=== PATIENT | female | born 1930 | race Caucasian/White ===

== ENCOUNTER 2016-10-30 02:23 | Inpatient (IN) | payer MEDICARE, MEDICAID ==
[2016-10-30] MEDS ORDERED: DILTIAZEM 125 MG in SODIUM CHLORIDE 0.9% 100 ML IV STA (02:51)
[2016-10-30] MEDS ORDERED: ALBUTEROL NEBULIZED 2.5 MG/3 ML INHALATION STA (02:57)
[2016-10-30 03:02] LABS: Anisocytosis Slight; Basophils % (A) 0 %; CH 24.7; CHCM 31.2; Eosinophils # (A) 0.2 k/uL (0-0.7); Eosinophils % (A) 3 %; HCT 34.3 % (34.0-46.0); HDW 2.86; HGB 10.8 gm/dL (11.4-16.0); Hypochromasia Moderate; Luc # (Auto) 0.14; Luc % (Auto) 2; Lymphocytes # (A) 0.7 k/uL (1.0-4.8); Lymphocytes % (A) 13 %; MCH 25.1 pg (25.0-35.0); MCHC 31.4 g/dL (31.0-37.0); MCV 79.8 fL (80.0-100.0); Mean Platelet Volume 6.6; Monocytes # (A) 0.3 k/uL (0-1.0); Monocytes % (A) 5 %; Neutrophils # (A) 4.3 k/uL (1.3-7.7); Neutrophils % (A) 77 %; RDW 16.4 % (11.5-15.5); WBC 5.6 k/uL (3.8-10.6); WBC (Perox) 5.98
[2016-10-30 03:12] LABS: INR 1.3 (<1.1); Partial Thromboplastin Time 28.1 sec (22.0-30.0); Prothrombin Time 12.8 sec (9.0-12.0)
[2016-10-30 03:14] LABS: ALT 31 U/L (9-52); AST 29 U/L (14-36); Alkaline Phosphatase 86 U/L (38-126); Anion Gap 10 mmol/L; Blood Urea Nitrogen 11 mg/dL (7-17); Calcium 9.2 mg/dL (8.4-10.2); Carbon Dioxide 21 mmol/L (22-30); Chloride 100 mmol/L (98-107); Glucose 146 mg/dL (74-99); Magnesium 1.5 mg/dL (1.6-2.3); Non-African American GFR(MDRD) >60 (>60 ml/min/1.73 sqM); Potassium 4.1 mmol/L (3.5-5.1); Sodium 131 mmol/L (137-145); Total Bilirubin 0.9 mg/dL (0.2-1.3); Total Protein 7.9 g/dL (6.3-8.2)
[2016-10-30 03:21] LABS: Creatine Kinase 32 U/L (30-135)
[2016-10-30 03:35] LABS: Creatine Kinase MB 0.7 ng/mL (0.0-2.4); Troponin I <0.012 ng/mL (0.000-0.034)
--- NOTE | 2016-10-30 03:59 | XR ---
EXAM: XR Chest, 1 View. CLINICAL HISTORY: Reason: dysrhythmia TECHNIQUE: Frontal view of the chest. COMPARISON: Chest x-ray 03/08/16 FINDINGS: Lungs: Bilateral interstitial prominence, likely mild pulmonary edema. Pleural space: No pleural effusion. No pneumothorax. Heart: Stable cardiomegaly. Left chest wall cardiac pacer appears stable. Mediastinum: Unremarkable. Bones/joints: Median sternotomy wires. IMPRESSION: Cardiomegaly with bilateral interstitial prominence, likely mild pulmonary edema.
[2016-10-30] MEDS ORDERED: MAGNESIUM SULFATE-D5W PMX 1 GM in DEXTROSE/WATER 1 100ML.BAG IVPB ONE (04:09)
[2016-10-30] MEDS ORDERED: FUROSEMIDE 10 MG/ML 4 ML VIAL IV STA ×2 (04:27→08:16)
[2016-10-30] MEDS ORDERED: ONDANSETRON 4 MG/2 ML VIAL IVP STA (04:28)
[2016-10-30] MEDS ORDERED: ALPRAZolam 0.25 MG TAB PO STA ×2 (05:02→05:03)
--- NOTE | 2016-10-30 05:56 | ED ---
SOB HPI - General Chief Complaint: Shortness of Breath Stated Complaint: SOB Time Seen by Provider: 10/30/16 02:32 Source: patient, EMS Mode of arrival: EMS - History of Present Illness Initial Comments: This patient is an 86-year-old woman who comes in to be evaluated after she became very short of breath. The symptoms started tonight while she was trying to sleep. She was awakened and felt her heart racing and that she could not catch her breath. She states that prior to going to sleep she felt for the most part well, though maybe had a mild cough. She denies chest pain, fever or chills, productive cough, change in urination, bloody or dark tarry stools. Patient has no leg pain or swelling. MD Complaint: shortness of breath Onset/Timin -: hour(s) Consistency: constant Improves With: nothing Worsens With: lying flat Known History Of: congestive heart failure - Related Data Home Medications Medication Instructions Recorded Confirmed Apixaban [Eliquis] 2.5 mg PO BID@0830,2030 01/26/14 10/30/16 Simvastatin 10 mg PO HS 01/26/14 10/30/16 Levothyroxine Sodium [Levoxyl] 112 mcg PO QAM 10/29/15 10/30/16 Multivit with Calcium,Iron,Min 1 tab PO HS 10/30/15 10/30/16 [Women's Daily Multivitamin] Previous Rx's Medication Instructions Recorded metFORMIN HCL [Glucophage] 1,000 mg PO AC-BID #60 tab 02/25/14 Acetaminophen Tab [Tylenol] 650 mg PO Q6HR PRN #0 tab 10/31/15 Magnesium 200 mg PO DAILY #7 tablet 02/27/16 ALPRAZolam [Xanax] 0.25 mg PO BID #60 tab 11/06/16 Diltiazem Oral [Cardizem*] 60 mg PO TID tab 11/06/16 Furosemide [Lasix] 40 mg PO DAILY tab 11/06/16 INSULIN LISPRO (humaLOG) [humaLOG 0 unit SQ ACHS vial 11/06/16 (formulary)] Ipratropium Nebulized [Atrovent 0.5 mg INHALATION RT-QID nebu 11/06/16 Nebulized] Lactulose [Cephulac] 15 gm PO BID ml 11/06/16 Levalbuterol Nebulized (Conc) 1.25 mg INHALATION RT-QID nebule 11/06/16 [Xopenex Nebulized (Conc)] Levofloxacin [Levaquin] 750 mg PO DAILY@1200 #5 tab 11/06/16 Metoprolol Tartrate [Lopressor] 25 mg PO DAILY tab 11/06/16 Potassium Chloride ER [K-Dur 20] 20 meq PO DAILY #30 tab 11/06/16 Promethaz-Cod 6.25-10 mg/5 ml 5 ml PO Q4H PRN 5 Days 11/06/16 [Phenergan with Codeine] predniSONE 0 mg PO DIRECTED #30 tab 11/06/16 Allergies Allergy/AdvReac Type Severity Reaction Status Date / Time Penicillins Allergy Swelling Verified 10/30/16 07:57 codeine AdvReac Nausea & Verified 11/03/16 08:28 Vomiting Review of Systems ROS Statement: Those systems with pertinent positive or pertinent negative responses have been documented in the HPI. ROS Other: All systems not noted in ROS Statement are negative. Constitutional: Denies: fever, chills Respiratory: Reports: cough, dyspnea. Denies: wheezes, hemoptysis Cardiovascular: Reports: palpitations, orthopnea. 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 Records say AICD, pt denies Past Psychological History: No Psychological Hx Reported Smoking Status: Never smoker Past Alcohol Use History: None Reported Past Drug Use History: None Reported - Past Family History Sister(s) Family Medical History: Cancer Father Additional Family Medical History / Comment(s): Tuberculosis-Dad General Exam General appearance: alert, in distress (Patient is in mild respiratory distress being mildly tachypneic) Head exam: Present: atraumatic, normocephalic Eye exam: Present: normal appearance. Absent: scleral icterus, conjunctival injection ENT exam: Present: normal oropharynx Neck exam: Present: normal inspection, full ROM Respiratory exam: Present: respiratory distress (Mild tachypnea), rales ( Bilateral bases). Absent: wheezes, rhonchi, stridor, accessory muscle use, decreased breath sounds, prolonged expiratory Cardiovascular Exam: Present: tachycardia, irregular rhythm, normal heart sounds. Absent: systolic murmur, diastolic murmur, rubs, gallop GI/Abdominal exam: Present: soft. Absent: distended, tenderness, guarding, rebound, mass Extremities exam: Present: normal inspection, normal capillary refill. Absent: pedal edema, calf tenderness Back exam: Present: normal inspection. Absent: CVA tenderness (R), CVA tenderness (L) Neurological exam: Present: alert Skin exam: Present: warm, dry, intact, normal color. Absent: rash, cyanosis, diaphoretic, erythema, petechiae, pallor, mottled Course Vital Signs 10/30/16 10/30/16 10/30/16 02:27 02:59 03:09 Temperature 98.3 F Pulse Rate 119 H 105 H 106 H Pulse Rate [ Pulse Oximetery ] Respiratory 24 Rate Blood Pressure 187/78 Blood Pressure [Right Arm] O2 Sat by Pulse 93 L Oximetry 10/30/16 10/30/16 10/30/16 03:24 04:32 05:07 Temperature Pulse Rate 105 H 96 101 H Pulse Rate [ Pulse Oximetery ] Respiratory 24 16 18 Rate Blood Pressure 187/78 135/62 103/66 Blood Pressure [Right Arm] O2 Sat by Pulse 96 94 L 96 Oximetry 10/30/16 10/30/16 10/30/16 06:00 07:04 08:00 Temperature 98.9 F Pulse Rate 92 94 Pulse Rate [ 104 H Pulse Oximetery ] Respiratory 20 16 24 Rate Blood Pressure 146/62 136/65 Blood Pressure [Right Arm] O2 Sat by Pulse 92 L 93 L Oximetry 10/30/16 08:25 Temperature 97.6 F Pulse Rate Pulse Rate [ 104 H Pulse Oximetery ] Respiratory 24 Rate Blood Pressure Blood Pressure 167/72 [Right Arm] O2 Sat by Pulse 92 L Oximetry Medical Decision Making - Lab Data Result diagrams: 11/06/16 07:05 11/06/16 07:05 Lab Results 10/30/16 10/30/16 10/30/16 Range/Units 02:35 02:35 02:35 WBC 5.6 (3.8-10.6) k/uL RBC 4.30 (3.80-5.40) m/uL Hgb 10.8 L (11.4-16.0) gm/dL Hct 34.3 (34.0-46.0) % MCV 79.8 L (80.0-100.0) fL MCH 25.1 (25.0-35.0) pg MCHC 31.4 (31.0-37.0) g/dL RDW 16.4 H (11.5-15.5) % Plt Count 124 L (150-450) k/uL Neutrophils % 77 % Lymphocytes % 13 % Monocytes % 5 % Eosinophils % 3 % Basophils % 0 % Neutrophils # 4.3 (1.3-7.7) k/uL Lymphocytes # 0.7 L (1.0-4.8) k/uL Monocytes # 0.3 (0-1.0) k/uL Eosinophils # 0.2 (0-0.7) k/uL Basophils # 0.0 (0-0.2) k/uL Hypochromasia Moderate Anisocytosis Slight PT (9.0-12.0) sec INR (<1.1) APTT (22.0-30.0) sec Sodium 131 L (137-145) mmol/L Potassium 4.1 (3.5-5.1) mmol/L Chloride 100 (98-107) mmol/L Carbon Dioxide 21 L (22-30) mmol/L Anion Gap 10 mmol/L BUN 11 (7-17) mg/dL Creatinine 0.50 L (0.52-1.04) mg/dL Est GFR (MDRD) Af Amer >60 (>60 ml/min/1.73 sqM) Est GFR (MDRD) Non-Af >60 (>60 ml/min/1.73 sqM) Glucose 146 H (74-99) mg/dL Calcium 9.2 (8.4-10.2) mg/dL Magnesium 1.5 L (1.6-2.3) mg/dL Total Bilirubin 0.9 (0.2-1.3) mg/dL AST 29 (14-36) U/L ALT 31 (9-52) U/L Alkaline Phosphatase 86 (38-126) U/L Total Creatine Kinase 32 (30-135) U/L CK-MB (CK-2) 0.7 (0.0-2.4) ng/mL CK-MB (CK-2) Rel Index 2.2 Troponin I <0.012 (0.000-0.034) ng/mL NT-Pro-B Natriuret Pep pg/mL Total Protein 7.9 (6.3-8.2) g/dL Albumin 4.2 (3.5-5.0) g/dL 10/30/16 10/30/16 Range/Units 02:35 02:35 WBC (3.8-10.6) k/uL RBC (3.80-5.40) m/uL Hgb (11.4-16.0) gm/dL Hct (34.0-46.0) % MCV (80.0-100.0) fL MCH (25.0-35.0) pg MCHC (31.0-37.0) g/dL RDW (11.5-15.5) % Plt Count (150-450) k/uL Neutrophils % % Lymphocytes % % Monocytes % % Eosinophils % % Basophils % % Neutrophils # (1.3-7.7) k/uL Lymphocytes # (1.0-4.8) k/uL Monocytes # (0-1.0) k/uL Eosinophils # (0-0.7) k/uL Basophils # (0-0.2) k/uL Hypochromasia Anisocytosis PT 12.8 H (9.0-12.0) sec INR 1.3 (<1.1) APTT 28.1 (22.0-30.0) sec Sodium (137-145) mmol/L Potassium (3.5-5.1) mmol/L Chloride (98-107) mmol/L Carbon Dioxide (22-30) mmol/L Anion Gap mmol/L BUN (7-17) mg/dL Creatinine (0.52-1.04) mg/dL Est GFR (MDRD) Af Amer (>60 ml/min/1.73 sqM) Est GFR (MDRD) Non-Af (>60 ml/min/1.73 sqM) Glucose (74-99) mg/dL Calcium (8.4-10.2) mg/dL Magnesium (1.6-2.3) mg/dL Total Bilirubin (0.2-1.3) mg/dL AST (14-36) U/L ALT (9-52) U/L Alkaline Phosphatase (38-126) U/L Total Creatine Kinase (30-135) U/L CK-MB (CK-2) (0.0-2.4) ng/mL CK-MB (CK-2) Rel Index Troponin I (0.000-0.034) ng/mL NT-Pro-B Natriuret Pep 1220 pg/mL Total Protein (6.3-8.2) g/dL Albumin (3.5-5.0) g/dL - EKG Data -: EKG Interpreted by Me EKG shows normal: axis (Normal), intervals (Normal), QRS complexes (There is a left anterior fascicular block) Rate: tachycardia Interpretation: other (Atrial fibrillation with a rate of approximately 109 bpm) Disposition Clinical Impression: Congestive heart failure, Atrial fibrillation with RVR Disposition: ADMITTED IP TO THIS [facility] Condition: Good
[2016-10-30] MEDS ORDERED: ONDANSETRON ODT 4 MG TAB PO PRN (05:57)
[2016-10-30] MEDS ORDERED: FUROSEMIDE 10 MG/ML 4 ML VIAL IV SCH ×2 (06:00→16:00)
[2016-10-30] MEDS: SODIUM CHLORIDE 0.9% 1,000 ML IV SCH (07:02)
[2016-10-30] MEDS ORDERED: IPRATROPIUM 0.5 MG/2.5 ML NEBU INHALATION PRN (08:16)
[2016-10-30] MEDS ORDERED: ALPRAZolam 0.5 MG TAB PO STA (08:17)
[2016-10-30] MEDS: APIXABAN 2.5 MG TABLET PO SCH ×2 (08:25→22:20)
[2016-10-30] MEDS: metFORMIN 500 MG TAB PO SCH ×2 (08:25→16:54)
[2016-10-30] MEDS: MAGNESIUM OXIDE 400 MG TAB PO SCH (08:25)
[2016-10-30] MEDS: LEVOTHYROXINE 112 MCG TAB PO SCH (08:25)
[2016-10-30] MEDS ORDERED: amLODIPine 2.5 MG TAB PO SCH (09:00)
[2016-10-30] MEDS ORDERED: DILTIAZEM ORAL 30 MG TAB PO SCH (09:00)
[2016-10-30] MEDS ORDERED: ASPIRIN 325 MG TAB PO SCH (09:00)
[2016-10-30] MEDS ORDERED: NON-FORMULARY DRUG (Magnesium [Magnesium] 200 MG) PO SCH (09:00)
[2016-10-30] MEDS: ACETAMINOPHEN TAB 325 MG TAB PO PRN (10:18)
[2016-10-30 10:25] LABS: Amorphous Sediment,Urine Rare /hpf; Appearance,Urine Clear (Clear); Bacteria,Urine Occasional /hpf; Bilirubin,Urine Negative (Negative); Glucose,Urine (UA) Negative (Negative); Ketones,Urine Negative (Negative); Leukocyte Esterase,Urine Small (Negative); Mucus,Urine Rare /hpf; Nitrite,Urine Positive (Negative); Particle Count 22241; Protein,Urine Negative (Negative); RBC,Urine 13 /hpf (0-5); Specific Gravity,Urine 1.005 (1.001-1.035); Squamous Epithelial Cell,Urine <1 /hpf (0-4); UA Billing (MACRO vs. MICRO) MICRO; Urobilinogen,Urine <2.0 mg/dL (<2.0); WBC,Urine 1 /hpf (0-5)
[2016-10-30 10:58] LABS: Glucose,Whole Blood 133 mg/dL (75-99)
[2016-10-30 11:29] LABS: Creatine Kinase MB 1.7 ng/mL (0.0-2.4); Troponin I 0.014 ng/mL (0.000-0.034)
[2016-10-30] MEDS ORDERED: LEVALBUTEROL NEB 0.31 MG/3 ML AMP INHALATION SCH (12:00)
--- NOTE | 2016-10-30 12:18 | ECHOF ---
Referral Reason:CHF MEASUREMENTS -------- HEIGHT: 172.7 cm WEIGHT: 77.1 kg BP: 136/65 RVIDd: 3.9 cm (< 3.3) IVSd: 1.1 cm (0.6 - 1.1) LVIDd: 3.9 cm (3.9 - 5.3) LVPWd: 1.4 cm (0.6 - 1.1) IVSs: 1.6 cm LVIDs: 2.4 cm LVPWs: 1.4 cm LAESV Index (A-L): 41.03 ml/m Ao Diam: 3.1 cm (2.0 - 3.7) AV Cusp: 1.9 cm (1.5 - 2.6) LA Diam: 4.3 cm (2.7 - 3.8) MV EXCURSION: 17.007 mm (> 18.000) MV EF SLOPE: 90 mm/s (70 - 150) EPSS: 0.9 cm AV maxP.93 mmHg AV meanP.58 mmHg RAP: 5.00 mmHg RVSP: 61.90 mmHg FINDINGS -------- Atrial fibrillation. This was a technically good study. There is mild concentric left ventricular hypertrophy. Overall left ventricular systolic function is normal with, an EF between 55 - 60 %. The right ventricle is moderately enlarged. LA is severely dilated >40 ml/m2 RA appears enlarged. Aortic valve is trileaflet and is mildly thickened. There is mild aortic stenosis present. Peak/mean gradient across the Aortic Valve is 16.93mmHg / 9.58mmHg. The mitral valve leaflets are mildly thickened. Mild mitral regurgitation is present. There is mild mitral valve prolapse , predominately a posteriorly directed jet. Severe tricuspid regurgitation present. There is moderate pulmonary hypertension. The right ventricular systolic pressure, as measured by Doppler, is 61.90mmHg. Pulmonic valve appears structurally normal. The aortic root size is normal. The pericardium is normal. CONCLUSIONS -------- 1. Atrial fibrillation. 2. Peak/mean gradient across the Aortic Valve is 16.93mmHg / 9.58mmHg. 3. The mitral valve leaflets are mildly thickened. 4. Mild mitral regurgitation is present. 5. There is mild mitral valve prolapse. 6. , predominately a posteriorly directed jet. 7. Severe tricuspid regurgitation present. 8. There is moderate pulmonary hypertension. 9. The right ventricular systolic pressure, as measured by Doppler, is 61.90mmHg. 10. Pulmonic valve appears structurally normal. 11. The aortic root size is normal. 12. This was a technically good study. 13. The pericardium is normal. 14. There is mild concentric left ventricular hypertrophy. 15. Overall left ventricular systolic function is normal with, an EF between 55 - 60 %. 16. The right ventricle is moderately enlarged. 17. LA is severely dilated >40 ml/m2 18. RA appears enlarged. 19. Aortic valve is trileaflet and is mildly thickened. 20. There is mild aortic stenosis present. [employer]: Katarina Mcguire RDCS
[2016-10-30] MEDS: IPRATROPIUM 0.5 MG/2.5 ML NEBU INHALATION SCH ×3 (12:24→19:57)
[2016-10-30] MEDS: LEVALBUTEROL NEB (CONC) 1.25 MG/0.5 ML AMP INHALATION SCH ×3 (12:24→19:57)
[2016-10-30 13:55] LABS: Glucose,Whole Blood 128 mg/dL (75-99)
[2016-10-30 15:57] LABS: Creatine Kinase MB 1.7 ng/mL (0.0-2.4)
[2016-10-30 16:00] LABS: Troponin I 0.084 ng/mL (0.000-0.034)
--- NOTE | 2016-10-30 16:09 | P.CNPUL ---
History of Present Illness Consult date: 10/30/16 Requesting physician: Katherin Land Reason for consult: dyspnea, cough Chief complaint: Shortness of breath and cough and palpitations History of present illness: This is an 86-year-old female with history of chronic atrial fibrillation, coronary artery disease, previous history of congestive heart failure, diabetes , hyperlipidemia, hypertension, and osteoarthritis. A shunt had previous coronary artery bypass surgery, previous cardiac catheterization, pacemaker insertion, and history of multiple orthopedic surgeries. Patient is usually maintained on anticoagulation therapy, statin therapy, blood pressure medication , and thyroid replacement therapy. Patient was recently admitted for knee pain , and she was eventually discharged to [facility]. On 10/30/2016, patient was seen in the ER with 1 day history of increased shortness of breath which started the night before patient was unable to sleep because of shortness of breath, she was awakened and felt her heart was racing. Could not catch her breath. She also had a mild cough. Upon evaluation and the ER, patient was found to have A. fib with RVR, and she was also noted to have mild congestive heart failure. Patient was initially admitted to extended care on the second floor, but as she was getting worse, and arrangements were made to transfer the patient to the ICU. Patient was placed on Lasix and and Cardizem, and over a period of few hours after arrival to the ICU, patient was feeling much better, breathing a lot easier. By the time I saw the patient, she denies shortness of breath, no cough no wheezing. No fever no chills no hemoptysis and no chest pain. Patient was placed on updrafts for underlying COPD she was also placed on Lasix 40 mg IV push every 8 hours, and her IV Cardizem which was earlier initiated but in the ER, has been switched to oral medication. Review of Systems 14 point review of systems were obtained, please refer to pertinent positives and negatives in HPI. Past Medical History Past Medical History: Atrial Fibrillation, Coronary Artery Disease (CAD), Heart Failure, CVA/TIA, Diabetes Mellitus, GI Bleed, Hyperlipidemia, Hypertension, Osteoarthritis (OA), Pneumonia, Thyroid Disorder Additional Past Medical History / Comment(s): Recurrent UTIs and past mild encephalopathy with UTI, multiple CVA/TIA, 2014 rectal bleed, diverticular dx, chronic anemia, small hiatal hernia, hypothyroid History of Any Multi-Drug Resistant Organisms: MRSA Date of last positivie culture/infection: 03/12/2014 MDRO Source:: Urine Past Surgical History: Cholecystectomy, Coronary Bypass/CABG, Heart Catheterization, Joint Replacement, Pacemaker Additional Past Surgical History / Comment(s): [employer], 2005 CABG X4, D&C, TOTAL RIGHT KNEE Past Anesthesia/Blood Transfusion Reactions: Postoperative Nausea & Vomiting ( PONV) Type of Cardiac Device: Permanent Pacemaker Device Placement Date:: 2010 Past Psychological History: No Psychological Hx Reported Additional Psychological History / Comment(s): Pt lives alone. She uses a walker to ambulate. She drives. Smoking Status: Never smoker Past Alcohol Use History: None Reported Past Drug Use History: None Reported - Past Family History Sister(s) Family Medical History: Cancer Father Family Medical History: Respiratory Disorder Additional Family Medical History / Comment(s): Tuberculosis-Dad Medications and Allergies Home Medications Medication Instructions Recorded Confirmed Type Apixaban [Eliquis] 2.5 mg PO BID@0830,2030 01/26/14 10/30/16 History Simvastatin 10 mg PO HS 01/26/14 10/30/16 History amLODIPine [Norvasc] 2.5 mg PO QAM 01/26/14 10/30/16 History Levothyroxine Sodium [Levoxyl] 112 mcg PO QAM 10/29/15 10/30/16 History Multivit with Calcium,Iron,Min 1 tab PO HS 10/30/15 10/30/16 History [Women's Daily Multivitamin] Diltiazem HCl 30 mg PO BID 10/30/16 10/30/16 History Allergies Allergy/AdvReac Type Severity Reaction Status Date / Time codeine Allergy Nausea & Verified 10/30/16 07:57 Vomiting Penicillins Allergy Swelling Verified 10/30/16 07:57 Physical Exam Vitals: Vital Signs Temp Pulse Pulse Resp BP BP Pulse Ox 10/30/16 15:37 85 10/30/16 15:26 83 10/30/16 14:27 76 25 H 10/30/16 14:20 83 25 H 110/55 94 L 10/30/16 14:10 79 27 H 110/55 95 10/30/16 14:00 82 26 H 110/55 95 10/30/16 13:50 91 110/55 94 L 10/30/16 13:40 88 10/30/16 13:36 98 F 91 25 H 110/56 93 L 10/30/16 11:10 98.6 F 104 H 22 133/63 93 L 10/30/16 08:25 97.6 F 104 H 24 167/72 92 L 10/30/16 08:00 104 H 24 10/30/16 07:04 98.9 F 94 16 136/65 93 L 10/30/16 06:00 92 20 146/62 92 L Intake and Output 10/30/16 10/30/16 10/30/16 06:59 14:59 22:59 Intake Total 15 Output Total 700 Balance -685 Intake: Intake, IV Titration 15 Amount Diltiazem 125 mg In 5 Sodium Chloride 0.9% 100 ml @ 10 MG/HR 10 mls/hr IV .[id number] STA Rx#: [id number] Sodium Chloride 0.9% 1, 10 000 ml @ 20 mls/hr IV . Q24H INDIO Rx#:[id number] Output: Urine 700 Other: Voiding Method Indwelling Catheter # Voids 1 Weight 80 kg Patient Weight 10/31/16 06:59 Weight 80 kg Physical Exam: Revealed an 86-year-old, in no distress. HEENT:[Neck is supple.] [No neck masses.] [No thyromegaly.] [No JVD.] Chest: [Clear throughout, positive crackles, and the bases, mostly at the right base. no rhonchi, no wheezes.] Cardiac Exam: [Irregular irregular rhythm Normal S1 and S2, no S3 gallop, 2/6 systolic murmur throughout the precordium] Abdomen: [Soft, nontender, no megaly, no rebound, no guarding, normal bowel sounds.] Extremities: [No clubbing, no edema, no cyanosis.] Neurological Exam: [No focal neurologic deficit.] Results - Laboratory Findings CBC and BMP: 10/30/16 02:35 10/30/16 02:35 PT/INR, D-dimer PT 12.8 sec (9.0-12.0) H 10/30/16 02:35 INR 1.3 (<1.1) 10/30/16 02:35 Abnormal lab findings: Abnormal Labs 10/30/16 10/30/16 10/30/16 10:00 10:10 10:54 POC Glucose (mg/dL) 133 H Plasma Lactic Acid Fred 3.3 H* Urine Nitrite Positive H Ur Leukocyte Esterase Small H Urine RBC 13 H Amorphous Sediment Rare H Urine Bacteria Occasional H Urine Mucus Rare H 10/30/16 13:53 POC Glucose (mg/dL) 128 H Plasma Lactic Acid Fred Urine Nitrite Ur Leukocyte Esterase Urine RBC Amorphous Sediment Urine Bacteria Urine Mucus - Diagnostic Findings Chest x-ray: image reviewed (Chest x-ray is suggestive of mild interstitial edema, possibility of underlying interstitial lung disease is not entirely ruled out but felt to be less likely. Chest x-ray was compared to a chest x- ray in 2015, there is clearly more interstitial edema findings on the present chest x-ray compared to old chest x-ray.) Assessment and Plan Plan: Impression: 1 shortness of breath secondary to acute congestive heart failure secondary to atrial fibrillation and RVR. 2 multiple comorbidities including essential hypertension, chronic atrial fibrillation, hypercholesterolemia, osteoarthritis, previous CABG, previous history of CVA, and underlying coronary artery disease. Recommendation: Patient seems to be responding well to the present treatment plan using diuretics, bronchodilators, and responding to the treatment of her arrhythmia. Patient will be monitored overnight in the ICU, and if she continues to do well and chest x-ray shows improvement in the next 24 hours, patient will be transferred to a monitored bed on selective. Time with Patient: Greater than 30
[2016-10-30] MEDS: METOPROLOL TARTRATE 25 MG TAB PO SCH (16:54)
[2016-10-30 18:28] LABS: Glucose,Whole Blood 155 mg/dL (75-99)
--- NOTE | 2016-10-30 21:02 | CONS ---
DATE OF CONSULTATION: This is an 86-year-old elderly lady who sees Dr. Mary Friedman in the outpatient setting. She has history of CAD, previous bypass surgery, chronic atrial fibrillation, hypertension, hyperlipidemia and type 2 diabetes mellitus. She presented to the hospital with increasing weakness, shortness of breath, and she felt her heart was racing fast. After arrival she was found to be in atrial fibrillation with a rapid ventricular rate. There was also a question of heart failure/interstitial pneumonia. There was a modest elevation of BNP; however, she was diuresed and admitted to the ICU. Her rate control is somewhat better. She is now on a Cardizem drip as well. She is resting comfortably without symptoms at the time of my evaluation. PAST MEDICAL HISTORY: 1. CAD with previous bypass surgery. 2. Hypertension. 3. Hyperlipidemia. 4. Type 2 diabetes mellitus. 5. Chronic atrial fibrillation, on a low dose of apixaban. This patient also has pulmonary hypertension of unclear etiology. Patient is not a smoker, does not use any alcohol. She has had a previous permanent pacemaker as well, the details of which are not available to me at this time. Medications at home include: 1. Apixaban 2.5 mg b.i.d. 2. Metformin. 3. Simvastatin. 4. Levothyroxine. 5. Diltiazem. 6. Aspirin 325 mg daily. 7. Levothyroxine 112 mcg daily. ALLERGIES: CODEINE and PENICILLIN. On examination, blood pressure is 108/60. Pulse rate is about 90, irregularly irregular. HEENT: Unremarkable. Fundus was not examined by me. Neck is supple. There is JVD of about 1 cm. There is no carotid bruit. Heart exam reveals S1, S2 with a short ejection systolic murmur that is audible at the base of the heart. Lungs reveal bilateral rhonchi with some fine rales over both bases. ABDOMEN: Soft, nontender. Lower extremities reveal diminished pulses. CENTRAL NERVOUS SYSTEM: Grossly no focal deficits, but there is generalized weakness noted. IMPRESSION: 1. Probable interstitial pneumonia. 2. Mild exacerbation of congestive heart failure; however, BNP is normal and echocardiogram revealed normal systolic function. Possibility of diastolic dysfunction should be considered. 3. Chronic atrial fibrillation with increased ventricular rate. 4. History of coronary artery disease with previous bypass surgery. RECOMMENDATIONS: I am recommending that we cut the Lasix down to 40 mg q.12 hours, decrease the aspirin to 81 mg daily, and I will give oral metoprolol tartrate 25 mg and see how she does. Patient is also being seen by Dr. Russell, and she is also being diuresed cautiously. Thank you very much for the consult.
--- NOTE | 2016-10-30 22:02 | P.HPIM ---
History of Present Illness H&P Date: 10/30/16 Chief Complaint: Shortness of breath palpitations Chief Complaint: left knee pain This is an 85-year-old female one of Dr. Conklin the previous medical history significant for CAD, A. fib, diabetes, neuropathy and multiple CVA who has also recurrent UTI and mild encephalopathy related to UTI in the past. She was well until one day prior to admission when the patient has shortness of breath, PND, murmur symptoms worsened at night time patient was having difficulty of breathing at night and fast heart beat, prior to this date she came home from a previous eye doctor appointment which was okay, patient denies any caffeine intake, except for T, she denies any alcohol intake, no recent changes by Dr. Babb, she denies any previous cardiology Dr. for maintenance of her medication pH is on chronic anticoagulation with eliquis. The emergency room she presented with atrial fibrillation with rapid ventricular rate, chest x-ray findings shows pulmonary edema. She was admitted secondary to the above complaints. She was initially seen during my evaluation on extended stay unit prior to her transfer to ICU. Her lactic acid is elevated no IV fluids were pushed lactic acidosis most likely secondary to metformin rather than other metabolic causes, patient's continue diuresis with 40 mg Lasix every 8 hours. Patient was seen consultation by Dr. Russell from critical care medicine, and cardiology. Review of Systems Constitutional: Reports as per HPI, Reports fatigue, Denies anorexia, Denies chills, Denies chronic headaches, Denies chronic pain, Denies daytime sleepiness , Denies fever, Denies lethargy, Denies malaise, Denies night sweats, Denies poor appetite, Denies sweats, Denies weakness, Denies weight gain, Denies weight loss Ears, nose, mouth and throat: Reports as per HPI, Denies ant. neck pain, Denies bleeding gums, Denies dental pain, Denies dysphagia, Denies epistaxis, Denies headache, Denies hoarseness, Denies mouth pain, Denies nasal congestion, Denies nasal discharge, Denies neck fullness/pressure, Denies neck lump, Denies nose pain, Denies odynophagia, Denies post-nasal drip, Denies sinus pain, Denies sinus pressure, Denies swelling in mouth, Denies swelling in throat, Denies sore throat, Denies vertigo, Denies voice changes Cardiovascular: Reports as per HPI, Reports dyspnea on exertion, Reports edema, Reports irregular heart beat, Reports palpitations Respiratory: Reports as per HPI, Reports cough Gastrointestinal: Reports as per HPI, Denies abdominal pain, Denies belching, Denies bloating, Denies BRBPR, Denies change in bowel habits, Denies coffee ground emesis, Denies constipation, Denies diarrhea, Denies dyspepsia, Denies early satiety, Denies excessive gas, Denies heartburn, Denies hematemesis, Denies hematochezia, Denies indigestion, Denies jaundice, Denies lactose intolerance, Denies loss of appetite, Denies melena, Denies nausea, Denies vomiting Genitourinary: Reports as per HPI, Denies abnormal vaginal bleeding, Denies decreased libido, Denies difficulty conceiving, Denies difficulty voiding, Denies dysmenorrhea, Denies dyspareunia, Denies dysuria, Denies flank pain, Denies genital sores, Denies hematuria, Denies hot flashes, Denies incomplete emptying, Denies kidney stones, Denies menorrhagia, Denies mixed incontinence, Denies nocturia, Denies pelvic pain, Denies post void dribbling, Denies , Denies prolapse symptoms, Denies stress incontinence, Denies urge incontinence , Denies urgency, Denies urinary frequency, Denies vaginal discharge, Denies vaginal dryness, Denies vaginal itching, Denies vaginal odor Menstruation: Reports as per HPI, Denies amenorrhea, Denies amenorrhea on BC, Denies currently menstrual, Denies cycle < 21 days, Denies cycle > 35 days, Denies cycle variable, Denies menses 1-7 days, Denies menses 8 or > days, Denies menses variable, Denies period heavy, Denies period light, Denies period normal, Denies period spotting, Denies post hysterectomy, Denies postmenopausal , Denies premenarcheal Musculoskeletal: Reports as per HPI, Denies arm numbness/tingling, Denies atrophy, Denies fractures, Denies frequent falls, Denies gait dysfunction, Denies hot joints, Denies leg numbness/tingling, Denies limitation of motion, Denies loss of height, Denies low back pain, Denies morning stiffness, Denies muscle cramps, Denies muscle weakness, Denies myalgias, Denies neck pain, Denies neck stiffness, Denies prior amputations, Denies redness of joints, Denies shooting arm pain, Denies shooting leg pain Integumentary: Reports as per HPI, Denies acne, Denies boils, Denies brittle nails, Denies change in hair/nails, Denies color changes, Denies darkening of skin, Denies depigmentation, Denies dryness, Denies foot/leg ulcers, Denies growths, Denies hirsutism, Denies lesions, Denies onychomycosis, Denies pruritus , Denies rash, Denies sores, Denies striae, Denies unusual bruising, Denies wounds Neurological: Reports as per HPI, Denies aphasia, Denies ataxia, Denies balance difficulties, Denies burning pain, Denies change in mentation, Denies change in smell/taste, Denies change in speech, Denies confusion, Denies convulsions, Denies double vision, Denies gait dysfunction, Denies head injury, Denies headaches, Denies hearing difficulties, Denies lack of coordination, Denies loss of vision, Denies memory loss, Denies migraines, Denies motor disturbance, Denies numbness, Denies paralysis, Denies paresthesias, Denies seizures, Denies sensory deficit, Denies spasticity, Denies syncope, Denies tic, Denies tingling , Denies transient paralysis, Denies tremors, Denies vertigo, Denies weakness, Denies visual changes Psychiatric: Reports as per HPI, Reports sleep disturbances Endocrine: Reports as per HPI, Denies cold intolerance, Denies deepening of the voice, Denies excessive sweating, Denies excessive thirst, Denies fatigue, Denies flushing, Denies heat intolerance, Denies high blood sugars, Denies increase in ring/shoe/hat size, Denies low blood sugars, Denies nocturia, Denies palpitations, Denies polydipsia, Denies polyphagia, Denies polyuria, Denies proptosis, Denies recent glucocorticoid use, Denies thyroid mass, Denies weight change Hematologic/Lymphatic: Reports as per HPI Allergic/Immunologic: Denies as per HPI, Denies allergic rhinitis, Denies anaphylaxis, Denies angioedema, Denies gluten intolerance, Denies persistent infections, Denies seasonal allergies, Denies urticaria, Denies wheezing Past Medical History Past Medical History: Atrial Fibrillation, Coronary Artery Disease (CAD), Heart Failure, CVA/TIA, Diabetes Mellitus, GI Bleed, Hyperlipidemia, Hypertension, Osteoarthritis (OA), Pneumonia, Thyroid Disorder Additional Past Medical History / Comment(s): Recurrent UTIs and past mild encephalopathy with UTI, multiple CVA/TIA, 2013 rectal bleed, diverticular dx, chronic anemia, small hiatal hernia, hypothyroid History of Any Multi-Drug Resistant Organisms: MRSA Date of last positivie culture/infection: 03/12/2014 MDRO Source:: Urine Past Surgical History: Cholecystectomy, Coronary Bypass/CABG, Heart Catheterization, Joint Replacement, Pacemaker Additional Past Surgical History / Comment(s): [employer], 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, D&C, TOTAL RIGHT KNEE Past Anesthesia/Blood Transfusion Reactions: Postoperative Nausea & Vomiting ( PONV) Type of Cardiac Device: Permanent Pacemaker Device Placement Date:: 2010 Past Psychological History: No Psychological Hx Reported Additional Psychological History / Comment(s): Pt lives alone. She uses a walker to ambulate. She drives. Smoking Status: Never smoker Past Alcohol Use History: None Reported Past Drug Use History: None Reported - Past Family History Sister(s) Family Medical History: Cancer Father Family Medical History: Respiratory Disorder Additional Family Medical History / Comment(s): Tuberculosis-Dad Medications and Allergies Home Medications Medication Instructions Recorded Confirmed Type Apixaban [Eliquis] 2.5 mg PO BID@0830,2030 01/26/14 10/30/16 History Simvastatin 10 mg PO HS 01/26/14 10/30/16 History amLODIPine [Norvasc] 2.5 mg PO QAM 01/26/14 10/30/16 History Levothyroxine Sodium [Levoxyl] 112 mcg PO QAM 10/29/15 10/30/16 History Multivit with Calcium,Iron,Min 1 tab PO HS 10/30/15 10/30/16 History [Women's Daily Multivitamin] Diltiazem HCl 30 mg PO BID 10/30/16 10/30/16 History Allergies Allergy/AdvReac Type Severity Reaction Status Date / Time codeine Allergy Nausea & Verified 10/30/16 07:57 Vomiting Penicillins Allergy Swelling Verified 10/30/16 07:57 Physical Exam Vitals: Vital Signs Temp Pulse Pulse Resp BP BP Pulse Ox 10/30/16 15:37 85 10/30/16 15:26 83 10/30/16 14:27 76 25 H 10/30/16 14:20 83 25 H 110/55 94 L 10/30/16 14:10 79 27 H 110/55 95 10/30/16 14:00 82 26 H 110/55 95 10/30/16 13:50 91 110/55 94 L 10/30/16 13:40 88 10/30/16 13:36 98 F 91 25 H 110/56 93 L 10/30/16 11:10 98.6 F 104 H 22 133/63 93 L 10/30/16 08:25 97.6 F 104 H 24 167/72 92 L 10/30/16 08:00 104 H 24 10/30/16 07:04 98.9 F 94 16 136/65 93 L 10/30/16 06:00 92 20 146/62 92 L Intake and Output 10/30/16 10/30/16 10/30/16 06:59 14:59 22:59 Intake Total 15 Output Total 700 Balance -685 Intake: Intake, IV Titration 15 Amount Diltiazem 125 mg In 5 Sodium Chloride 0.9% 100 ml @ 10 MG/HR 10 mls/hr IV .[id number] STA Rx#: [id number] Sodium Chloride 0.9% 1, 10 000 ml @ 20 mls/hr IV . Q24H INDIO Rx#:[id number] Output: Urine 700 Other: Voiding Method Indwelling Catheter # Voids 1 Weight 80 kg Patient Weight 10/31/16 06:59 Weight 80 kg - Constitutional General appearance: average body habitus, cooperative, no acute distress - EENT Eyes: anicteric sclerae, EOMI, PERRLA, dentition normal, normal appearance ENT: no hard of hearing, hearing grossly normal, NA/AT, normal oropharynx, no other, no pharyngeal erythema, no thrush, no tonsillar exudates, no tonsillar swelling - Neck Neck: no lymphadenopathy, normal ROM, no other, no rigidity, no stridor, no thyromegaly - Respiratory Respiratory: bilateral: CTA, negative: diminished, dullness, rales, rhonchi - Cardiovascular Rhythm: regular Heart sounds: normal: S1 Abnormal Heart Sounds: systolic murmur, no diastolic murmur, no rub, no S3 Gallop, no S4 Gallop, no click, no other - Gastrointestinal General gastrointestinal: no absent bowel sounds, no decreased bowel sounds, no distended, no hepatomegaly, no hyperactive bowel sounds, normal bowel sounds, no organomegaly, no rigid, no scaphoid, soft, no splenomegaly, no tenderness, no umbilical hernia, no ventral hernia - Integumentary Integumentary: decreased turgor, normal, normal turgor - Neurologic Neurologic: CNII-XII intact - Musculoskeletal Musculoskeletal: generalized weakness, strength equal bilaterally Results CBC & Chem 7: 10/30/16 02:35 10/30/16 02:35 Labs: Abnormal Lab Results - Last 24 Hours (Table) 10/30/16 10/30/16 10/30/16 Range/Units 10:00 10:10 10:54 POC Glucose (mg/dL) 133 H (75-99) mg/dL Plasma Lactic Acid Fred 3.3 H* (0.7-2.0) mmol/L Urine Nitrite Positive H (Negative) Ur Leukocyte Esterase Small H (Negative) Urine RBC 13 H (0-5) /hpf Amorphous Sediment Rare H (None) /hpf Urine Bacteria Occasional H (None) /hpf Urine Mucus Rare H (None) /hpf 10/30/16 Range/Units 13:53 POC Glucose (mg/dL) 128 H (75-99) mg/dL Plasma Lactic Acid Fred (0.7-2.0) mmol/L Urine Nitrite (Negative) Ur Leukocyte Esterase (Negative) Urine RBC (0-5) /hpf Amorphous Sediment (None) /hpf Urine Bacteria (None) /hpf Urine Mucus (None) /hpf Laboratory Results WBC 5.6 k/uL (3.8-10.6) 10/30/16 02:35 RBC 4.30 m/uL (3.80-5.40) 10/30/16 02:35 Hgb 10.8 gm/dL (11.4-16.0) L 10/30/16 02:35 Hct 34.3 % (34.0-46.0) 10/30/16 02:35 MCV 79.8 fL (80.0-100.0) L 10/30/16 02:35 MCH 25.1 pg (25.0-35.0) 10/30/16 02:35 MCHC 31.4 g/dL (31.0-37.0) 10/30/16 02:35 RDW 16.4 % (11.5-15.5) H 10/30/16 02:35 Plt Count 124 k/uL (150-450) L 10/30/16 02:35 Neutrophils % 77 % 10/30/16 02:35 Lymphocytes % 13 % 10/30/16 02:35 Monocytes % 5 % 10/30/16 02:35 Eosinophils % 3 % 10/30/16 02:35 Basophils % 0 % 10/30/16 02:35 Neutrophils # 4.3 k/uL (1.3-7.7) 10/30/16 02:35 Lymphocytes # 0.7 k/uL (1.0-4.8) L 10/30/16 02:35 Monocytes # 0.3 k/uL (0-1.0) 10/30/16 02:35 Eosinophils # 0.2 k/uL (0-0.7) 10/30/16 02:35 Basophils # 0.0 k/uL (0-0.2) 10/30/16 02:35 Hypochromasia Moderate 10/30/16 02:35 Anisocytosis Slight 10/30/16 02:35 PT 12.8 sec (9.0-12.0) H 10/30/16 02:35 INR 1.3 (<1.1) 10/30/16 02:35 APTT 28.1 sec (22.0-30.0) 10/30/16 02:35 Sodium 131 mmol/L (137-145) L 10/30/16 02:35 Potassium 4.1 mmol/L (3.5-5.1) 10/30/16 02:35 Chloride 100 mmol/L (98-107) 10/30/16 02:35 Carbon Dioxide 21 mmol/L (22-30) L 10/30/16 02:35 Anion Gap 10 mmol/L 10/30/16 02:35 BUN 11 mg/dL (7-17) 10/30/16 02:35 Creatinine 0.50 mg/dL (0.52-1.04) L 10/30/16 02:35 Est GFR (MDRD) Af Amer >60 (>60 ml/min/1.73 sqM) 10/30/16 02:35 Est GFR (MDRD) Non-Af >60 (>60 ml/min/1.73 sqM) 10/30/16 02:35 Glucose 146 mg/dL (74-99) H 10/30/16 02:35 POC Glucose (mg/dL) 155 mg/dL (75-99) H 10/30/16 18:24 POC Glu Tmd Teacher ID Jayashree Mistry 10/30/16 18:24 Plasma Lactic Acid Fred 3.4 mmol/L (0.7-2.0) H* 10/30/16 15:09 Calcium 9.2 mg/dL (8.4-10.2) 10/30/16 02:35 Magnesium 1.5 mg/dL (1.6-2.3) L 10/30/16 02:35 Total Bilirubin 0.9 mg/dL (0.2-1.3) 10/30/16 02:35 AST 29 U/L (14-36) 10/30/16 02:35 ALT 31 U/L (9-52) 10/30/16 02:35 Alkaline Phosphatase 86 U/L (38-126) 10/30/16 02:35 Total Creatine Kinase 32 U/L (30-135) 10/30/16 02:35 CK-MB (CK-2) 1.7 ng/mL (0.0-2.4) 10/30/16 15:09 CK-MB (CK-2) Rel Index 2.2 10/30/16 02:35 Troponin I 0.084 ng/mL (0.000-0.034) H* 10/30/16 15:09 NT-Pro-B Natriuret Pep 1220 pg/mL 10/30/16 02:35 Total Protein 7.9 g/dL (6.3-8.2) 10/30/16 02:35 Albumin 4.2 g/dL (3.5-5.0) 10/30/16 02:35 Urine Color Colorless 10/30/16 10:00 Urine Appearance Clear (Clear) 10/30/16 10:00 Urine pH 5.0 (5.0-8.0) 10/30/16 10:00 Ur Specific [place] 1.005 (1.001-1.035) 10/30/16 10:00 Urine Protein Negative (Negative) 10/30/16 10:00 Urine Glucose (UA) Negative (Negative) 10/30/16 10:00 Urine Ketones Negative (Negative) 10/30/16 10:00 Urine Blood Negative (Negative) 10/30/16 10:00 Urine Nitrite Positive (Negative) H 10/30/16 10:00 Urine Bilirubin Negative (Negative) 10/30/16 10:00 Urine Urobilinogen <2.0 mg/dL (<2.0) 10/30/16 10:00 Ur Leukocyte Esterase Small (Negative) H 10/30/16 10:00 Urine RBC 13 /hpf (0-5) H 10/30/16 10:00 Urine WBC 1 /hpf (0-5) 10/30/16 10:00 Ur Squamous Epith Cells <1 /hpf (0-4) 10/30/16 10:00 Amorphous Sediment Rare /hpf (None) H 10/30/16 10:00 Urine Bacteria Occasional /hpf (None) H 10/30/16 10:00 Urine Mucus Rare /hpf (None) H 10/30/16 10:00 Thrombosis Risk Factor Assmnt - DVT/VTE Prophylaxis DVT/VTE Prophylaxis: Pharmacologic Prophylaxis ordered, Mechanical Prophylaxis ordered - Choose All That Apply Any of the Below Risk Factors Present?: Yes Each Factor Represents 1 point: Heart failure (<1month), Obesity (BMI >25) Other Risk Factors: Yes Each Risk Factor Represents 3 Points: Age 75 years or older Other congenital or acquired thrombophilia - If yes, enter type in comment: No Thrombosis Risk Factor Assessment Total Risk Factor Score: 5 Thrombosis Risk Factor Assessment Level: High Risk Assessment and Plan Plan: 1. Atrial fibrillation with rapid ventricular rate with known history of chronic atrial fibrillation and long-term anticoagulation, patient currently is on Eliquis patient will be receiving IV Cardizem for rate regulation which was transitioned later tmost likely a preferred beta kian adjustments will be made by cardiology, patient is not on any beta kian prior to her current admission. Thyroid function test and echocardiogram will be obtained along with serial troponins . Cardiology will be following with further recommendations. Patient was admitted in ICU, critical care medicine Dr. Guevara will be seeing the patient 2. Paroxysmal nocturnal dyspnea suspect clinical diastolic CHF exacerbation, however her nt probnp is normal for age, patient is on diuretics 40 mg every 12 hours, echocardiogram as above 3. Hypertension. Continue Norvasc 2.5 mg daily, currently on IV Lasix and IV diltiazem 4. Hyperlipidemia. Continue Zocor 10 mg at bedtime. 5. Chronic atrial fibrillation. Continue eliquis 2.5 mg twice daily, Cardizem 30 mg twice daily. 6. Diabetes mellitus type 2. Continue metformin 1000 mg twice daily, Humalog scale before meals and at bedtime. 7. 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 Continue aspirin 325 mg daily , eliquis 2.5 mg twice daily, simvastatin 10 mg at bedtime. 8. Hypothyroidism. Continue levothyroxine 112 g daily. 8. Elevated lactic acid most likely secondary to metformin 10. Severe tricuspid regurgitation, and this will be monitored cardiology is following 11 Interstitial prominence as noted on x-ray, patient currently is on Rocephin however infectious infiltrate from pneumonia is not suspected by radiology, we would follow clinically 9. Long-term anticoagulation using Eliquis 10. CODE STATUS 11. Estimated length of stay 2 nights or more 12. DVT prophylaxis and 8 prophylaxis on maintenance eliquis,
[2016-10-30 22:18] LABS: Glucose,Whole Blood 133 mg/dL (75-99)
[2016-10-30] MEDS: ATORVASTATIN 10 MG TAB PO SCH (22:20)
[2016-10-30] MEDS: FUROSEMIDE 10 MG/ML 4 ML VIAL IV SCH (22:20)
[2016-10-30] MEDS: MULTIVITAMINS, THERA 1 EACH TAB PO SCH (22:20)
[2016-10-31] MEDS: SODIUM CHLORIDE 0.9% 1,000 ML IV SCH (05:10)
[2016-10-31] MEDS ORDERED: ASPIRIN 325 MG TAB PO SCH (05:55)
[2016-10-31 06:07] LABS: Anisocytosis Slight; Basophils % (A) 0 %; CH 23.9; CHCM 30.3; Eosinophils # (A) 0.1 k/uL (0-0.7); Eosinophils % (A) 1 %; HCT 32.4 % (34.0-46.0); HDW 2.82; HGB 10.3 gm/dL (11.4-16.0); Hypochromasia Marked; Luc # (Auto) 0.11; Luc % (Auto) 1; Lymphocytes # (A) 0.5 k/uL (1.0-4.8); Lymphocytes % (A) 5 %; MCH 25.2 pg (25.0-35.0); MCHC 31.8 g/dL (31.0-37.0); MCV 79.3 fL (80.0-100.0); Mean Platelet Volume 6.7; Monocytes # (A) 0.4 k/uL (0-1.0); Monocytes % (A) 5 %; Neutrophils # (A) 8.2 k/uL (1.3-7.7); Neutrophils % (A) 88 %; RBC 4.08 m/uL (3.80-5.40); RDW 16.2 % (11.5-15.5); WBC 9.4 k/uL (3.8-10.6); WBC (Perox) 9.74
[2016-10-31 06:14] LABS: Anion Gap 9 mmol/L; Blood Urea Nitrogen 17 mg/dL (7-17); Calcium 8.4 mg/dL (8.4-10.2); Carbon Dioxide 24 mmol/L (22-30); Chloride 98 mmol/L (98-107); Glucose 120 mg/dL (74-99); Magnesium 1.5 mg/dL (1.6-2.3); Non-African American GFR(MDRD) >60 (>60 ml/min/1.73 sqM); Potassium 3.8 mmol/L (3.5-5.1); Sodium 131 mmol/L (137-145)
[2016-10-31] MEDS: LEVOTHYROXINE 112 MCG TAB PO SCH (06:31)
[2016-10-31] MEDS: metFORMIN 500 MG TAB PO SCH ×2 (06:31→17:02)
[2016-10-31 06:40] LABS: Glucose,Whole Blood 132 mg/dL (75-99)
--- NOTE | 2016-10-31 07:12 | XR ---
EXAMINATION TYPE: XR chest 1V portable DATE OF EXAM: 10/31/2016 7:00 AM COMPARISON: 10/30/2016 HISTORY: Shortness of breath FINDINGS: Noted is pulmonary venous congestion with scattered infiltrates. There is also cardiomegaly and small effusions. Pacer device is in place. Sternotomy wires mediastinal clips noted. IMPRESSION: Findings compatible with progressive congestive failure. Infiltrates of other etiology are not exclu ded. Clinical correlation and progress studies are recommended.
[2016-10-31] MEDS: IPRATROPIUM 0.5 MG/2.5 ML NEBU INHALATION SCH ×4 (08:10→20:37)
[2016-10-31] MEDS: LEVALBUTEROL NEB (CONC) 1.25 MG/0.5 ML AMP INHALATION SCH ×4 (08:10→20:37)
[2016-10-31] MEDS: FUROSEMIDE 10 MG/ML 4 ML VIAL IV SCH (08:39)
[2016-10-31] MEDS: MAGNESIUM OXIDE 400 MG TAB PO SCH (08:39)
[2016-10-31] MEDS: METOPROLOL TARTRATE 25 MG TAB PO SCH (08:39)
[2016-10-31] MEDS: APIXABAN 2.5 MG TABLET PO SCH ×2 (08:39→20:18)
[2016-10-31] MEDS: ASPIRIN 81 MG CHEW PO SCH (08:40)
--- NOTE | 2016-10-31 12:00 | CT ---
EXAMINATION TYPE: CT chest wo con DATE OF EXAM: 10/31/2016 11:42 AM COMPARISON: 12/11/2014 HISTORY: Pt having Hemoptysis today. CT DLP: 424.8 mGycm, Automated exposure control for dose reduction was used. CONTRAST: Performed injected with 0 mL of Omnipaque 300. TECHNIQUE: Axial images were obtained at 5 mm thick sections. Reconstructed images are reviewed on [employer] computer in the coronal plane. FINDINGS: Portion of the thyroid visualized is normal. There are patchy infiltrates through the bilateral lung bases. Small bilateral pleural effusions are present. Patchy infiltrates are also present within the right middle lobe extending towards the right upper lobe. There are multiple enlarged lymph nodes present including a subcarinal lymph node measuring 2.1 cm, a right peribronchial lymph node measuring 2.5 cm. Multiple smaller pretracheal lymph nodes are prese nt. Some small lymph nodes are within the superior mediastinum. The largest measures approximately 1. 1 cm this region. The ascending aorta diameter at the level of the main pulmonary artery is 3.2 cm. The main pulmonary artery diameter at the bifurcation is 3.2 cm. The heart size is enlarged. Electron ic device overlies left chest. Sternotomy wires are present. Limited CT sections are obtained through the upper abdomen. Abdomen is essentially unremarkable. IMPRESSIONS: 1. Patchy infiltrates within the bilateral lung bases and within the right upper lobe. Correlate for an infectious etiology. Atypical forms of pneumonia could be considered. 2. Multiple enlarged mediastinal lymph nodes. 3. Cardiomegaly.
[2016-10-31 12:19] LABS: Glucose,Whole Blood 165 mg/dL (75-99)
--- NOTE | 2016-10-31 12:40 | P.PN ---
Subjective Principal diagnosis: Acute congestive heart failure and underlying pneumonia This is an 86-year-old female with history of chronic atrial fibrillation, coronary artery disease, previous history of congestive heart failure, diabetes , hyperlipidemia, hypertension, and osteoarthritis. A shunt had previous coronary artery bypass surgery, previous cardiac catheterization, pacemaker insertion, and history of multiple orthopedic surgeries. Patient is usually maintained on anticoagulation therapy, statin therapy, blood pressure medication , and thyroid replacement therapy. Patient was recently admitted for knee pain , and she was eventually discharged to [facility]. On 10/30/2016, patient was seen in the ER with 1 day history of increased shortness of breath which started the night before patient was unable to sleep because of shortness of breath, she was awakened and felt her heart was racing. Could not catch her breath. She also had a mild cough. Upon evaluation and the ER, patient was found to have A. fib with RVR, and she was also noted to have mild congestive heart failure. Patient was initially admitted to extended care on the second floor, but as she was getting worse, and arrangements were made to transfer the patient to the ICU. Patient was placed on Lasix and and Cardizem, and over a period of few hours after arrival to the ICU, patient was feeling much better, breathing a lot easier. By the time I saw the patient, she denies shortness of breath, no cough no wheezing. No fever no chills no hemoptysis and no chest pain. Patient was placed on updrafts for underlying COPD she was also placed on Lasix 40 mg IV push every 8 hours, and her IV Cardizem which was earlier initiated but in the ER, has been switched to oral medication. Patient was reevaluated today on , clinically she is feeling better, however her chest x-ray seems to be no different and I was able to go back to old x-rays were and she was found to have the same abnormality noted on a chest x-ray back about a year ago in 2016. However this was not present in 2014. Hence I recommended a CT of the chest to be done without contrast, and it is quite abnormal showing mediastinal and subcarinal lymphadenopathy is also showing significant airspace disease involving both lungs. Hence I have recommended broadening the spectrum of antibiotics coverage, added Solu-Medrol, cut down the Lasix to 40 mg IV push once daily, and the reason I'm keeping her on Lasix is the fact that she felt much better when she was diuresed initially upon transfer to the ICU. Patient was quite short of breath and dyspneic prior to Lasix given in the ICU. I would've even consider bronchoscopy on this patient however she is on anticoagulation therapy, and this is unlikely to be done in the next 24 hours. However next week if the patient does not show much improvement bronchoscopy may have to be considered. And aspiration of the anterior mediastinal node, should also be considered. I feel that lymphadenopathy is most likely reactive. But the possibility of underlying malignancy is definitely in the differential. I'm again surprised that the patient is feeling better with all the abnormal findings noted on the CT of the chest today. In summary, I will go ahead and broaden antibiotics coverage, add Solu-Medrol, seriously consider bronchoscopy and even transbronchial biopsy next week if there is no significant improvement. In the meantime I will go ahead and cut down the Lasix dose. Objective - Vital Signs Vital signs: Vital Signs Temp 97.0 F L 10/31/16 11:54 Pulse 92 10/31/16 12:01 Resp 18 10/31/16 11:54 BP 126/65 10/31/16 11:54 Pulse Ox 96 10/31/16 11:54 Intake & Output 10/30/16 10/31/16 10/31/16 18:59 06:59 18:59 Intake Total 55 300 200 Output Total 980 545 200 Balance -925 -245 0 Weight 80 kg 83.1 kg Intake: IV 30 60 0.9 30 60 Intake, IV Titration 25 Amount Diltiazem 125 mg In 15 Sodium Chloride 0.9% 100 ml @ 10 MG/HR 10 mls/hr IV .[id number] [facility] Rx#: [id number] Sodium Chloride 0.9% 1, 10 000 ml @ 20 mls/hr IV . Q24H [facility] Rx#:[id number] Oral 240 200 Output: Urine 980 545 200 Other: Voiding Method Indwelling Catheter Bedpan Bedpan # Voids 1 1 - Exam Physical Exam: Revealed an 86-year-old, in no distress. HEENT:[Neck is supple.] [No neck masses.] [No thyromegaly.] [No JVD.] Chest: [Clear throughout, positive crackles, and the bases, mostly at the right base. no rhonchi, no wheezes.] Cardiac Exam: [Irregular irregular rhythm Normal S1 and S2, no S3 gallop, 2/6 systolic murmur throughout the precordium] Abdomen: [Soft, nontender, no megaly, no rebound, no guarding, normal bowel sounds.] Extremities: [No clubbing, no edema, no cyanosis.] Neurological Exam: [No focal neurologic deficit.] - Labs CBC & Chem 7: 10/31/16 05:36 10/31/16 05:36 Labs: Abnormal Lab Results - Last 24 Hours (Table) 10/30/16 10/30/16 10/30/16 Range/Units 13:53 15:09 15:09 Hgb (11.4-16.0) gm/dL Hct (34.0-46.0) % MCV (80.0-100.0) fL RDW (11.5-15.5) % Plt Count (150-450) k/uL Neutrophils # (1.3-7.7) k/uL Lymphocytes # (1.0-4.8) k/uL Sodium (137-145) mmol/L Glucose (74-99) mg/dL POC Glucose (mg/dL) 128 H (75-99) mg/dL Plasma Lactic Acid Fred 3.4 H* (0.7-2.0) mmol/L Magnesium (1.6-2.3) mg/dL Troponin I 0.084 H* (0.000-0.034) ng/mL 10/30/16 10/30/16 10/31/16 Range/Units 18:24 21:58 05:36 Hgb (11.4-16.0) gm/dL Hct (34.0-46.0) % MCV (80.0-100.0) fL RDW (11.5-15.5) % Plt Count (150-450) k/uL Neutrophils # (1.3-7.7) k/uL Lymphocytes # (1.0-4.8) k/uL Sodium 131 L (137-145) mmol/L Glucose 120 H (74-99) mg/dL POC Glucose (mg/dL) 155 H 133 H (75-99) mg/dL Plasma Lactic Acid Fred (0.7-2.0) mmol/L Magnesium 1.5 L (1.6-2.3) mg/dL Troponin I (0.000-0.034) ng/mL 10/31/16 10/31/16 10/31/16 Range/Units 05:36 06:29 08:03 Hgb 10.3 L (11.4-16.0) gm/dL Hct 32.4 L (34.0-46.0) % MCV 79.3 L (80.0-100.0) fL RDW 16.2 H (11.5-15.5) % Plt Count 106 L (150-450) k/uL Neutrophils # 8.2 H (1.3-7.7) k/uL Lymphocytes # 0.5 L (1.0-4.8) k/uL Sodium (137-145) mmol/L Glucose (74-99) mg/dL POC Glucose (mg/dL) 132 H (75-99) mg/dL Plasma Lactic Acid Fred 2.1 H (0.7-2.0) mmol/L Magnesium (1.6-2.3) mg/dL Troponin I (0.000-0.034) ng/mL 10/31/16 Range/Units 12:17 Hgb (11.4-16.0) gm/dL Hct (34.0-46.0) % MCV (80.0-100.0) fL RDW (11.5-15.5) % Plt Count (150-450) k/uL Neutrophils # (1.3-7.7) k/uL Lymphocytes # (1.0-4.8) k/uL Sodium (137-145) mmol/L Glucose (74-99) mg/dL POC Glucose (mg/dL) 165 H (75-99) mg/dL Plasma Lactic Acid Fred (0.7-2.0) mmol/L Magnesium (1.6-2.3) mg/dL Troponin I (0.000-0.034) ng/mL Microbiology - Last 24 Hours (Table) 10/30/16 10:00 Urine Culture - Preliminary Urine,Clean Catch Assessment and Plan Plan: Impression: 1 shortness of breath secondary to acute congestive heart failure secondary to atrial fibrillation and RVR., And based on the CT of the chest, strongly suspect atypical type of pneumonia, hence I will recommend broadening antibiotics coverage, steroids, and also consider bronchoscopy early next week. Patient is presently on anticoagulation therapy, and if she doesn't improve over the next couple of days, may not even need to be bronchoscoped. The lymphadenopathy in the mediastinum could be reactive, however underlying malignancy is also in the differential. 2 multiple comorbidities including essential hypertension, chronic atrial fibrillation, hypercholesterolemia, osteoarthritis, previous CABG, previous history of CVA, and underlying coronary artery disease. Recommendation: Surprisingly, Patient seems to be improving with the present treatment plan using diuretics, bronchodilators, and responding to the treatment of her arrhythmia. Today I went ahead and after reviewing the CT of the chest recommending broadening the antibiotics coverage, Levaquin was added, Solu-Medrol was added, and cut down the Lasix to 40 mg daily instead of twice daily patient is not quite ready for discharge planning, depending on follow-up x-rays early next week, patient may or may not have to have bronchoscopy. Presently she is on anticoagulation therapy. Time with Patient: Less than 30
[2016-10-31] MEDS ORDERED: LEVOFLOXACIN 750MG-D5W PMX 750 MG in DEXTROSE/WATER 1 150ML.BAG IVPB SCH (13:00)
[2016-10-31 13:49] VITALS: BMI 27.8
--- NOTE | 2016-10-31 14:47 | P.PN ---
Subjective This is an 85-year-old female one of Dr. Conklin the previous medical history significant for CAD, A. fib, diabetes, neuropathy and multiple CVA who has also recurrent UTI and mild encephalopathy related to UTI in the past. She was well until one day prior to admission when the patient has shortness of breath, PND, murmur symptoms worsened at night time patient was having difficulty of breathing at night and fast heart beat, prior to this date she came home from a previous eye doctor appointment which was okay, patient denies any caffeine intake, except for T, she denies any alcohol intake, no recent changes by Dr. Babb, she denies any previous cardiology Dr. for maintenance of her medication pH is on chronic anticoagulation with eliquis. The emergency room she presented with atrial fibrillation with rapid ventricular rate, chest x-ray findings shows pulmonary edema. She was admitted secondary to the above complaints. She was initially seen during my evaluation on extended stay unit prior to her transfer to ICU. Her lactic acid is elevated no IV fluids were pushed lactic acidosis most likely secondary to metformin rather than other metabolic causes, patient's continue diuresis with 40 mg Lasix every 8 hours. Patient was seen consultation by Dr. Russell from critical care medicine, and cardiology. 10/31: Patient was noted to have streaky blood in her sputum. Cardiology plans to continue eliquis with recommendations for Lasix at 40 mg daily. IV fluids will be changed to saline lock and Levaquin changed to oral. She is also on ceftriaxone. Solu-Medrol is a 40 mg every 8 hours and will be decreased every 12 hours and start Medrol Dosepak tomorrow. Patient's breathing status is much improved and she is much less lethargic today. Objective - Vital Signs Vital signs: Vital Signs Temp 96.6 F L 10/31/16 08:00 Pulse 78 10/31/16 08:23 Resp 18 10/31/16 08:00 BP 119/66 10/31/16 08:00 Pulse Ox 97 10/31/16 08:00 Intake & Output 10/30/16 10/31/16 10/31/16 18:59 06:59 18:59 Intake Total 55 300 200 Output Total 980 545 200 Balance -925 -245 0 Weight 80 kg 83.1 kg Intake: IV 30 60 0.9 30 60 Intake, IV Titration 25 Amount Diltiazem 125 mg In 15 Sodium Chloride 0.9% 100 ml @ 10 MG/HR 10 mls/hr IV .[id number] [facility] Rx#: [id number] Sodium Chloride 0.9% 1, 10 000 ml @ 20 mls/hr IV . Q24H [facility] Rx#:[id number] Oral 240 200 Output: Urine 980 545 200 Other: Voiding Method Indwelling Catheter Bedpan Bedpan # Voids 1 - Exam General appearance: average body habitus, cooperative, no acute distress - EENT Eyes: anicteric sclerae, EOMI, PERRLA, dentition normal, normal appearance ENT: no hard of hearing, hearing grossly normal, NA/AT, normal oropharynx, no other, no pharyngeal erythema, no thrush, no tonsillar exudates, no tonsillar swelling - Neck Neck: no lymphadenopathy, normal ROM, no other, no rigidity, no stridor, no thyromegaly - Respiratory Respiratory: bilateral: CTA, negative: diminished, dullness, rales, rhonchi - Cardiovascular Rhythm: regular Heart sounds: normal: S1 Abnormal Heart Sounds: systolic murmur, no diastolic murmur, no rub, no S3 Gallop, no S4 Gallop, no click, no other - Gastrointestinal General gastrointestinal: no absent bowel sounds, no decreased bowel sounds, no distended, no hepatomegaly, no hyperactive bowel sounds, normal bowel sounds, no organomegaly, no rigid, no scaphoid, soft, no splenomegaly, no tenderness, no umbilical hernia, no ventral hernia - Integumentary Integumentary: decreased turgor, normal, normal turgor - Neurologic Neurologic: CNII-XII intact - Musculoskeletal Musculoskeletal: generalized weakness, strength equal bilaterally - Labs CBC & Chem 7: 10/31/16 05:36 10/31/16 05:36 Labs: Abnormal Lab Results - Last 24 Hours (Table) 10/30/16 10/30/16 10/30/16 Range/Units 10:00 10:10 10:54 Hgb (11.4-16.0) gm/dL Hct (34.0-46.0) % MCV (80.0-100.0) fL RDW (11.5-15.5) % Plt Count (150-450) k/uL Neutrophils # (1.3-7.7) k/uL Lymphocytes # (1.0-4.8) k/uL Sodium (137-145) mmol/L Glucose (74-99) mg/dL POC Glucose (mg/dL) 133 H (75-99) mg/dL Plasma Lactic Acid Fred 3.3 H* (0.7-2.0) mmol/L Magnesium (1.6-2.3) mg/dL Troponin I (0.000-0.034) ng/mL Urine Nitrite Positive H (Negative) Ur Leukocyte Esterase Small H (Negative) Urine RBC 13 H (0-5) /hpf Amorphous Sediment Rare H (None) /hpf Urine Bacteria Occasional H (None) /hpf Urine Mucus Rare H (None) /hpf 10/30/16 10/30/16 10/30/16 Range/Units 13:53 15:09 15:09 Hgb (11.4-16.0) gm/dL Hct (34.0-46.0) % MCV (80.0-100.0) fL RDW (11.5-15.5) % Plt Count (150-450) k/uL Neutrophils # (1.3-7.7) k/uL Lymphocytes # (1.0-4.8) k/uL Sodium (137-145) mmol/L Glucose (74-99) mg/dL POC Glucose (mg/dL) 128 H (75-99) mg/dL Plasma Lactic Acid Fred 3.4 H* (0.7-2.0) mmol/L Magnesium (1.6-2.3) mg/dL Troponin I 0.084 H* (0.000-0.034) ng/mL Urine Nitrite (Negative) Ur Leukocyte Esterase (Negative) Urine RBC (0-5) /hpf Amorphous Sediment (None) /hpf Urine Bacteria (None) /hpf Urine Mucus (None) /hpf 10/30/16 10/30/16 10/31/16 Range/Units 18:24 21:58 05:36 Hgb (11.4-16.0) gm/dL Hct (34.0-46.0) % MCV (80.0-100.0) fL RDW (11.5-15.5) % Plt Count (150-450) k/uL Neutrophils # (1.3-7.7) k/uL Lymphocytes # (1.0-4.8) k/uL Sodium 131 L (137-145) mmol/L Glucose 120 H (74-99) mg/dL POC Glucose (mg/dL) 155 H 133 H (75-99) mg/dL Plasma Lactic Acid Fred (0.7-2.0) mmol/L Magnesium 1.5 L (1.6-2.3) mg/dL Troponin I (0.000-0.034) ng/mL Urine Nitrite (Negative) Ur Leukocyte Esterase (Negative) Urine RBC (0-5) /hpf Amorphous Sediment (None) /hpf Urine Bacteria (None) /hpf Urine Mucus (None) /hpf 10/31/16 10/31/16 10/31/16 Range/Units 05:36 06:29 08:03 Hgb 10.3 L (11.4-16.0) gm/dL Hct 32.4 L (34.0-46.0) % MCV 79.3 L (80.0-100.0) fL RDW 16.2 H (11.5-15.5) % Plt Count 106 L (150-450) k/uL Neutrophils # 8.2 H (1.3-7.7) k/uL Lymphocytes # 0.5 L (1.0-4.8) k/uL Sodium (137-145) mmol/L Glucose (74-99) mg/dL POC Glucose (mg/dL) 132 H (75-99) mg/dL Plasma Lactic Acid Fred 2.1 H (0.7-2.0) mmol/L Magnesium (1.6-2.3) mg/dL Troponin I (0.000-0.034) ng/mL Urine Nitrite (Negative) Ur Leukocyte Esterase (Negative) Urine RBC (0-5) /hpf Amorphous Sediment (None) /hpf Urine Bacteria (None) /hpf Urine Mucus (None) /hpf Microbiology - Last 24 Hours (Table) 10/30/16 10:00 Urine Culture - Preliminary Urine,Clean Catch Assessment and Plan Plan: 1. Atrial fibrillation with rapid ventricular rate with known history of chronic atrial fibrillation and long-term anticoagulation, patient currently is on Eliquis. Continue Lopressor 25 mg daily. [facility] u[facility] consult appreciated. 2. Paroxysmal nocturnal dyspnea suspect clinical diastolic CHF exacerbation, however her nt probnp is normal for age, patient is on diuretics 40 mg every 12 hours, echocardiogram as above 3. Hypertension. Continue Norvasc 2.5 mg daily, currently on IV Lasix and IV diltiazem 4. Hyperlipidemia. Continue Zocor 10 mg at bedtime. 5. Chronic atrial fibrillation. Continue eliquis 2.5 mg twice daily, Cardizem 30 mg twice daily. 6. Diabetes mellitus type 2. Continue metformin 1000 mg twice daily, Humalog scale before meals and at bedtime. 7. 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 Continue aspirin 325 mg daily , eliquis 2.5 mg twice daily, simvastatin 10 mg at bedtime. 8. Hypothyroidism. Continue levothyroxine 112 g daily. 8. Elevated lactic acid most likely secondary to metformin 10. Severe tricuspid regurgitation, and this will be monitored cardiology is following 11 Interstitial prominence as noted on x-ray, patient currently is on Rocephin however infectious infiltrate from pneumonia is not suspected by radiology, we would follow clinically 9. Long-term anticoagulation using Eliquis 10. CODE STATUS 11. Estimated length of stay 2 nights or more 12. DVT prophylaxis and 8 prophylaxis on maintenance eliquis, Discharge plan: To be determined. Physical therapy on consult Impression and plan of care have been directed as dictated by the signing physician. Jess Romeo nurse practitioner acting as scribe for signing physician. Time with Patient: Greater than 30
--- NOTE | 2016-10-31 15:40 | P.PN ---
Subjective Principal diagnosis: Atrial fibrillation with rapid ventricular response This is an 86-year-old female with history of CAD and prior bypass surgery, diabetes, chronic persistent atrial fibrillation, hypertension, hyperlipidemia, diabetes, prior CVAs, who presented to the hospital with atrial fibrillation with rapid ventricular response. Her main symptoms were that of weakness, shortness of breath, and feeling her heart racing. She follows regularly with Dr. Degroot in the office. Patient also was found to have what appears to be interstitial pneumonia. BNP level only mildly abnormal, possibility of diastolic dysfunction. Patient's Lasix was adjusted yesterday, she was initiated on oral metoprolol tartrate. Noted today to have some blood streaking in her sputum. We will discontinue the IV Lasix today and put her on 40 mg daily of by mouth Lasix. Objective - Vital Signs Vital signs: Vital Signs Temp 97.0 F L 10/31/16 11:54 Pulse 92 10/31/16 12:01 Resp 18 10/31/16 11:54 BP 126/65 10/31/16 11:54 Pulse Ox 96 10/31/16 11:54 Intake & Output 10/30/16 10/31/16 10/31/16 18:59 06:59 18:59 Intake Total 55 300 820 Output Total 980 545 200 Balance -925 -245 620 Weight 80 kg 83.1 kg 83.1 kg Intake: IV 30 60 0.9 30 60 Intake, IV Titration 25 440 Amount Diltiazem 125 mg In 15 Sodium Chloride 0.9% 100 ml @ 10 MG/HR 10 mls/hr IV .[id number] [facility] Rx#: [id number] Levofloxacin 750Mg-D5w 150 Pmx 750 mg In Dextrose/ Water 1 150ml.bag @ 100 mls/hr IVPB Q24H [facility] Rx#: [id number] Sodium Chloride 0.9% 1, 10 240 000 ml @ 20 mls/hr IV . Q24H [facility] Rx#:[id number] cefTRIAXone 1,000 mg In 50 Sodium Chloride 0.9% 50 ml @ 100 mls/hr IVPB Q24HR [facility] Rx#:[id number] Oral 240 380 Output: Urine 980 545 200 Other: Voiding Method Indwelling Catheter Bedpan Bedpan # Voids 1 1 - Exam PHYSICAL EXAMINATION: HEENT: Head is atraumatic, normocephalic. Pupils equal, round. Neck is supple. There is no elevated jugular venous pressure. HEART EXAMINATION: Heart S1 and S2 irregularly irregular systolic ejection murmur is heard. CHEST EXAMINATION: Reveal fine crackles to bilateral bases. ABDOMEN: Soft, nontender. Bowel sounds are heard. No organomegaly noted. EXTREMITIES: 1+ peripheral pulses with no evidence of peripheral edema and no calf tenderness noted. NEUROLOGIC patient is awake, alert and oriented -3. . - Labs CBC & Chem 7: 10/31/16 05:36 10/31/16 05:36 Labs: Abnormal Lab Results - Last 24 Hours (Table) 10/30/16 10/30/16 10/30/16 Range/Units 15:09 15:09 18:24 Hgb (11.4-16.0) gm/dL Hct (34.0-46.0) % MCV (80.0-100.0) fL RDW (11.5-15.5) % Plt Count (150-450) k/uL Neutrophils # (1.3-7.7) k/uL Lymphocytes # (1.0-4.8) k/uL Sodium (137-145) mmol/L Glucose (74-99) mg/dL POC Glucose (mg/dL) 155 H (75-99) mg/dL Plasma Lactic Acid Fred 3.4 H* (0.7-2.0) mmol/L Magnesium (1.6-2.3) mg/dL Troponin I 0.084 H* (0.000-0.034) ng/mL 10/30/16 10/31/16 10/31/16 Range/Units 21:58 05:36 05:36 Hgb 10.3 L (11.4-16.0) gm/dL Hct 32.4 L (34.0-46.0) % MCV 79.3 L (80.0-100.0) fL RDW 16.2 H (11.5-15.5) % Plt Count 106 L (150-450) k/uL Neutrophils # 8.2 H (1.3-7.7) k/uL Lymphocytes # 0.5 L (1.0-4.8) k/uL Sodium 131 L (137-145) mmol/L Glucose 120 H (74-99) mg/dL POC Glucose (mg/dL) 133 H (75-99) mg/dL Plasma Lactic Acid Fred (0.7-2.0) mmol/L Magnesium 1.5 L (1.6-2.3) mg/dL Troponin I (0.000-0.034) ng/mL 10/31/16 10/31/16 10/31/16 Range/Units 06:29 08:03 12:17 Hgb (11.4-16.0) gm/dL Hct (34.0-46.0) % MCV (80.0-100.0) fL RDW (11.5-15.5) % Plt Count (150-450) k/uL Neutrophils # (1.3-7.7) k/uL Lymphocytes # (1.0-4.8) k/uL Sodium (137-145) mmol/L Glucose (74-99) mg/dL POC Glucose (mg/dL) 132 H 165 H (75-99) mg/dL Plasma Lactic Acid Fred 2.1 H (0.7-2.0) mmol/L Magnesium (1.6-2.3) mg/dL Troponin I (0.000-0.034) ng/mL Microbiology - Last 24 Hours (Table) 10/30/16 10:00 Urine Culture - Preliminary Urine,Clean Catch Gram Neg Bacilli 10/30/16 10:55 Blood Culture - Preliminary Blood No Growth after 24 hours 10/30/16 08:35 Blood Culture - Preliminary Blood No Growth after 24 hours Assessment and Plan (1) Chronic a-fib Status: Acute (2) HTN (hypertension) Status: Acute (3) Diastolic CHF, acute on chronic Status: Acute (4) Hyperlipemia Status: Acute (5) Hypothyroid Status: Acute (6) Tricuspid regurgitation Status: Acute (7) Interstitial pneumonitis Status: Acute Plan: From cardiology's perspective we will discontinue the IV Lasix and start patient on Lasix 40 mg by mouth daily. Continue other medications. DNP note has been reviewed, I agree with a documented findings and plan of care. Patient was seen and examined.
[2016-10-31] MEDS ORDERED: methylPREDNISolone SOD SUCCI 40 MG/ML 1 ML VIAL IV SCH (16:00)
[2016-10-31 16:55] LABS: Glucose,Whole Blood 162 mg/dL (75-99)
[2016-10-31] MEDS: INSULIN LISPRO (humaLOG) 300 UNIT/3 ML VIAL SQ SCH ×2 (17:10→21:06)
[2016-10-31 18:34] LABS: Hemoglobin A1C 6.4 % (4.2-6.1)
[2016-10-31] MEDS: ATORVASTATIN 10 MG TAB PO SCH (20:18)
[2016-10-31] MEDS: ALPRAZolam 0.5 MG TAB PO PRN (20:18)
[2016-10-31 20:56] LABS: Glucose,Whole Blood 115 mg/dL (75-99)
[2016-10-31] MEDS ORDERED: methylPREDNISolone SOD SUCCI 40 MG/ML 1 ML VIAL IV ONE (21:00)
[2016-10-31] MEDS: DILTIAZEM 125 MG in SODIUM CHLORIDE 0.9% 100 ML IV SCH (22:38)
[2016-11-01 06:15] LABS: Glucose,Whole Blood 223 mg/dL (75-99)
[2016-11-01] MEDS: metFORMIN 500 MG TAB PO SCH ×2 (06:39→16:24)
[2016-11-01] MEDS: LEVOTHYROXINE 112 MCG TAB PO SCH (06:39)
[2016-11-01] MEDS: INSULIN LISPRO (humaLOG) 300 UNIT/3 ML VIAL SQ SCH ×4 (06:41→21:47)
[2016-11-01 08:51] LABS: Anisocytosis Slight; Basophils % (A) 0 %; CH 24.3; CHCM 30.5; Eosinophils % (A) 0 %; HCT 32.2 % (34.0-46.0); HDW 2.76; HGB 10.3 gm/dL (11.4-16.0); Hypochromasia Moderate; Luc # (Auto) 0.04; Luc % (Auto) 1; Lymphocytes # (A) 0.3 k/uL (1.0-4.8); Lymphocytes % (A) 4 %; MCH 25.7 pg (25.0-35.0); MCV 80.1 fL (80.0-100.0); Mean Platelet Volume 7.8; Monocytes # (A) 0.2 k/uL (0-1.0); Monocytes % (A) 3 %; Neutrophils # (A) 6.8 k/uL (1.3-7.7); Neutrophils % (A) 93 %; RBC 4.02 m/uL (3.80-5.40); RDW 16.1 % (11.5-15.5); WBC 7.4 k/uL (3.8-10.6); WBC (Perox) 7.85
[2016-11-01] MEDS: ASPIRIN 81 MG CHEW PO SCH (08:53)
[2016-11-01] MEDS: MAGNESIUM OXIDE 400 MG TAB PO SCH (08:53)
[2016-11-01] MEDS: FUROSEMIDE 40 MG TAB PO SCH (08:54)
[2016-11-01] MEDS: METOPROLOL TARTRATE 25 MG TAB PO SCH (08:54)
[2016-11-01] MEDS: APIXABAN 2.5 MG TABLET PO SCH (08:54)
[2016-11-01] MEDS ORDERED: methylPREDNISolone 4 MG TAB TAPER PO SCH (09:00)
[2016-11-01] MEDS ORDERED: FUROSEMIDE 10 MG/ML 4 ML VIAL IV SCH (09:00)
[2016-11-01] MEDS: LEVALBUTEROL NEB (CONC) 1.25 MG/0.5 ML AMP INHALATION SCH ×4 (09:35→21:11)
[2016-11-01] MEDS: IPRATROPIUM 0.5 MG/2.5 ML NEBU INHALATION SCH ×4 (09:35→21:11)
[2016-11-01 10:02] LABS: Anion Gap 13 mmol/L; Blood Urea Nitrogen 17 mg/dL (7-17); Calcium 8.7 mg/dL (8.4-10.2); Carbon Dioxide 21 mmol/L (22-30); Chloride 93 mmol/L (98-107); Glucose 252 mg/dL (74-99); Non-African American GFR(MDRD) >60 (>60 ml/min/1.73 sqM); Potassium 4.2 mmol/L (3.5-5.1); Sodium 127 mmol/L (137-145)
[2016-11-01 11:52] LABS: Glucose,Whole Blood 271 mg/dL (75-99)
[2016-11-01] MEDS: DILTIAZEM ORAL 60 MG TAB PO SCH ×3 (12:07→21:45)
[2016-11-01] MEDS: LEVOFLOXACIN 750 MG TAB PO SCH (12:07)
[2016-11-01] MEDS: DILTIAZEM 125 MG in SODIUM CHLORIDE 0.9% 100 ML IV SCH (12:12)
--- NOTE | 2016-11-01 13:31 | P.PN ---
Subjective This is an 85-year-old female one of Dr. Conklin the previous medical history significant for CAD, A. fib, diabetes, neuropathy and multiple CVA who has also recurrent UTI and mild encephalopathy related to UTI in the past. She was well until one day prior to admission when the patient has shortness of breath, PND, murmur symptoms worsened at night time patient was having difficulty of breathing at night and fast heart beat, prior to this date she came home from a previous eye doctor appointment which was okay, patient denies any caffeine intake, except for T, she denies any alcohol intake, no recent changes by Dr. Babb, she denies any previous cardiology Dr. for maintenance of her medication pH is on chronic anticoagulation with eliquis. The emergency room she presented with atrial fibrillation with rapid ventricular rate, chest x-ray findings shows pulmonary edema. She was admitted secondary to the above complaints. She was initially seen during my evaluation on extended stay unit prior to her transfer to ICU. Her lactic acid is elevated no IV fluids were pushed lactic acidosis most likely secondary to metformin rather than other metabolic causes, patient's continue diuresis with 40 mg Lasix every 8 hours. Patient was seen consultation by Dr. Russell from critical care medicine, and cardiology. 10/31: Patient was noted to have streaky blood in her sputum. Cardiology plans to continue eliquis with recommendations for Lasix at 40 mg daily. IV fluids will be changed to saline lock and Levaquin changed to oral. She is also on ceftriaxone. Solu-Medrol is a 40 mg every 8 hours and will be decreased every 12 hours and start Medrol Dosepak tomorrow. Patient's breathing status is much improved and she is much less lethargic today. 11/01: Urine culture showing greater than 100,000 colonies of E. coli pansensitive. Sodium has dropped to 127. Hyperglycemia due to steroids. She is currently on Medrol Dosepak. Patient is complaining of continued hemoptysis and now maroon stools for which consult with GI added and Eliquis stopped. Patient is still on cardizem drip. She is currently is Afib in the 80s. Objective - Vital Signs Vital signs: Vital Signs Temp 97.8 F 11/01/16 08:58 Pulse 86 11/01/16 09:50 Resp 16 11/01/16 08:58 BP 133/65 11/01/16 08:58 Pulse Ox 97 11/01/16 08:58 Intake & Output 10/31/16 11/01/16 11/01/16 18:59 06:59 18:59 Intake Total 820 70 360 Output Total 200 Balance 620 70 360 Weight 83.1 kg 84.5 kg Intake: IV 70 0.9 70 Intake, IV Titration 440 Amount Levofloxacin 750Mg-D5w 150 Pmx 750 mg In Dextrose/ Water 1 150ml.bag @ 100 mls/hr IVPB Q24H [facility] Rx#: [id number] Sodium Chloride 0.9% 1, 240 000 ml @ 20 mls/hr IV . Q24H [facility] Rx#:[id number] cefTRIAXone 1,000 mg In 50 Sodium Chloride 0.9% 50 ml @ 100 mls/hr IVPB Q24HR [facility] Rx#:[id number] Oral 380 360 Output: Urine 200 Other: Voiding Method Diaper Toilet Toilet # Voids 1 - Exam General appearance: average body habitus, cooperative, no acute distress - EENT Eyes: anicteric sclerae, EOMI, PERRLA, dentition normal, normal appearance ENT: no hard of hearing, hearing grossly normal, NA/AT, normal oropharynx, no other, no pharyngeal erythema, no thrush, no tonsillar exudates, no tonsillar swelling - Neck Neck: no lymphadenopathy, normal ROM, no other, no rigidity, no stridor, no thyromegaly - Respiratory Respiratory: bilateral: CTA, negative: diminished, dullness, rales, rhonchi - Cardiovascular Rhythm: regular Heart sounds: normal: S1 Abnormal Heart Sounds: systolic murmur, no diastolic murmur, no rub, no S3 Gallop, no S4 Gallop, no click, no other - Gastrointestinal General gastrointestinal: no absent bowel sounds, no decreased bowel sounds, no distended, no hepatomegaly, no hyperactive bowel sounds, normal bowel sounds, no organomegaly, no rigid, no scaphoid, soft, no splenomegaly, no tenderness, no umbilical hernia, no ventral hernia - Integumentary Integumentary: decreased turgor, normal, normal turgor - Neurologic Neurologic: CNII-XII intact - Musculoskeletal Musculoskeletal: generalized weakness, strength equal bilaterally - Labs CBC & Chem 7: 11/01/16 08:07 11/01/16 08:07 Labs: Abnormal Lab Results - Last 24 Hours (Table) 10/31/16 10/31/16 10/31/16 Range/Units 05:36 12:17 16:54 Hgb (11.4-16.0) gm/dL Hct (34.0-46.0) % RDW (11.5-15.5) % Plt Count (150-450) k/uL Lymphocytes # (1.0-4.8) k/uL Sodium (137-145) mmol/L Chloride (98-107) mmol/L Carbon Dioxide (22-30) mmol/L Glucose (74-99) mg/dL POC Glucose (mg/dL) 165 H 162 H (75-99) mg/dL Hemoglobin A1c 6.4 H (4.2-6.1) % 10/31/16 11/01/16 11/01/16 Range/Units 20:40 06:05 08:07 Hgb 10.3 L (11.4-16.0) gm/dL Hct 32.2 L (34.0-46.0) % RDW 16.1 H (11.5-15.5) % Plt Count 110 L (150-450) k/uL Lymphocytes # 0.3 L (1.0-4.8) k/uL Sodium (137-145) mmol/L Chloride (98-107) mmol/L Carbon Dioxide (22-30) mmol/L Glucose (74-99) mg/dL POC Glucose (mg/dL) 115 H 223 H (75-99) mg/dL Hemoglobin A1c (4.2-6.1) % 11/01/16 Range/Units 08:07 Hgb (11.4-16.0) gm/dL Hct (34.0-46.0) % RDW (11.5-15.5) % Plt Count (150-450) k/uL Lymphocytes # (1.0-4.8) k/uL Sodium 127 L (137-145) mmol/L Chloride 93 L (98-107) mmol/L Carbon Dioxide 21 L (22-30) mmol/L Glucose 252 H (74-99) mg/dL POC Glucose (mg/dL) (75-99) mg/dL Hemoglobin A1c (4.2-6.1) % Microbiology - Last 24 Hours (Table) 10/30/16 10:00 Urine Culture - Final Urine,Clean Catch Escherichia coli 10/30/16 10:55 Blood Culture - Preliminary Blood No Growth after 24 hours 10/30/16 08:35 Blood Culture - Preliminary Blood No Growth after 24 hours Assessment and Plan Plan: 1. Atrial fibrillation with rapid ventricular rate with known history of chronic atrial fibrillation and long-term anticoagulation, patient currently is on Eliquis--hold. Continue Lopressor 25 mg daily. Cardiology consult appreciated. On cardisem drip. 2. Paroxysmal nocturnal dyspnea suspect clinical diastolic CHF exacerbation, however her nt probnp is normal for age, patient is on diuretics 40 mg every 12 hours, echocardiogram as above 3. Hypertension. Continue Norvasc 2.5 mg daily, currently on IV Lasix and IV diltiazem 4. Hyperlipidemia. Continue Zocor 10 mg at bedtime. 5. Chronic atrial fibrillation. Continue eliquis 2.5 mg twice daily, Cardizem 30 mg twice daily. 6. Diabetes mellitus type 2. Continue metformin 1000 mg twice daily, Humalog scale before meals and at bedtime. 7. 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 Continue aspirin 325 mg daily , eliquis 2.5 mg twice daily, simvastatin 10 mg at bedtime. 8. Hypothyroidism. Continue levothyroxine 112 g daily. 8. Elevated lactic acid most likely secondary to metformin 10. Severe tricuspid regurgitation, and this will be monitored cardiology is following 11 Interstitial prominence as noted on x-ray, patient currently is on Rocephin however infectious infiltrate from pneumonia is not suspected by radiology, we would follow clinically 9. Long-term anticoagulation using Eliquis 10. CODE STATUS 11. Estimated length of stay 2 nights or more 12. DVT prophylaxis. Mulugeta sol and SCDs. Eliquis on hold. 13. Hemoptysis and acute GI bleed. Eliquis stopped. GI consult. Recheck CBC. Discharge plan: To be determined. Physical therapy on consult Impression and plan of care have been directed as dictated by the signing physician. Jess Romeo nurse practitioner acting as scribe for signing physician. Time with Patient: Greater than 30
--- NOTE | 2016-11-01 15:18 | PN ---
This lady has history of CAD, previous bypass surgery, has been doing fairly well. However, she has had some blood in the stools and she is of advanced age and she is also a fall risk. I will discontinue Eliquis, place her on Cardizem 60 mg p.o. t.i.d., DC IV Cardizem, increase activity, and hopefully she can be discharged tomorrow. She is stable CAD, previous bypass surgery, atrial fibrillation, was on Eliquis 2.5 mg b.i.d. but I have discontinued this in view of her bleeding risk and evidence of active blood in the stool. PHYSICAL EXAM: There are no significant new findings. Vital signs are stable. S1, S2 heard normally. Short systolic murmur noted, irregular rhythm noted. Lungs reveal improved air entry. Abdomen and lower extremity exam is unchanged.
--- NOTE | 2016-11-01 15:46 | P.PN ---
Subjective Principal diagnosis: Acute congestive heart failure and underlying pneumonia This is an 86-year-old female with history of chronic atrial fibrillation, coronary artery disease, previous history of congestive heart failure, diabetes , hyperlipidemia, hypertension, and osteoarthritis. A shunt had previous coronary artery bypass surgery, previous cardiac catheterization, pacemaker insertion, and history of multiple orthopedic surgeries. Patient is usually maintained on anticoagulation therapy, statin therapy, blood pressure medication , and thyroid replacement therapy. Patient was recently admitted for knee pain , and she was eventually discharged to [facility]. On 10/30/2016, patient was seen in the ER with 1 day history of increased shortness of breath which started the night before patient was unable to sleep because of shortness of breath, she was awakened and felt her heart was racing. Could not catch her breath. She also had a mild cough. Upon evaluation and the ER, patient was found to have A. fib with RVR, and she was also noted to have mild congestive heart failure. Patient was initially admitted to extended care on the second floor, but as she was getting worse, and arrangements were made to transfer the patient to the ICU. Patient was placed on Lasix and and Cardizem, and over a period of few hours after arrival to the ICU, patient was feeling much better, breathing a lot easier. By the time I saw the patient, she denies shortness of breath, no cough no wheezing. No fever no chills no hemoptysis and no chest pain. Patient was placed on updrafts for underlying COPD she was also placed on Lasix 40 mg IV push every 8 hours, and her IV Cardizem which was earlier initiated but in the ER, has been switched to oral medication. Patient was reevaluated today on , clinically she is feeling better, however her chest x-ray seems to be no different and I was able to go back to old x-rays were and she was found to have the same abnormality noted on a chest x-ray back about a year ago in 2016. However this was not present in 2014. Hence I recommended a CT of the chest to be done without contrast, and it is quite abnormal showing mediastinal and subcarinal lymphadenopathy is also showing significant airspace disease involving both lungs. Hence I have recommended broadening the spectrum of antibiotics coverage, added Solu-Medrol, cut down the Lasix to 40 mg IV push once daily, and the reason I'm keeping her on Lasix is the fact that she felt much better when she was diuresed initially upon transfer to the ICU. Patient was quite short of breath and dyspneic prior to Lasix given in the ICU. I would've even consider bronchoscopy on this patient however she is on anticoagulation therapy, and this is unlikely to be done in the next 24 hours. However next week if the patient does not show much improvement bronchoscopy may have to be considered. And aspiration of the anterior mediastinal node, should also be considered. I feel that lymphadenopathy is most likely reactive. But the possibility of underlying malignancy is definitely in the differential. I'm again surprised that the patient is feeling better with all the abnormal findings noted on the CT of the chest today. In summary, I will go ahead and broaden antibiotics coverage, add Solu-Medrol, seriously consider bronchoscopy and even transbronchial biopsy next week if there is no significant improvement. In the meantime I will go ahead and cut down the Lasix dose. Patient was reevaluated today on 11/01/2016, surprisingly the patient is feeling much better, seems to be responding well to a combination of treatment including diuretics bronchodilators antibiotics and steroids. Less cough and less wheezing less shortness of breath. Her sputum is slightly blood-tinged according to her. Her eliquis is now on hold because of maroon colored stools and a GI consultation is pending. Hemoglobin is holding at 10.3. Sodium is down to 127. Again clinically the patient is feeling better, sugars are running high, but that's because she is on Solu-Medrol. Objective - Vital Signs Vital signs: Vital Signs Temp 97.7 F 11/01/16 12:00 Pulse 88 11/01/16 13:24 Resp 16 11/01/16 12:00 BP 120/65 11/01/16 12:00 Pulse Ox 92 L 11/01/16 13:24 Intake & Output 10/31/16 11/01/16 11/01/16 18:59 06:59 18:59 Intake Total 820 70 360 Output Total 200 Balance 620 70 360 Weight 83.1 kg 84.5 kg Intake: IV 70 0.9 70 Intake, IV Titration 440 Amount Levofloxacin 750Mg-D5w 150 Pmx 750 mg In Dextrose/ Water 1 150ml.bag @ 100 mls/hr IVPB Q24H [facility] Rx#: [id number] Sodium Chloride 0.9% 1, 240 000 ml @ 20 mls/hr IV . Q24H [facility] Rx#:[id number] cefTRIAXone 1,000 mg In 50 Sodium Chloride 0.9% 50 ml @ 100 mls/hr IVPB Q24HR [facility] Rx#:[id number] Oral 380 360 Output: Urine 200 Other: Voiding Method Diaper Toilet Toilet # Voids 1 - Exam Physical Exam: Revealed an 86-year-old, in no distress. HEENT:[Neck is supple.] [No neck masses.] [No thyromegaly.] [No JVD.] Chest: , positive crackles, and the bases, mostly at the right base. no rhonchi , no wheezes.] Cardiac Exam: [Irregular irregular rhythm Normal S1 and S2, no S3 gallop, 2/6 systolic murmur throughout the precordium] Abdomen: [Soft, nontender, no megaly, no rebound, no guarding, normal bowel sounds.] Extremities: [No clubbing, no edema, no cyanosis.] Neurological Exam: [No focal neurologic deficit.] - Labs CBC & Chem 7: 11/01/16 08:07 11/01/16 08:07 Labs: Abnormal Lab Results - Last 24 Hours (Table) 10/31/16 10/31/16 10/31/16 Range/Units 05:36 16:54 20:40 Hgb (11.4-16.0) gm/dL Hct (34.0-46.0) % RDW (11.5-15.5) % Plt Count (150-450) k/uL Lymphocytes # (1.0-4.8) k/uL Sodium (137-145) mmol/L Chloride (98-107) mmol/L Carbon Dioxide (22-30) mmol/L Glucose (74-99) mg/dL POC Glucose (mg/dL) 162 H 115 H (75-99) mg/dL Hemoglobin A1c 6.4 H (4.2-6.1) % 11/01/16 11/01/16 11/01/16 Range/Units 06:05 08:07 08:07 Hgb 10.3 L (11.4-16.0) gm/dL Hct 32.2 L (34.0-46.0) % RDW 16.1 H (11.5-15.5) % Plt Count 110 L (150-450) k/uL Lymphocytes # 0.3 L (1.0-4.8) k/uL Sodium 127 L (137-145) mmol/L Chloride 93 L (98-107) mmol/L Carbon Dioxide 21 L (22-30) mmol/L Glucose 252 H (74-99) mg/dL POC Glucose (mg/dL) 223 H (75-99) mg/dL Hemoglobin A1c (4.2-6.1) % 11/01/16 Range/Units 11:42 Hgb (11.4-16.0) gm/dL Hct (34.0-46.0) % RDW (11.5-15.5) % Plt Count (150-450) k/uL Lymphocytes # (1.0-4.8) k/uL Sodium (137-145) mmol/L Chloride (98-107) mmol/L Carbon Dioxide (22-30) mmol/L Glucose (74-99) mg/dL POC Glucose (mg/dL) 271 H (75-99) mg/dL Hemoglobin A1c (4.2-6.1) % Microbiology - Last 24 Hours (Table) 10/30/16 10:55 Blood Culture - Preliminary Blood No Growth after 48 hours 10/30/16 08:35 Blood Culture - Preliminary Blood No Growth after 48 hours 10/30/16 10:00 Urine Culture - Final Urine,Clean Catch Escherichia coli Assessment and Plan Plan: Impression: 1 shortness of breath secondary to acute congestive heart failure secondary to atrial fibrillation and RVR., And based on the CT of the chest, strongly suspect atypical type of pneumonia, hence I will recommend broadening antibiotics coverage, steroids, and also consider bronchoscopy early next week. Patient is presently on anticoagulation therapy, and if she doesn't improve over the next couple of days, may not even need to be bronchoscoped. The lymphadenopathy in the mediastinum could be reactive, however underlying malignancy is also in the differential. 2 multiple comorbidities including essential hypertension, chronic atrial fibrillation, hypercholesterolemia, osteoarthritis, previous CABG, previous history of CVA, and underlying coronary artery disease. Recommendation: Surprisingly, Patient seems to be improving with the present treatment plan using diuretics, bronchodilators, and responding to the treatment of her arrhythmia. Continue present treatment plan, not quite ready for discharge planning, plan to repeat her chest x-ray on Friday in a.m. Time with Patient: Less than 30
[2016-11-01] MEDS: predniSONE 10 MG TAB PO SCH (16:24)
[2016-11-01 16:44] LABS: Glucose,Whole Blood 201 mg/dL (75-99)
--- NOTE | 2016-11-01 17:20 | CONS ---
DATE OF CONSULTATION: 11/01/2016 REASON FOR CONSULTATION: Rectal bleeding and hemoptysis. HISTORY OF PRESENT ILLNESS: The patient is an 86-year-old pleasant lady with past medical history of coronary artery disease, congestive heart failure, diabetes mellitus, hypertension, hyperlipidemia, and CVA in the past who was admitted to the hospital because of shortness of breath and some hemoptysis. Apparently she started having some cough on Friday morning and spit up a small amount of blood and mucus ( ). Around the same time she also was complaining of some abdominal discomfort. She came into the emergency room. She was subsequently diagnosed with atrial fibrillation with rapid ventricular heart rate. The patient has been on Eliquis for many years because of prior history of CVA. This morning she had a bowel movement and there was small amount of blood while she was wiping, and hence we are consulted in regards to this issue. The patient, however, denies any rectal bleeding or melena. Prior to the hospitalization she did not have any GI symptoms; in fact, a stool for Hemoccult was done which was reported as negative. She is feeling better now. Her hemoptysis has resolved. Cough is improved. Overall she has no complaints today. Her past medical history is significant for: 1. Hypertension. 2. Hyperlipidemia. 3. CVA in the past. 4. Atrial fibrillation. 5. Diabetes mellitus. 6. Diabetic neuropathy. 7. Recurrent UTI. 8. History of coronary artery disease. 9. Hypothyroidism. PAST SURGICAL HISTORY: 1. Cholecystectomy. 2. CABG. 3. Cardiac catheterization. 4. Pacemaker. FAMILY HISTORY: Sister has some kind of cancer. Father had tuberculosis. Home medications include: 1. Eliquis. 2. Norvasc. 3. Levoxyl. 4. Multivitamin. 5. Diltiazem. 6. Simvastatin. ALLERGIES: NONE. SOCIAL HISTORY: No smoking. No alcohol use. REVIEW OF SYSTEMS: CARDIOPULMONARY: She denies any chest pain or shortness of breath. GENITOURINARY: No dysuria or hematuria. MUSCULOSKELETAL: Some back pain. NEUROLOGY: Unremarkable. PSYCHIATRIC: Unremarkable. ENT/VISION: Unremarkable. CONSTITUTIONAL: No recent weight loss. No fever, chills, night sweats. PHYSICAL EXAMINATION: Blood pressure is 120/65. Pulse is 70, temperature 97.7. HEENT EXAMINATION: Unremarkable. Conjunctivae pink. Sclerae anicteric. Oral cavity with no lesions. NECK: No JVD or lymph node enlargement. CHEST: Clear to auscultation. HEART: Regular rate and rhythm. ABDOMEN: Soft. Obese. Bowel sounds are positive. No organomegaly. EXTREMITIES: No pedal edema. SKIN: No rashes. NEURO: Alert and oriented x3. No focal deficits. LABS DONE AT THE TIME OF ADMISSION TO THE HOSPITAL: WBC 7.3, hemoglobin 10.3. Platelets are normal. Basic metabolic panel is within normal limits. IMPRESSION: 1. Rectal bleeding x1 today following a bowel movement. Since then she has not had any evidence of active ongoing bleeding. She has history of atrial fibrillation, on Eliquis and doing well. Stool for Hemoccult was reported as negative. Hemoglobin is stable at 10.3 g/dL. 2. Hemoptysis, probably related to acute bronchitis. Dr. Russell is following the patient closely. 3. History of coronary artery disease/congestive heart failure. RECOMMENDATIONS: Since the patient had only one small episode of rectal bleeding, I do not see a reason to stop any anticoagulation at the present time. Her hemoglobin remains stable. She can continue with her current medications. At this time I do not plan on any endoscopic intervention; however, I will follow her closely during her hospital stay. Thank you for this consultation.
[2016-11-01 21:03] LABS: Glucose,Whole Blood 185 mg/dL (75-99)
[2016-11-01] MEDS: ATORVASTATIN 10 MG TAB PO SCH (21:45)
[2016-11-01] MEDS: MULTIVITAMINS, THERA 1 EACH TAB PO SCH (21:45)
[2016-11-02] MEDS: ALPRAZolam 0.5 MG TAB PO PRN ×2 (00:22→23:36)
[2016-11-02 06:02] LABS: Anisocytosis Slight; CH 24.9; CHCM 31.6; HCT 31.9 % (34.0-46.0); HDW 2.79; HGB 10.1 gm/dL (11.4-16.0); Hypochromasia Slight; MCHC 31.5 g/dL (31.0-37.0); MCV 79.3 fL (80.0-100.0); Mean Platelet Volume 7.5; Microcytosis Slight; RBC 4.03 m/uL (3.80-5.40); RDW 16.4 % (11.5-15.5); WBC 9.3 k/uL (3.8-10.6)
[2016-11-02 06:18] LABS: Anion Gap 10 mmol/L; Blood Urea Nitrogen 25 mg/dL (7-17); Calcium 8.8 mg/dL (8.4-10.2); Carbon Dioxide 24 mmol/L (22-30); Chloride 89 mmol/L (98-107); Glucose 194 mg/dL (74-99); Non-African American GFR(MDRD) >60 (>60 ml/min/1.73 sqM); Potassium 4.5 mmol/L (3.5-5.1); Sodium 123 mmol/L (137-145)
[2016-11-02 06:21] LABS: Glucose,Whole Blood 212 mg/dL (75-99)
[2016-11-02] MEDS: INSULIN LISPRO (humaLOG) 300 UNIT/3 ML VIAL SQ SCH ×4 (06:24→21:05)
[2016-11-02] MEDS: LEVOTHYROXINE 112 MCG TAB PO SCH (06:25)
[2016-11-02] MEDS: metFORMIN 500 MG TAB PO SCH ×2 (06:30→16:57)
[2016-11-02] MEDS: IPRATROPIUM 0.5 MG/2.5 ML NEBU INHALATION SCH ×4 (07:05→20:22)
[2016-11-02] MEDS: LEVALBUTEROL NEB (CONC) 1.25 MG/0.5 ML AMP INHALATION SCH ×4 (07:05→20:22)
[2016-11-02] MEDS: FUROSEMIDE 40 MG TAB PO SCH (07:33)
[2016-11-02] MEDS: DILTIAZEM ORAL 60 MG TAB PO SCH ×3 (07:33→20:53)
[2016-11-02] MEDS: predniSONE 10 MG TAB PO SCH (07:33)
[2016-11-02] MEDS: METOPROLOL TARTRATE 25 MG TAB PO SCH (07:33)
[2016-11-02] MEDS: MAGNESIUM OXIDE 400 MG TAB PO SCH (07:33)
[2016-11-02] MEDS: ASPIRIN 81 MG CHEW PO SCH (07:34)
--- NOTE | 2016-11-02 09:57 | XR ---
EXAMINATION TYPE: XR chest 1V portable DATE OF EXAM: 11/02/2016 9:39 AM COMPARISON: Prior chest x-ray 31 October 2016 HISTORY: Congestive heart failure, pneumonia TECHNIQUE: Single frontal view of the chest is obtained. FINDINGS: Similar findings, patient is post median sternotomy, pacemaker is stable. Heart is enlarge d. Interstitium is increased. No pneumothorax or sizable pleural effusion. IMPRESSION: Findings compatible with congestive heart failure. Follow-up recommended.
--- NOTE | 2016-11-02 11:21 | P.PN ---
Subjective Principal diagnosis: Acute congestive heart failure and underlying pneumonia This is an 86-year-old female with history of chronic atrial fibrillation, coronary artery disease, previous history of congestive heart failure, diabetes , hyperlipidemia, hypertension, and osteoarthritis. A shunt had previous coronary artery bypass surgery, previous cardiac catheterization, pacemaker insertion, and history of multiple orthopedic surgeries. Patient is usually maintained on anticoagulation therapy, statin therapy, blood pressure medication , and thyroid replacement therapy. Patient was recently admitted for knee pain , and she was eventually discharged to [facility]. On 10/30/2016, patient was seen in the ER with 1 day history of increased shortness of breath which started the night before patient was unable to sleep because of shortness of breath, she was awakened and felt her heart was racing. Could not catch her breath. She also had a mild cough. Upon evaluation and the ER, patient was found to have A. fib with RVR, and she was also noted to have mild congestive heart failure. Patient was initially admitted to extended care on the second floor, but as she was getting worse, and arrangements were made to transfer the patient to the ICU. Patient was placed on Lasix and and Cardizem, and over a period of few hours after arrival to the ICU, patient was feeling much better, breathing a lot easier. By the time I saw the patient, she denies shortness of breath, no cough no wheezing. No fever no chills no hemoptysis and no chest pain. Patient was placed on updrafts for underlying COPD she was also placed on Lasix 40 mg IV push every 8 hours, and her IV Cardizem which was earlier initiated but in the ER, has been switched to oral medication. Patient was reevaluated today on , clinically she is feeling better, however her chest x-ray seems to be no different and I was able to go back to old x-rays were and she was found to have the same abnormality noted on a chest x-ray back about a year ago in 2016. However this was not present in 2014. Hence I recommended a CT of the chest to be done without contrast, and it is quite abnormal showing mediastinal and subcarinal lymphadenopathy is also showing significant airspace disease involving both lungs. Hence I have recommended broadening the spectrum of antibiotics coverage, added Solu-Medrol, cut down the Lasix to 40 mg IV push once daily, and the reason I'm keeping her on Lasix is the fact that she felt much better when she was diuresed initially upon transfer to the ICU. Patient was quite short of breath and dyspneic prior to Lasix given in the ICU. I would've even consider bronchoscopy on this patient however she is on anticoagulation therapy, and this is unlikely to be done in the next 24 hours. However next week if the patient does not show much improvement bronchoscopy may have to be considered. And aspiration of the anterior mediastinal node, should also be considered. I feel that lymphadenopathy is most likely reactive. But the possibility of underlying malignancy is definitely in the differential. I'm again surprised that the patient is feeling better with all the abnormal findings noted on the CT of the chest today. In summary, I will go ahead and broaden antibiotics coverage, add Solu-Medrol, seriously consider bronchoscopy and even transbronchial biopsy next week if there is no significant improvement. In the meantime I will go ahead and cut down the Lasix dose. Patient was reevaluated today on 11/01/2016, surprisingly the patient is feeling much better, seems to be responding well to a combination of treatment including diuretics bronchodilators antibiotics and steroids. Less cough and less wheezing less shortness of breath. Her sputum is slightly blood-tinged according to her. Her eliquis is now on hold because of maroon colored stools and a GI consultation is pending. Hemoglobin is holding at 10.3. Sodium is down to 127. Again clinically the patient is feeling better, sugars are running high, but that's because she is on Solu-Medrol. Reevaluated today on 11/02/2016, clinically the patient is feeling much better, breathing a lot easier, her lungs sound much better, however she seems to be developing hyponatremia which I believe is mostly secondary to hypovolemia. Patient has been on Lasix relatively high dose since admission, and I will go ahead and hydrate the patient cautiously with 0.9 normal saline at 50 mL per hour. May even consider cutting the dose of the Lasix by half. Renal profile is relatively normal, BUN is 25 creatinine is 0.70. Steroids allen, patient will need to be on prednisone burst and taper presently on 30 mg by mouth daily. Objective - Vital Signs Vital signs: Vital Signs Temp 97.7 F 11/02/16 07:46 Pulse 90 11/02/16 07:46 Resp 18 11/02/16 07:46 BP 130/62 11/02/16 07:46 Pulse Ox 95 11/02/16 07:46 Intake & Output 11/01/16 11/02/16 11/02/16 18:59 06:59 18:59 Intake Total 596 500 120 Balance 596 500 120 Weight 85.3 kg Intake: Oral 596 500 120 Other: Voiding Method Toilet Toilet Toilet # Voids 1 - Exam Physical Exam: Revealed an 86-year-old, in no distress. HEENT:[Neck is supple.] [No neck masses.] [No thyromegaly.] [No JVD.] Chest: , Minimal crackles at the bases, mostly at the right base. no rhonchi, no wheezes.] Cardiac Exam: [Irregular irregular rhythm Normal S1 and S2, no S3 gallop, 2/6 systolic murmur throughout the precordium] Abdomen: [Soft, nontender, no megaly, no rebound, no guarding, normal bowel sounds.] Extremities: [No clubbing, no edema, no cyanosis.] Neurological Exam: [No focal neurologic deficit.] - Labs CBC & Chem 7: 11/02/16 05:54 11/02/16 05:51 Labs: Abnormal Lab Results - Last 24 Hours (Table) 11/01/16 11/01/16 11/01/16 Range/Units 11:42 16:39 21:00 Hgb (11.4-16.0) gm/dL Hct (34.0-46.0) % MCV (80.0-100.0) fL RDW (11.5-15.5) % Plt Count (150-450) k/uL Sodium (137-145) mmol/L Chloride (98-107) mmol/L BUN (7-17) mg/dL Glucose (74-99) mg/dL POC Glucose (mg/dL) 271 H 201 H 185 H (75-99) mg/dL 11/02/16 11/02/16 11/02/16 Range/Units 05:51 05:54 06:18 Hgb 10.1 L (11.4-16.0) gm/dL Hct 31.9 L (34.0-46.0) % MCV 79.3 L (80.0-100.0) fL RDW 16.4 H (11.5-15.5) % Plt Count 114 L (150-450) k/uL Sodium 123 L (137-145) mmol/L Chloride 89 L (98-107) mmol/L BUN 25 H (7-17) mg/dL Glucose 194 H (74-99) mg/dL POC Glucose (mg/dL) 212 H (75-99) mg/dL Microbiology - Last 24 Hours (Table) 10/30/16 10:55 Blood Culture - Preliminary Blood No Growth after 48 hours 10/30/16 08:35 Blood Culture - Preliminary Blood No Growth after 48 hours 10/30/16 10:00 Urine Culture - Final Urine,Clean Catch Escherichia coli Assessment and Plan Plan: Impression: 1 shortness of breath secondary to acute congestive heart failure secondary to atrial fibrillation and RVR., And based on the CT of the chest, strongly suspect atypical type of pneumonia, hence I will recommend broadening antibiotics coverage, steroids, and also consider bronchoscopy early next week. Patient is presently on anticoagulation therapy, and if she doesn't improve over the next couple of days, may not even need to be bronchoscoped. The lymphadenopathy in the mediastinum could be reactive, however underlying malignancy is also in the differential. 2 multiple comorbidities including essential hypertension, chronic atrial fibrillation, hypercholesterolemia, osteoarthritis, previous CABG, previous history of CVA, and underlying coronary artery disease. 3 hypovolemic hyponatremia, hydrate the patient cautiously, recheck sodium in a.m. Recommendation: Surprisingly, Patient seems to be improving with the present treatment plan using diuretics, bronchodilators, and responding to the treatment of her arrhythmia. Continue present treatment plan, not quite ready for discharge planning, plan to repeat her chest x-ray on Friday in a.m. Time with Patient: Less than 30
[2016-11-02] MEDS: SODIUM CHLORIDE 0.9% 1,000 ML IV SCH (11:30)
[2016-11-02] MEDS: LEVOFLOXACIN 750 MG TAB PO SCH (11:38)
[2016-11-02] MEDS: ACETAMINOPHEN TAB 325 MG TAB PO PRN (11:38)
--- NOTE | 2016-11-02 11:40 | P.PN ---
Subjective Principal diagnosis: Atrial fibrillation with rapid ventricular response This is an 86-year-old female with history of CAD and prior bypass surgery, diabetes, chronic persistent atrial fibrillation, hypertension, hyperlipidemia, diabetes, prior CVAs, who presented to the hospital with atrial fibrillation with rapid ventricular response. Her main symptoms were that of weakness, shortness of breath, and feeling her heart racing. She follows regularly with Dr. Degroot in the office. Patient also was found to have what appears to be interstitial pneumonia. BNP level only mildly abnormal, possibility of diastolic dysfunction. Overall the patient states she's feeling better today. Chest x-ray shows congestive cardiac failure. Patient is scheduled to undergo bronchoscopy in the next couple of days by Dr. Bajwa. Objective - Vital Signs Vital signs: Vital Signs Temp 97.7 F 11/02/16 07:46 Pulse 80 11/02/16 11:27 Resp 18 11/02/16 07:46 BP 130/62 11/02/16 07:46 Pulse Ox 95 11/02/16 07:46 Intake & Output 11/01/16 11/02/16 11/02/16 18:59 06:59 18:59 Intake Total 596 500 120 Balance 596 500 120 Weight 85.3 kg Intake: Oral 596 500 120 Other: Voiding Method Toilet Toilet Toilet # Voids 1 - Exam PHYSICAL EXAMINATION: HEENT: Head is atraumatic, normocephalic. Pupils equal, round. Neck is supple. There is no elevated jugular venous pressure. HEART EXAMINATION: Heart S1 and S2 irregularly irregular systolic ejection murmur is heard. CHEST EXAMINATION: Reveal fine crackles to bilateral bases With expiratory wheezes. ABDOMEN: Soft, nontender. Bowel sounds are heard. No organomegaly noted. EXTREMITIES: 1+ peripheral pulses with no evidence of peripheral edema and no calf tenderness noted. NEUROLOGIC patient is awake, alert and oriented -3. . - Labs CBC & Chem 7: 11/02/16 05:54 11/02/16 05:51 Labs: Abnormal Lab Results - Last 24 Hours (Table) 11/01/16 11/01/16 11/01/16 Range/Units 11:42 16:39 21:00 Hgb (11.4-16.0) gm/dL Hct (34.0-46.0) % MCV (80.0-100.0) fL RDW (11.5-15.5) % Plt Count (150-450) k/uL Sodium (137-145) mmol/L Chloride (98-107) mmol/L BUN (7-17) mg/dL Glucose (74-99) mg/dL POC Glucose (mg/dL) 271 H 201 H 185 H (75-99) mg/dL 11/02/16 11/02/16 11/02/16 Range/Units 05:51 05:54 06:18 Hgb 10.1 L (11.4-16.0) gm/dL Hct 31.9 L (34.0-46.0) % MCV 79.3 L (80.0-100.0) fL RDW 16.4 H (11.5-15.5) % Plt Count 114 L (150-450) k/uL Sodium 123 L (137-145) mmol/L Chloride 89 L (98-107) mmol/L BUN 25 H (7-17) mg/dL Glucose 194 H (74-99) mg/dL POC Glucose (mg/dL) 212 H (75-99) mg/dL Microbiology - Last 24 Hours (Table) 10/30/16 10:55 Blood Culture - Preliminary Blood No Growth after 48 hours 10/30/16 08:35 Blood Culture - Preliminary Blood No Growth after 48 hours 10/30/16 10:00 Urine Culture - Final Urine,Clean Catch Escherichia coli Assessment and Plan (1) Chronic a-fib Status: Acute (2) HTN (hypertension) Status: Acute (3) Diastolic CHF, acute on chronic Status: Acute (4) Hyperlipemia Status: Acute (5) Hypothyroid Status: Acute (6) Tricuspid regurgitation Status: Acute (7) Interstitial pneumonitis Status: Acute Plan: From cardiology's perspective we'll recommend to continue the patient on her current medications. Her along with you now on an as-needed basis only, please don't hesitate to call with any questions. DNP note has been reviewed, I agree with a documented findings and plan of care. Patient was seen and examined.
[2016-11-02 11:46] LABS: Glucose,Whole Blood 200 mg/dL (75-99)
--- NOTE | 2016-11-02 11:52 | PN ---
INTERVAL HISTORY: Patient continued to have some blood and cough as she ( ). Patient is alert and oriented x3. Said that she has improved since admission, but still not quite back to normal. The patient is a resident of [facility]. PHYSICAL EXAMINATION: VITAL SIGNS: 97.7, 80, 18, 130/62 and saturation is 95% on room air. LUNGS: Diminished bilaterally. HEART: Normal S1, S2. ABDOMEN: Soft, no tenderness, positive bowel sounds in all 4 quadrants. LOWER EXTREMITY: No edema. PSYCH: Alert, and oriented x3. SKIN: No new rash. IMAGING AND LABS: CBC showed hemoglobin 10.1, platelets 114, normal white blood count. Chem-7 showed low sodium at 123, BUN and creatinine within acceptable range. Glucose fluctuating between 185 and 212. Blood cultures are pending negative. Chest x-ray this morning showed congestive heart failure picture. ASSESSMENT AND PLAN: 1. Hemoptysis. Dr. Russell is planning on doing bronchoscopy next week. We will have the final discussion and decision-making per patient and Dr. Russell. 2. Atrial fibrillation with rapid ventricular response. We are weaning off Cardizem drip. The patient seems to be improving. We will continue with the current regimen. Patient currently on Eliquis. 3. Hypertension, under fair control. 4. Diabetes type 2, under fair control. 5. Coronary artery disease. Will continue aspirin, statin and seems to be compensated. 6. Discharge planning based on clinical progress.
--- NOTE | 2016-11-02 14:02 | PN ---
DATE OF SERVICE: 11/02/2016 Patient is an 86-year-old pleasant lady admitted to the hospital with exacerbation of congestive heart failure/chronic bronchitis. We were consulted because she had an episode of rectal bleeding and some hemoptysis with his coffee-ground emesis. The patient is doing much better today. She had a bowel movement this morning, no further episodes of bleeding. She continues to have some cough but no hemoptysis noted. She never had any coffee-ground emesis. On physical examination, she appears comfortable in no apparent distress. Vital signs are stable. Blood pressure is 130/62, pulse rate 95, temperature 97. HEENT: Unremarkable. Conjunctivae are pink. Sclerae anicteric. Oral cavity, no lesions. NECK: No JVD or lymph node enlargement. Chest was clear to auscultation. HEART: Regular rate and rhythm. ABDOMEN: Soft. Bowel sounds are positive. No organomegaly. EXTREMITIES: No pedal edema. SKIN: No rashes. NEURO: Alert and oriented x3. No focal deficits. Labs from today: Hemoglobin is 10.1. IMPRESSION: 1. Rectal bleeding, one episode yesterday and so far does not have any recurrence. 2. History of atrial fibrillation on Eliquis. 3. Hemoptysis, probably related to bronchitis, which is resolving. RECOMMENDATIONS: 1. Continue with current treatment management plan. 2. No need for any endoscopic intervention at this time. 3. Will sign off. Please call us if needed. Thank you for this consultation.
[2016-11-02 16:48] LABS: Glucose,Whole Blood 213 mg/dL (75-99)
[2016-11-02] MEDS: MULTIVITAMINS, THERA 1 EACH TAB PO SCH (20:53)
[2016-11-02] MEDS: ATORVASTATIN 10 MG TAB PO SCH (20:53)
[2016-11-02 21:03] LABS: Glucose,Whole Blood 157 mg/dL (75-99)
[2016-11-03] MEDS: LEVALBUTEROL NEB (CONC) 1.25 MG/0.5 ML AMP INHALATION SCH ×5 (00:57→20:01)
[2016-11-03 06:20] LABS: Glucose,Whole Blood 173 mg/dL (75-99)
[2016-11-03 06:28] LABS: Anisocytosis Slight; CH 24.6; CHCM 31.6; HCT 31.7 % (34.0-46.0); HDW 2.79; HGB 10.3 gm/dL (11.4-16.0); Hypochromasia Slight; MCH 25.3 pg (25.0-35.0); MCHC 32.3 g/dL (31.0-37.0); MCV 78.3 fL (80.0-100.0); Mean Platelet Volume 6.8; Microcytosis Slight; RBC 4.05 m/uL (3.80-5.40); RDW 16.1 % (11.5-15.5); WBC 10.1 k/uL (3.8-10.6)
[2016-11-03] MEDS: INSULIN LISPRO (humaLOG) 300 UNIT/3 ML VIAL SQ SCH ×4 (06:43→21:28)
[2016-11-03] MEDS: metFORMIN 500 MG TAB PO SCH ×2 (06:43→16:57)
[2016-11-03] MEDS: LEVOTHYROXINE 112 MCG TAB PO SCH (06:44)
[2016-11-03] MEDS: SODIUM CHLORIDE 0.9% 1,000 ML IV SCH ×2 (06:47→09:31)
[2016-11-03 06:50] LABS: Anion Gap 10 mmol/L; Blood Urea Nitrogen 23 mg/dL (7-17); Calcium 8.8 mg/dL (8.4-10.2); Carbon Dioxide 23 mmol/L (22-30); Chloride 93 mmol/L (98-107); Glucose 158 mg/dL (74-99); Non-African American GFR(MDRD) >60 (>60 ml/min/1.73 sqM); Potassium 4.3 mmol/L (3.5-5.1); Sodium 126 mmol/L (137-145)
[2016-11-03] MEDS: IPRATROPIUM 0.5 MG/2.5 ML NEBU INHALATION SCH ×4 (07:48→20:01)
[2016-11-03] MEDS: FUROSEMIDE 40 MG TAB PO SCH (08:55)
[2016-11-03] MEDS: predniSONE 10 MG TAB PO SCH (08:56)
[2016-11-03] MEDS: DILTIAZEM ORAL 60 MG TAB PO SCH ×3 (08:56→21:28)
[2016-11-03] MEDS: ASPIRIN 81 MG CHEW PO SCH (08:56)
[2016-11-03] MEDS: METOPROLOL TARTRATE 25 MG TAB PO SCH (08:57)
[2016-11-03] MEDS: MAGNESIUM OXIDE 400 MG TAB PO SCH (08:57)
--- NOTE | 2016-11-03 10:43 | P.PN ---
Subjective Principal diagnosis: Acute congestive heart failure and underlying pneumonia This is an 86-year-old female with history of chronic atrial fibrillation, coronary artery disease, previous history of congestive heart failure, diabetes , hyperlipidemia, hypertension, and osteoarthritis. A shunt had previous coronary artery bypass surgery, previous cardiac catheterization, pacemaker insertion, and history of multiple orthopedic surgeries. Patient is usually maintained on anticoagulation therapy, statin therapy, blood pressure medication , and thyroid replacement therapy. Patient was recently admitted for knee pain , and she was eventually discharged to [facility]. On 10/30/2016, patient was seen in the ER with 1 day history of increased shortness of breath which started the night before patient was unable to sleep because of shortness of breath, she was awakened and felt her heart was racing. Could not catch her breath. She also had a mild cough. Upon evaluation and the ER, patient was found to have A. fib with RVR, and she was also noted to have mild congestive heart failure. Patient was initially admitted to extended care on the second floor, but as she was getting worse, and arrangements were made to transfer the patient to the ICU. Patient was placed on Lasix and and Cardizem, and over a period of few hours after arrival to the ICU, patient was feeling much better, breathing a lot easier. By the time I saw the patient, she denies shortness of breath, no cough no wheezing. No fever no chills no hemoptysis and no chest pain. Patient was placed on updrafts for underlying COPD she was also placed on Lasix 40 mg IV push every 8 hours, and her IV Cardizem which was earlier initiated but in the ER, has been switched to oral medication. Patient was reevaluated today on , clinically she is feeling better, however her chest x-ray seems to be no different and I was able to go back to old x-rays were and she was found to have the same abnormality noted on a chest x-ray back about a year ago in 2016. However this was not present in 2014. Hence I recommended a CT of the chest to be done without contrast, and it is quite abnormal showing mediastinal and subcarinal lymphadenopathy is also showing significant airspace disease involving both lungs. Hence I have recommended broadening the spectrum of antibiotics coverage, added Solu-Medrol, cut down the Lasix to 40 mg IV push once daily, and the reason I'm keeping her on Lasix is the fact that she felt much better when she was diuresed initially upon transfer to the ICU. Patient was quite short of breath and dyspneic prior to Lasix given in the ICU. I would've even consider bronchoscopy on this patient however she is on anticoagulation therapy, and this is unlikely to be done in the next 24 hours. However next week if the patient does not show much improvement bronchoscopy may have to be considered. And aspiration of the anterior mediastinal node, should also be considered. I feel that lymphadenopathy is most likely reactive. But the possibility of underlying malignancy is definitely in the differential. I'm again surprised that the patient is feeling better with all the abnormal findings noted on the CT of the chest today. In summary, I will go ahead and broaden antibiotics coverage, add Solu-Medrol, seriously consider bronchoscopy and even transbronchial biopsy next week if there is no significant improvement. In the meantime I will go ahead and cut down the Lasix dose. Patient was reevaluated today on 11/01/2016, surprisingly the patient is feeling much better, seems to be responding well to a combination of treatment including diuretics bronchodilators antibiotics and steroids. Less cough and less wheezing less shortness of breath. Her sputum is slightly blood-tinged according to her. Her eliquis is now on hold because of maroon colored stools and a GI consultation is pending. Hemoglobin is holding at 10.3. Sodium is down to 127. Again clinically the patient is feeling better, sugars are running high, but that's because she is on Solu-Medrol. Reevaluated today on 11/02/2016, clinically the patient is feeling much better, breathing a lot easier, her lungs sound much better, however she seems to be developing hyponatremia which I believe is mostly secondary to hypovolemia. Patient has been on Lasix relatively high dose since admission, and I will go ahead and hydrate the patient cautiously with 0.9 normal saline at 50 mL per hour. May even consider cutting the dose of the Lasix by half. Renal profile is relatively normal, BUN is 25 creatinine is 0.70. Steroids allen, patient will need to be on prednisone burst and taper presently on 30 mg by mouth daily. Patient was reevaluated today on 11/03/2016, seems to be coughing more this morning, she has ongoing dry hacking cough. Hence I went back and cut down her IV fluid to KVO, kept on diuretics, I went back and reviewed previous old x-rays , the findings seen on the chest x-ray on this admission are no different from the findings noted on a chest x-ray done in October of 2015, and another chest x- ray done in March of 2016. I believe the patient may have developed some component of interstitial lung disease, or atypical pneumonia, and she would likely benefit eventually from bronchoscopy and BAL. But even at transbronchial biopsy. However considering her age and her cardiac issues, she is definitely a relatively higher risk for such procedure. Again the chest x- ray from this admission is no different from done in the last one year. However in 2014, not this was noted. Objective - Vital Signs Vital signs: Vital Signs Temp 97.4 F L 11/03/16 08:00 Pulse 80 11/03/16 08:02 Resp 18 11/03/16 08:00 BP 136/59 11/03/16 08:00 Pulse Ox 100 11/03/16 08:00 Intake & Output 11/02/16 11/03/16 11/03/16 18:59 06:59 18:59 Intake Total 440 300 540 Balance 440 300 540 Weight 85 kg Intake: IV 300 300 Sodium Chloride 0.9% 1, 300 300 000 ml @ 50 mls/hr IV . Q20H [facility] Rx#:[id number] Oral 440 240 Other: Voiding Method Toilet Toilet Toilet # Voids 1 - Exam Physical Exam: Revealed an 86-year-old, in no distress. HEENT:[Neck is supple.] [No neck masses.] [No thyromegaly.] [No JVD.] Chest: , Minimal crackles at the bases, mostly at the right base. no rhonchi, no wheezes.] Cardiac Exam: [Irregular irregular rhythm Normal S1 and S2, no S3 gallop, 2/6 systolic murmur throughout the precordium] Abdomen: [Soft, nontender, no megaly, no rebound, no guarding, normal bowel sounds.] Extremities: [No clubbing, no edema, no cyanosis.] Neurological Exam: [No focal neurologic deficit.] - Labs CBC & Chem 7: 11/03/16 06:02 11/03/16 06:02 Labs: Abnormal Lab Results - Last 24 Hours (Table) 11/02/16 11/02/16 11/02/16 Range/Units 11:34 16:33 20:48 Hgb (11.4-16.0) gm/dL Hct (34.0-46.0) % MCV (80.0-100.0) fL RDW (11.5-15.5) % Plt Count (150-450) k/uL Sodium (137-145) mmol/L Chloride (98-107) mmol/L BUN (7-17) mg/dL Glucose (74-99) mg/dL POC Glucose (mg/dL) 200 H 213 H 157 H (75-99) mg/dL 11/03/16 11/03/16 11/03/16 Range/Units 06:02 06:02 06:19 Hgb 10.3 L (11.4-16.0) gm/dL Hct 31.7 L (34.0-46.0) % MCV 78.3 L (80.0-100.0) fL RDW 16.1 H (11.5-15.5) % Plt Count 149 L (150-450) k/uL Sodium 126 L (137-145) mmol/L Chloride 93 L (98-107) mmol/L BUN 23 H (7-17) mg/dL Glucose 158 H (74-99) mg/dL POC Glucose (mg/dL) 173 H (75-99) mg/dL Microbiology - Last 24 Hours (Table) 10/30/16 10:55 Blood Culture - Preliminary Blood No Growth after 72 hours 10/30/16 08:35 Blood Culture - Preliminary Blood No Growth after 72 hours Assessment and Plan Plan: Impression: 1 shortness of breath secondary to acute congestive heart failure secondary to atrial fibrillation and RVR., And based on the CT of the chest, strongly suspect atypical type of pneumonia, hence I will recommend broadening antibiotics coverage, steroids, and also consider bronchoscopy early next week. Patient is presently on anticoagulation therapy, and if she doesn't improve over the next couple of days, may not even need to be bronchoscoped. The lymphadenopathy in the mediastinum could be reactive, however underlying malignancy is also in the differential. Today, I reviewed again x-rays from 2016, and old x-rays from 2015, the ongoing interstitial process that is noted on the chest x-ray was even present in [place] of 2016. This is not a new finding , and has been present for quite some time. 2 multiple comorbidities including essential hypertension, chronic atrial fibrillation, hypercholesterolemia, osteoarthritis, previous CABG, previous history of CVA, and underlying coronary artery disease. 3 hypovolemic hyponatremia, hydrate the patient cautiously, recheck sodium in a.m. Recommendation: Patient seems to be improving with the present treatment plan using diuretics, bronchodilators, and responding to the treatment of her arrhythmia. Continue present treatment plan, not quite ready for discharge planning, plan to repeat her chest x-ray on Friday in a.m. Time with Patient: Less than 30
[2016-11-03 11:22] LABS: Glucose,Whole Blood 163 mg/dL (75-99)
--- NOTE | 2016-11-03 12:31 | PN ---
DATE OF SERVICE: 11/03/2016 INTERVAL HISTORY: Patient continues to have dry hacking cough. Patient states that it is making her chest hurt bilaterally on the side. Patient said no more blood and sputum. Patient was evaluated by Dr. Russell yesterday who told her that if she continues to be without hemoptysis, he might skip the bronchoscopy on Friday. The patient felt excited and wished she could go home early. PHYSICAL EXAMINATION: VITAL SIGNS: 97.4, 72, 18, 136/59, and saturation 100% on 2 liters nasal cannula. LUNGS: Coarse breathing sounds bilaterally. HEART: Normal S1, S2. ABDOMEN: Soft, no tenderness, positive bowel sounds in all 4 quadrants. SKIN: No new rash. PSYCH: Alert, and oriented x3. Imaging and labs: CBC showed stable and hemoglobin, normal otherwise. Chem-7 showed slight improvement in sodium to 126, chloride still 93, but improved from prior study. Blood cultures negative. ASSESSMENT AND PLAN: 1. Hyponatremia, improving. We will continue encouraging oral intake. 2. Hemoptysis, seems to be resolving, likely related to bronchitis versus pneumonia. Dr. Russell recommended to hold on bronchoscopy tomorrow until later on and re-evaluate the patient in the morning. 3. Air fibrillation with rapid ventricular response. Heart rate is improving. Patient off Cardizem drip and will continue with Eliquis for anticoagulation. 4. Hypertension, under fair control. 5. Coronary artery disease, seems to be compensated. 6. Discharge planning on Friday if patient continues to be hemodynamically stable. 7. Cough. We will prescribe Phenergan with codeine 1 tbs one every 4 hours. Patient said that she would like to try it as the cough is bothering her despite that codeine can make her nauseous.
[2016-11-03] MEDS: LEVOFLOXACIN 750 MG TAB PO SCH (12:34)
[2016-11-03] MEDS: ACETAMINOPHEN TAB 325 MG TAB PO PRN (12:36)
[2016-11-03] MEDS: PROMETHAZ-COD 6.25-10 MG/5 ML 5 ML CUP PO PRN ×3 (14:09→21:28)
[2016-11-03 16:48] LABS: Glucose,Whole Blood 215 mg/dL (75-99)
[2016-11-03 20:27] LABS: Glucose,Whole Blood 179 mg/dL (75-99)
[2016-11-03] MEDS: MULTIVITAMINS, THERA 1 EACH TAB PO SCH (21:28)
[2016-11-03] MEDS: ATORVASTATIN 10 MG TAB PO SCH (21:28)
[2016-11-04] MEDS: PROMETHAZ-COD 6.25-10 MG/5 ML 5 ML CUP PO PRN ×3 (04:21→21:12)
[2016-11-04 06:11] LABS: Glucose,Whole Blood 132 mg/dL (75-99)
[2016-11-04] MEDS: INSULIN LISPRO (humaLOG) 300 UNIT/3 ML VIAL SQ SCH ×4 (06:41→21:11)
[2016-11-04] MEDS: LEVOTHYROXINE 112 MCG TAB PO SCH (06:41)
[2016-11-04 06:43] LABS: Anisocytosis Slight; CH 24.8; HCT 31.1 % (34.0-46.0); HDW 2.99; HGB 10.1 gm/dL (11.4-16.0); Hypochromasia Slight; MCH 25.2 pg (25.0-35.0); MCHC 32.3 g/dL (31.0-37.0); MCV 77.8 fL (80.0-100.0); Mean Platelet Volume 6.5; Microcytosis Slight; RDW 16.1 % (11.5-15.5); WBC 5.5 k/uL (3.8-10.6)
[2016-11-04 07:14] LABS: Anion Gap 9 mmol/L; Blood Urea Nitrogen 18 mg/dL (7-17); Calcium 8.7 mg/dL (8.4-10.2); Carbon Dioxide 24 mmol/L (22-30); Chloride 97 mmol/L (98-107); Glucose 118 mg/dL (74-99); Non-African American GFR(MDRD) >60 (>60 ml/min/1.73 sqM); Potassium 4.5 mmol/L (3.5-5.1); Sodium 130 mmol/L (137-145)
[2016-11-04] MEDS: IPRATROPIUM 0.5 MG/2.5 ML NEBU INHALATION SCH ×4 (07:47→19:27)
[2016-11-04] MEDS: LEVALBUTEROL NEB (CONC) 1.25 MG/0.5 ML AMP INHALATION SCH ×4 (07:47→19:27)
--- NOTE | 2016-11-04 07:59 | XR ---
EXAMINATION TYPE: XR chest 1V portable DATE OF EXAM: 11/04/2016 6:38 AM Comparison: 11/02/2016 Clinical History: 86-year-old female shortness of breath, pneumonia/CHF Findings: Median sternotomy wires are present. Post-CABG clips in the mediastinum. Moderate cardiomegaly. Left anterior chest wall pacemaker generator with right ventricular lead. There is mild hyperinflation. In terstitial opacities persist but may be slightly more confluent at the right hilum. No significant pl eural effusion seen on the frontal view. Impression: 1. Moderate cardiomegaly with diffuse interstitial opacities. Correlate for CHF with pulmonary vascul ar congestion. 2. Opacity has become slightly more confluent at the right hilum and could represent developing edema or infiltrate.
[2016-11-04] MEDS: metFORMIN 500 MG TAB PO SCH ×2 (09:41→17:49)
[2016-11-04] MEDS: ASPIRIN 81 MG CHEW PO SCH (09:42)
[2016-11-04] MEDS: predniSONE 10 MG TAB PO SCH (09:42)
[2016-11-04] MEDS: MAGNESIUM OXIDE 400 MG TAB PO SCH (09:42)
[2016-11-04] MEDS: FUROSEMIDE 40 MG TAB PO SCH (09:42)
[2016-11-04] MEDS: DILTIAZEM ORAL 60 MG TAB PO SCH ×3 (09:42→21:11)
[2016-11-04] MEDS: METOPROLOL TARTRATE 25 MG TAB PO SCH (09:42)
[2016-11-04] MEDS: SODIUM CHLORIDE 0.9% 1,000 ML IV SCH (09:44)
--- NOTE | 2016-11-04 11:45 | P.PN ---
Subjective Progress note dated 11/04/2016 This is a 76-year-old female who was admitted with a diagnosis of CHF, atrial fibrillation with RVR As well as multiple other comorbidities including essential hypertension chronic atrial fibrillation hyperlipidemia osteoarthritis previous bypass grafting previous history of CVA underlying CAD. The patient seemed be doing relatively well. Feeling better. Less short of breath. The patient continues on diuretics and bronchodilators. Hopefully discharge planning the next day or 2. Objective - Vital Signs Vital signs: Vital Signs Temp 97.2 F L 11/04/16 08:00 Pulse 90 11/04/16 11:39 Resp 18 11/04/16 08:00 BP 122/56 11/04/16 08:00 Pulse Ox 91 L 11/04/16 08:00 Intake & Output 11/03/16 11/04/16 11/04/16 18:59 06:59 18:59 Intake Total 1180 240 Balance 1180 240 Weight 86 kg Intake: IV 300 240 Sodium Chloride 0.9% 1, 300 240 000 ml @ 20 mls/hr IV . Q24H INDIO Rx#:[id number] Intake, IV Titration 160 Amount Sodium Chloride 0.9% 1, 160 000 ml @ 20 mls/hr IV . Q24H INDIO Rx#:[id number] Oral 720 Other: Voiding Method Toilet Toilet Toilet # Voids 2 1 1 - Exam No acute distress, oriented 3. HEENT examination is grossly unremarkable. Mucous membranes are moist. No oral lesions. Neck supple. Full range of motion. No adenopathy or thyromegaly. Neck veins are flat. Cardiovascular examination reveals regular rhythm rate. S1-S2 normal. No S3- S4. This a soft systolic murmur noted. Lungs reveal bibasilar crackles. No wheezes or rhonchi. Not particularly restricted in her breathing. Abdomen soft bowel sounds are heard. No masses or tenderness. Extremities are intact. Minimal edema. No cyanosis or clubbing. Neurologic examination is brief but nonfocal. - Labs CBC & Chem 7: 11/04/16 06:05 11/04/16 06:05 Labs: Abnormal Lab Results - Last 24 Hours (Table) 11/03/16 11/03/16 11/04/16 Range/Units 16:42 20:25 06:05 Hgb 10.1 L (11.4-16.0) gm/dL Hct 31.1 L (34.0-46.0) % MCV 77.8 L (80.0-100.0) fL RDW 16.1 H (11.5-15.5) % Sodium (137-145) mmol/L Chloride (98-107) mmol/L BUN (7-17) mg/dL Glucose (74-99) mg/dL POC Glucose (mg/dL) 215 H 179 H (75-99) mg/dL 11/04/16 11/04/16 Range/Units 06:05 06:09 Hgb (11.4-16.0) gm/dL Hct (34.0-46.0) % MCV (80.0-100.0) fL RDW (11.5-15.5) % Sodium 130 L (137-145) mmol/L Chloride 97 L (98-107) mmol/L BUN 18 H (7-17) mg/dL Glucose 118 H (74-99) mg/dL POC Glucose (mg/dL) 132 H (75-99) mg/dL Microbiology - Last 24 Hours (Table) 10/30/16 10:55 Blood Culture - Preliminary Blood No Growth after 96 hours 10/30/16 08:35 Blood Culture - Preliminary Blood No Growth after 96 hours Assessment and Plan (1) Atrial fibrillation with RVR Status: Acute (2) Chronic a-fib Status: Acute (3) Congestive heart failure Status: Acute (4) Diastolic CHF, acute on chronic Status: Acute (5) HTN (hypertension) Status: Acute (6) Hyperlipemia Status: Acute (7) Interstitial pneumonitis Status: Acute (8) CVA (cerebral infarction) Status: Acute (9) Cerebral vascular disturbance Status: Acute (10) Diabetes Status: Acute (11) Hyperlipidemia Status: Acute (12) Hypertension Status: Acute (13) Hypothyroidism Status: Acute Plan: Plan dated 11/04/2016 Patient continues to improve. Responding well to diuretics oxygen and bronchodilators. Also treatment of her atrial fibrillation with RVR. The patient will likely be ready for discharge in next day or 2. Chest x-rays improved. We'll continue to follow. Prognosis is guarded given her age and multiple other medical comorbidities. Time with Patient: Less than 30
[2016-11-04 11:52] LABS: Glucose,Whole Blood 157 mg/dL (75-99)
[2016-11-04] MEDS: LEVOFLOXACIN 750 MG TAB PO SCH (12:35)
--- NOTE | 2016-11-04 13:44 | P.PN ---
Subjective This is an 85-year-old female one of Dr. Conklin the previous medical history significant for CAD, A. fib, diabetes, neuropathy and multiple CVA who has also recurrent UTI and mild encephalopathy related to UTI in the past. She was well until one day prior to admission when the patient has shortness of breath, PND, murmur symptoms worsened at night time patient was having difficulty of breathing at night and fast heart beat, prior to this date she came home from a previous eye doctor appointment which was okay, patient denies any caffeine intake, except for T, she denies any alcohol intake, no recent changes by Dr. Babb, she denies any previous cardiology Dr. for maintenance of her medication pH is on chronic anticoagulation with eliquis. The emergency room she presented with atrial fibrillation with rapid ventricular rate, chest x-ray findings shows pulmonary edema. She was admitted secondary to the above complaints. She was initially seen during my evaluation on extended stay unit prior to her transfer to ICU. Her lactic acid is elevated no IV fluids were pushed lactic acidosis most likely secondary to metformin rather than other metabolic causes, patient's continue diuresis with 40 mg Lasix every 8 hours. Patient was seen consultation by Dr. Russell from critical care medicine, and cardiology. 10/31: Patient was noted to have streaky blood in her sputum. Cardiology plans to continue eliquis with recommendations for Lasix at 40 mg daily. IV fluids will be changed to saline lock and Levaquin changed to oral. She is also on ceftriaxone. Solu-Medrol is a 40 mg every 8 hours and will be decreased every 12 hours and start Medrol Dosepak tomorrow. Patient's breathing status is much improved and she is much less lethargic today. 11/01: Urine culture showing greater than 100,000 colonies of E. coli pansensitive. Sodium has dropped to 127. Hyperglycemia due to steroids. She is currently on Medrol Dosepak. Patient is complaining of continued hemoptysis and now maroon stools for which consult with GI added and Eliquis stopped. Patient is still on cardizem drip. She is currently is Afib in the 80s. 11/04: Over the weekend, cardiology has signed off and following on an as-needed basis only. Patient has been evaluated related by Dr. Cami Parry with no need for endoscopy intervention at this time and she has signed off. Hemoptysis and rectal bleeding have improved. Dr. Russell has followed over the weekend with concern for interstitial lung disease or atypical pneumonia and patient would benefit from bronchoscopy and BAL but she is relatively high risk for such procedure. Repeat chest x-ray shows moderate cardiomegaly with diffuse interstitial opacities. Correlate for heart failure with pulmonary vascular congestion. Obesity has been slightly more confluent at the right hilum and could represent developing edema or infiltrate. It appears a Dr. Guadarrama does not have lab for bronchoscopy. Patient will be resumed back on eliquis. Objective - Vital Signs Vital signs: Vital Signs Temp 97.0 F L 11/04/16 04:00 Pulse 80 11/04/16 07:49 Resp 18 11/04/16 04:00 BP 132/61 11/04/16 04:00 Pulse Ox 93 L 11/04/16 07:49 Intake & Output 11/03/16 11/04/16 11/04/16 18:59 06:59 18:59 Intake Total 1180 240 Balance 1180 240 Weight 86 kg Intake: IV 300 240 Sodium Chloride 0.9% 1, 300 240 000 ml @ 20 mls/hr IV . Q24H INDIO Rx#:[id number] Intake, IV Titration 160 Amount Sodium Chloride 0.9% 1, 160 000 ml @ 20 mls/hr IV . Q24H INDIO Rx#:[id number] Oral 720 Other: Voiding Method Toilet Toilet # Voids 2 1 - Exam General appearance: average body habitus, cooperative, no acute distress - EENT Eyes: anicteric sclerae, EOMI, PERRLA, dentition normal, normal appearance ENT: no hard of hearing, hearing grossly normal, NA/AT, normal oropharynx, no other, no pharyngeal erythema, no thrush, no tonsillar exudates, no tonsillar swelling - Neck Neck: no lymphadenopathy, normal ROM, no other, no rigidity, no stridor, no thyromegaly - Respiratory Respiratory: bilateral: CTA, negative: diminished, dullness, rales, rhonchi - Cardiovascular Rhythm: regular Heart sounds: normal: S1 Abnormal Heart Sounds: systolic murmur, no diastolic murmur, no rub, no S3 Gallop, no S4 Gallop, no click, no other - Gastrointestinal General gastrointestinal: no absent bowel sounds, no decreased bowel sounds, no distended, no hepatomegaly, no hyperactive bowel sounds, normal bowel sounds, no organomegaly, no rigid, no scaphoid, soft, no splenomegaly, no tenderness, no umbilical hernia, no ventral hernia - Integumentary Integumentary: decreased turgor, normal, normal turgor - Neurologic Neurologic: CNII-XII intact - Musculoskeletal Musculoskeletal: generalized weakness, strength equal bilaterally - Labs CBC & Chem 7: 11/04/16 06:05 11/04/16 06:05 Labs: Abnormal Lab Results - Last 24 Hours (Table) 11/03/16 11/03/16 11/03/16 Range/Units 11:18 16:42 20:25 Hgb (11.4-16.0) gm/dL Hct (34.0-46.0) % MCV (80.0-100.0) fL RDW (11.5-15.5) % Sodium (137-145) mmol/L Chloride (98-107) mmol/L BUN (7-17) mg/dL Glucose (74-99) mg/dL POC Glucose (mg/dL) 163 H 215 H 179 H (75-99) mg/dL 11/04/16 11/04/16 11/04/16 Range/Units 06:05 06:05 06:09 Hgb 10.1 L (11.4-16.0) gm/dL Hct 31.1 L (34.0-46.0) % MCV 77.8 L (80.0-100.0) fL RDW 16.1 H (11.5-15.5) % Sodium 130 L (137-145) mmol/L Chloride 97 L (98-107) mmol/L BUN 18 H (7-17) mg/dL Glucose 118 H (74-99) mg/dL POC Glucose (mg/dL) 132 H (75-99) mg/dL Microbiology - Last 24 Hours (Table) 10/30/16 10:55 Blood Culture - Preliminary Blood No Growth after 96 hours 10/30/16 08:35 Blood Culture - Preliminary Blood No Growth after 96 hours Assessment and Plan Plan: 1. Atrial fibrillation with rapid ventricular rate with known history of chronic atrial fibrillation and long-term anticoagulation, patient currently is on Eliquis. Continue Lopressor 25 mg daily. Cardiology consult appreciated. 2. Paroxysmal nocturnal dyspnea suspect clinical acute diastolic heart failure and possible gram-negative pneumonia. Continue Rocephin and Levaquin, steroids are prednisone 30 mg daily. Continue oral Lasix. Dr. Russell is planning for bronchoscopy early this week 3. Hypertension. Norvasc was discontinued. Continue metipranolol and Cardizem , Lasix 4. Hyperlipidemia. Continue Zocor 10 mg at bedtime. 5. Chronic atrial fibrillation. Continue eliquis 2.5 mg twice daily, Cardizem 60 mg three times daily. 6. Diabetes mellitus type 2. Continue metformin 1000 mg twice daily, Humalog scale before meals and at bedtime. 7. 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 Continue aspirin 81 mg daily , eliquis 2.5 mg twice daily- on hold, simvastatin 10 mg at bedtime. 8. Hypothyroidism. Continue levothyroxine 112 g daily. 8. Elevated lactic acid most likely secondary to metformin 10. Severe tricuspid regurgitation, and this will be monitored cardiology is following 11 Interstitial prominence as noted on x-ray, patient currently is on Rocephin however infectious infiltrate from pneumonia is not suspected by radiology, we would follow clinically 9. Long-term anticoagulation using Eliquis 10. CODE STATUS: FULL 11. Estimated length of stay 2 nights or more 12. DVT prophylaxis. [place] hose and SCDs. Eliquis on hold. 13. Hemoptysis and acute GI bleed, stable. Eliquis resumed. GI consult appreciated. [facility] Impression and plan of care have been directed as dictated by the signing physician. Jess Romeo nurse practitioner acting as scribe for signing physician. Time with Patient: Greater than 30
[2016-11-04 16:50] LABS: Glucose,Whole Blood 243 mg/dL (75-99)
[2016-11-04 20:53] LABS: Glucose,Whole Blood 239 mg/dL (75-99)
[2016-11-04] MEDS: APIXABAN 2.5 MG TABLET PO SCH (21:10)
[2016-11-04] MEDS: ATORVASTATIN 10 MG TAB PO SCH (21:11)
[2016-11-04] MEDS: MULTIVITAMINS, THERA 1 EACH TAB PO SCH (21:11)
[2016-11-05 06:35] LABS: Glucose,Whole Blood 140 mg/dL (75-99)
[2016-11-05] MEDS: metFORMIN 500 MG TAB PO SCH ×2 (06:52→17:26)
[2016-11-05] MEDS: LEVOTHYROXINE 112 MCG TAB PO SCH (06:52)
[2016-11-05] MEDS: INSULIN LISPRO (humaLOG) 300 UNIT/3 ML VIAL SQ SCH ×4 (06:52→22:18)
[2016-11-05] MEDS: METOPROLOL TARTRATE 25 MG TAB PO SCH (08:10)
[2016-11-05] MEDS: MAGNESIUM OXIDE 400 MG TAB PO SCH (08:10)
[2016-11-05] MEDS: FUROSEMIDE 40 MG TAB PO SCH (08:10)
[2016-11-05] MEDS: DILTIAZEM ORAL 60 MG TAB PO SCH ×3 (08:10→22:17)
[2016-11-05] MEDS: ASPIRIN 81 MG CHEW PO SCH (08:11)
[2016-11-05] MEDS: APIXABAN 2.5 MG TABLET PO SCH ×2 (08:11→22:17)
[2016-11-05] MEDS: predniSONE 10 MG TAB PO SCH (08:11)
--- NOTE | 2016-11-05 08:24 | P.DS ---
Providers Date of admission: 10/30/16 05:54 Expected date of discharge: 11/06/16 Attending physician: Katherin Land Consults: 10/30/16 09:55 Consult Physician Urgent Consulting Provider: Toshia Russell Consult Reason/Comments: arf Do you want consulting provider notified?: Yes Primary care physician: [facility] Course: This is an 85-year-old female one of Dr. Conklin the previous medical history significant for CAD, A. fib, diabetes, neuropathy and multiple CVA who has also recurrent UTI and mild encephalopathy related to UTI in the past. She was well until one day prior to admission when the patient has shortness of breath, PND, murmur symptoms worsened at night time patient was having difficulty of breathing at night and fast heart beat, prior to this date she came home from a previous eye doctor appointment which was okay, patient denies any caffeine intake, except for T, she denies any alcohol intake, no recent changes by Dr. Babb, she denies any previous cardiology Dr. for maintenance of her medication pH is on chronic anticoagulation with eliquis. The emergency room she presented with atrial fibrillation with rapid ventricular rate, chest x-ray findings shows pulmonary edema. She was admitted secondary to the above complaints. She was initially seen during my evaluation on extended stay unit prior to her transfer to ICU. Her lactic acid is elevated no IV fluids were pushed lactic acidosis most likely secondary to metformin rather than other metabolic causes, patient's continue diuresis with 40 mg Lasix every 8 hours. Patient was seen consultation by Dr. Russell from critical care medicine, and cardiology. 10/31: Patient was noted to have streaky blood in her sputum. Cardiology plans to continue eliquis with recommendations for Lasix at 40 mg daily. IV fluids will be changed to saline lock and Levaquin changed to oral. She is also on ceftriaxone. Solu-Medrol is a 40 mg every 8 hours and will be decreased every 12 hours and start Medrol Dosepak tomorrow. Patient's breathing status is much improved and she is much less lethargic today. 11/01: Urine culture showing greater than 100,000 colonies of E. coli pansensitive. Sodium has dropped to 127. Hyperglycemia due to steroids. She is currently on Medrol Dosepak. Patient is complaining of continued hemoptysis and now maroon stools for which consult with GI added and Eliquis stopped. Patient is still on cardizem drip. She is currently is Afib in the 80s. 11/04: Over the weekend, cardiology has signed off and following on an as-needed basis only. Patient has been evaluated related by Dr. Cami Parry with no need for endoscopy intervention at this time and she has signed off. Hemoptysis and rectal bleeding have improved. Dr. Russell has followed over the weekend with concern for interstitial lung disease or atypical pneumonia and patient would benefit from bronchoscopy and BAL but she is relatively high risk for such procedure. Repeat chest x-ray shows moderate cardiomegaly with diffuse interstitial opacities. Correlate for heart failure with pulmonary vascular congestion. Obesity has been slightly more confluent at the right hilum and could represent developing edema or infiltrate. It appears a Dr. Rivers does not mention plan for bronchoscopy. Patient will be resumed back on eliquis. 11/05: Patient is complaining of constipation for which lactulose has been ordered as a scheduled medication. Patient breathing status is improving. She denies shortness of breath at this time at rest. Patient will be transferred to [facility] floor today with anticipation she will be discharged to [facility] tomorrow. 11/06: Shortness of breath is improved. Sodium is 132. Hemoglobin 10.4. Heart rate is running in the 70s to 80s. Patient will be discharged to [facility] today in stable condition. Discharge diagnoses: 1. Atrial fibrillation with rapid ventricular rate with known history of chronic atrial fibrillation 2. Paroxysmal nocturnal dyspnea suspect clinical acute diastolic heart failure with possible gram-negative pneumonia 3. Hypertension. 4. Hyperlipidemia. 5. Chronic atrial fibrillation. 6. Diabetes mellitus type 2. 7. 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 8. Hypothyroidism. 8. Elevated lactic acid most likely secondary to metformin 10. Severe tricuspid regurgitation 11 Interstitial prominence as noted on x-ray 12. Hemoptysis and acute GI bleed, stable secondary to eliquis which has been resumed. Discharge plan: [facility] under the care of Dr. Conklin Impression and plan of care have been directed as dictated by the signing physician. Jess Romeo nurse practitioner acting as scribe for signing physician. Patient Condition at Discharge: Good Plan - Discharge Summary New Discharge Prescriptions: ALPRAZolam [Xanax] 0.25 mg PO BID #60 tab Potassium Chloride ER [K-Dur 20] 20 meq PO DAILY #30 tab Promethaz-Cod 6.25-10 mg/5 ml [Phenergan with Codeine] 5 ml PO Q4H PRN 5 Days PRN Reason: Cold Symptoms predniSONE 0 mg PO DIRECTED #30 tab Discharge Medication List Apixaban [Eliquis] 2.5 mg PO BID@0830,2030 01/26/14 [History] Simvastatin 10 mg PO HS 01/26/14 [History] metFORMIN HCL [Glucophage] 1,000 mg PO AC-BID #60 tab 02/25/14 [Rx] Levothyroxine Sodium [Levoxyl] 112 mcg PO QAM 10/29/15 [History] Multivit with Calcium,Iron,Min [Women's Daily Multivitamin] 1 tab PO HS [History] Acetaminophen Tab [Tylenol] 650 mg PO Q6HR PRN #0 tab 10/31/15 [Rx] Magnesium 200 mg PO DAILY #7 tablet 02/27/16 [Rx] ALPRAZolam [Xanax] 0.25 mg PO BID #60 tab 11/06/16 [Rx] Diltiazem Oral [Cardizem*] 60 mg PO TID tab 11/06/16 [Rx] Furosemide [Lasix] 40 mg PO DAILY tab 11/06/16 [Rx] INSULIN LISPRO (humaLOG) [humaLOG (formulary)] 0 unit SQ ACHS vial 11/06/16 [Rx ] Ipratropium Nebulized [Atrovent Nebulized] 0.5 mg INHALATION RT-QID nebu [Rx] Lactulose [Cephulac] 15 gm PO BID ml 11/06/16 [Rx] Levalbuterol Nebulized (Conc) [Xopenex Nebulized (Conc)] 1.25 mg INHALATION RT- QID nebule 11/06/16 [Rx] Levofloxacin [Levaquin] 750 mg PO DAILY@1200 #5 tab 11/06/16 [Rx] Metoprolol Tartrate [Lopressor] 25 mg PO DAILY tab 11/06/16 [Rx] Potassium Chloride ER [K-Dur 20] 20 meq PO DAILY #30 tab 11/06/16 [Rx] Promethaz-Cod 6.25-10 mg/5 ml [Phenergan with Codeine] 5 ml PO Q4H PRN 5 Days [Rx] predniSONE 0 mg PO DIRECTED #30 tab 11/06/16 [Rx] Follow up Appointment(s)/Referral(s): Cliff Conklin MD [Primary Care Provider] - 1-2 days (will be seen @ [facility]) Stefan Davidson, [NON-STAFF] - As Needed Discharge Disposition: TRANSFER TO SNF/ECF
[2016-11-05] MEDS: LEVALBUTEROL NEB (CONC) 1.25 MG/0.5 ML AMP INHALATION SCH ×4 (08:25→20:48)
[2016-11-05] MEDS: IPRATROPIUM 0.5 MG/2.5 ML NEBU INHALATION SCH ×4 (08:25→20:48)
[2016-11-05] MEDS: PROMETHAZ-COD 6.25-10 MG/5 ML 5 ML CUP PO PRN ×2 (09:15→22:17)
[2016-11-05] MEDS: SODIUM CHLORIDE 0.9% 1,000 ML IV SCH (10:10)
[2016-11-05] MEDS: LEVOFLOXACIN 750 MG TAB PO SCH (11:18)
[2016-11-05 11:40] LABS: Glucose,Whole Blood 212 mg/dL (75-99)
[2016-11-05] MEDS: LACTULOSE 20 GM/30 ML CUP PO SCH ×2 (11:48→22:17)
--- NOTE | 2016-11-05 13:21 | P.PN ---
Subjective This is an 85-year-old female one of Dr. Conklin the previous medical history significant for CAD, A. fib, diabetes, neuropathy and multiple CVA who has also recurrent UTI and mild encephalopathy related to UTI in the past. She was well until one day prior to admission when the patient has shortness of breath, PND, murmur symptoms worsened at night time patient was having difficulty of breathing at night and fast heart beat, prior to this date she came home from a previous eye doctor appointment which was okay, patient denies any caffeine intake, except for T, she denies any alcohol intake, no recent changes by Dr. Babb, she denies any previous cardiology Dr. for maintenance of her medication pH is on chronic anticoagulation with eliquis. The emergency room she presented with atrial fibrillation with rapid ventricular rate, chest x-ray findings shows pulmonary edema. She was admitted secondary to the above complaints. She was initially seen during my evaluation on extended stay unit prior to her transfer to ICU. Her lactic acid is elevated no IV fluids were pushed lactic acidosis most likely secondary to metformin rather than other metabolic causes, patient's continue diuresis with 40 mg Lasix every 8 hours. Patient was seen consultation by Dr. Russell from critical care medicine, and cardiology. 10/31: Patient was noted to have streaky blood in her sputum. Cardiology plans to continue eliquis with recommendations for Lasix at 40 mg daily. IV fluids will be changed to saline lock and Levaquin changed to oral. She is also on ceftriaxone. Solu-Medrol is a 40 mg every 8 hours and will be decreased every 12 hours and start Medrol Dosepak tomorrow. Patient's breathing status is much improved and she is much less lethargic today. 11/01: Urine culture showing greater than 100,000 colonies of E. coli pansensitive. Sodium has dropped to 127. Hyperglycemia due to steroids. She is currently on Medrol Dosepak. Patient is complaining of continued hemoptysis and now maroon stools for which consult with GI added and Eliquis stopped. Patient is still on cardizem drip. She is currently is Afib in the 80s. 11/04: Over the weekend, cardiology has signed off and following on an as-needed basis only. Patient has been evaluated related by Dr. Cami Parry with no need for endoscopy intervention at this time and she has signed off. Hemoptysis and rectal bleeding have improved. Dr. Russell has followed over the weekend with concern for interstitial lung disease or atypical pneumonia and patient would benefit from bronchoscopy and BAL but she is relatively high risk for such procedure. Repeat chest x-ray shows moderate cardiomegaly with diffuse interstitial opacities. Correlate for heart failure with pulmonary vascular congestion. Obesity has been slightly more confluent at the right hilum and could represent developing edema or infiltrate. It appears a Dr. Guadarrama does not have lab for bronchoscopy. Patient will be resumed back on eliquis. 11/05: Patient is complaining of constipation for which lactulose has been ordered as a scheduled medication. Patient breathing status is improving. She denies shortness of breath at this time at rest. Patient will be transferred to [facility] floor today with anticipation she will be discharged to [facility] tomorrow. Objective - Vital Signs Vital signs: Vital Signs Temp 97.0 F L 11/05/16 11:37 Pulse 88 11/05/16 12:10 Resp 18 11/05/16 11:37 BP 118/54 11/05/16 11:37 Pulse Ox 96 11/05/16 11:37 Intake & Output 11/04/16 11/05/16 11/05/16 18:59 06:59 18:59 Intake Total 240 1250 Output Total 800 Balance 240 450 Weight 86.5 kg Intake: Intake, IV Titration 170 Amount Sodium Chloride 0.9% 1, 120 000 ml @ 20 mls/hr IV . Q24H IND[facility] Rx#:[id number] cefTRIAXone 1,000 mg In 50 Sodium Chloride 0.9% 50 ml @ 100 mls/hr IVPB Q24HR INDIO Rx#:[id number] Oral 240 1080 Output: Urine 800 Other: Voiding Method Toilet Toilet Toilet Diaper Diaper # Voids 1 1 - Exam General appearance: average body habitus, cooperative, no acute distress - EENT Eyes: anicteric sclerae, EOMI, PERRLA, dentition normal, normal appearance ENT: no hard of hearing, hearing grossly normal, NA/AT, normal oropharynx, no other, no pharyngeal erythema, no thrush, no tonsillar exudates, no tonsillar swelling - Neck Neck: no lymphadenopathy, normal ROM, no other, no rigidity, no stridor, no thyromegaly - Respiratory Respiratory: bilateral: CTA, negative: diminished, dullness, rales, rhonchi - Cardiovascular Rhythm: regular Heart sounds: normal: S1 Abnormal Heart Sounds: systolic murmur, no diastolic murmur, no rub, no S3 Gallop, no S4 Gallop, no click, no other - Gastrointestinal General gastrointestinal: no absent bowel sounds, no decreased bowel sounds, no distended, no hepatomegaly, no hyperactive bowel sounds, normal bowel sounds, no organomegaly, no rigid, no scaphoid, soft, no splenomegaly, no tenderness, no umbilical hernia, no ventral hernia - Integumentary Integumentary: decreased turgor, normal, normal turgor - Neurologic Neurologic: CNII-XII intact - Musculoskeletal Musculoskeletal: generalized weakness, strength equal bilaterally - Labs CBC & Chem 7: 11/04/16 06:05 11/04/16 06:05 Labs: Abnormal Lab Results - Last 24 Hours (Table) 11/04/16 11/04/16 11/05/16 Range/Units 16:48 20:51 06:34 POC Glucose (mg/dL) 243 H 239 H 140 H (75-99) mg/dL 11/05/16 Range/Units 11:08 POC Glucose (mg/dL) 212 H (75-99) mg/dL Microbiology - Last 24 Hours (Table) 10/30/16 10:55 Blood Culture - Final Blood No Growth after 144 hours 10/30/16 08:35 Blood Culture - Final Blood No Growth after 144 hours Assessment and Plan Plan: 1. Atrial fibrillation with rapid ventricular rate with known history of chronic atrial fibrillation and long-term anticoagulation, patient currently is on Eliquis. Continue Lopressor 25 mg daily. Cardiology consult appreciated. 2. Paroxysmal nocturnal dyspnea suspect clinical acute diastolic heart failure and possible gram-negative pneumonia. Continue Rocephin and Levaquin, steroids are prednisone 30 mg daily. Continue oral Lasix. Dr. Russell is planning for bronchoscopy early this week 3. Hypertension. Norvasc was discontinued. Continue metipranolol and Cardizem , Lasix 4. Hyperlipidemia. Continue Zocor 10 mg at bedtime. 5. Chronic atrial fibrillation. Continue eliquis 2.5 mg twice daily, Cardizem 60 mg three times daily. 6. Diabetes mellitus type 2. Continue metformin 1000 mg twice daily, Humalog scale before meals and at bedtime. 7. 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 Continue aspirin 81 mg daily , eliquis 2.5 mg twice daily- on hold, simvastatin 10 mg at bedtime. 8. Hypothyroidism. Continue levothyroxine 112 g daily. 8. Elevated lactic acid most likely secondary to metformin 10. Severe tricuspid regurgitation, and this will be monitored cardiology is following 11 Interstitial prominence as noted on x-ray, patient currently is on Rocephin however infectious infiltrate from pneumonia is not suspected by radiology, we would follow clinically 9. Long-term anticoagulation using Eliquis 10. CODE STATUS: FULL 11. Estimated length of stay 2 nights or more 12. DVT prophylaxis. Mulugeta ebenezer and SCDs. Eliquis on hold. 13. Hemoptysis and acute GI bleed, stable. Eliquis resumed. GI consult appreciated. Discharge plan: [place] Impression and plan of care have been directed as dictated by the signing physician. Jess Romeo nurse practitioner acting as scribe for signing physician. Time with Patient: Greater than 30
--- NOTE | 2016-11-05 14:01 | P.PN ---
Subjective Progress note dated 11/04/2016 This is a 76-year-old female who was admitted with a diagnosis of CHF, atrial fibrillation with RVR As well as multiple other comorbidities including essential hypertension chronic atrial fibrillation hyperlipidemia osteoarthritis previous bypass grafting previous history of CVA underlying CAD. The patient seemed be doing relatively well. Feeling better. Less short of breath. The patient continues on diuretics and bronchodilators. Hopefully discharge planning the next day or 2. Progress note dated 11/05/2016 86-year-old female who was admitted with a diagnosis of CHF atrial fibrillation and rapid ventricular response. She has a number of other multiple comorbidities including essential hypertension chronic atrial fibrillation hyperlipidemia osteoarthritis previous bypass grafting CVA and underlying CAD. She seems be doing relatively well when asked today, she states she may be discharged tomorrow. Feeling weak still. Has been mostly embedded in her chair. Not really walking very much. Much less short of breath. Hopefully discharge so in the next 24-48 hours. She believes that she might be going to [facility] all she's not sure. Objective - Vital Signs Vital signs: Vital Signs Temp 97.0 F L 11/05/16 11:37 Pulse 88 11/05/16 12:10 Resp 18 11/05/16 11:37 BP 118/54 11/05/16 11:37 Pulse Ox 96 11/05/16 11:37 Intake & Output 11/04/16 11/05/16 11/05/16 18:59 06:59 18:59 Intake Total 240 1250 Output Total 800 Balance 240 450 Weight 86.5 kg Intake: Intake, IV Titration 170 Amount Sodium Chloride 0.9% 1, 120 000 ml @ 20 mls/hr IV . Q24H [facility] Rx#:[id number] cefTRIAXone 1,000 mg In 50 Sodium Chloride 0.9% 50 ml @ 100 mls/hr IVPB Q24HR INDIO Rx#:[id number] Oral 240 1080 Output: Urine 800 Other: Voiding Method Toilet Toilet Toilet Diaper Diaper # Voids 1 1 - Exam No acute distress, oriented 3. HEENT examination is grossly unremarkable. Mucous membranes are moist. No oral lesions. Neck supple. Full range of motion. No adenopathy or thyromegaly. Neck veins are flat. Cardiovascular examination reveals regular rhythm rate. S1-S2 normal. No S3- S4. This a soft systolic murmur noted. Lungs reveal bibasilar crackles. No wheezes or rhonchi. Not particularly restricted in her breathing. Abdomen soft bowel sounds are heard. No masses or tenderness. Extremities are intact. Minimal edema. No cyanosis or clubbing. Neurologic examination is brief but nonfocal. - Labs CBC & Chem 7: 11/04/16 06:05 11/04/16 06:05 Labs: Abnormal Lab Results - Last 24 Hours (Table) 11/04/16 11/04/16 11/05/16 Range/Units 16:48 20:51 06:34 POC Glucose (mg/dL) 243 H 239 H 140 H (75-99) mg/dL 11/05/16 Range/Units 11:08 POC Glucose (mg/dL) 212 H (75-99) mg/dL Microbiology - Last 24 Hours (Table) 10/30/16 10:55 Blood Culture - Final Blood No Growth after 144 hours 10/30/16 08:35 Blood Culture - Final Blood No Growth after 144 hours Assessment and Plan (1) Atrial fibrillation with RVR Status: Acute (2) Chronic a-fib Status: Acute (3) Congestive heart failure Status: Acute (4) Diastolic CHF, acute on chronic Status: Acute (5) HTN (hypertension) Status: Acute (6) Hyperlipemia Status: Acute (7) Interstitial pneumonitis Status: Acute (8) CVA (cerebral infarction) Status: Acute (9) Cerebral vascular disturbance Status: Acute (10) Diabetes Status: Acute (11) Hyperlipidemia Status: Acute (12) Hypertension Status: Acute (13) Hypothyroidism Status: Acute Plan: Plan dated 11/04/2016 Patient continues to improve. Responding well to diuretics oxygen and bronchodilators. Also treatment of her atrial fibrillation with RVR. The patient will likely be ready for discharge in next day or 2. Chest x-rays improved. We'll continue to follow. Prognosis is guarded given her age and multiple other medical comorbidities. Plan dated 11/05/2016 This 86-year-old female who was admitted with a diagnosis of heart failure atrial fibrillation and RVR amount of the things continues to show significant improvement. She still is a bit weak. Has been mostly in her chair in bed. When she exerts himself, she becomes short of breath. The plan up according to her is to be discharged to [facility]. Her primary doctor is Dr. Cliff Conklin. No additional recommendations are made. We'll continue to follow. Time with Patient: Less than 30
[2016-11-05 16:50] LABS: Glucose,Whole Blood 223 mg/dL (75-99)
[2016-11-05 19:55] LABS: Glucose,Whole Blood 206 mg/dL (75-99)
[2016-11-05] MEDS: MULTIVITAMINS, THERA 1 EACH TAB PO SCH (22:17)
[2016-11-05] MEDS: ATORVASTATIN 10 MG TAB PO SCH (22:17)
[2016-11-06] MEDS: ALPRAZolam 0.5 MG TAB PO PRN (01:31)
[2016-11-06 02:11] VITALS: RESP 16
[2016-11-06] MEDS: LEVOTHYROXINE 112 MCG TAB PO SCH (06:04)
[2016-11-06 07:15] LABS: Glucose,Whole Blood 110 mg/dL (75-99)
[2016-11-06] MEDS: LEVALBUTEROL NEB (CONC) 1.25 MG/0.5 ML AMP INHALATION SCH ×2 (07:46→11:57)
[2016-11-06] MEDS: IPRATROPIUM 0.5 MG/2.5 ML NEBU INHALATION SCH ×2 (07:46→11:57)
[2016-11-06 07:56] LABS: Basophils % (A) 0 %; CH 24.4; CHCM 30.8; Eosinophils # (A) 0.1 k/uL (0-0.7); Eosinophils % (A) 2 %; HCT 33.4 % (34.0-46.0); HDW 2.96; HGB 10.4 gm/dL (11.4-16.0); Hypochromasia Moderate; Luc % (Auto) 2; Lymphocytes # (A) 0.9 k/uL (1.0-4.8); Lymphocytes % (A) 16 %; MCH 24.8 pg (25.0-35.0); MCHC 31.1 g/dL (31.0-37.0); MCV 79.8 fL (80.0-100.0); Mean Platelet Volume 6.4; Monocytes # (A) 0.3 k/uL (0-1.0); Monocytes % (A) 6 %; Neutrophils # (A) 4.2 k/uL (1.3-7.7); Neutrophils % (A) 74 %; RBC 4.19 m/uL (3.80-5.40); WBC 5.7 k/uL (3.8-10.6); WBC (Perox) 5.72
[2016-11-06 08:06] LABS: ALT 37 U/L (9-52); AST 43 U/L (14-36); Alkaline Phosphatase 59 U/L (38-126); Anion Gap 11 mmol/L; Blood Urea Nitrogen 16 mg/dL (7-17); Calcium 8.7 mg/dL (8.4-10.2); Carbon Dioxide 22 mmol/L (22-30); Chloride 99 mmol/L (98-107); Glucose 115 mg/dL (74-99); Non-African American GFR(MDRD) >60 (>60 ml/min/1.73 sqM); Sodium 132 mmol/L (137-145); Total Bilirubin 0.7 mg/dL (0.2-1.3); Total Protein 6.5 g/dL (6.3-8.2)
[2016-11-06 08:07] LABS: Potassium 4.4 mmol/L (3.5-5.1)
[2016-11-06] MEDS: INSULIN LISPRO (humaLOG) 300 UNIT/3 ML VIAL SQ SCH ×2 (08:23→13:13)
[2016-11-06] MEDS: metFORMIN 500 MG TAB PO SCH (08:26)
[2016-11-06] MEDS: DILTIAZEM ORAL 60 MG TAB PO SCH (08:27)
[2016-11-06] MEDS: APIXABAN 2.5 MG TABLET PO SCH (08:27)
[2016-11-06] MEDS: ASPIRIN 81 MG CHEW PO SCH (08:27)
[2016-11-06] MEDS: predniSONE 10 MG TAB PO SCH (08:27)
[2016-11-06] MEDS: METOPROLOL TARTRATE 25 MG TAB PO SCH (08:27)
[2016-11-06] MEDS: LACTULOSE 20 GM/30 ML CUP PO SCH (08:28)
[2016-11-06] MEDS: MAGNESIUM OXIDE 400 MG TAB PO SCH (08:28)
[2016-11-06] MEDS: FUROSEMIDE 40 MG TAB PO SCH (08:28)
[2016-11-06 11:23] LABS: Glucose,Whole Blood 187 mg/dL (75-99)
[2016-11-06 12:24] VITALS: BP 106/57; PULSE 62; TEMP 97.2
[2016-11-06] MEDS: LEVOFLOXACIN 750 MG TAB PO SCH (13:13)
--- NOTE | 2016-11-06 15:05 | P.PN ---
Subjective Progress note dated 11/04/2016 This is a 76-year-old female who was admitted with a diagnosis of CHF, atrial fibrillation with RVR As well as multiple other comorbidities including essential hypertension chronic atrial fibrillation hyperlipidemia osteoarthritis previous bypass grafting previous history of CVA underlying CAD. The patient seemed be doing relatively well. Feeling better. Less short of breath. The patient continues on diuretics and bronchodilators. Hopefully discharge planning the next day or 2. Progress note dated 11/05/2016 86-year-old female who was admitted with a diagnosis of CHF atrial fibrillation and rapid ventricular response. She has a number of other multiple comorbidities including essential hypertension chronic atrial fibrillation hyperlipidemia osteoarthritis previous bypass grafting CVA and underlying CAD. She seems be doing relatively well when asked today, she states she may be discharged tomorrow. Feeling weak still. Has been mostly embedded in her chair. Not really walking very much. Much less short of breath. Hopefully discharge so in the next 24-48 hours. She believes that she might be going to [facility] all she's not sure. Progress note dated 11/06/2016 This is a very pleasant 86-year-old female patient who was originally admitted for congestive heart failure and A. fib with RVR. She is seen again today on the regular medical floor and follow-up. She is awake and alert in no acute distress. She denies any worsening shortness breath, cough or congestion. The plan is to be transferred to [facility] for inpatient rehabilitation. Objective - Vital Signs Vital signs: Vital Signs Temp 97.2 F L 11/06/16 12:22 Pulse 62 11/06/16 12:22 Resp 16 11/06/16 12:22 BP 106/57 11/06/16 12:22 Pulse Ox 93 L 11/06/16 12:22 Intake & Output 11/05/16 11/06/16 11/06/16 18:59 06:59 18:59 Intake Total 1430 830 Output Total 800 Balance 630 830 Intake: IV 240 Sodium Chloride 0.9% 1, 240 000 ml @ 20 mls/hr IV . Q24H [facility] Rx#:[id number] Intake, IV Titration 170 Amount Sodium Chloride 0.9% 1, 120 000 ml @ 20 mls/hr IV . Q24H [facility]IO Rx#:[id number] cefTRIAXone 1,000 mg In 50 Sodium Chloride 0.9% 50 ml @ 100 mls/hr IVPB Q24HR [facility]IO Rx#:[id number] Oral 1260 590 Output: Urine 800 Other: Voiding Method Toilet Toilet Diaper Diaper # Voids 1 2 1 - Exam No acute distress, oriented 3. HEENT examination is grossly unremarkable. Mucous membranes are moist. No oral lesions. Neck supple. Full range of motion. No adenopathy or thyromegaly. Neck veins are flat. Cardiovascular examination reveals regular rhythm rate. S1-S2 normal. No S3- S4. This a soft systolic murmur noted. Lungs reveal bibasilar crackles. No wheezes or rhonchi. Not particularly restricted in her breathing. Abdomen soft bowel sounds are heard. No masses or tenderness. Extremities are intact. Minimal edema. No cyanosis or clubbing. Neurologic examination is brief but nonfocal. - Labs CBC & Chem 7: 11/06/16 07:05 11/06/16 07:05 Labs: Abnormal Lab Results - Last 24 Hours (Table) 11/05/16 11/05/16 11/06/16 Range/Units 16:45 19:54 07:05 Hgb 10.4 L (11.4-16.0) gm/dL Hct 33.4 L (34.0-46.0) % MCV 79.8 L (80.0-100.0) fL MCH 24.8 L (25.0-35.0) pg RDW 16.0 H (11.5-15.5) % Lymphocytes # 0.9 L (1.0-4.8) k/uL Sodium (137-145) mmol/L Glucose (74-99) mg/dL POC Glucose (mg/dL) 223 H 206 H (75-99) mg/dL AST (14-36) U/L Albumin (3.5-5.0) g/dL 11/06/16 11/06/16 11/06/16 Range/Units 07:05 07:13 11:20 Hgb (11.4-16.0) gm/dL Hct (34.0-46.0) % MCV (80.0-100.0) fL MCH (25.0-35.0) pg RDW (11.5-15.5) % Lymphocytes # (1.0-4.8) k/uL Sodium 132 L (137-145) mmol/L Glucose 115 H (74-99) mg/dL POC Glucose (mg/dL) 110 H 187 H (75-99) mg/dL AST 43 H (14-36) U/L Albumin 3.1 L (3.5-5.0) g/dL Microbiology - Last 24 Hours (Table) 10/30/16 10:55 Blood Culture - Final Blood No Growth after 144 hours 10/30/16 08:35 Blood Culture - Final Blood No Growth after 144 hours Assessment and Plan Plan: Assessment and Plan (1) Atrial fibrillation with RVR Status: Acute (2) Chronic a-fib Status: Acute (3) Congestive heart failure Status: Acute (4) Diastolic CHF, acute on chronic Status: Acute (5) HTN (hypertension) Status: Acute (6) Hyperlipemia Status: Acute (7) Interstitial pneumonitis Status: Acute (8) CVA (cerebral infarction) Status: Acute (9) Cerebral vascular disturbance Status: Acute (10) Diabetes Status: Acute (11) Hyperlipidemia Status: Acute (12) Hypertension Status: Acute (13) Hypothyroidism Status: Acute Plan: The patient was seen and evaluated by Dr. Rivers. She has been stable from the pulmonary standpoint. She is cleared for discharge. She can continue with her current medications. Complete her course of antibiotics. She is anticoagulated with Eliquis. She can follow-up in our office once stable and out of inpatient rehabilitation.
== END 2016-11-06 14:39 | DRG 291 ==
LOC: EC 02:23 → 6SEL 05:54 → 6ICU 11:59 → 6SEL 22:23 → 3SUR 11-05 14:28
PROVIDERS: ADMIT Family Medicine; ATTEND Family Medicine
DX: I11.0 Hypertensive heart disease with heart failure (principal); J15.6 Pneumonia due to other Gram-negative bacteria; J44.0 Chronic obstructive pulmonary disease with (acute) lower respiratory infection; I48.1 Persistent atrial fibrillation; K92.2 Gastrointestinal hemorrhage, unspecified; E87.1 Hypo-osmolality and hyponatremia; E11.40 Type 2 diabetes mellitus with diabetic neuropathy, unspecified; E11.65 Type 2 diabetes mellitus with hyperglycemia; E86.1 Hypovolemia; I48.2 Chronic atrial fibrillation; E03.9 Hypothyroidism, unspecified; I50.33 Acute on chronic diastolic (congestive) heart failure; I27.2 Other secondary pulmonary hypertension; I07.1 Rheumatic tricuspid insufficiency; E78.00 Pure hypercholesterolemia, unspecified; E78.5 Hyperlipidemia, unspecified; I25.10 Atherosclerotic heart disease of native coronary artery without angina pectoris; J20.9 Acute bronchitis, unspecified; K59.00 Constipation, unspecified; M19.90 Unspecified osteoarthritis, unspecified site; T38.0X5A Adverse effect of glucocorticoids and synthetic analogues, initial encounter; K44.9 Diaphragmatic hernia without obstruction or gangrene; M25.562 Pain in left knee; R59.1 Generalized enlarged lymph nodes; Z79.01 Long term (current) use of anticoagulants; Z79.82 Long term (current) use of aspirin; Z79.84 Long term (current) use of oral hypoglycemic drugs; Z79.899 Other long term (current) drug therapy; Z96.651 Presence of right artificial knee joint; Z95.1 Presence of aortocoronary bypass graft; Z95.0 Presence of cardiac pacemaker; Z86.14 Personal history of Methicillin resistant Staphylococcus aureus infection; Z88.5 Allergy status to narcotic agent; Z88.0 Allergy status to penicillin
CPT/HCPCS: 36415; 71010; 71250; 80048; 80053; 81001; 82272; 82550; 82553; 83036; 83605; 83735; 83880; 84443; 84484; 85025; 85027; 85610; 85730; 87040; 87077; 87086; 87186; 93005; 93306; 94640; 94760; 96365; 96366; 96368; 96375; 96376; 99285

== ENCOUNTER → 2017-01-07 | Outpatient (CLI) | payer MEDICARE, MEDICAID ==
[2017-01-07 09:18] LABS: Anisocytosis Slight; Basophils % (A) 0 %; CHCM 33.1; Eosinophils # (A) 0.1 k/uL (0-0.7); Eosinophils % (A) 3 %; HCT 35.7 % (34.0-46.0); HDW 2.85; HGB 11.6 gm/dL (11.4-16.0); Luc # (Auto) 0.11; Luc % (Auto) 3; Lymphocytes # (A) 0.6 k/uL (1.0-4.8); Lymphocytes % (A) 18 %; MCH 25.6 pg (25.0-35.0); MCHC 32.4 g/dL (31.0-37.0); Mean Platelet Volume 6.7; Microcytosis Slight; Monocytes # (A) 0.2 k/uL (0-1.0); Monocytes % (A) 5 %; Neutrophils # (A) 2.4 k/uL (1.3-7.7); Neutrophils % (A) 70 %; RBC 4.52 m/uL (3.80-5.40); WBC 3.4 k/uL (3.8-10.6); WBC (Perox) 3.77
[2017-01-07 09:26] LABS: Hemoglobin A1C 6.2 % (4.2-6.1)
[2017-01-07 10:17] LABS: ALT 28 U/L (9-52); AST 30 U/L (14-36); Alkaline Phosphatase 107 U/L (38-126); Anion Gap 12 mmol/L; Blood Urea Nitrogen 13 mg/dL (7-17); Calcium 9.6 mg/dL (8.4-10.2); Carbon Dioxide 22 mmol/L (22-30); Chloride 101 mmol/L (98-107); Cholesterol 180 mg/dL (<200); Glucose 147 mg/dL (74-99); HDL Cholesterol 50 mg/dL (40-60); Non-African American GFR(MDRD) >60 (>60 ml/min/1.73 sqM); Potassium 4.5 mmol/L (3.5-5.1); Sodium 135 mmol/L (137-145); Total Bilirubin 1.1 mg/dL (0.2-1.3); Total Protein 7.7 g/dL (6.3-8.2); Triglycerides 88 mg/dL (<150)
== END | disposition home or self-care (01) ==
LOC: LABWHC1 08:34
PROVIDERS: ATTEND Internal Medicine Geriatric Medicine
DX: E03.9 Hypothyroidism, unspecified (principal); E78.00 Pure hypercholesterolemia, unspecified; I50.9 Heart failure, unspecified; E11.65 Type 2 diabetes mellitus with hyperglycemia
CPT/HCPCS: 36415; 80053; 80061; 83036; 84439; 84443; 85025

== ENCOUNTER 2017-03-25 10:03 | Emergency (ER) | payer MEDICARE, MEDICAID ==
[2017-03-25] MEDS ORDERED: SODIUM CHLORIDE 0.9% 1,000 ML IV STA (10:24)
[2017-03-25] MEDS ORDERED: DILTIAZEM 5 MG/ML 5 ML VIAL IVP STA (10:24)
--- NOTE | 2017-03-25 10:33 | ED ---
General Adult HPI - General Chief complaint: Arrhythmia/Palpitations Stated complaint: hypertension Time Seen by Provider: 03/25/17 10:23 Source: patient, RN notes reviewed, old records reviewed Mode of arrival: wheelchair Limitations: no limitations - History of Present Illness Initial comments: This is a 79-year-old female ER for evaluation of heart racing. Patient states she has history of A. fib does have a pacer but has been racing 3 times over the weekend. Heart rate was 17 today 170 today prompting her to come in. No chest pain no change in medications. No fevers cough or congestion. No nausea vomiting or diarrhea as of recent. Patient is taking all medications as prescribed - Related Data Home Medications Medication Instructions Recorded Confirmed Apixaban [Eliquis] 2.5 mg PO BID@0830,2030 01/26/14 03/25/17 ALPRAZolam [Xanax] 0.25 mg PO BID PRN 03/25/17 03/25/17 Ascorbic Acid [Vitamin C] 500 mg PO DAILY 03/25/17 03/25/17 Diltiazem Oral [Cardizem*] 30 mg PO BID 03/25/17 03/25/17 Furosemide [Lasix] 20 mg PO QAM 03/25/17 03/25/17 Furosemide [Lasix] 40 mg PO DAILY@1200 03/25/17 03/25/17 Ipratropium Nebulized [Atrovent 0.5 mg INHALATION RT-QID PRN 03/25/17 03/25/17 Nebulized] Levalbuterol Nebulized (Conc) 1.25 mg INHALATION RT-QID PRN 03/25/17 03/25/17 [Xopenex Nebulized (Conc)] Levothyroxine Sodium [Synthroid] 112 mcg PO DAILY 03/25/17 03/25/17 Magnesium Oxide [Magox 400] 400 mg PO DAILY 03/25/17 03/25/17 amLODIPine [Norvasc] 2.5 mg PO DAILY 03/25/17 03/25/17 Previous Rx's Medication Instructions Recorded metFORMIN HCL [Glucophage] 1,000 mg PO AC-BID #60 tab 02/25/14 Acetaminophen Tab [Tylenol] 650 mg PO Q6HR PRN #0 tab 10/31/15 Metoprolol Tartrate [Lopressor] 25 mg PO DAILY tab 11/06/16 Potassium Chloride ER [K-Dur 20] 20 meq PO DAILY #30 tab 11/06/16 Allergies Allergy/AdvReac Type Severity Reaction Status Date / Time Penicillins Allergy Swelling Verified 03/25/17 10:34 codeine AdvReac Nausea & Verified 03/25/17 10:34 Vomiting Review of Systems ROS Statement: Those systems with pertinent positive or pertinent negative responses have been documented in the HPI. ROS Other: All systems not noted in ROS Statement are negative. Past Medical History Past Medical History: Atrial Fibrillation, Coronary Artery Disease (CAD), Heart Failure, CVA/TIA, Diabetes Mellitus, GI Bleed, Hyperlipidemia, Hypertension, Osteoarthritis (OA), Pneumonia, Thyroid Disorder Additional Past Medical History / Comment(s): Recurrent UTIs and past mild encephalopathy with UTI, multiple CVA/TIA, 2013 rectal bleed, diverticular dx, chronic anemia, small hiatal hernia, hypothyroid History of Any Multi-Drug Resistant Organisms: MRSA Date of last positivie culture/infection: 03/12/2014 MDRO Source:: Urine Past Surgical History: Pacemaker Additional Past Surgical History / Comment(s): [employer], 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, D&C, TOTAL RIGHT KNEE Past Anesthesia/Blood Transfusion Reactions: Postoperative Nausea & Vomiting ( PONV) Type of Cardiac Device: Permanent Pacemaker Device Placement Date:: 2010 Past Psychological History: No Psychological Hx Reported Smoking Status: Never smoker Past Alcohol Use History: None Reported Past Drug Use History: None Reported - Past Family History Sister(s) Family Medical History: Cancer Father Family Medical History: Respiratory Disorder Additional Family Medical History / Comment(s): Tuberculosis-Dad General Exam Limitations: no limitations General appearance: alert, in no apparent distress, anxious Head exam: Present: atraumatic, normocephalic, normal inspection Eye exam: Present: normal appearance, PERRL, EOMI. Absent: scleral icterus, conjunctival injection, periorbital swelling ENT exam: Present: normal exam, mucous membranes moist Neck exam: Present: normal inspection. Absent: tenderness, meningismus, lymphadenopathy Respiratory exam: Present: normal lung sounds bilaterally. Absent: respiratory distress, wheezes, rales, rhonchi, stridor Cardiovascular Exam: Present: tachycardia, irregular rhythm, normal heart sounds. Absent: systolic murmur, diastolic murmur, rubs, gallop, clicks GI/Abdominal exam: Present: soft, normal bowel sounds. Absent: distended, tenderness, guarding, rebound, rigid Extremities exam: Present: normal inspection, full ROM, normal capillary refill. Absent: tenderness, pedal edema, joint swelling, calf tenderness Back exam: Present: normal inspection Neurological exam: Present: alert, oriented X3, CN II-XII intact Psychiatric exam: Present: normal affect, normal mood Skin exam: Present: warm, dry, intact, normal color. Absent: rash Course Vital Signs 03/25/17 03/25/17 03/25/17 10:08 10:24 10:55 Temperature 97.5 F L Pulse Rate 124 H 95 Pulse Rate [ 95 [employer] ] Respiratory 18 Rate Blood Pressure 189/90 O2 Sat by Pulse 98 Oximetry 03/25/17 11:00 Temperature Pulse Rate 95 Pulse Rate [ [employer] ] Respiratory Rate Blood Pressure O2 Sat by Pulse Oximetry - Reevaluation(s) Reevaluation #1: 03/25/17 11:47 Patient heart rate corrected without any additional intervention Reevaluation #2: 03/25/17 11:48 Patient has no symptoms, no chest pain or shortness of breath Reevaluation #3: 03/25/17 11:[address] Parry regarding patient, okay for discharge with increase of outpatient medication EKG Findings - EKG Comments: EKG Findings:: EKG shows A. fib rate of 96, QRS 110, QTC 480 Medical Decision Making - Medical Decision Making 87 female here for evaluation A. fib with RVR, at this point patient has adequate rate control, will increase home medication discharge - Lab Data Result diagrams: 03/25/17 10:42 03/25/17 10:42 Lab Results 03/25/17 03/25/17 03/25/17 Range/Units 10:42 10:42 10:42 WBC 3.2 L (3.8-10.6) k/uL RBC 4.31 (3.80-5.40) m/uL Hgb 11.3 L (11.4-16.0) gm/dL Hct 34.1 (34.0-46.0) % MCV 79.2 L (80.0-100.0) fL MCH 26.3 (25.0-35.0) pg MCHC 33.3 (31.0-37.0) g/dL RDW 15.6 H (11.5-15.5) % Plt Count 127 L (150-450) k/uL Neutrophils % 75 % Lymphocytes % 14 % Monocytes % 6 % Eosinophils % 2 % Basophils % 0 % Neutrophils # 2.4 (1.3-7.7) k/uL Lymphocytes # 0.5 L (1.0-4.8) k/uL Monocytes # 0.2 (0-1.0) k/uL Eosinophils # 0.1 (0-0.7) k/uL Basophils # 0.0 (0-0.2) k/uL PT (9.0-12.0) sec INR (<1.2) APTT (22.0-30.0) sec Sodium 133 L (137-145) mmol/L Potassium 4.2 (3.5-5.1) mmol/L Chloride 102 (98-107) mmol/L Carbon Dioxide 22 (22-30) mmol/L Anion Gap 9 mmol/L BUN 10 (7-17) mg/dL Creatinine 0.50 L (0.52-1.04) mg/dL Est GFR (MDRD) Af Amer >60 (>60 ml/min/1.73 sqM) Est GFR (MDRD) Non-Af >60 (>60 ml/min/1.73 sqM) Glucose 139 H (74-99) mg/dL Calcium 9.3 (8.4-10.2) mg/dL Phosphorus 4.0 (2.5-4.5) mg/dL Magnesium 1.4 L (1.6-2.3) mg/dL Total Bilirubin 1.0 (0.2-1.3) mg/dL AST 31 (14-36) U/L ALT 35 (9-52) U/L Alkaline Phosphatase 89 (38-126) U/L Total Creatine Kinase <20 L (30-135) U/L CK-MB (CK-2) 0.5 (0.0-2.4) ng/mL CK-MB (CK-2) Rel Index Troponin I <0.012 (0.000-0.034) ng/mL Total Protein 7.2 (6.3-8.2) g/dL Albumin 3.9 (3.5-5.0) g/dL Urine Color Urine Appearance (Clear) Urine pH (5.0-8.0) Ur Specific [place] (1.001-1.035) Urine Protein (Negative) Urine Glucose (UA) (Negative) Urine Ketones (Negative) Urine Blood (Negative) Urine Nitrite (Negative) Urine Bilirubin (Negative) Urine Urobilinogen (<2.0) mg/dL Ur Leukocyte Esterase (Negative) 03/25/17 03/25/17 Range/Units 10:42 11:34 WBC (3.8-10.6) k/uL RBC (3.80-5.40) m/uL Hgb (11.4-16.0) gm/dL Hct (34.0-46.0) % MCV (80.0-100.0) fL MCH (25.0-35.0) pg MCHC (31.0-37.0) g/dL RDW (11.5-15.5) % Plt Count (150-450) k/uL Neutrophils % % Lymphocytes % % Monocytes % % Eosinophils % % Basophils % % Neutrophils # (1.3-7.7) k/uL Lymphocytes # (1.0-4.8) k/uL Monocytes # (0-1.0) k/uL Eosinophils # (0-0.7) k/uL Basophils # (0-0.2) k/uL PT 12.7 H (9.0-12.0) sec INR 1.3 H (<1.2) APTT 26.9 (22.0-30.0) sec Sodium (137-145) mmol/L Potassium (3.5-5.1) mmol/L Chloride (98-107) mmol/L Carbon Dioxide (22-30) mmol/L Anion Gap mmol/L BUN (7-17) mg/dL Creatinine (0.52-1.04) mg/dL Est GFR (MDRD) Af Amer (>60 ml/min/1.73 sqM) Est GFR (MDRD) Non-Af (>60 ml/min/1.73 sqM) Glucose (74-99) mg/dL Calcium (8.4-10.2) mg/dL Phosphorus (2.5-4.5) mg/dL Magnesium (1.6-2.3) mg/dL Total Bilirubin (0.2-1.3) mg/dL AST (14-36) U/L ALT (9-52) U/L Alkaline Phosphatase (38-126) U/L Total Creatine Kinase (30-135) U/L CK-MB (CK-2) (0.0-2.4) ng/mL CK-MB (CK-2) Rel Index Troponin I (0.000-0.034) ng/mL Total Protein (6.3-8.2) g/dL Albumin (3.5-5.0) g/dL Urine Color Yellow Urine Appearance Clear (Clear) Urine pH 6.5 (5.0-8.0) Ur Specific [place] 1.005 (1.001-1.035) Urine Protein Negative (Negative) Urine Glucose (UA) Negative (Negative) Urine Ketones Trace H (Negative) Urine Blood Negative (Negative) Urine Nitrite Negative (Negative) Urine Bilirubin Negative (Negative) Urine Urobilinogen <2.0 (<2.0) mg/dL Ur Leukocyte Esterase Negative (Negative) Disposition Clinical Impression: Atrial fibrillation with RVR Disposition: HOME SELF-CARE Condition: Good Instructions: Atrial Fibrillation (ED) Referrals: Cliff Conklin MD [Primary Care Provider] - 1-2 days
[2017-03-25 10:58] LABS: Basophils % (A) 0 %; CH 25.8; CHCM 32.8; Eosinophils # (A) 0.1 k/uL (0-0.7); Eosinophils % (A) 2 %; HCT 34.1 % (34.0-46.0); HDW 2.85; HGB 11.3 gm/dL (11.4-16.0); Luc # (Auto) 0.08; Luc % (Auto) 3; Lymphocytes # (A) 0.5 k/uL (1.0-4.8); Lymphocytes % (A) 14 %; MCH 26.3 pg (25.0-35.0); MCHC 33.3 g/dL (31.0-37.0); MCV 79.2 fL (80.0-100.0); Mean Platelet Volume 7.8; Monocytes # (A) 0.2 k/uL (0-1.0); Monocytes % (A) 6 %; Neutrophils # (A) 2.4 k/uL (1.3-7.7); Neutrophils % (A) 75 %; RBC 4.31 m/uL (3.80-5.40); RDW 15.6 % (11.5-15.5); WBC 3.2 k/uL (3.8-10.6); WBC (Perox) 3.07
[2017-03-25 11:08] LABS: INR 1.3 (<1.2); Partial Thromboplastin Time 26.9 sec (22.0-30.0); Prothrombin Time 12.7 sec (9.0-12.0)
[2017-03-25 11:13] LABS: ALT 35 U/L (9-52); AST 31 U/L (14-36); Alkaline Phosphatase 89 U/L (38-126); Anion Gap 9 mmol/L; Blood Urea Nitrogen 10 mg/dL (7-17); Calcium 9.3 mg/dL (8.4-10.2); Carbon Dioxide 22 mmol/L (22-30); Chloride 102 mmol/L (98-107); Glucose 139 mg/dL (74-99); Magnesium 1.4 mg/dL (1.6-2.3); Non-African American GFR(MDRD) >60 (>60 ml/min/1.73 sqM); Potassium 4.2 mmol/L (3.5-5.1); Sodium 133 mmol/L (137-145); Total Protein 7.2 g/dL (6.3-8.2)
--- NOTE | 2017-03-25 11:19 | XR ---
EXAMINATION TYPE: XR chest 2V DATE OF EXAM: 03/25/2017 COMPARISON: Prior chest x-ray 11/04/2016 HISTORY: Weakness, congestive heart failure TECHNIQUE: Frontal and lateral views of the chest are obtained. FINDINGS: Patient is post median sternotomy and the heart remains enlarged. There is no evident pneu mothorax or sizable effusion. Overlying cardiac leads are present. Patient is rotated. No evident air space disease. Aorta is dense. Epicardial pacing leads are noted. There may be some prominence of int erstitium. IMPRESSION: Cardiomegaly. Postop changes. Correlate for pulmonary venous hypertension and interstiti al edema. Follow-up as indicated.
[2017-03-25 11:27] LABS: Creatine Kinase <20 U/L (30-135)
[2017-03-25 11:32] LABS: Creatine Kinase MB 0.5 ng/mL (0.0-2.4)
[2017-03-25 11:43] LABS: Appearance,Urine Clear (Clear); Bilirubin,Urine Negative (Negative); Glucose,Urine (UA) Negative (Negative); Ketones,Urine Trace (Negative); Leukocyte Esterase,Urine Negative (Negative); Nitrite,Urine Negative (Negative); PH, Urine 6.5 (5.0-8.0); Protein,Urine Negative (Negative); Specific Gravity,Urine 1.005 (1.001-1.035); UA Billing (MACRO vs. MICRO) CHEM; Urobilinogen,Urine <2.0 mg/dL (<2.0)
[2017-03-25 11:43] LABS: Troponin I <0.012 ng/mL (0.000-0.034)
[2017-03-25 12:13] VITALS: BP 157/52; PULSE 101; RESP 15; TEMP 98
== END 2017-03-25 12:20 | disposition home or self-care (01) ==
LOC: EC 10:03
DX: I48.91 Unspecified atrial fibrillation (principal); I11.0 Hypertensive heart disease with heart failure; I50.9 Heart failure, unspecified; I25.10 Atherosclerotic heart disease of native coronary artery without angina pectoris; E03.9 Hypothyroidism, unspecified; Z79.01 Long term (current) use of anticoagulants; Z79.899 Other long term (current) drug therapy; Z88.0 Allergy status to penicillin; Z88.5 Allergy status to narcotic agent; Z95.0 Presence of cardiac pacemaker; Z86.73 Personal history of transient ischemic attack (TIA), and cerebral infarction without residual deficits
CPT/HCPCS: 36415; 71020; 80053; 81003; 82550; 82553; 83735; 84100; 84484; 85025; 85610; 85730; 87086; 96360; 99284

== ENCOUNTER 2017-03-29 06:48 | Emergency (ER) | payer MEDICARE, MEDICAID ==
--- NOTE | 2017-03-29 07:27 | ED ---
General Adult HPI - General Chief complaint: Shortness of Breath Stated complaint: SOB Time Seen by Provider: 03/29/17 07:00 Source: patient, RN notes reviewed Mode of arrival: wheelchair Limitations: no limitations - History of Present Illness Initial comments: This is an 87-year-old female presents emergency department stating that at 2: 00 this morning she woke up with difficulty breathing. Patient states she normally does not have any difficulty breathing. Patient denies any fever chills or cough per patient denies any chest pain or palpitations. Patient states she has a history of atrial fibrillation is on eliquis for that. Patient states she is feeling fine when she's got the 2 L of oxygen on. Patient denies any history of anxiety. Patient denies any leg swelling or calf tenderness. Patient denies any lightheadedness dizziness or near syncopal episode. Patient denies any abdominal pain patient denies nausea vomiting diarrhea. - Related Data Home Medications Medication Instructions Recorded Confirmed Apixaban [Eliquis] 2.5 mg PO BID@0830,2030 01/26/14 03/29/17 ALPRAZolam [Xanax] 0.25 mg PO BID PRN 03/25/17 03/29/17 Ascorbic Acid [Vitamin C] 500 mg PO DAILY 03/25/17 03/29/17 Diltiazem Oral [Cardizem*] 30 mg PO BID 03/25/17 03/29/17 Furosemide [Lasix] 20 mg PO QAM 03/25/17 03/29/17 Furosemide [Lasix] 40 mg PO DAILY@1200 03/25/17 03/29/17 Ipratropium Nebulized [Atrovent 0.5 mg INHALATION RT-QID PRN 03/25/17 03/29/17 Nebulized] Levalbuterol Nebulized (Conc) 1.25 mg INHALATION RT-QID PRN 03/25/17 03/29/17 [Xopenex Nebulized (Conc)] Levothyroxine Sodium [Synthroid] 112 mcg PO DAILY 03/25/17 03/29/17 Magnesium Oxide [Magox 400] 400 mg PO DAILY 03/25/17 03/29/17 amLODIPine [Norvasc] 2.5 mg PO DAILY 03/25/17 03/29/17 Previous Rx's Medication Instructions Recorded metFORMIN HCL [Glucophage] 1,000 mg PO AC-BID #60 tab 02/25/14 Acetaminophen Tab [Tylenol] 650 mg PO Q6HR PRN #0 tab 10/31/15 Metoprolol Tartrate [Lopressor] 25 mg PO DAILY tab 11/06/16 Potassium Chloride ER [K-Dur 20] 20 meq PO DAILY #30 tab 11/06/16 Allergies Allergy/AdvReac Type Severity Reaction Status Date / Time Penicillins Allergy Swelling Verified 03/25/17 10:34 codeine AdvReac Nausea & Verified 03/25/17 10:34 Vomiting Review of Systems ROS Statement: Those systems with pertinent positive or pertinent negative responses have been documented in the HPI. ROS Other: All systems not noted in ROS Statement are negative. Past Medical History Past Medical History: Atrial Fibrillation, Coronary Artery Disease (CAD), Heart Failure, CVA/TIA, Diabetes Mellitus, GI Bleed, Hyperlipidemia, Hypertension, Osteoarthritis (OA), Pneumonia, Thyroid Disorder Additional Past Medical History / Comment(s): Recurrent UTIs and past mild encephalopathy with UTI, multiple CVA/TIA, 2013 rectal bleed, diverticular dx, chronic anemia, small hiatal hernia, hypothyroid History of Any Multi-Drug Resistant Organisms: MRSA Date of last positivie culture/infection: 03/12/2014 MDRO Source:: Urine Past Surgical History: Pacemaker Additional Past Surgical History / Comment(s): [employer], 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, D&C, TOTAL RIGHT KNEE Past Anesthesia/Blood Transfusion Reactions: Postoperative Nausea & Vomiting ( PONV) Type of Cardiac Device: Permanent Pacemaker Device Placement Date:: 2010 Past Psychological History: No Psychological Hx Reported Smoking Status: Never smoker Past Alcohol Use History: None Reported Past Drug Use History: None Reported - Past Family History Sister(s) Family Medical History: Cancer Father Family Medical History: Respiratory Disorder Additional Family Medical History / Comment(s): Tuberculosis-Dad General Exam - General Exam Comments Initial Comments: GENERAL: Patient is well-developed and well-nourished. Patient is nontoxic and well- hydrated and is in no acute distress. ENT: Neck is soft and supple. No significant lymphadenopathy is noted. Oropharynx is clear. Moist mucous membranes. Neck has full range of motion without eliciting any pain. EYES: The sclera were anicteric and conjunctiva were pink and moist. Extraocular movements were intact and pupils were equal round and reactive to light. Eyelids were unremarkable. PULMONARY: Unlabored respirations. Good breath sounds bilaterally. No audible rales rhonchi or wheezing was noted. CARDIOVASCULAR: There is a regular rate and rhythm without any murmurs gallops or rubs. Femoral pulses are equal bilaterally ABDOMEN: Soft and nontender with normal bowel sounds. No palpable organomegaly was noted. There is no palpable pulsatile mass. SKIN: Skin is clear with no lesions or rashes and otherwise unremarkable. NEUROLOGIC: Patient is alert and oriented x3. Cranial nerves II through XII are grossly intact. Motor and sensory are also intact. Normal speech, volume and content. Symmetrical smile. MUSCULOSKELETAL: Normal extremities with adequate strength and full range of motion. No lower extremity swelling or edema. No calf tenderness. LYMPHATICS: No significant lymphadenopathy is noted PSYCHIATRIC: Normal psychiatric evaluation. Normal interpersonal interactions appears functionally intact in deals appropriately with others. No signs of depression. No signs of anxiety. Limitations: no limitations Course Vital Signs 03/29/17 03/29/17 03/29/17 06:51 08:07 09:06 Temperature 97.4 F L Pulse Rate 111 H 81 95 Respiratory 22 21 19 Rate Blood Pressure 189/84 157/72 168/76 O2 Sat by Pulse 97 99 100 Oximetry Medical Decision Making - Medical Decision Making EKG shows atrial fibrillation at 95 bpm QRS is under 12 QT interval 376 QTC is 472. Patient's EKG shows no ST segment elevation or depression or T-wave abnormalities noted CT of the chest shows no PE and may be mild pulmonary edema I gave the patient some Lasix and told her to increase her Lasix from half a pill to one pill daily until she follows up with Dr. Conklin patient is currently oxygenating 96% on room air patient is in no distress and does not feel short of breath at this time - Lab Data Result diagrams: 03/29/17 07:00 03/29/17 07:00 Lab Results 03/29/17 03/29/17 03/29/17 Range/Units 07:00 07:00 07:00 WBC 4.5 (3.8-10.6) k/uL RBC 4.45 (3.80-5.40) m/uL Hgb 11.7 (11.4-16.0) gm/dL Hct 35.6 (34.0-46.0) % MCV 80.1 (80.0-100.0) fL MCH 26.2 (25.0-35.0) pg MCHC 32.7 (31.0-37.0) g/dL RDW 16.8 H (11.5-15.5) % Plt Count 143 L (150-450) k/uL Neutrophils % 76 % Lymphocytes % 15 % Monocytes % 5 % Eosinophils % 2 % Basophils % 1 % Neutrophils # 3.4 (1.3-7.7) k/uL Lymphocytes # 0.7 L (1.0-4.8) k/uL Monocytes # 0.2 (0-1.0) k/uL Eosinophils # 0.1 (0-0.7) k/uL Basophils # 0.0 (0-0.2) k/uL Anisocytosis Slight PT (9.0-12.0) sec INR (<1.2) APTT (22.0-30.0) sec D-Dimer (<0.60) mg/L FEU Sodium 134 L (137-145) mmol/L Potassium 4.7 (3.5-5.1) mmol/L Chloride 101 (98-107) mmol/L Carbon Dioxide 20 L (22-30) mmol/L Anion Gap 13 mmol/L BUN 12 (7-17) mg/dL Creatinine 0.54 (0.52-1.04) mg/dL Est GFR (MDRD) Af Amer >60 (>60 ml/min/1.73 sqM) Est GFR (MDRD) Non-Af >60 (>60 ml/min/1.73 sqM) Glucose 148 H (74-99) mg/dL Calcium 9.6 (8.4-10.2) mg/dL Magnesium 1.5 L (1.6-2.3) mg/dL Total Bilirubin 0.9 (0.2-1.3) mg/dL AST 28 (14-36) U/L ALT 40 (9-52) U/L Alkaline Phosphatase 94 (38-126) U/L Total Creatine Kinase 20 L (30-135) U/L CK-MB (CK-2) 0.6 (0.0-2.4) ng/mL CK-MB (CK-2) Rel Index 3.0 Troponin I <0.012 (0.000-0.034) ng/mL NT-Pro-B Natriuret Pep pg/mL Total Protein 7.9 (6.3-8.2) g/dL Albumin 4.3 (3.5-5.0) g/dL 03/29/17 03/29/17 Range/Units 07:00 07:00 WBC (3.8-10.6) k/uL RBC (3.80-5.40) m/uL Hgb (11.4-16.0) gm/dL Hct (34.0-46.0) % MCV (80.0-100.0) fL MCH (25.0-35.0) pg MCHC (31.0-37.0) g/dL RDW (11.5-15.5) % Plt Count (150-450) k/uL Neutrophils % % Lymphocytes % % Monocytes % % Eosinophils % % Basophils % % Neutrophils # (1.3-7.7) k/uL Lymphocytes # (1.0-4.8) k/uL Monocytes # (0-1.0) k/uL Eosinophils # (0-0.7) k/uL Basophils # (0-0.2) k/uL Anisocytosis PT 12.4 H (9.0-12.0) sec INR 1.3 H (<1.2) APTT 28.1 (22.0-30.0) sec D-Dimer 0.92 H (<0.60) mg/L FEU Sodium (137-145) mmol/L Potassium (3.5-5.1) mmol/L Chloride (98-107) mmol/L Carbon Dioxide (22-30) mmol/L Anion Gap mmol/L BUN (7-17) mg/dL Creatinine (0.52-1.04) mg/dL Est GFR (MDRD) Af Amer (>60 ml/min/1.73 sqM) Est GFR (MDRD) Non-Af (>60 ml/min/1.73 sqM) Glucose (74-99) mg/dL Calcium (8.4-10.2) mg/dL Magnesium (1.6-2.3) mg/dL Total Bilirubin (0.2-1.3) mg/dL AST (14-36) U/L ALT (9-52) U/L Alkaline Phosphatase (38-126) U/L Total Creatine Kinase (30-135) U/L CK-MB (CK-2) (0.0-2.4) ng/mL CK-MB (CK-2) Rel Index Troponin I (0.000-0.034) ng/mL NT-Pro-B Natriuret Pep 1700 pg/mL Total Protein (6.3-8.2) g/dL Albumin (3.5-5.0) g/dL Disposition Clinical Impression: Pulmonary edema Disposition: HOME SELF-CARE Instructions: Pulmonary Edema (ED) Additional Instructions: Patient should take one full Lasix pill until she follows up with Dr. Conklin Referrals: Cliff Conklin MD [Primary Care Provider] - 1-2 days Time of Disposition: 09:48
[2017-03-29 07:35] LABS: Anisocytosis Slight; Basophils % (A) 1 %; CH 27.1; CHCM 34.1; Eosinophils # (A) 0.1 k/uL (0-0.7); Eosinophils % (A) 2 %; HCT 35.6 % (34.0-46.0); HDW 2.92; HGB 11.7 gm/dL (11.4-16.0); Luc # (Auto) 0.09; Luc % (Auto) 2; Lymphocytes # (A) 0.7 k/uL (1.0-4.8); Lymphocytes % (A) 15 %; MCH 26.2 pg (25.0-35.0); MCHC 32.7 g/dL (31.0-37.0); MCV 80.1 fL (80.0-100.0); Mean Platelet Volume 8.3; Monocytes # (A) 0.2 k/uL (0-1.0); Monocytes % (A) 5 %; Neutrophils # (A) 3.4 k/uL (1.3-7.7); Neutrophils % (A) 76 %; RBC 4.45 m/uL (3.80-5.40); RDW 16.8 % (11.5-15.5); WBC 4.5 k/uL (3.8-10.6); WBC (Perox) 4.65
[2017-03-29 07:50] LABS: ALT 40 U/L (9-52); AST 28 U/L (14-36); Alkaline Phosphatase 94 U/L (38-126); Anion Gap 13 mmol/L; Blood Urea Nitrogen 12 mg/dL (7-17); Calcium 9.6 mg/dL (8.4-10.2); Carbon Dioxide 20 mmol/L (22-30); Chloride 101 mmol/L (98-107); Glucose 148 mg/dL (74-99); INR 1.3 (<1.2); Magnesium 1.5 mg/dL (1.6-2.3); Non-African American GFR(MDRD) >60 (>60 ml/min/1.73 sqM); Partial Thromboplastin Time 28.1 sec (22.0-30.0); Potassium 4.7 mmol/L (3.5-5.1); Prothrombin Time 12.4 sec (9.0-12.0); Sodium 134 mmol/L (137-145); Total Bilirubin 0.9 mg/dL (0.2-1.3); Total Protein 7.9 g/dL (6.3-8.2)
--- NOTE | 2017-03-29 07:57 | XR ---
EXAMINATION TYPE: XR chest 2V DATE OF EXAM: 03/29/2017 HISTORY: difficulty breathing. REFERENCE: Previous study dated 03/25/2017. FINDINGS: There has been a midline sternotomy. A unipolar pacemaker is in place on the left. The lungs are overinflated. The heart is enlarged. There is vascular congestion without braulio edema. IMPRESSION: 1. COPD. 2. CARDIOMEGALY.
[2017-03-29 08:01] LABS: Creatine Kinase 20 U/L (30-135)
[2017-03-29 08:12] LABS: Creatine Kinase MB 0.6 ng/mL (0.0-2.4); Troponin I <0.012 ng/mL (0.000-0.034)
[2017-03-29] MEDS ORDERED: RX INFO: IV CONTRAST WAS GIVEN 1 EACH MISC MISCELLANE PRN (08:26)
--- NOTE | 2017-03-29 09:27 | CT ---
EXAMINATION TYPE: CT chest angio for PE DATE OF EXAM: 03/29/2017 COMPARISON: Previous study dated 10/31/2016. HISTORY: SOB CT DLP: 302.3 mGycm Automated exposure control for dose reduction was used. CONTRAST: CT Chest for pulmonary embolism performed with with IV Contrast, patient injected with 83 mL of Omnip aque 350. FINDINGS: There is diffuse emphysematous change throughout the lungs. There are patchy groundglass op acities which may reflect alveolitis or pneumonitis. Early heart failure could have a similar appeara nce. There is mediastinal adenopathy. The largest lymph node measures 11.4 mm. There is also mild hilar ad enopathy. The largest in the right hilum measures 10.4 mm. There is subcarinal adenopathy with the la rgest lymph node mass measuring 2.2 cm. There is no evidence of pulmonary embolus. The heart is fairly markedly enlarged. The aorta is normal in caliber. There is no pleural or pericardial fluid. There is a lap band in place. There is extensive vascular calcification including the coronary arteries. There is hypertrophic spondylosis within the spine. IMPRESSION: 1. This examination is negative for pulmonary embolus. 2. Emphysematous changes within the lungs. 3. Patchy groundglass opacity throughout the lungs may represent alveolitis, pneumonitis or edema 4. Nonspecific mediastinal, hilar and subcarinal adenopathy. 5. Fairly marked cardiomegaly. 6. Extensive vascular calcification including the coronary arteries. 7. Degenerative changes within the spine.
[2017-03-29 09:40] VITALS: RESP 19
[2017-03-29] MEDS ORDERED: FUROSEMIDE 10 MG/ML 2 ML VIAL IV ONE (09:47)
[2017-03-29] MEDS ORDERED: FUROSEMIDE 10 MG/ML 4 ML VIAL IV STA (09:58)
[2017-03-29 10:26] VITALS: BP 159/69; PULSE 80; TEMP 98.1
== END 2017-03-29 10:06 | disposition home or self-care (01) ==
LOC: EC 06:48
DX: J81.1 Chronic pulmonary edema (principal); I48.91 Unspecified atrial fibrillation; I25.10 Atherosclerotic heart disease of native coronary artery without angina pectoris; I11.0 Hypertensive heart disease with heart failure; I50.9 Heart failure, unspecified; E78.5 Hyperlipidemia, unspecified; E07.9 Disorder of thyroid, unspecified; Z86.73 Personal history of transient ischemic attack (TIA), and cerebral infarction without residual deficits; Z95.0 Presence of cardiac pacemaker; Z88.0 Allergy status to penicillin; Z88.5 Allergy status to narcotic agent; Z79.01 Long term (current) use of anticoagulants; Z79.899 Other long term (current) drug therapy
CPT/HCPCS: 99285; 96374; 36415; 93005; 85379; 83880; 80053; 82550; 82553; 83735; 84484; 85025; 85610; 85730; 71020; 71275; J1940; Q9967

== ENCOUNTER 2017-04-05 14:17 | Inpatient (IN) | payer MEDICARE, MEDICAID ==
--- NOTE | 2017-04-05 14:48 | ED ---
SOB HPI - General Chief Complaint: Shortness of Breath Stated Complaint: sob Time Seen by Provider: 04/05/17 14:43 Source: patient, family, RN notes reviewed, old records reviewed Mode of arrival: wheelchair Limitations: no limitations - History of Present Illness Initial Comments: This is a 87-year-old female history of congestive heart failure who states she was just discharged from the hospital about 10 days ago who had the onset yesterday of shortness of breath with orthopnea. It was very severe last night a bit better today she does states she feels much improved after receiving oxygen in the emergency department. She denies any fevers chills sweats cough or phlegm production no chest pain. MD Complaint: shortness of breath - Related Data Home Medications Medication Instructions Recorded Confirmed Apixaban [Eliquis] 2.5 mg PO BID@0830,2030 01/26/14 04/05/17 ALPRAZolam [Xanax] 0.25 mg PO BID PRN 03/25/17 04/05/17 Ascorbic Acid [Vitamin C] 500 mg PO DAILY 03/25/17 04/05/17 Diltiazem Oral [Cardizem*] 30 mg PO BID 03/25/17 04/05/17 Furosemide [Lasix] 20 mg PO QAM 03/25/17 04/05/17 Levothyroxine Sodium [Synthroid] 112 mcg PO DAILY 03/25/17 04/05/17 Magnesium Oxide [Magox 400] 400 mg PO DAILY 03/25/17 04/05/17 amLODIPine [Norvasc] 2.5 mg PO DAILY 03/25/17 04/05/17 Previous Rx's Medication Instructions Recorded metFORMIN HCL [Glucophage] 1,000 mg PO AC-BID #60 tab 02/25/14 Acetaminophen Tab [Tylenol] 650 mg PO Q6HR PRN #0 tab 10/31/15 Metoprolol Tartrate [Lopressor] 25 mg PO DAILY tab 11/06/16 Potassium Chloride ER [K-Dur 20] 20 meq PO DAILY #30 tab 11/06/16 Allergies Allergy/AdvReac Type Severity Reaction Status Date / Time Penicillins Allergy Swelling Verified 04/05/17 15:25 codeine AdvReac Nausea & Verified 04/05/17 15:25 Vomiting Review of Systems ROS Statement: Those systems with pertinent positive or pertinent negative responses have been documented in the HPI. ROS Other: All systems not noted in ROS Statement are negative. Past Medical History Past Medical History: Atrial Fibrillation, Coronary Artery Disease (CAD), Heart Failure, CVA/TIA, Diabetes Mellitus, GI Bleed, Hyperlipidemia, Hypertension, Osteoarthritis (OA), Pneumonia, Thyroid Disorder Additional Past Medical History / Comment(s): Recurrent UTIs and past mild encephalopathy with UTI, multiple CVA/TIA, 2013 rectal bleed, diverticular dx, chronic anemia, small hiatal hernia, hypothyroid History of Any Multi-Drug Resistant Organisms: MRSA Date of last positivie culture/infection: 03/12/2014 MDRO Source:: Urine Past Surgical History: Pacemaker Additional Past Surgical History / Comment(s): [employer], 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, D&C, TOTAL RIGHT KNEE Past Anesthesia/Blood Transfusion Reactions: Postoperative Nausea & Vomiting ( PONV) Type of Cardiac Device: Permanent Pacemaker Device Placement Date:: 2010 Past Psychological History: No Psychological Hx Reported Smoking Status: Never smoker Past Alcohol Use History: None Reported Past Drug Use History: None Reported - Past Family History Sister(s) Family Medical History: Cancer Father Family Medical History: Respiratory Disorder Additional Family Medical History / Comment(s): Tuberculosis-Dad General Exam - General Exam Comments Initial Comments: This is a well-developed well-nourished awake alert oriented 3 female Limitations: no limitations General appearance: alert, in no apparent distress Head exam: Present: atraumatic, normocephalic, normal inspection Eye exam: Present: normal appearance, PERRL, EOMI. Absent: scleral icterus, conjunctival injection, periorbital swelling ENT exam: Present: normal exam, mucous membranes moist Neck exam: Present: normal inspection. Absent: tenderness, meningismus, lymphadenopathy Respiratory exam: Present: decreased breath sounds Cardiovascular Exam: Present: regular rate, normal rhythm, normal heart sounds. Absent: systolic murmur, diastolic murmur, rubs, gallop, clicks GI/Abdominal exam: Present: soft, normal bowel sounds. Absent: distended, tenderness, guarding, rebound, rigid Extremities exam: Present: normal inspection, full ROM, normal capillary refill. Absent: tenderness, pedal edema, joint swelling, calf tenderness Back exam: Present: normal inspection Neurological exam: Present: alert, oriented X3, CN II-XII intact Psychiatric exam: Present: normal affect, normal mood Skin exam: Present: warm, dry, intact, normal color. Absent: rash Course Vital Signs 04/05/17 04/05/17 04/05/17 14:28 15:46 17:09 Temperature 97.8 F 97.9 F Pulse Rate 63 67 69 Respiratory 20 16 16 Rate Blood Pressure 124/80 119/67 162/76 O2 Sat by Pulse 98 98 97 Oximetry - Reevaluation(s) Reevaluation #1: 04/05/17 17:15 I did discuss findings with the patient family the findings are consistent with congestive heart failure. Medical Decision Making - Medical Decision Making I did discuss findings with patient family and Dr. Humphrey patient will be admitted for IV Lasix Nitropaste and treatment of CHF exacerbation - Lab Data Result diagrams: 04/05/17 14:45 04/05/17 14:45 Lab Results 04/05/17 04/05/17 04/05/17 Range/Units 14:45 14:45 14:45 WBC 4.0 (3.8-10.6) k/uL RBC 4.21 (3.80-5.40) m/uL Hgb 11.0 L (11.4-16.0) gm/dL Hct 33.5 L (34.0-46.0) % MCV 79.6 L (80.0-100.0) fL MCH 26.1 (25.0-35.0) pg MCHC 32.8 (31.0-37.0) g/dL RDW 15.6 H (11.5-15.5) % Plt Count 171 (150-450) k/uL Neutrophils % 69 % Lymphocytes % 17 % Monocytes % 8 % Eosinophils % 3 % Basophils % 1 % Neutrophils # 2.8 (1.3-7.7) k/uL Lymphocytes # 0.7 L (1.0-4.8) k/uL Monocytes # 0.3 (0-1.0) k/uL Eosinophils # 0.1 (0-0.7) k/uL Basophils # 0.0 (0-0.2) k/uL PT (9.0-12.0) sec INR (<1.2) APTT (22.0-30.0) sec Sodium 132 L (137-145) mmol/L Potassium 4.5 (3.5-5.1) mmol/L Chloride 101 (98-107) mmol/L Carbon Dioxide 20 L (22-30) mmol/L Anion Gap 11 mmol/L BUN 13 (7-17) mg/dL Creatinine 0.61 (0.52-1.04) mg/dL Est GFR (MDRD) Af Amer >60 (>60 ml/min/1.73 sqM) Est GFR (MDRD) Non-Af >60 (>60 ml/min/1.73 sqM) Glucose 100 H (74-99) mg/dL Calcium 9.4 (8.4-10.2) mg/dL Magnesium 1.6 (1.6-2.3) mg/dL Total Bilirubin 0.8 (0.2-1.3) mg/dL AST 25 (14-36) U/L ALT 25 (9-52) U/L Alkaline Phosphatase 77 (38-126) U/L Total Creatine Kinase <20 L (30-135) U/L CK-MB (CK-2) 0.5 (0.0-2.4) ng/mL CK-MB (CK-2) Rel Index Troponin I <0.012 (0.000-0.034) ng/mL NT-Pro-B Natriuret Pep pg/mL Total Protein 7.6 (6.3-8.2) g/dL Albumin 4.1 (3.5-5.0) g/dL 04/05/17 04/05/17 Range/Units 14:45 14:45 WBC (3.8-10.6) k/uL RBC (3.80-5.40) m/uL Hgb (11.4-16.0) gm/dL Hct (34.0-46.0) % MCV (80.0-100.0) fL MCH (25.0-35.0) pg MCHC (31.0-37.0) g/dL RDW (11.5-15.5) % Plt Count (150-450) k/uL Neutrophils % % Lymphocytes % % Monocytes % % Eosinophils % % Basophils % % Neutrophils # (1.3-7.7) k/uL Lymphocytes # (1.0-4.8) k/uL Monocytes # (0-1.0) k/uL Eosinophils # (0-0.7) k/uL Basophils # (0-0.2) k/uL PT 13.1 H (9.0-12.0) sec INR 1.3 H (<1.2) APTT 26.8 (22.0-30.0) sec Sodium (137-145) mmol/L Potassium (3.5-5.1) mmol/L Chloride (98-107) mmol/L Carbon Dioxide (22-30) mmol/L Anion Gap mmol/L BUN (7-17) mg/dL Creatinine (0.52-1.04) mg/dL Est GFR (MDRD) Af Amer (>60 ml/min/1.73 sqM) Est GFR (MDRD) Non-Af (>60 ml/min/1.73 sqM) Glucose (74-99) mg/dL Calcium (8.4-10.2) mg/dL Magnesium (1.6-2.3) mg/dL Total Bilirubin (0.2-1.3) mg/dL AST (14-36) U/L ALT (9-52) U/L Alkaline Phosphatase (38-126) U/L Total Creatine Kinase (30-135) U/L CK-MB (CK-2) (0.0-2.4) ng/mL CK-MB (CK-2) Rel Index Troponin I (0.000-0.034) ng/mL NT-Pro-B Natriuret Pep 1640 pg/mL Total Protein (6.3-8.2) g/dL Albumin (3.5-5.0) g/dL - EKG Data -: EKG Interpreted by Me (Atrial fibrillation rate 61 QRS 110 daily since QTC of 460/463 left exodevi) - Radiology Data Radiology results: report reviewed (I did review the imaging and report is evidence of CHF.), image reviewed Critical Care Time Critical Care Time: Yes Critical Care Time: 31 minutes of critical care time which includes initial presentation with history physical labs x-rays reevaluation discussed with the patient family regarding the findings. Discussion with the admitting physician and admission orders and documentation of the above. Disposition Clinical Impression: Congestive heart failure (CHF) Disposition: ADMITTED IP TO THIS [facility] Condition: Stable Referrals: Cliff Conklin MD [Primary Care Provider] - 1-2 days
[2017-04-05 15:19] LABS: Basophils % (A) 1 %; CH 25.8; CHCM 32.6; Eosinophils # (A) 0.1 k/uL (0-0.7); Eosinophils % (A) 3 %; HCT 33.5 % (34.0-46.0); HDW 2.83; Luc # (Auto) 0.12; Luc % (Auto) 3; Lymphocytes # (A) 0.7 k/uL (1.0-4.8); Lymphocytes % (A) 17 %; MCH 26.1 pg (25.0-35.0); MCHC 32.8 g/dL (31.0-37.0); MCV 79.6 fL (80.0-100.0); Mean Platelet Volume 7.9; Monocytes # (A) 0.3 k/uL (0-1.0); Monocytes % (A) 8 %; Neutrophils # (A) 2.8 k/uL (1.3-7.7); Neutrophils % (A) 69 %; RBC 4.21 m/uL (3.80-5.40); RDW 15.6 % (11.5-15.5); WBC (Perox) 4.02
[2017-04-05 15:30] LABS: ALT 25 U/L (9-52); AST 25 U/L (14-36); Alkaline Phosphatase 77 U/L (38-126); Anion Gap 11 mmol/L; Blood Urea Nitrogen 13 mg/dL (7-17); Calcium 9.4 mg/dL (8.4-10.2); Carbon Dioxide 20 mmol/L (22-30); Chloride 101 mmol/L (98-107); Glucose 100 mg/dL (74-99); Magnesium 1.6 mg/dL (1.6-2.3); Non-African American GFR(MDRD) >60 (>60 ml/min/1.73 sqM); Potassium 4.5 mmol/L (3.5-5.1); Sodium 132 mmol/L (137-145); Total Bilirubin 0.8 mg/dL (0.2-1.3); Total Protein 7.6 g/dL (6.3-8.2)
[2017-04-05 15:34] LABS: INR 1.3 (<1.2); Partial Thromboplastin Time 26.8 sec (22.0-30.0); Prothrombin Time 13.1 sec (9.0-12.0)
[2017-04-05 15:43] LABS: Creatine Kinase <20 U/L (30-135)
[2017-04-05 15:55] LABS: Creatine Kinase MB 0.5 ng/mL (0.0-2.4); Troponin I <0.012 ng/mL (0.000-0.034)
--- NOTE | 2017-04-05 16:26 | XR ---
EXAMINATION TYPE: XR chest 2V DATE OF EXAM: 04/05/2017 COMPARISON: and HISTORY: Shortness of breath TECHNIQUE: Frontal and lateral views of the chest are obtained. FINDINGS: There is four-chamber cardiac enlargement, median sternotomy wires, and single left-sided cardiac device. New pulmonary vascular congestion, mild in degree is seen in comparison to the prior exam. This is exaggerated centrally on the lateral image. No focal consolidation or pleural effusion is present. Pulmonary hyperinflation is again evident as seen on the prior. Mild degenerative changes of the thoracic spine and acromio clavicular joint are noted. IMPRESSION: New mild pulmonary vascular congestion in combination with cardiomegaly likely relates t o decompensated congestive heart failure.
[2017-04-05] MEDS ORDERED: FUROSEMIDE 10 MG/ML 4 ML VIAL IV STA (17:11)
[2017-04-05] MEDS ORDERED: NITROGLYCERIN OINT 1 INCH/GM PACKET TOPICAL STA (17:14)
[2017-04-05 20:31] LABS: Glucose,Whole Blood 148 mg/dL (75-99)
[2017-04-05] MEDS: INSULIN LISPRO (humaLOG) 300 UNIT/3 ML VIAL SQ SCH ×2 (20:43→21:55)
[2017-04-05] MEDS: SODIUM CHLORIDE 0.9% 1,000 ML IV SCH (20:44)
[2017-04-05] MEDS: APIXABAN 2.5 MG TABLET PO SCH (20:44)
[2017-04-05] MEDS: metFORMIN 500 MG TAB PO SCH (20:44)
[2017-04-05] MEDS: DILTIAZEM ORAL 30 MG TAB PO SCH (20:45)
[2017-04-05] MEDS: FUROSEMIDE 10 MG/ML 4 ML VIAL IV SCH (20:46)
[2017-04-05] MEDS: NITROGLYCERIN OINT 1 INCH/GM PACKET TOPICAL SCH (22:37)
[2017-04-06] MEDS: ALPRAZolam 0.25 MG TAB PO PRN ×2 (03:01→23:54)
[2017-04-06] MEDS: LEVOTHYROXINE 112 MCG TAB PO SCH (06:06)
[2017-04-06 07:11] LABS: Glucose,Whole Blood 104 mg/dL (75-99)
[2017-04-06] MEDS: FUROSEMIDE 10 MG/ML 4 ML VIAL IV SCH ×2 (08:34→20:40)
[2017-04-06] MEDS: metFORMIN 500 MG TAB PO SCH ×2 (08:34→17:34)
[2017-04-06] MEDS: NITROGLYCERIN OINT 1 INCH/GM PACKET TOPICAL SCH ×4 (08:34→23:02)
[2017-04-06] MEDS: DILTIAZEM ORAL 30 MG TAB PO SCH ×2 (08:34→20:40)
[2017-04-06] MEDS: METOPROLOL TARTRATE 25 MG TAB PO SCH (08:35)
[2017-04-06] MEDS: POTASSIUM CHLORIDE ER 20 MEQ TAB.ER PO SCH (08:35)
[2017-04-06] MEDS: MAGNESIUM OXIDE 400 MG TAB PO SCH (08:35)
[2017-04-06] MEDS: APIXABAN 2.5 MG TABLET PO SCH ×2 (08:35→20:40)
[2017-04-06] MEDS: INSULIN LISPRO (humaLOG) 300 UNIT/3 ML VIAL SQ SCH ×4 (08:35→20:43)
[2017-04-06] MEDS ORDERED: FUROSEMIDE 40 MG TAB PO SCH (09:00)
[2017-04-06 10:45] LABS: Hemoglobin A1C 5.9 % (4.2-6.1)
--- NOTE | 2017-04-06 11:39 | HP ---
HISTORY AND PHYSICAL DATE OF ADMISSION: 04/05/17 CHIEF COMPLAINT: Shortness of breath. HISTORY OF PRESENT ILLNESS: This is an 87 years old female with past medical history significant for atrial fibrillation, presents to the hospital with worsening shortness of breath. The patient stated that for the last 3 days she has been experiencing occasional shortness of breath and when she checked on her heart rate, it was showing 177, and decided to come into the emergency department. Initial EKG showed no significant ST or T-wave abnormality. Troponin was negative. Chest x-ray was suggesting for pulmonary congestion and her BNP was greater than 1000. The patient received Lasix and admitted to the cardiac floor. The patient stated that she has been compliant with her medication and avoiding salt in her diet. Denied any recent upper respiratory infection or any kind of infection. Denied any dysuria and stated that the last time she saw her game designer was 1 week ago when he reassured her that everything is fine. She said that she had the pacemaker that was interrogated recently and showed normal finding. The patient tried to see her primary care physician last week for shortness breath but failed to take an appointment and presented to the emergency after she called 911. The patient reported no cough. Reported no recent weight loss and thinks that she has been at her baseline with her weight. The patient denied any night sweats or low-grade fever. REVIEW OF SYSTEM: All 14 systems reviewed and negative. ALLERGIES: PENICILLIN AND CODEINE. HOME MEDICATION: 1. Apixaban 2.5 twice daily. 2. Xanax 0.25 twice daily as needed. 3. Vitamin C. 4. Diltiazem 30 mg twice daily. 5. Lasix 20 mg daily. 6. Levothyroxine 112 mcg daily. 7. Magnesium 400 mg daily. 8. Norvasc 2.5 mg daily. 9. Metformin 1000 mg twice daily. 10.Tylenol 650 as needed. 11.Metoprolol 25 mg daily. 12.Potassium chloride 20 mEq daily. PAST MEDICAL HISTORY: 1. Hypertension. 2. Atrial fibrillation. 3. Coronary artery disease. 4. Congestive heart failure. 5. History of TIA. 6. Diabetes mellitus type 2, non-insulin dependent. 7. History of GI bleed. 8. Hyperlipidemia. 9. Osteoarthritis. 10.Hypothyroidism. 11.Recurrent UTI. 12.Diverticulosis. 13.Anemia. 14.Hiatal hernia. 15.Pacemaker placement. SOCIAL HISTORY: Patient denies tobacco, alcohol, or drug abuse. States that she is still independent and active and taking care of all daily activities. FAMILY HISTORY: Positive for cancer in her sister and tuberculosis in her father. PHYSICAL EXAMINATION: Vital signs 97.8, 63, 20, saturations 98% on room air. General in her stated age, in no acute distress. HEENT atraumatic, normocephalic. PERRLA. Lungs is positive for bilateral crackles in the lower bases. Heart normal S1, S2. Irregularly irregular rate and rhythm. ABDOMEN: Soft, nontender, bowel sounds in all 4 quadrants. Lower extremity no edema. Psych alert oriented x3. Relaxed mood and affect normal. Normal remote and recent memory. Cranial nerves 2-12 intact. Normal gait. Reflexes and sensation. Skin no new rash. IMAGING AND LABS: CBC revealed hemoglobin 11, stable from prior finding. Chemistry revealed sodium 132, and bicarb of 20, normal otherwise. Liver function tests within acceptable range. PT, PTT, INR within normal range. Chest x-ray showed pulmonary congestion. EKG as above. ASSESSMENT AND PLAN: 1. Congestive heart failure with exacerbation, likely related to uncontrolled heart rate in the setting of atrial fibrillation. The patient stated that she had a heart rate of 177, suggesting atrial fibrillation with rapid ventricular response that terminated in the hospital, but I would like to continue close monitoring. Optimize her medical therapy. Keep the patient on Lasix 20 mg IV push twice daily. Monitor I's and O's, daily weight and consult Cardiology. Continue cardioprotective medication. 2. Atrial fibrillation with rapid ventricular response. Currently in controlled rate. We will continue management as above. 3. Anxiety. Continue Xanax as needed. 4. Hypothyroidism. Will check TSH and continue Synthroid. 5. Hypertension, under fair control. Continue home regimen. 6. Diabetes mellitus. Will continue with insulin sliding scale and continue metformin twice daily. 7. Status post pacemaker to be followed by Cardiology outpatient. Discharge planning based on clinical progress. MMODL / IJN: [id number] /
[2017-04-06 11:48] LABS: Glucose,Whole Blood 110 mg/dL (75-99)
[2017-04-06] MEDS: ASCORBIC ACID 500 MG TAB PO SCH (12:09)
--- NOTE | 2017-04-06 13:54 | P.CRDCN ---
History of Present Illness Consult date: 04/06/17 Chief complaint: Shortness of breath History of present illness: This is a pleasant 87-year-old female patient who used to see Dr. Degroot as an outpatient and currently his she follows with Dr. Hernández in the office with a past medical history significant for CHF, chronic atrial fibrillation, hypertension, and dyslipidemia, presented to the hospital complaining of progressive dyspnea. The patient was in her usual state of health until about 3-4 days ago when she started experiencing progressive exertional dyspnea with orthopnea and also PND. She did not have any symptoms of chest pain or chest discomfort. She stated that she did not gain any weight. She did not have any bilateral lower extremities edema. The patient underwent a chest x-ray which showed findings consistent with CHF. The BNP came in to be elevated. The EKG showed atrial fibrillation with controlled heart rate. The patient stated that she was compliant with her medications and also she was compliant with her diet. Past Medical History Past Medical History: Atrial Fibrillation, Coronary Artery Disease (CAD), Heart Failure, CVA/TIA, Diabetes Mellitus, GI Bleed, Hyperlipidemia, Hypertension, Osteoarthritis (OA), Pneumonia, Thyroid Disorder Additional Past Medical History / Comment(s): Recurrent UTIs and past mild encephalopathy with UTI, multiple CVA/TIA, 2013 rectal bleed, diverticular dx, chronic anemia, small hiatal hernia, hypothyroid History of Any Multi-Drug Resistant Organisms: MRSA Date of last positivie culture/infection: 03/12/2014 MDRO Source:: Urine Past Surgical History: Pacemaker Additional Past Surgical History / Comment(s): [employer], 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, D&C, TOTAL RIGHT KNEE Past Anesthesia/Blood Transfusion Reactions: Postoperative Nausea & Vomiting ( PONV) Type of Cardiac Device: Permanent Pacemaker Device Placement Date:: 2010 Past Psychological History: No Psychological Hx Reported Additional Psychological History / Comment(s): Pt lives alone. She uses a walker to ambulate. She drives. Smoking Status: Never smoker Past Alcohol Use History: None Reported Past Drug Use History: None Reported - Past Family History Sister(s) Family Medical History: Cancer Father Family Medical History: Respiratory Disorder Additional Family Medical History / Comment(s): Tuberculosis-Dad Medications and Allergies Home Medications Medication Instructions Recorded Confirmed Type Apixaban [Eliquis] 2.5 mg PO BID@0830,2030 01/26/14 04/05/17 History metFORMIN HCL [Glucophage] 1,000 mg PO AC-BID #60 tab 02/25/14 04/05/17 Rx Acetaminophen Tab [Tylenol] 650 mg PO Q6HR PRN #0 tab 10/31/15 04/05/17 Rx Metoprolol Tartrate [Lopressor] 25 mg PO DAILY tab 11/06/16 04/05/17 Rx Potassium Chloride ER [K-Dur 20] 20 meq PO DAILY #30 tab 11/06/16 04/05/17 Rx ALPRAZolam [Xanax] 0.25 mg PO BID PRN 03/25/17 04/05/17 History Ascorbic Acid [Vitamin C] 500 mg PO DAILY 03/25/17 04/05/17 History Diltiazem Oral [Cardizem*] 30 mg PO BID 03/25/17 04/05/17 History Furosemide [Lasix] 20 mg PO QAM 03/25/17 04/05/17 History Levothyroxine Sodium [Synthroid] 112 mcg PO DAILY 03/25/17 04/05/17 History Magnesium Oxide [Magox 400] 400 mg PO DAILY 03/25/17 04/05/17 History amLODIPine [Norvasc] 2.5 mg PO DAILY 03/25/17 04/05/17 History Allergies Allergy/AdvReac Type Severity Reaction Status Date / Time Penicillins Allergy Swelling Verified 04/05/17 15:25 codeine AdvReac Nausea & Verified 04/05/17 15:25 Vomiting Physical Exam Vitals: Vital Signs Temp Pulse Pulse Resp BP BP Pulse Ox 04/06/17 08:00 76 20 04/06/17 07:00 97.0 F L 76 20 130/60 98 04/05/17 23:35 96.9 F L 67 20 150/67 94 L 04/05/17 19:30 97.1 F L 74 20 137/84 96 04/05/17 18:35 97.4 F L 77 18 166/80 97 04/05/17 17:09 97.9 F 69 16 162/76 97 04/05/17 15:46 67 16 119/67 98 04/05/17 14:28 97.8 F 63 20 124/80 98 Intake and Output 09/16/17 09/17/17 09/17/17 22:59 06:59 14:59 Intake Total 150 Balance 150 Intake: Oral 150 Other: # Voids 3 Weight 76.5 kg 75.9 kg 75.9 kg Patient Weight 04/07/17 06:59 Weight 75.9 kg - Constitutional General appearance: no acute distress - Respiratory Respiratory: bilateral: CTA - Cardiovascular Rhythm: irregularly irregular Heart sounds: normal: S1, S2 Results 04/05/17 14:45 04/05/17 14:45 Cardiac Enzymes 04/05/17 04/05/17 Range/Units 14:45 14:45 AST 25 (14-36) U/L CK-MB (CK-2) 0.5 (0.0-2.4) ng/mL Troponin I <0.012 (0.000-0.034) ng/mL Coagulation 04/05/17 Range/Units 14:45 PT 13.1 H (9.0-12.0) sec APTT 26.8 (22.0-30.0) sec CBC 04/05/17 Range/Units 14:45 WBC 4.0 (3.8-10.6) k/uL RBC 4.21 (3.80-5.40) m/uL Hgb 11.0 L (11.4-16.0) gm/dL Hct 33.5 L (34.0-46.0) % Plt Count 171 (150-450) k/uL Comprehensive Metabolic Panel 04/05/17 Range/Units 14:45 Sodium 132 L (137-145) mmol/L Potassium 4.5 (3.5-5.1) mmol/L Chloride 101 (98-107) mmol/L Carbon Dioxide 20 L (22-30) mmol/L BUN 13 (7-17) mg/dL Creatinine 0.61 (0.52-1.04) mg/dL Glucose 100 H (74-99) mg/dL Calcium 9.4 (8.4-10.2) mg/dL AST 25 (14-36) U/L ALT 25 (9-52) U/L Alkaline Phosphatase 77 (38-126) U/L Total Protein 7.6 (6.3-8.2) g/dL Albumin 4.1 (3.5-5.0) g/dL Current Medications Generic Name Dose Route Start Last Admin Trade Name Freq PRN Reason Stop Dose Admin Alprazolam 0.25 mg 04/06/17 01:53 04/06/17 03:01 Xanax PO 0.125 mg BID PRN Administration Anxiety Apixaban 2.5 mg 04/05/17 20:30 04/06/17 08:35 Eliquis PO 2.5 mg BID@0830,2030 [facility] Administration Ascorbic Acid 500 mg 04/06/17 12:00 04/06/17 12:09 Vitamin C PO 500 mg 1200 [facility] Administration Diltiazem HCl 30 mg 04/05/17 21:00 04/06/17 08:34 Cardizem Oral PO 30 mg BID [facility] Administration Furosemide 40 mg 04/05/17 21:00 04/06/17 08:34 Lasix IV 40 mg Q12H [facility] Administration Sodium Chloride 1,000 mls @ 20 mls/hr 04/05/17 17:30 04/05/17 20:44 Saline 0.9% IV Not Given .Q24H [facility] Insulin Human Lispro 0 unit 04/05/17 17:30 04/06/17 11:58 Humalog SQ Not Given ACHS [facility] Protocol Levothyroxine Sodium 112 mcg 04/06/17 06:30 04/06/17 06:06 Synthroid PO 112 mcg 0630 [facility] Administration Magnesium Oxide 400 mg 04/06/17 09:00 04/06/17 08:35 Mag-Ox PO 400 mg DAILY [facility] Administration Metformin HCl 1,000 mg 04/05/17 18:15 04/06/17 08:34 Glucophage PO 1,000 mg AC-BID [facility] Administration Metoprolol Tartrate 25 mg 04/06/17 09:00 04/06/17 08:35 Lopressor PO 25 mg DAILY [facility] Administration Nitroglycerin 0.5 inch 04/05/17 22:00 04/06/17 12:09 Nitro-Bid Oint TOPICAL 0.5 inch QID [facility] Administration Potassium Chloride 20 meq 04/06/17 09:00 04/06/17 08:35 K-Dur 20 PO 20 meq DAILY [facility] Administration Intake and Output 04/05/17 04/06/17 04/06/17 22:59 06:59 14:59 Intake Total 150 Balance 150 Intake: Oral 150 Other: # Voids 3 Weight 76.5 kg 75.9 kg 75.9 kg Patient Weight 04/07/17 06:59 Weight 75.9 kg 04/05/17 14:45 04/05/17 14:45 Assessment and Plan Plan: This is a pleasant 87-year-old female patient who was admitted to the hospital was progressive dyspnea. She was diagnosed with congestive heart failure exacerbation and known if it's still to systolic or diastole dysfunction at this point. I agree to keep the patient on the current above dose of Lasix. Continue monitor the kidney function as well as electrolytes. Obtain an echocardiogram was Doppler. Weight the patient daily. Monitor her input and output. Rule out an acute coronary event.
[2017-04-06 17:10] LABS: Glucose,Whole Blood 125 mg/dL (75-99)
[2017-04-06] MEDS: SODIUM CHLORIDE 0.9% 1,000 ML IV SCH (17:37)
[2017-04-06 20:56] LABS: Glucose,Whole Blood 148 mg/dL (75-99)
[2017-04-07] MEDS: LEVOTHYROXINE 112 MCG TAB PO SCH (05:50)
[2017-04-07 07:26] LABS: Glucose,Whole Blood 107 mg/dL (75-99)
[2017-04-07] MEDS: INSULIN LISPRO (humaLOG) 300 UNIT/3 ML VIAL SQ SCH ×4 (07:37→21:28)
[2017-04-07] MEDS: metFORMIN 500 MG TAB PO SCH ×2 (07:41→17:45)
[2017-04-07] MEDS: DILTIAZEM ORAL 30 MG TAB PO SCH ×2 (07:42→21:28)
[2017-04-07] MEDS: FUROSEMIDE 10 MG/ML 4 ML VIAL IV SCH ×2 (07:42→17:44)
[2017-04-07] MEDS: MAGNESIUM OXIDE 400 MG TAB PO SCH (07:42)
[2017-04-07] MEDS: APIXABAN 2.5 MG TABLET PO SCH ×2 (07:43→21:27)
[2017-04-07] MEDS: POTASSIUM CHLORIDE ER 20 MEQ TAB.ER PO SCH (07:43)
[2017-04-07] MEDS: NITROGLYCERIN OINT 1 INCH/GM PACKET TOPICAL SCH ×4 (07:43→21:27)
[2017-04-07] MEDS: METOPROLOL TARTRATE 25 MG TAB PO SCH (07:44)
[2017-04-07 10:57] VITALS: BMI 25.4
--- NOTE | 2017-04-07 11:34 | P.PN ---
Subjective This is an 87-year-old female with a past medical history significant for atrial fibrillation, presents to the hospital with worsening shortness of breath. The patient stated that for the last 3 days she has been experiencing occasional shortness of breath and when she checked on her heart rate, it was showing 177, and decided to come into the emergency department. Initial EKG showed no significant ST or T-wave abnormality. Troponin was negative. Chest x -ray was suggesting for pulmonary congestion and her BNP was greater than 1000. The patient received Lasix and admitted to the cardiac floor. The patient stated that she had been compliant with her medications and avoiding salt in her diet. Denied any recent upper respiratory infection or any kind of infection. Denied any dysuria stated that the last time she saw her shaving machine operator was one week ago when he reassured her that everything is fine. She said that she had the pacemaker that was interrogated recently and showed normal finding. The patient tried to see her primary care physician last week for shortness breath but failed to take an appointment and presented to the emergency after she called 911. The patient reported no cough. Reported no recent weight loss and thinks that she has been at her baseline with her weight. The patient denied any night sweats or low-grade fever. 04/07: The patient was seen and evaluated today, she was noted to be resting comfortably in her bed. She reports her shortness of breath has improved, she denies any chest pain. Chest x-ray did reveal mild pulmonary vascular congestion and cardiomegaly. CK and troponins have been negative so far, kidney function is within normal limits. She continues to receive IV Lasix 40 mg every 12 hours. Heart rate remains rate controlled on her current dose of metoprolol and diltiazem. She is receiving anticoagulation with Eliquis 2.5 mg twice a day. She is down to 0.5 kg from her admission weight. Echocardiogram and Doppler are pending. The patient did complain of some skin irritation from the EKG leads, triamcinolone ordered. Objective - Vital Signs Vital signs: Vital Signs Temp 96.6 F L 04/07/17 07:00 Pulse 74 04/07/17 07:00 Resp 14 04/07/17 07:00 BP 128/62 04/07/17 07:00 Pulse Ox 94 L 04/07/17 07:00 Intake & Output 09/04/07/17 04/07/17 18:59 06:59 18:59 Intake Total 1150 650 Balance 1150 650 Weight 75.9 kg 76 kg Intake: Oral 1150 650 Other: # Voids 1 2 - Constitutional General appearance: Present: no acute distress - EENT Eyes: Present: PERRLA ENT: Present: normal oropharynx - Neck Neck: Present: normal ROM. Absent: lymphadenopathy, thyromegaly Thyroid: bilateral: normal size, negative: enlarged - Respiratory Respiratory: bilateral: other (crackles), negative: wheezing - Cardiovascular Rhythm: irregularly irregular Heart sounds: normal: S1, S2 Abnormal Heart Sounds: Absent: rub, S3 Gallop, S4 Gallop, click - Gastrointestinal General gastrointestinal: Present: normal bowel sounds, soft. Absent: distended , organomegaly, tenderness - Neurologic Neurologic: Present: CNII-XII intact. Absent: focal deficits - Musculoskeletal Musculoskeletal: Present: strength equal bilaterally - Psychiatric Psychiatric: Present: A&O x's 3, appropriate affect - Labs CBC & Chem 7: 04/05/17 14:45 04/05/17 14:45 Labs: Abnormal Lab Results - Last 24 Hours (Table) 04/06/17 04/06/17 04/06/17 Range/Units 11:46 17:07 20:41 POC Glucose (mg/dL) 110 H 125 H 148 H (75-99) mg/dL 04/07/17 Range/Units 07:17 POC Glucose (mg/dL) 107 H (75-99) mg/dL Assessment and Plan Plan: 1. Congestive heart failure with acute exacerbation, likely related to uncontrolled heart rate in the setting of atrial fibrillation. Will continue to monitor kidney function as well as electrolytes. Pending electrocardiogram with Doppler. Will continue to weigh patient daily, monitor her input and output. Continue to monitor troponins, continue to receive current dose of Lasix. Cardiology on consult. 2. Atrial fibrillation with RVR. Currently with controlled rate. Continue current dose of metoprolol and Cardizem, continue anticoagulation with Eliquis 2.5 twice a day. 3. Anxiety. Continue Xanax as needed 4. Hypothyroidism. Will check TSH and continue levothyroxine 112 g daily, will adjust if needed 5. Hypertension. Blood pressure controlled, continue metoprolol 25 mg daily and Cardizem 30 mg 6. Diabetes type II. Will continue metformin 1000 mg twice a day and Humalog sliding scale, will continue with Accu-Cheks 7. Status post pacemaker, to be followed by cardiology outpatient. DVT prophylaxis continue with Eliquis and compression stockings GI prophylaxis continue Pepcid The above impression and plan of care have been discussed and directed by signing physician. Amira Conway nurse practitioner acting as scribe for signing physician.
[2017-04-07 11:59] LABS: Anisocytosis Slight; Basophils % (A) 0 %; CH 26.5; CHCM 33.1; Eosinophils # (A) 0.2 k/uL (0-0.7); Eosinophils % (A) 4 %; HCT 35.7 % (34.0-46.0); HDW 2.83; HGB 11.2 gm/dL (11.4-16.0); Luc # (Auto) 0.09; Luc % (Auto) 2; Lymphocytes # (A) 0.8 k/uL (1.0-4.8); Lymphocytes % (A) 19 %; MCH 25.3 pg (25.0-35.0); MCHC 31.4 g/dL (31.0-37.0); MCV 80.6 fL (80.0-100.0); Mean Platelet Volume 8.5; Monocytes # (A) 0.4 k/uL (0-1.0); Monocytes % (A) 9 %; Neutrophils # (A) 2.7 k/uL (1.3-7.7); Neutrophils % (A) 66 %; RBC 4.44 m/uL (3.80-5.40); RDW 16.4 % (11.5-15.5); WBC 4.1 k/uL (3.8-10.6)
[2017-04-07 12:18] LABS: Glucose,Whole Blood 106 mg/dL (75-99)
[2017-04-07 12:24] LABS: ALT 36 U/L (9-52); AST 31 U/L (14-36); Alkaline Phosphatase 82 U/L (38-126); Anion Gap 8 mmol/L; Blood Urea Nitrogen 11 mg/dL (7-17); Calcium 9.4 mg/dL (8.4-10.2); Carbon Dioxide 27 mmol/L (22-30); Chloride 99 mmol/L (98-107); Glucose 92 mg/dL (74-99); Magnesium 1.5 mg/dL (1.6-2.3); Non-African American GFR(MDRD) >60 (>60 ml/min/1.73 sqM); Potassium 4.3 mmol/L (3.5-5.1); Sodium 134 mmol/L (137-145); Total Bilirubin 0.8 mg/dL (0.2-1.3); Total Protein 7.4 g/dL (6.3-8.2)
[2017-04-07] MEDS: ASCORBIC ACID 500 MG TAB PO SCH (12:46)
--- NOTE | 2017-04-07 14:37 | ECHOF ---
Referral Reason:chf MEASUREMENTS -------- HEIGHT: 172.7 cm WEIGHT: 75.7 kg BP: 125/58 RVIDd: 3.2 cm (< 3.3) IVSd: 1.3 cm (0.6 - 1.1) LVIDd: 3.9 cm (3.9 - 5.3) LVPWd: 1.3 cm (0.6 - 1.1) IVSs: 2.1 cm LVIDs: 2.3 cm LVPWs: 2.1 cm LAESV Index (A-L): 40.94 ml/m Ao Diam: 3.9 cm (2.0 - 3.7) AV Cusp: 1.9 cm (1.5 - 2.6) LA Diam: 3.7 cm (2.7 - 3.8) MV EXCURSION: 20.477 mm (> 18.000) MV EF SLOPE: 50 mm/s (70 - 150) EPSS: 0.5 cm MV E Ceferino: 1.40 m/s MV DecT: 377 ms MV A Ceferino: 0.01 m/s MV E/A Ratio: 143.12 RAP: 15.00 mmHg RVSP: 55.83 mmHg FINDINGS -------- Atrial fibrillation. This was a technically good study. The left ventricular size is normal. There is mild concentric left ventricular hypertrophy. Overall left ventricular systolic function is normal with, an EF between 60 - 65 %. The right ventricle is severely enlarged. The right ventricular systolic function is normal. LA is severely dilated >40 ml/m2 The right atrium is markedly enlarged. Electronic pacemaker lead seen in the right ventricular cavity. Aortic valve is trileaflet and is moderately thickened. There is no evidence of aortic regurgitation. There is no evidence of aortic stenosis. The mitral valve leaflets are mildly thickened. Mild mitral annular calcification present. Mild mitral regurgitation is present. [id number] tricuspid regurgitation present. There is mild to moderate pulmonary hypertension. The right ventricular systolic pressure, as measured by Doppler, is 55.83mmHg. The pulmonic valve was not well visualized. The aortic root size is normal. The inferior vena cava is dilated with poor inspiratory collapse which is consistent with estimated right atrial pressure of 20 mmHg. The pericardium is normal. There is no pericardial effusion. CONCLUSIONS -------- 1. Atrial fibrillation. 2. Electronic pacemaker lead seen in the right ventricular cavity. 3. Aortic valve is trileaflet and is moderately thickened. 4. The mitral valve leaflets are mildly thickened. 5. Mild mitral annular calcification present. 6. Mild mitral regurgitation is present. 7. [id number]-hhvdxcbk tricuspid regurgitation present. 8. There is mild to moderate pulmonary hypertension. 9. The right ventricular systolic pressure, as measured by Doppler, is 55.83mmHg. 10. The pulmonic valve was not well visualized. 11. The aortic root size is normal. 12. This was a technically good study. 13. The inferior vena cava is dilated with poor inspiratory collapse which is consistent with estimated right atrial pressure of 20 mmHg. 14. There is no pericardial effusion. 15. The left ventricular size is normal. 16. There is mild concentric left ventricular hypertrophy. 17. Overall left ventricular systolic function is normal with, an EF between 60 - 65 %. 18. The right ventricle is severely enlarged. 19. The right ventricular systolic function is normal. 20. LA is severely dilated >40 ml/m2 21. The right atrium is markedly enlarged. SPRAY STAINER: Efren Farr RDCS
[2017-04-07 17:00] LABS: Glucose,Whole Blood 120 mg/dL (75-99)
[2017-04-07] MEDS: SODIUM CHLORIDE 0.9% 1,000 ML IV SCH (17:42)
[2017-04-07] MEDS: PANTOPRAZOLE 40 MG TABLET PO SCH (17:45)
[2017-04-07 20:48] LABS: Glucose,Whole Blood 113 mg/dL (75-99)
[2017-04-07] MEDS: TRIAMCINOLONE 0.1% CREAM 80 GM TUBE TOPICAL SCH (21:27)
[2017-04-07] MEDS: ALPRAZolam 0.25 MG TAB PO PRN (23:42)
[2017-04-08] MEDS: FUROSEMIDE 10 MG/ML 4 ML VIAL IV SCH ×2 (06:30→16:01)
[2017-04-08] MEDS: LEVOTHYROXINE 112 MCG TAB PO SCH (06:31)
[2017-04-08 07:47] LABS: Glucose,Whole Blood 112 mg/dL (75-99)
[2017-04-08] MEDS: INSULIN LISPRO (humaLOG) 300 UNIT/3 ML VIAL SQ SCH ×3 (08:09→18:01)
[2017-04-08] MEDS: NITROGLYCERIN OINT 1 INCH/GM PACKET TOPICAL SCH ×3 (08:23→18:14)
[2017-04-08] MEDS: DILTIAZEM ORAL 30 MG TAB PO SCH (08:23)
[2017-04-08] MEDS: MAGNESIUM OXIDE 400 MG TAB PO SCH (08:23)
[2017-04-08] MEDS: POTASSIUM CHLORIDE ER 20 MEQ TAB.ER PO SCH (08:23)
[2017-04-08] MEDS: METOPROLOL TARTRATE 25 MG TAB PO SCH (08:24)
[2017-04-08] MEDS: metFORMIN 500 MG TAB PO SCH ×2 (08:24→18:14)
[2017-04-08] MEDS: APIXABAN 2.5 MG TABLET PO SCH (08:24)
[2017-04-08] MEDS: PANTOPRAZOLE 40 MG TABLET PO SCH ×2 (08:27→18:14)
[2017-04-08] MEDS: TRIAMCINOLONE 0.1% CREAM 80 GM TUBE TOPICAL SCH (08:27)
[2017-04-08 09:20] LABS: ALT 30 U/L (9-52); AST 31 U/L (14-36); Alkaline Phosphatase 78 U/L (38-126); Anion Gap 10 mmol/L; Blood Urea Nitrogen 12 mg/dL (7-17); Calcium 9.8 mg/dL (8.4-10.2); Carbon Dioxide 29 mmol/L (22-30); Chloride 96 mmol/L (98-107); Glucose 207 mg/dL (74-99); Non-African American GFR(MDRD) >60 (>60 ml/min/1.73 sqM); Potassium 4.1 mmol/L (3.5-5.1); Sodium 135 mmol/L (137-145); Total Bilirubin 0.8 mg/dL (0.2-1.3); Total Protein 7.7 g/dL (6.3-8.2)
[2017-04-08 12:49] LABS: Glucose,Whole Blood 93 mg/dL (75-99)
[2017-04-08] MEDS: ASCORBIC ACID 500 MG TAB PO SCH (13:43)
[2017-04-08 15:18] VITALS: BP 118/92; PULSE 76; RESP 16; TEMP 97.8
--- NOTE | 2017-04-08 16:04 | P.DS ---
Providers Date of admission: 04/05/17 17:22 Expected date of discharge: 04/08/17 Attending physician: Chad Gaona Consults: 04/06/17 10:08 Consult Physician Routine Consulting Provider: Satinder Austin Consult Reason/Comments: possible heart failure Do you want consulting provider notified?: Yes Primary care physician: [facility] Hospital Course: This is an 87-year-old female with a past medical history significant for atrial fibrillation, presents to the hospital with worsening shortness of breath. The patient stated that for the last 3 days she has been experiencing occasional shortness of breath and when she checked on her heart rate, it was showing 177, and decided to come into the emergency department. Initial EKG showed no significant ST or T-wave abnormality. Troponin was negative. Chest x -ray was suggesting for pulmonary congestion and her BNP was greater than 1000. The patient received Lasix and admitted to the cardiac floor. The patient stated that she had been compliant with her medications and avoiding salt in her diet. Denied any recent upper respiratory infection or any kind of infection. Denied any dysuria stated that the last time she saw her parking meter installer was one week ago when he reassured her that everything is fine. She said that she had the pacemaker that was interrogated recently and showed normal finding. The patient tried to see her primary care physician last week for shortness breath but failed to take an appointment and presented to the emergency after she called 911. The patient reported no cough. Reported no recent weight loss and thinks that she has been at her baseline with her weight. The patient denied any night sweats or low-grade fever. 04/07: The patient was seen and evaluated today, she was noted to be resting comfortably in her bed. She reports her shortness of breath has improved, she denies any chest pain. Chest x-ray did reveal mild pulmonary vascular congestion and cardiomegaly. CK and troponins have been negative so far, kidney function is within normal limits. She continues to receive IV Lasix 40 mg every 12 hours. Heart rate remains rate controlled on her current dose of metoprolol and diltiazem. She is receiving anticoagulation with Eliquis 2.5 mg twice a day. She is down to 0.5 kg from her admission weight. Echocardiogram and Doppler are pending. The patient did complain of some skin irritation from the EKG leads, triamcinolone ordered. 04/08: Today the patient reports a significant improvement in her shortness of breath. She'll be discharged with furosemide 40 mg daily she was also advised to start lfla-rxs-jbnjxph iron supplement. Repeat hemoglobin 11.2. She'll follow-up in the office, CBC and iron studies will be repeated at her follow- up. Echocardiogram revealed ejection fraction 60-65%. Discharge diagnoses 1. Diastolic Congestive heart failure with acute exacerbation with an ejection fraction 60-65%. 2. Atrial fibrillation with RVR. 3. Anxiety. 4. Hypothyroidism. 5. Hypertension. 6. Diabetes type II. 7. Status post pacemaker The above impression and plan of care have been discussed and directed by signing physician. Amira Conway nurse practitioner acting as scribe for signing physician. Patient Condition at Discharge: Stable Plan - Discharge Summary New Discharge Prescriptions: New Furosemide [Lasix] 40 mg PO DAILY #30 tablet Continue Apixaban [Eliquis] 2.5 mg PO BID@ metFORMIN HCL [Glucophage] 1,000 mg PO AC-BID #60 tab Acetaminophen Tab [Tylenol] 650 mg PO Q6HR PRN #0 tab PRN Reason: Mild Pain Or Fever > 100.5 Metoprolol Tartrate [Lopressor] 25 mg PO DAILY tab Potassium Chloride ER [K-Dur 20] 20 meq PO DAILY #30 tab Levothyroxine Sodium [Synthroid] 112 mcg PO DAILY amLODIPine [Norvasc] 2.5 mg PO DAILY Diltiazem Oral [Cardizem*] 30 mg PO BID ALPRAZolam [Xanax] 0.25 mg PO BID PRN PRN Reason: Anxiety Ascorbic Acid [Vitamin C] 500 mg PO DAILY Magnesium Oxide [Magox 400] 400 mg PO DAILY Discharge Medication List Apixaban [Eliquis] 2.5 mg PO BID@30,202901/26/14 [History] metFORMIN HCL [Glucophage] 1,000 mg PO AC-BID #60 tab 02/25/14 [Rx] Acetaminophen Tab [Tylenol] 650 mg PO Q6HR PRN #0 tab 10/31/15 [Rx] Metoprolol Tartrate [Lopressor] 25 mg PO DAILY tab 11/06/16 [Rx] Potassium Chloride ER [K-Dur 20] 20 meq PO DAILY #30 tab 11/06/16 [Rx] ALPRAZolam [Xanax] 0.25 mg PO BID PRN 03/25/17 [History] Ascorbic Acid [Vitamin C] 500 mg PO DAILY 03/25/17 [History] Diltiazem Oral [Cardizem*] 30 mg PO BID 03/25/17 [History] Levothyroxine Sodium [Synthroid] 112 mcg PO DAILY 03/25/17 [History] Magnesium Oxide [Magox 400] 400 mg PO DAILY 03/25/17 [History] amLODIPine [Norvasc] 2.5 mg PO DAILY 03/25/17 [History] Furosemide [Lasix] 40 mg PO DAILY #30 tablet 04/08/17 [Rx] Follow up Appointment(s)/Referral(s): Cliff Conklin MD [Primary Care Provider] - 04/10/17 9:30 am [facility], [NON-STAFF] - Gilberto Parry MD [STAFF PHYSICIAN] - 2 Weeks (Office will call you with appointment) Patient Instructions/Handouts: Heart Failure (DC) Discharge Disposition: HOME WITH HOME HEALTH SERVICES
[2017-04-08] MEDS: SODIUM CHLORIDE 0.9% 1,000 ML IV SCH (16:48)
[2017-04-08 17:31] LABS: Glucose,Whole Blood 117 mg/dL (75-99)
== END 2017-04-08 18:38 | disposition home health service (06) | DRG 293 ==
LOC: EC 14:17 → 4MS4W 17:22
PROVIDERS: ADMIT Internal Medicine; ATTEND Internal Medicine
DX: I11.0 Hypertensive heart disease with heart failure (principal); I48.2 Chronic atrial fibrillation; E11.9 Type 2 diabetes mellitus without complications; E03.9 Hypothyroidism, unspecified; D64.9 Anemia, unspecified; I50.33 Acute on chronic diastolic (congestive) heart failure; E78.5 Hyperlipidemia, unspecified; I25.10 Atherosclerotic heart disease of native coronary artery without angina pectoris; M19.90 Unspecified osteoarthritis, unspecified site; K44.9 Diaphragmatic hernia without obstruction or gangrene; K57.90 Diverticulosis of intestine, part unspecified, without perforation or abscess without bleeding; F41.9 Anxiety disorder, unspecified; Z80.9 Family history of malignant neoplasm, unspecified; Z87.440 Personal history of urinary (tract) infections; Z86.73 Personal history of transient ischemic attack (TIA), and cerebral infarction without residual deficits; Z95.0 Presence of cardiac pacemaker; Z79.899 Other long term (current) drug therapy; Z79.84 Long term (current) use of oral hypoglycemic drugs; Z79.01 Long term (current) use of anticoagulants; Z95.1 Presence of aortocoronary bypass graft; Z88.5 Allergy status to narcotic agent; Z88.0 Allergy status to penicillin; Z87.19 Personal history of other diseases of the digestive system; Z86.14 Personal history of Methicillin resistant Staphylococcus aureus infection; Z86.19 Personal history of other infectious and parasitic diseases; Z86.69 Personal history of other diseases of the nervous system and sense organs; Z71.3 Dietary counseling and surveillance; Z96.651 Presence of right artificial knee joint
CPT/HCPCS: 36415; 71020; 80053; 82550; 82553; 83036; 83735; 83880; 84443; 84484; 85025; 85610; 85730; 93005; 93306; 94760; 96374; 99291

== ENCOUNTER 2017-04-16 19:46 | Inpatient (IN) | payer MEDICARE, MEDICAID ==
[2017-04-16] MEDS ORDERED: ALBUTEROL NEBULIZED 2.5 MG/3 ML INHALATION STA (19:58)
[2017-04-16] MEDS ORDERED: IPRATROPIUM 0.5 MG/2.5 ML NEBU INHALATION STA (19:58)
[2017-04-16] MEDS ORDERED: SODIUM CHLORIDE 0.9% 1,000 ML IV STA (19:58)
[2017-04-16 20:17] LABS: Basophils % (A) 0 %; CH 25.8; CHCM 32.3; Eosinophils % (A) 0 %; HCT 35.9 % (34.0-46.0); HDW 2.68; HGB 11.8 gm/dL (11.4-16.0); Luc % (Auto) 4; Lymphocytes # (A) 0.8 k/uL (1.0-4.8); Lymphocytes % (A) 16 %; MCH 26.3 pg (25.0-35.0); MCHC 32.8 g/dL (31.0-37.0); MCV 80.3 fL (80.0-100.0); Mean Platelet Volume 8.4; Monocytes # (A) 0.3 k/uL (0-1.0); Monocytes % (A) 6 %; Neutrophils # (A) 3.5 k/uL (1.3-7.7); Neutrophils % (A) 73 %; RBC 4.47 m/uL (3.80-5.40); RDW 15.7 % (11.5-15.5); WBC 4.9 k/uL (3.8-10.6); WBC (Perox) 4.86
[2017-04-16 20:30] LABS: ALT 40 U/L (9-52); AST 37 U/L (14-36); Alkaline Phosphatase 99 U/L (38-126); Anion Gap 10 mmol/L; Blood Urea Nitrogen 9 mg/dL (7-17); Calcium 8.4 mg/dL (8.4-10.2); Carbon Dioxide 20 mmol/L (22-30); Chloride 97 mmol/L (98-107); Glucose 142 mg/dL (74-99); Magnesium 1.4 mg/dL (1.6-2.3); Non-African American GFR(MDRD) >60 (>60 ml/min/1.73 sqM); Potassium 3.7 mmol/L (3.5-5.1); Sodium 127 mmol/L (137-145); Total Bilirubin 1.4 mg/dL (0.2-1.3); Total Protein 7.3 g/dL (6.3-8.2)
[2017-04-16 20:31] LABS: INR 1.4 (<1.2); Prothrombin Time 14.1 sec (9.0-12.0)
--- NOTE | 2017-04-16 20:33 | XR ---
EXAMINATION TYPE: XR chest 2V DATE OF EXAM: 04/16/2017 COMPARISON: 04/05/2017 HISTORY: Short of breath TECHNIQUE: Frontal and lateral views of the chest are obtained. FINDINGS: Heart is enlarged. There is no gross heart failure. There is coarsening of interstitial ma rkings. There are sternal wires. There is a left axillary pacemaker with the lead tip in the right ve ntricle. I see no definite pleural effusion. IMPRESSION: Cardiomegaly. Bony fibrotic changes. No definite heart failure. No significant change co mpared to old exam.
[2017-04-16 20:40] LABS: Creatine Kinase 25 U/L (30-135)
[2017-04-16 20:53] LABS: Creatine Kinase MB 0.3 ng/mL (0.0-2.4); Troponin I <0.012 ng/mL (0.000-0.034)
[2017-04-16] MEDS ORDERED: DILTIAZEM 5 MG/ML 5 ML VIAL IVP STA (20:59)
[2017-04-16] MEDS ORDERED: MORPHINE SULFATE 4 MG/ML SYRINGE IVP PRN (20:59)
[2017-04-16] MEDS ORDERED: MORPHINE SULFATE 4 MG/ML SYRINGE IVP STA (20:59)
--- NOTE | 2017-04-16 20:59 | ED ---
General Adult HPI - General Chief complaint: Shortness of Breath Stated complaint: SHILO Time Seen by Provider: 04/16/17 19:54 Source: patient, RN notes reviewed, old records reviewed Mode of arrival: EMS Limitations: no limitations - History of Present Illness Initial comments: This is an 87-year-old female to the ER for evaluation of shortness of breath. Significant shortness of breath and weakness. Patient has history of similar disease history of atrial fibrillation. Family states patient awoke with wheezing earlier tonight and has become progressively worse. He thinks it happened pretty suddenly. Patient himself denies any chest pain. Has been taking all medications as prescribed, does have recent hospitalization. No fevers, mild cough. Patient denies chest pain. Patient states it does feel like her heart is racing. - Related Data Home Medications Medication Instructions Recorded Confirmed Apixaban [Eliquis] 2.5 mg PO DAILY 01/26/14 04/16/17 ALPRAZolam [Xanax] 0.25 mg PO BID PRN 03/25/17 04/16/17 Ascorbic Acid [Vitamin C] 500 mg PO BID 03/25/17 04/16/17 Diltiazem Oral [Cardizem*] 30 mg PO BID 03/25/17 04/16/17 Levothyroxine Sodium [Synthroid] 112 mcg PO DAILY 03/25/17 04/16/17 Magnesium Oxide [Magox 400] 400 mg PO DAILY 03/25/17 04/16/17 amLODIPine [Norvasc] 2.5 mg PO DAILY 03/25/17 04/16/17 Cranberry Fruit Extract [Cranberry] 500 mg PO DAILY 04/16/17 04/16/17 Ferrous Sulfate [Feosol] 325 mg PO DAILY 04/16/17 04/16/17 Melatonin 5 mg PO HS 04/16/17 04/16/17 Multivitamins, Thera [Multivitamin 1 tab PO HS 04/16/17 04/16/17 (formulary)] Potassium Chloride ER [K-Dur 20] 20 meq PO HS 04/16/17 04/16/17 Previous Rx's Medication Instructions Recorded metFORMIN HCL [Glucophage] 1,000 mg PO AC-BID #60 tab 02/25/14 Acetaminophen Tab [Tylenol] 650 mg PO Q6HR PRN #0 tab 10/31/15 Metoprolol Tartrate [Lopressor] 25 mg PO DAILY tab 11/06/16 Furosemide [Lasix] 40 mg PO DAILY #30 tablet 04/08/17 Allergies Allergy/AdvReac Type Severity Reaction Status Date / Time Penicillins Allergy Rash/Hives Verified 04/16/17 20:08 codeine AdvReac Nausea & Verified 04/16/17 20:08 Vomiting Review of Systems ROS Statement: Those systems with pertinent positive or pertinent negative responses have been documented in the HPI. ROS Other: All systems not noted in ROS Statement are negative. Past Medical History Past Medical History: Atrial Fibrillation, Coronary Artery Disease (CAD), Heart Failure, CVA/TIA, Diabetes Mellitus, GI Bleed, Hyperlipidemia, Hypertension, Osteoarthritis (OA), Pneumonia, Thyroid Disorder Additional Past Medical History / Comment(s): Recurrent UTIs and past mild encephalopathy with UTI, multiple CVA/TIA, 2013 rectal bleed, diverticular dx, chronic anemia, small hiatal hernia, hypothyroid History of Any Multi-Drug Resistant Organisms: MRSA Date of last positivie culture/infection: 03/12/2014 MDRO Source:: Urine Past Surgical History: Pacemaker Additional Past Surgical History / Comment(s): [employer], 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, D&C, TOTAL RIGHT KNEE Past Anesthesia/Blood Transfusion Reactions: Postoperative Nausea & Vomiting ( PONV) Type of Cardiac Device: Permanent Pacemaker Device Placement Date:: 2010 Past Psychological History: No Psychological Hx Reported Smoking Status: Never smoker Past Alcohol Use History: None Reported Past Drug Use History: None Reported - Past Family History Sister(s) Family Medical History: Cancer Father Family Medical History: Respiratory Disorder Additional Family Medical History / Comment(s): Tuberculosis-Dad General Exam Limitations: no limitations General appearance: alert, in no apparent distress, anxious Head exam: Present: atraumatic, normocephalic, normal inspection Eye exam: Present: normal appearance, PERRL, EOMI. Absent: scleral icterus, conjunctival injection, periorbital swelling ENT exam: Present: normal exam, mucous membranes moist Neck exam: Present: normal inspection. Absent: tenderness, meningismus, lymphadenopathy Respiratory exam: Present: normal lung sounds bilaterally, respiratory distress , wheezes, accessory muscle use, decreased breath sounds, prolonged expiratory. Absent: rales, rhonchi, stridor Cardiovascular Exam: Present: tachycardia, irregular rhythm, normal heart sounds. Absent: systolic murmur, diastolic murmur, rubs, gallop, clicks GI/Abdominal exam: Present: soft, normal bowel sounds. Absent: distended, tenderness, guarding, rebound, rigid Extremities exam: Present: normal inspection, full ROM, normal capillary refill. Absent: tenderness, pedal edema, joint swelling, calf tenderness Back exam: Present: normal inspection Neurological exam: Present: alert, oriented X3, CN II-XII intact Psychiatric exam: Present: normal affect, normal mood Skin exam: Present: warm, dry, intact, normal color. Absent: rash Course Vital Signs 04/16/17 04/16/17 04/16/17 19:47 20:24 20:30 Temperature 97.6 F Pulse Rate 131 H 110 H Respiratory 24 26 H Rate Blood Pressure 180/85 O2 Sat by Pulse 94 L Oximetry 04/16/17 04/16/17 04/16/17 20:43 21:09 21:38 Temperature Pulse Rate 114 H 120 H 111 H Respiratory 18 Rate Blood Pressure 160/74 O2 Sat by Pulse 98 Oximetry - Reevaluation(s) Reevaluation #1: 04/16/17 21:52 Heart rate is improving, pain is controlled. 04/16/17 21:52 Patient states her breathing does seem improved after breathing treatment EKG Findings - EKG Comments: EKG Findings:: EKG shows A. fib with RVR rate 120, QRS 110, QTC 429 Medical Decision Making - Medical Decision Making 87 female ER for evaluation to date. Patient is here for reevaluation of A. fib with RVR and COPD exacerbation. Patient admitted for breathing treatments, steroids, rate control. Patient currently is in no acute distress - Lab Data Result diagrams: 04/16/17 20:04 04/16/17 20:04 Lab Results 04/16/17 04/16/17 04/16/17 Range/Units 20:04 20:04 20:04 WBC 4.9 (3.8-10.6) k/uL RBC 4.47 (3.80-5.40) m/uL Hgb 11.8 (11.4-16.0) gm/dL Hct 35.9 (34.0-46.0) % MCV 80.3 (80.0-100.0) fL MCH 26.3 (25.0-35.0) pg MCHC 32.8 (31.0-37.0) g/dL RDW 15.7 H (11.5-15.5) % Plt Count 103 L (150-450) k/uL Neutrophils % 73 % Lymphocytes % 16 % Monocytes % 6 % Eosinophils % 0 % Basophils % 0 % Neutrophils # 3.5 (1.3-7.7) k/uL Lymphocytes # 0.8 L (1.0-4.8) k/uL Monocytes # 0.3 (0-1.0) k/uL Eosinophils # 0.0 (0-0.7) k/uL Basophils # 0.0 (0-0.2) k/uL PT (9.0-12.0) sec INR (<1.2) APTT (22.0-30.0) sec Sodium 127 L (137-145) mmol/L Potassium 3.7 (3.5-5.1) mmol/L Chloride 97 L (98-107) mmol/L Carbon Dioxide 20 L (22-30) mmol/L Anion Gap 10 mmol/L BUN 9 (7-17) mg/dL Creatinine 0.46 L (0.52-1.04) mg/dL Est GFR (MDRD) Af Amer >60 (>60 ml/min/1.73 sqM) Est GFR (MDRD) Non-Af >60 (>60 ml/min/1.73 sqM) Glucose 142 H (74-99) mg/dL Calcium 8.4 (8.4-10.2) mg/dL Magnesium 1.4 L (1.6-2.3) mg/dL Total Bilirubin 1.4 H (0.2-1.3) mg/dL AST 37 H (14-36) U/L ALT 40 (9-52) U/L Alkaline Phosphatase 99 (38-126) U/L Total Creatine Kinase 25 L (30-135) U/L CK-MB (CK-2) 0.3 (0.0-2.4) ng/mL CK-MB (CK-2) Rel Index 1.2 Troponin I <0.012 (0.000-0.034) ng/mL NT-Pro-B Natriuret Pep pg/mL Total Protein 7.3 (6.3-8.2) g/dL Albumin 3.8 (3.5-5.0) g/dL 04/16/17 04/16/17 Range/Units 20:04 20:04 WBC (3.8-10.6) k/uL RBC (3.80-5.40) m/uL Hgb (11.4-16.0) gm/dL Hct (34.0-46.0) % MCV (80.0-100.0) fL MCH (25.0-35.0) pg MCHC (31.0-37.0) g/dL RDW (11.5-15.5) % Plt Count (150-450) k/uL Neutrophils % % Lymphocytes % % Monocytes % % Eosinophils % % Basophils % % Neutrophils # (1.3-7.7) k/uL Lymphocytes # (1.0-4.8) k/uL Monocytes # (0-1.0) k/uL Eosinophils # (0-0.7) k/uL Basophils # (0-0.2) k/uL PT 14.1 H (9.0-12.0) sec INR 1.4 H (<1.2) APTT 33.0 H (22.0-30.0) sec Sodium (137-145) mmol/L Potassium (3.5-5.1) mmol/L Chloride (98-107) mmol/L Carbon Dioxide (22-30) mmol/L Anion Gap mmol/L BUN (7-17) mg/dL Creatinine (0.52-1.04) mg/dL Est GFR (MDRD) Af Amer (>60 ml/min/1.73 sqM) Est GFR (MDRD) Non-Af (>60 ml/min/1.73 sqM) Glucose (74-99) mg/dL Calcium (8.4-10.2) mg/dL Magnesium (1.6-2.3) mg/dL Total Bilirubin (0.2-1.3) mg/dL AST (14-36) U/L ALT (9-52) U/L Alkaline Phosphatase (38-126) U/L Total Creatine Kinase (30-135) U/L CK-MB (CK-2) (0.0-2.4) ng/mL CK-MB (CK-2) Rel Index Troponin I (0.000-0.034) ng/mL NT-Pro-B Natriuret Pep 4920 pg/mL Total Protein (6.3-8.2) g/dL Albumin (3.5-5.0) g/dL - Radiology Data Radiology results: report reviewed (Chest x-ray is negative for acute disease), image reviewed Disposition Clinical Impression: Chronic a-fib, Atrial fibrillation with RVR, Acute exacerbation of chronic obstructive airways disease Disposition: ADMITTED IP TO THIS HOSP Condition: Fair Referrals: Cliff Conklin MD [Primary Care Provider] - 1-2 days
[2017-04-16] MEDS ORDERED: DILTIAZEM 125 MG in SODIUM CHLORIDE 0.9% 100 ML IV ONE (21:15)
[2017-04-16] MEDS ORDERED: methylPREDNISolone SOD SUCCI 125 MG/2 ML VIAL IV STA (21:47)
[2017-04-17] MEDS: APIXABAN 2.5 MG TABLET PO SCH ×2 (00:03→08:51)
[2017-04-17] MEDS: SODIUM CHLORIDE 0.9% 1,000 ML IV SCH ×3 (00:59→21:21)
[2017-04-17 06:14] LABS: Glucose,Whole Blood 284 mg/dL (75-99)
[2017-04-17] MEDS: methylPREDNISolone SOD SUCCI 125 MG/2 ML VIAL IV SCH ×4 (06:59→23:29)
[2017-04-17] MEDS: IPRATROPIUM-ALBUTEROL 3 ML NEB INHALATION SCH ×4 (08:02→21:09)
[2017-04-17 10:58] VITALS: BMI 25.2
[2017-04-17 11:45] LABS: Glucose,Whole Blood 301 mg/dL (75-99)
[2017-04-17] MEDS ORDERED: ACETAMINOPHEN TAB 325 MG TAB PO PRN (11:51)
[2017-04-17] MEDS ORDERED: ALPRAZolam 0.25 MG TAB PO PRN (11:51)
[2017-04-17] MEDS ORDERED: Magnesium Replacement Protocol 1 EACH MISC MISCELLANE PRN (11:56)
[2017-04-17] MEDS ORDERED: DILTIAZEM ORAL 60 MG TAB PO SCH (12:00)
[2017-04-17] MEDS: FUROSEMIDE 40 MG TAB PO SCH (12:31)
[2017-04-17] MEDS: amLODIPine 2.5 MG TAB PO SCH (12:31)
[2017-04-17] MEDS: MAGNESIUM SULFATE-D5W PMX 1 GM in DEXTROSE/WATER 1 100ML.BAG IVPB SCH ×3 (12:32→17:46)
[2017-04-17] MEDS: FAMOTIDINE 20 MG TAB PO SCH (12:34)
--- NOTE | 2017-04-17 15:16 | XR ---
EXAMINATION TYPE: XR chest 1V DATE OF EXAM: 04/17/2017 COMPARISON: 04/16/2017 HISTORY: 87 year-old female shortness of breath TECHNIQUE: Single frontal view of the chest is obtained. FINDINGS: Median sternotomy wires are present. Retained epicardial pacer leads. Rightward patient rotation alte ring the normal cardiothymic mediastinal contours. Left anterior chest wall pacemaker generator with right ventricular lead. Heart remains moderately enlarged. Diffuse interstitial prominence persists. Hyperinflation. Some patchy left basilar opacity. No pleural effusion. IMPRESSION: Cardiomegaly with chronic changes, possible underlying COPD or fibrotic changes. There is some patchy left basilar opacity likely representing atelectasis rather than infiltrate.
[2017-04-17] MEDS: INSULIN LISPRO (humaLOG) 300 UNIT/3 ML VIAL SQ SCH ×3 (15:35→21:15)
[2017-04-17 16:52] LABS: Glucose,Whole Blood 297 mg/dL (75-99)
--- NOTE | 2017-04-17 17:43 | P.HPIM ---
History of Present Illness H&P Date: 04/17/17 This is an 87-year-old female patient of Dr. Conklin with a past medical history significant for atrial fibrillation, coronary artery disease, heart failure, stroke, diabetes, GI bleed 2013, hyperlipidemia, hypertension, thyroid disorder presents to the hospital with worsening shortness of breath. Family states patient awoke with wheezing earlier tonight and has become progressively worse associated with racing of her heart. Patient himself denies any chest pain. Has been taking all medications as prescribed, does have recent hospitalization. No fevers, mild cough. Patient denies chest pain. Patient's heart rate in the ED was 131 with increased blood pressure 180/85. EKG was suggestive of atrial fibrillation with a heart rate of 120 since patient was in difficulty breathing as well as had a fair patient was admitted to the medical service for further management and was started on Cardizem drip. Echo from 04/07 suggest left atrium severely dilated with an EF of 60-65% with [id number] pulmonary hypertension. Cardiozem drip was d/padmini and patient was started on cardizem oral tab Review of Systems Constitutional: Reports chills, Reports lethargy, Reports malaise, Denies anorexia, Denies fever Eyes: denies blurred vision, denies irritation, denies photophobia Ears: bilateral: decreased hearing Cardiovascular: Reports dyspnea on exertion, Reports irregular heart beat, Denies high blood pressure, Denies leg edema Respiratory: Reports dyspnea, Reports wheezing, Denies cough Gastrointestinal: Denies abdominal pain, Denies change in bowel habits, Denies constipation, Denies early satiety, Denies hematemesis, Denies hematochezia Musculoskeletal: Denies limitation of motion, Denies loss of height, Denies low back pain, Denies morning stiffness, Denies muscle cramps Neurological: Denies migraines, Denies motor disturbance, Denies numbness, Denies paralysis, Denies paresthesias, Denies seizures Endocrine: Reports high blood sugars Past Medical History Past Medical History: Atrial Fibrillation, Coronary Artery Disease (CAD), Heart Failure, CVA/TIA, Diabetes Mellitus, GI Bleed, Hyperlipidemia, Hypertension, Osteoarthritis (OA), Pneumonia, Thyroid Disorder Additional Past Medical History / Comment(s): Recurrent UTIs and past mild encephalopathy with UTI, multiple CVA/TIA, 2013 rectal bleed, diverticular dx, chronic anemia, small hiatal hernia, hypothyroid History of Any Multi-Drug Resistant Organisms: MRSA Date of last positivie culture/infection: 03/12/2014 MDRO Source:: Urine Past Surgical History: Pacemaker Additional Past Surgical History / Comment(s): [employer], 2005 CABG X4, D&C, TOTAL RIGHT KNEE Past Anesthesia/Blood Transfusion Reactions: Postoperative Nausea & Vomiting ( PONV) Type of Cardiac Device: Permanent Pacemaker Device Placement Date:: 2010 Past Psychological History: No Psychological Hx Reported Additional Psychological History / Comment(s): Pt lives alone. She uses a walker to ambulate. She drives. Smoking Status: Never smoker Past Alcohol Use History: None Reported Past Drug Use History: None Reported - Past Family History Sister(s) Family Medical History: Cancer Father Family Medical History: Respiratory Disorder Additional Family Medical History / Comment(s): Tuberculosis-Dad Medications and Allergies Home Medications Medication Instructions Recorded Confirmed Type Apixaban [Eliquis] 2.5 mg PO DAILY 01/26/14 04/16/17 History metFORMIN HCL [Glucophage] 1,000 mg PO AC-BID #60 tab 02/25/14 04/16/17 Rx Acetaminophen Tab [Tylenol] 650 mg PO Q6HR PRN #0 tab 10/31/15 04/16/17 Rx Metoprolol Tartrate [Lopressor] 25 mg PO DAILY tab 11/06/16 04/16/17 Rx ALPRAZolam [Xanax] 0.25 mg PO BID PRN 03/25/17 04/16/17 History Ascorbic Acid [Vitamin C] 500 mg PO BID 03/25/17 04/16/17 History Diltiazem Oral [Cardizem*] 30 mg PO BID 03/25/17 04/16/17 History Levothyroxine Sodium [Synthroid] 112 mcg PO DAILY 03/25/17 04/16/17 History Magnesium Oxide [Magox 400] 400 mg PO DAILY 03/25/17 04/16/17 History amLODIPine [Norvasc] 2.5 mg PO DAILY 03/25/17 04/16/17 History Furosemide [Lasix] 40 mg PO DAILY #30 tablet 04/08/17 04/16/17 Rx Cranberry Fruit Extract [Cranberry] 500 mg PO DAILY 04/16/17 04/16/17 History Ferrous Sulfate [Feosol] 325 mg PO DAILY 04/16/17 04/16/17 History Melatonin 5 mg PO HS 04/16/17 04/16/17 History Multivitamins, Thera [Multivitamin 1 tab PO HS 04/16/17 04/16/17 History (formulary)] Potassium Chloride ER [K-Dur 20] 20 meq PO HS 04/16/17 04/16/17 History Allergies Allergy/AdvReac Type Severity Reaction Status Date / Time Penicillins Allergy Rash/Hives Verified 04/16/17 20:08 codeine AdvReac Nausea & Verified 04/16/17 20:08 Vomiting Physical Exam Vitals: Vital Signs Temp Pulse Pulse Resp BP BP Pulse Ox 04/17/17 12:14 92 04/17/17 12:04 84 04/17/17 11:20 97.8 F 76 18 119/64 96 04/17/17 08:30 97.0 F L 84 18 117/52 97 04/17/17 08:16 80 04/17/17 08:02 76 04/17/17 05:30 89 16 137/72 99 04/16/17 22:51 98.4 F 111 H 18 109/54 95 04/16/17 21:38 111 H 18 160/74 98 04/16/17 21:09 120 H 04/16/17 20:43 114 H 04/16/17 20:30 110 H 04/16/17 20:24 26 H 04/16/17 19:47 97.6 F 131 H 24 180/85 94 L Intake and Output 04/16/17 04/17/17 04/17/17 22:59 06:59 14:59 Intake Total 118 Output Total 200 Balance -200 118 Intake: Oral 118 Output: Urine 200 Other: Weight 77 kg 75.4 kg 75.4 kg Patient Weight 04/18/17 06:59 Weight 75.4 kg - Constitutional General appearance: average body habitus, no acute distress - EENT Eyes: EOMI, PERRLA ENT: hard of hearing Ears: bilateral: normal - Neck Neck: no lymphadenopathy, no normal ROM Carotids: bilateral: upstroke normal Thyroid: bilateral: normal size - Respiratory Respiratory: bilateral: rales, rhonchi, wheezing, negative: CTA - Cardiovascular Rhythm: irregularly irregular Heart sounds: normal: S1, S2 Abnormal Heart Sounds: no systolic murmur, no diastolic murmur ankle Peripheral Edema: bilateral: None - Gastrointestinal General gastrointestinal: normal bowel sounds, no organomegaly, soft, no tenderness - Neurologic Neurologic: CNII-XII intact - Musculoskeletal Musculoskeletal: generalized weakness, strength equal bilaterally - Psychiatric Psychiatric: A&O x's 3, appropriate affect Results CBC & Chem 7: 04/16/17 20:04 04/16/17 20:04 Labs: Abnormal Lab Results - Last 24 Hours (Table) 04/16/17 04/16/17 04/16/17 Range/Units 20:04 20:04 20:04 RDW 15.7 H (11.5-15.5) % Plt Count 103 L (150-450) k/uL Lymphocytes # 0.8 L (1.0-4.8) k/uL PT (9.0-12.0) sec INR (<1.2) APTT (22.0-30.0) sec Sodium 127 L (137-145) mmol/L Chloride 97 L (98-107) mmol/L Carbon Dioxide 20 L (22-30) mmol/L Creatinine 0.46 L (0.52-1.04) mg/dL Glucose 142 H (74-99) mg/dL POC Glucose (mg/dL) (75-99) mg/dL Magnesium 1.4 L (1.6-2.3) mg/dL Total Bilirubin 1.4 H (0.2-1.3) mg/dL AST 37 H (14-36) U/L Total Creatine Kinase 25 L (30-135) U/L 04/16/17 04/17/17 04/17/17 Range/Units 20:04 06:10 11:40 RDW (11.5-15.5) % Plt Count (150-450) k/uL Lymphocytes # (1.0-4.8) k/uL PT 14.1 H (9.0-12.0) sec INR 1.4 H (<1.2) APTT 33.0 H (22.0-30.0) sec Sodium (137-145) mmol/L Chloride (98-107) mmol/L Carbon Dioxide (22-30) mmol/L Creatinine (0.52-1.04) mg/dL Glucose (74-99) mg/dL POC Glucose (mg/dL) 284 H 301 H (75-99) mg/dL Magnesium (1.6-2.3) mg/dL Total Bilirubin (0.2-1.3) mg/dL AST (14-36) U/L Total Creatine Kinase (30-135) U/L Thrombosis Risk Factor Assmnt - DVT/VTE Prophylaxis DVT/VTE Prophylaxis: Mechanical Prophylaxis ordered (patient on eliquis) - Choose All That Apply Other Risk Factors: Yes Each Risk Factor Represents 3 Points: Age 75 years or older Thrombosis Risk Factor Assessment Total Risk Factor Score: 3 Thrombosis Risk Factor Assessment Level: Moderate Risk Assessment and Plan Plan: 1. Atrial fibrillation with rapid ventricular rate with known history of chronic atrial fibrillation and long-term anticoagulation, patient currently is on Eliquis. patient will be receiving IV Cardizem for rate regulation. Patient was recently admitted 1 week ago and was started on metoprolol and diltiazem. We'll start patient on diltiazem 30 mg by mouth twice a day and metoprolol 25 mg daily. 2. Diastolic heart failure with pulmonary hypertension- Lasix 40 mg by mouth daily with Norvasc 2.5 mg by mouth daily, echocardiogram as above 3. Hypertension. Continue Norvasc 2.5 mg daily, Lasix, diltiazem and metoprolol 4. Hyperlipidemia. Continue Zocor 10 mg at bedtime. 5. COPD exacerbation- continue Solu-Medrol 60 every 6 hour with breathing treatments 6. Diabetes mellitus type 2. hold metformin 1000 mg twice daily, Humalog scale before meals and at bedtime. 7. 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 Continue aspirin 325 mg daily , eliquis 2.5 mg twice daily, simvastatin 10 mg at bedtime. 8. Hypothyroidism. Continue levothyroxine 112 g daily. 9. Severe tricuspid regurgitation, secondary to probably hypertension stable 10. CODE STATUS full code 11. Estimated length of stay 2 nights or more 12. DVT prophylaxis on maintenance eliquis,
[2017-04-17] MEDS: ASCORBIC ACID 500 MG TAB PO SCH (20:16)
[2017-04-17] MEDS: DILTIAZEM ORAL 30 MG TAB PO SCH (20:19)
[2017-04-17] MEDS ORDERED: POTASSIUM CHLORIDE ER 20 MEQ TAB.ER PO SCH (21:00)
[2017-04-17] MEDS ORDERED: MULTIVITAMINS, THERA 1 EACH TAB PO SCH (21:00)
[2017-04-17] MEDS ORDERED: MELATONIN 5 MG TABLET PO SCH (21:00)
[2017-04-17 21:14] LABS: Glucose,Whole Blood 306 mg/dL (75-99)
[2017-04-18 00:27] LABS: Glucose,Whole Blood 204 mg/dL (75-99)
[2017-04-18 02:21] VITALS: RESP 18
[2017-04-18 05:48] LABS: Glucose,Whole Blood 214 mg/dL (75-99)
[2017-04-18] MEDS: methylPREDNISolone SOD SUCCI 125 MG/2 ML VIAL IV SCH (06:20)
[2017-04-18] MEDS: INSULIN LISPRO (humaLOG) 300 UNIT/3 ML VIAL SQ SCH ×2 (06:21→12:16)
[2017-04-18] MEDS ORDERED: LEVOTHYROXINE 112 MCG TAB PO SCH (06:30)
[2017-04-18 07:07] LABS: ALT 37 U/L (9-52); AST 38 U/L (14-36); Alkaline Phosphatase 72 U/L (38-126); Anion Gap 8 mmol/L; Blood Urea Nitrogen 14 mg/dL (7-17); Calcium 8.5 mg/dL (8.4-10.2); Carbon Dioxide 19 mmol/L (22-30); Chloride 103 mmol/L (98-107); Glucose 192 mg/dL (74-99); Magnesium 2.1 mg/dL (1.6-2.3); Non-African American GFR(MDRD) >60 (>60 ml/min/1.73 sqM); Potassium 4.7 mmol/L (3.5-5.1); Sodium 130 mmol/L (137-145); Total Bilirubin 0.8 mg/dL (0.2-1.3); Total Protein 6.6 g/dL (6.3-8.2)
[2017-04-18] MEDS: DILTIAZEM ORAL 30 MG TAB PO SCH (08:22)
[2017-04-18] MEDS: SODIUM CHLORIDE 0.9% 1,000 ML IV SCH (08:22)
[2017-04-18] MEDS: APIXABAN 2.5 MG TABLET PO SCH (08:22)
[2017-04-18] MEDS: ASCORBIC ACID 500 MG TAB PO SCH (08:22)
[2017-04-18] MEDS: FAMOTIDINE 20 MG TAB PO SCH (08:23)
[2017-04-18] MEDS: FUROSEMIDE 40 MG TAB PO SCH (08:23)
[2017-04-18] MEDS: amLODIPine 2.5 MG TAB PO SCH (08:23)
[2017-04-18] MEDS: IPRATROPIUM-ALBUTEROL 3 ML NEB INHALATION SCH ×2 (08:33→11:53)
[2017-04-18] MEDS ORDERED: MAGNESIUM OXIDE 400 MG TAB PO SCH (09:00)
--- NOTE | 2017-04-18 11:17 | P.DS ---
Providers Date of admission: 04/16/17 21:53 Expected date of discharge: 04/18/17 Attending physician: Chele Duran MD Primary care physician: Cliff Conklin [facility] Course: This is an 87-year-old female patient of Dr. Conklin with a past medical history significant for atrial fibrillation, coronary artery disease, heart failure, stroke, diabetes, GI bleed 2014, hyperlipidemia, hypertension, thyroid disorder presents to the hospital with worsening shortness of breath. Family states patient awoke with wheezing earlier tonight and has become progressively worse associated with racing of her heart. Patient himself denies any chest pain. Has been taking all medications as prescribed, does have recent hospitalization. No fevers, mild cough. Patient denies chest pain. Patient's heart rate in the ED was 131 with increased blood pressure 180/85. EKG was suggestive of atrial fibrillation with a heart rate of 120 since patient was in difficulty breathing as well as had a fair patient was admitted to the medical service for further management and was started on Cardizem drip. Echo from 04/07 suggest left atrium severely dilated with an EF of 60-65% with [id number] pulmonary hypertension. Cardiozem drip was d/padmini and patient was started on cardizem oral tab 04/18: Patient's heart rate has been controlled. Her breathing status is improved. Her lungs are clear. Patient will need follow-up with pulmonary doctor for evaluation for possible COPD. Patient was exposed to secondhand smoke from her but was not an active smoker herself. Sodium is increased to 1:30. PT has recommended subacute rehab. Patient will be discharged to [facility] today in stable condition. Discharge Diagnoses: 1. Atrial fibrillation with rapid ventricular rate with known history of chronic atrial fibrillation and long-term anticoagulation 2. Diastolic heart failure with pulmonary hypertension 3. Hypertension. 4. Hyperlipidemia. 5. Acute bronchitis 6. Diabetes mellitus type 2. 7. 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 8. Hypothyroidism. 9. Severe tricuspid regurgitation, secondary to probably hypertension stable Discharge plan: [facility] Impression and plan of care have been directed as dictated by the signing physician. Jess Romeo nurse practitioner acting as scribe for signing physician. Patient Condition at Discharge: Good Plan - Discharge Summary New Discharge Prescriptions: New Azithromycin [Zithromax Z-pack] 250 mg PO DIRECTED #6 tab Famotidine [Pepcid] 20 mg PO DAILY tab Ipratropium-Albuterol Nebulize [Duoneb 0.5 mg-3 mg/3 ml Soln] 3 ml INHALATION RT-QID PRN neb PRN Reason: Wheezing predniSONE 0 mg PO DIRECTED #30 tab Continue Apixaban [Eliquis] 2.5 mg PO DAILY metFORMIN HCL [Glucophage] 1,000 mg PO AC-BID #60 tab Acetaminophen Tab [Tylenol] 650 mg PO Q6HR PRN #0 tab PRN Reason: Mild Pain Or Fever > 100.5 Metoprolol Tartrate [Lopressor] 25 mg PO DAILY tab Levothyroxine Sodium [Synthroid] 112 mcg PO DAILY amLODIPine [Norvasc] 2.5 mg PO DAILY Diltiazem Oral [Cardizem*] 30 mg PO BID Ascorbic Acid [Vitamin C] 500 mg PO BID Magnesium Oxide [Magox 400] 400 mg PO DAILY Furosemide [Lasix] 40 mg PO DAILY #30 tablet Potassium Chloride ER [K-Dur 20] 20 meq PO HS Multivitamins, Thera [Multivitamin (formulary)] 1 tab PO HS Ferrous Sulfate [Iron (65 MG Elemental)] 325 mg PO DAILY Melatonin 5 mg PO HS Cranberry Fruit Extract [Cranberry] 500 mg PO DAILY ALPRAZolam [Xanax] 0.25 mg PO BID PRN #60 PRN Reason: Anxiety Discharge Medication List Apixaban [Eliquis] 2.5 mg PO DAILY 01/26/14 [History] metFORMIN HCL [Glucophage] 1,000 mg PO AC-BID #60 tab 02/25/14 [Rx] Acetaminophen Tab [Tylenol] 650 mg PO Q6HR PRN #0 tab 10/31/15 [Rx] Metoprolol Tartrate [Lopressor] 25 mg PO DAILY tab 11/06/16 [Rx] Ascorbic Acid [Vitamin C] 500 mg PO BID 03/25/17 [History] Diltiazem Oral [Cardizem*] 30 mg PO BID 03/25/17 [History] Levothyroxine Sodium [Synthroid] 112 mcg PO DAILY 03/25/17 [History] Magnesium Oxide [Magox 400] 400 mg PO DAILY 03/25/17 [History] amLODIPine [Norvasc] 2.5 mg PO DAILY 03/25/17 [History] Furosemide [Lasix] 40 mg PO DAILY #30 tablet 04/08/17 [Rx] Cranberry Fruit Extract [Cranberry] 500 mg PO DAILY 04/16/17 [History] Ferrous Sulfate [Iron (65 MG Elemental)] 325 mg PO DAILY 04/16/17 [History] Melatonin 5 mg PO HS 04/16/17 [History] Multivitamins, Thera [Multivitamin (formulary)] 1 tab PO HS 04/16/17 [History] Potassium Chloride ER [K-Dur 20] 20 meq PO HS 04/16/17 [History] ALPRAZolam [Xanax] 0.25 mg PO BID PRN #60 04/18/17 [Rx] Azithromycin [Zithromax Z-pack] 250 mg PO DIRECTED #6 tab 04/18/17 [Rx] Famotidine [Pepcid] 20 mg PO DAILY tab 04/18/17 [Rx] Ipratropium-Albuterol Nebulize [Duoneb 0.5 mg-3 mg/3 ml Soln] 3 ml INHALATION RT -QID PRN neb 04/18/17 [Rx] predniSONE 0 mg PO DIRECTED #30 tab 04/18/17 [Rx] Follow up Appointment(s)/Referral(s): Cliff Conklin MD [Primary Care Provider] - 1 Week (at [facility]) Toshia Russell MD [STAFF PHYSICIAN] - 1 Week ([facility]) Discharge Disposition: TRANSFER TO SNF/ECF
[2017-04-18] MEDS ORDERED: FERROUS SULFATE 325 MG TAB PO SCH (12:00)
[2017-04-18 12:01] LABS: Glucose,Whole Blood 298 mg/dL (75-99)
[2017-04-18 13:12] VITALS: BP 118/56; PULSE 86; TEMP 98.1
== END 2017-04-18 15:22 | DRG 191 ==
LOC: EC 19:46 → 6SEL 21:53
PROVIDERS: ADMIT Internal Medicine; ATTEND Internal Medicine
DX: J44.1 Chronic obstructive pulmonary disease with (acute) exacerbation (principal); I50.32 Chronic diastolic (congestive) heart failure; I27.2 Other secondary pulmonary hypertension; I48.2 Chronic atrial fibrillation; I11.0 Hypertensive heart disease with heart failure; E78.5 Hyperlipidemia, unspecified; E11.9 Type 2 diabetes mellitus without complications; E03.9 Hypothyroidism, unspecified; I07.1 Rheumatic tricuspid insufficiency; I25.10 Atherosclerotic heart disease of native coronary artery without angina pectoris; M19.90 Unspecified osteoarthritis, unspecified site; Z77.22 Contact with and (suspected) exposure to environmental tobacco smoke (acute) (chronic); J20.9 Acute bronchitis, unspecified; Z96.659 Presence of unspecified artificial knee joint; Z88.6 Allergy status to analgesic agent; Z88.0 Allergy status to penicillin; Z79.899 Other long term (current) drug therapy; Z82.5 Family history of asthma and other chronic lower respiratory diseases; Z79.4 Long term (current) use of insulin; Z80.9 Family history of malignant neoplasm, unspecified; Z86.73 Personal history of transient ischemic attack (TIA), and cerebral infarction without residual deficits; Z95.1 Presence of aortocoronary bypass graft; Z79.82 Long term (current) use of aspirin; Z95.0 Presence of cardiac pacemaker; Z79.01 Long term (current) use of anticoagulants; Z87.01 Personal history of pneumonia (recurrent); Z87.440 Personal history of urinary (tract) infections; Z86.14 Personal history of Methicillin resistant Staphylococcus aureus infection
CPT/HCPCS: 36415; 71010; 71020; 80053; 82550; 82553; 83036; 83735; 83880; 84484; 85025; 85610; 85730; 93005; 94640; 94644; 96365; 96375; 96376; 99285

== ENCOUNTER 2018-04-01 14:25 | Inpatient (IN) | payer MEDICARE, MEDICAID ==
[2018-04-01] MEDS ORDERED: SODIUM CHLORIDE 0.9% 500 ML IV STA (16:04)
--- NOTE | 2018-04-01 16:33 | XR ---
EXAMINATION TYPE: XR chest 2V DATE OF EXAM: 04/01/2018 COMPARISON: 04/17/2017 HISTORY: Shortness of breath TECHNIQUE: Frontal and lateral views of the chest are obtained. FINDINGS: Scattered senescent parenchymal changes noted. Hyperinflation compatible with COPD. No evidence for infiltrate. No evidence for atelectasis. Heart size is enlarged. Pacer device is in place. Chronic pulmonary venous engorgement without overt failure. Mediastinal structures are stable and grossly unremarkable. No evidence for hilar prominence. Degenerative changes dorsal spine. IMPRESSION: 1. Chronic pulmonary venous engorgement without overt failure.
[2018-04-01 16:37] LABS: Ionized Calcium 5.1 mg/dL (4.5-5.3)
[2018-04-01 16:39] LABS: INR 1.2 (<1.2); Prothrombin Time 11.1 sec (9.0-12.0)
[2018-04-01 16:46] LABS: ALT 32 U/L (9-52); AST 35 U/L (14-36); Alkaline Phosphatase 95 U/L (38-126); Anion Gap 12 mmol/L; Blood Urea Nitrogen 19 mg/dL (7-17); Calcium 9.7 mg/dL (8.4-10.2); Carbon Dioxide 25 mmol/L (22-30); Chloride 94 mmol/L (98-107); Glucose 135 mg/dL (74-99); Magnesium 1.6 mg/dL (1.6-2.3); Phosphorus 4.1 mg/dL (2.5-4.5); Potassium 4.7 mmol/L (3.5-5.1); Sodium 131 mmol/L (137-145); Total Bilirubin 0.7 mg/dL (0.2-1.3); Total Protein 7.3 g/dL (6.3-8.2)
[2018-04-01 16:54] LABS: Basophils % (A) 0 %; Eosinophils # (A) 0.2 k/uL (0-0.7); Eosinophils % (A) 5 %; HCT 37.7 % (34.0-46.0); HGB 12.3 gm/dL (11.4-16.0); Lymphocytes # (A) 0.8 k/uL (1.0-4.8); Lymphocytes % (A) 17 %; MCH 27.2 pg (25.0-35.0); MCHC 32.6 g/dL (31.0-37.0); MCV 83.5 fL (80.0-100.0); Mean Platelet Volume 7.5; Monocytes # (A) 0.3 k/uL (0-1.0); Monocytes % (A) 7 %; Neutrophils # (A) 3.1 k/uL (1.3-7.7); Neutrophils % (A) 69 %; Platelet Count 165 k/uL (150-450); RBC 4.51 m/uL (3.80-5.40); RDW 13.7 % (11.5-15.5); WBC 4.5 k/uL (3.8-10.6)
[2018-04-01 16:55] LABS: Creatine Kinase <20 U/L (30-135)
[2018-04-01 17:08] LABS: Creatine Kinase MB 0.5 ng/mL (0.0-2.4); Troponin I <0.012 ng/mL (0.000-0.034)
[2018-04-01 17:10] LABS: Appearance,Urine Cloudy (Clear); Bilirubin,Urine Negative (Negative); Blood,Urine Negative (Negative); Color,Urine Light Yellow; Glucose,Urine (UA) Negative (Negative); Granular Casts,Urine 1 /lpf (0); Hyaline Casts,Urine 18 /lpf (0-2); Ketones,Urine Negative (Negative); Leukocyte Esterase,Urine Large (Negative); Mucus,Urine Rare /hpf; Nitrite,Urine Negative (Negative); Protein,Urine Negative (Negative); RBC,Urine 8 /hpf (0-5); Specific Gravity,Urine 1.009 (1.001-1.035); Squamous Epithelial Cell,Urine 2 /hpf (0-4); Urobilinogen,Urine <2.0 mg/dL (<2.0); WBC,Urine 31 /hpf (0-5)
[2018-04-01] MEDS ORDERED: LEVOFLOXACIN 750MG-D5W PMX 750 MG in DEXTROSE/WATER 1 150ML.BAG IVPB STA (17:21)
--- NOTE | 2018-04-01 17:26 | ED ---
General Adult HPI - General Chief complaint: Weakness Stated complaint: Syncope Source: patient Limitations: no limitations - History of Present Illness Initial comments: Dictation was produced using [employer] dictation software. please excuse any grammatical, word or spelling errors. Chief Complaint: 88-year-old female past medical history of atrial fibrillation on an liquids, pacemaker presents with generalized weakness 1 day. History of Present Illness: Patient is a 8-year-old female who experienced acute onset generalized weakness today. Patient has no other complaints. Denies any pain complaints. Denies constitutional symptoms. Patient is an eloquent she has a past medical history of atrial fibrillation. She is on rate controlling medications. The ROS documented in this emergency department record has been reviewed and confirmed by me. Those systems with pertinent positive or negative responses have been documented in the HPI. All other systems are other negative and/or noncontributory. - Related Data Home Medications Medication Instructions Recorded Confirmed Apixaban [Eliquis] 2.5 mg PO BID 01/26/14 04/01/18 Ascorbic Acid [Vitamin C] 500 mg PO BID 03/25/17 04/01/18 Diltiazem Oral [Cardizem*] 30 mg PO BID 03/25/17 04/01/18 Levothyroxine Sodium [Synthroid] 112 mcg PO DAILY 03/25/17 04/01/18 Magnesium Oxide [Magox 400] 400 mg PO DAILY 03/25/17 04/01/18 amLODIPine [Norvasc] 2.5 mg PO DAILY 03/25/17 04/01/18 Cranberry Fruit Extract [Cranberry] 500 mg PO DAILY 04/16/17 04/01/18 Ferrous Sulfate [Iron (65 MG 325 mg PO DAILY 04/16/17 04/01/18 Elemental)] Melatonin 5 mg PO HS 04/16/17 04/01/18 Multivitamins, Thera [Multivitamin 1 tab PO HS 04/16/17 04/01/18 (formulary)] Potassium Chloride ER [K-Dur 20] 20 meq PO HS 04/16/17 04/01/18 Benzonatate [Tessalon Perles] 100 - 200 mg PO Q6H PRN 04/01/18 04/01/18 Furosemide [Lasix] 20 mg PO HS 04/01/18 04/01/18 Spironolactone [Aldactone] 12.5 mg PO BID 04/01/18 04/01/18 diphenhydrAMINE [Benadryl] 25 mg PO HS PRN 04/01/18 04/01/18 guaiFENesin [Mucinex] 600 mg PO Q12HR 04/01/18 04/01/18 Previous Rx's Medication Instructions Recorded metFORMIN HCL [Glucophage] 1,000 mg PO AC-BID #60 tab 02/25/14 Acetaminophen Tab [Tylenol] 650 mg PO Q6HR PRN #0 tab 10/31/15 Metoprolol Tartrate [Lopressor] 25 mg PO DAILY tab 11/06/16 Furosemide [Lasix] 40 mg PO DAILY #30 tablet 04/08/17 ALPRAZolam [Xanax] 0.25 mg PO BID PRN #60 04/18/17 Famotidine [Pepcid] 20 mg PO DAILY tab 04/18/17 Allergies Allergy/AdvReac Type Severity Reaction Status Date / Time Penicillins Allergy Rash/Hives Verified 04/01/18 16:21 codeine AdvReac Nausea & Verified 04/01/18 16:21 Vomiting Review of Systems ROS Statement: Those systems with pertinent positive or pertinent negative responses have been documented in the HPI. ROS Other: All systems not noted in ROS Statement are negative. Past Medical History Past Medical History: Atrial Fibrillation, Coronary Artery Disease (CAD), Heart Failure, CVA/TIA, Diabetes Mellitus, GI Bleed, Hyperlipidemia, Hypertension, Osteoarthritis (OA), Pneumonia, Thyroid Disorder Additional Past Medical History / Comment(s): Recurrent UTIs and past mild encephalopathy with UTI, multiple CVA/TIA, 2013 rectal bleed, diverticular dx, chronic anemia, small hiatal hernia, hypothyroid History of Any Multi-Drug Resistant Organisms: MRSA Date of last positivie culture/infection: 03/12/2014 MDRO Source:: Urine Past Surgical History: Pacemaker Additional Past Surgical History / Comment(s): [employer], 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, D&C, TOTAL RIGHT KNEE Past Anesthesia/Blood Transfusion Reactions: Postoperative Nausea & Vomiting ( PONV) Type of Cardiac Device: Permanent Pacemaker Device Placement Date:: 2010 Past Psychological History: No Psychological Hx Reported Smoking Status: Never smoker Past Alcohol Use History: None Reported Past Drug Use History: None Reported - Past Family History Sister(s) Family Medical History: Cancer Father Family Medical History: Respiratory Disorder Additional Family Medical History / Comment(s): Tuberculosis-Dad General Exam - General Exam Comments Initial Comments: PHYSICAL EXAM: General Impression: Alert and oriented x3, not in acute distress HEENT: Normocephalic atraumatic, extra-ocular movements intact, pupils equal and reactive to light bilaterally, mucous membranes moist. Cardiovascular: Heart regular rate and rhythm, S1&S2 audible, no murmurs, rubs or gallops Chest: Lungs clear to auscultation bilaterally, no rhonchi, no wheeze, no rales Abdomen: Bowel sounds present, abdomen soft, non-tender, non-distended, no organomegaly Musculoskeletal: Pulses present and equal in all extremities, no peripheral edema Motor: Moves all tremors grossly Neurological: CN II-XII grossly intact, no focal motor or sensory deficits noted Skin: Intact with no visualized rashes Psych: Normal affect and mood Limitations: no limitations Course Vital Signs 04/01/18 04/01/18 14:30 16:30 Temperature 98 F Pulse Rate 52 L 68 Respiratory 16 20 Rate Blood Pressure 144/73 134/68 O2 Sat by Pulse 97 99 Oximetry Medical Decision Making - Medical Decision Making ED course: 88-year-old female chief complaint of generalized weakness. Has no other complaints at this time. She states she feels so weak that she is to lift herself up from the ground. She slowly let herself to the ground. Chart review shows that patient has history of diastolic heart failure she also has multiple leaky valves. Vital signs upon a heart rate of 52, rest of vital signs within normal limits. Patient lives at home and she is worried about going home. Laboratory evaluation obtained CBC unremarkable, coag panel unremarkable, urinalysis shows sodium 131, chloride of 94, slight elevation of BUN, glucose 135, lactic acid level II.4. Rest metabolic panel is unremarkable , cardiac enzymes are negative. Urinalysis shows findings consistent with urinary tract infection. Patient treated with antibiotics. Patient be admitted to internal medicine for severe weakness. Patient to continue antibiotics and intravenous fluids. EKG Interpretation: A 12 lead EKG was obtained. It was interpreted by myself and attending physician. There is a P wave before every QRS complex. Rate is 54. Rhythm is A. fib with slow ventricular response, QRS 112, QTc 436.. QT is not prolonged. No ST segment depression or elevation. Overall, this EKG is unremarkable - Lab Data Result diagrams: 04/01/18 15:28 04/01/18 15:28 Lab Results 04/01/18 04/01/18 04/01/18 Range/Units 15:28 15:28 15:28 WBC 4.5 (3.8-10.6) k/uL RBC 4.51 (3.80-5.40) m/uL Hgb 12.3 (11.4-16.0) gm/dL Hct 37.7 (34.0-46.0) % MCV 83.5 (80.0-100.0) fL MCH 27.2 (25.0-35.0) pg MCHC 32.6 (31.0-37.0) g/dL RDW 13.7 (11.5-15.5) % Plt Count 165 (150-450) k/uL Neutrophils % 69 % Lymphocytes % 17 % Monocytes % 7 % Eosinophils % 5 % Basophils % 0 % Neutrophils # 3.1 (1.3-7.7) k/uL Lymphocytes # 0.8 L (1.0-4.8) k/uL Monocytes # 0.3 (0-1.0) k/uL Eosinophils # 0.2 (0-0.7) k/uL Basophils # 0.0 (0-0.2) k/uL PT (9.0-12.0) sec INR (<1.2) APTT (22.0-30.0) sec Sodium 131 L (137-145) mmol/L Potassium 4.7 (3.5-5.1) mmol/L Chloride 94 L (98-107) mmol/L Carbon Dioxide 25 (22-30) mmol/L Anion Gap 12 mmol/L BUN 19 H (7-17) mg/dL Creatinine 0.58 (0.52-1.04) mg/dL Est GFR (CKD-EPI)AfAm >90 (>60 ml/min/1.73 sqM) Est GFR (CKD-EPI)NonAf 82 (>60 ml/min/1.73 sqM) Glucose 135 H (74-99) mg/dL Plasma Lactic Acid Fred (0.7-2.0) mmol/L Calcium 9.7 (8.4-10.2) mg/dL Ionized Calcium Mel[place] 5.1 (4.5-5.3) mg/dL Phosphorus 4.1 (2.5-4.5) mg/dL Magnesium 1.6 (1.6-2.3) mg/dL Total Bilirubin 0.7 (0.2-1.3) mg/dL AST 35 (14-36) U/L ALT 32 (9-52) U/L Alkaline Phosphatase 95 (38-126) U/L Total Creatine Kinase <20 L (30-135) U/L CK-MB (CK-2) 0.5 (0.0-2.4) ng/mL CK-MB (CK-2) Rel Index Troponin I <0.012 (0.000-0.034) ng/mL NT-Pro-B Natriuret Pep pg/mL Total Protein 7.3 (6.3-8.2) g/dL Albumin 4.0 (3.5-5.0) g/dL TSH 0.571 (0.465-4.680) mIU/L Urine Color Urine Appearance (Clear) Urine pH (5.0-8.0) Ur Specific [place] (1.001-1.035) Urine Protein (Negative) Urine Glucose (UA) (Negative) Urine Ketones (Negative) Urine Blood (Negative) Urine Nitrite (Negative) Urine Bilirubin (Negative) Urine Urobilinogen (<2.0) mg/dL Ur Leukocyte Esterase (Negative) Urine RBC (0-5) /hpf Urine WBC (0-5) /hpf Ur Squamous Epith Cells (0-4) /hpf Hyaline Casts (0-2) /lpf Granular Casts (0) /lpf Urine Mucus (None) /hpf 04/01/18 04/01/18 04/01/18 Range/Units 15:28 15:28 16:30 WBC (3.8-10.6) k/uL RBC (3.80-5.40) m/uL Hgb (11.4-16.0) gm/dL Hct (34.0-46.0) % MCV (80.0-100.0) fL MCH (25.0-35.0) pg MCHC (31.0-37.0) g/dL RDW (11.5-15.5) % Plt Count (150-450) k/uL Neutrophils % % Lymphocytes % % Monocytes % % Eosinophils % % Basophils % % Neutrophils # (1.3-7.7) k/uL Lymphocytes # (1.0-4.8) k/uL Monocytes # (0-1.0) k/uL Eosinophils # (0-0.7) k/uL Basophils # (0-0.2) k/uL PT 11.1 (9.0-12.0) sec INR 1.2 H (<1.2) APTT 25.0 (22.0-30.0) sec Sodium (137-145) mmol/L Potassium (3.5-5.1) mmol/L Chloride (98-107) mmol/L Carbon Dioxide (22-30) mmol/L Anion Gap mmol/L BUN (7-17) mg/dL Creatinine (0.52-1.04) mg/dL Est GFR (CKD-EPI)AfAm (>60 ml/min/1.73 sqM) Est GFR (CKD-EPI)NonAf (>60 ml/min/1.73 sqM) Glucose (74-99) mg/dL Plasma Lactic Acid Fred 2.4 H* (0.7-2.0) mmol/L Calcium (8.4-10.2) mg/dL Ionized Calcium Meliton (4.5-5.3) mg/dL Phosphorus (2.5-4.5) mg/dL Magnesium (1.6-2.3) mg/dL Total Bilirubin (0.2-1.3) mg/dL AST (14-36) U/L ALT (9-52) U/L Alkaline Phosphatase (38-126) U/L Total Creatine Kinase (30-135) U/L CK-MB (CK-2) (0.0-2.4) ng/mL CK-MB (CK-2) Rel Index Troponin I (0.000-0.034) ng/mL NT-Pro-B Natriuret Pep 527 pg/mL Total Protein (6.3-8.2) g/dL Albumin (3.5-5.0) g/dL TSH (0.465-4.680) mIU/L Urine Color Urine Appearance (Clear) Urine pH (5.0-8.0) Ur Specific [place] (1.001-1.035) Urine Protein (Negative) Urine Glucose (UA) (Negative) Urine Ketones (Negative) Urine Blood (Negative) Urine Nitrite (Negative) Urine Bilirubin (Negative) Urine Urobilinogen (<2.0) mg/dL Ur Leukocyte Esterase (Negative) Urine RBC (0-5) /hpf Urine WBC (0-5) /hpf Ur Squamous Epith Cells (0-4) /hpf Hyaline Casts (0-2) /lpf Granular Casts (0) /lpf Urine Mucus (None) /hpf 04/01/18 Range/Units 16:47 WBC (3.8-10.6) k/uL RBC (3.80-5.40) m/uL Hgb (11.4-16.0) gm/dL Hct (34.0-46.0) % MCV (80.0-100.0) fL MCH (25.0-35.0) pg MCHC (31.0-37.0) g/dL RDW (11.5-15.5) % Plt Count (150-450) k/uL Neutrophils % % Lymphocytes % % Monocytes % % Eosinophils % % Basophils % % Neutrophils # (1.3-7.7) k/uL Lymphocytes # (1.0-4.8) k/uL Monocytes # (0-1.0) k/uL Eosinophils # (0-0.7) k/uL Basophils # (0-0.2) k/uL PT (9.0-12.0) sec INR (<1.2) APTT (22.0-30.0) sec Sodium (137-145) mmol/L Potassium (3.5-5.1) mmol/L Chloride (98-107) mmol/L Carbon Dioxide (22-30) mmol/L Anion Gap mmol/L BUN (7-17) mg/dL Creatinine (0.52-1.04) mg/dL Est GFR (CKD-EPI)AfAm (>60 ml/min/1.73 sqM) Est GFR (CKD-EPI)NonAf (>60 ml/min/1.73 sqM) Glucose (74-99) mg/dL Plasma Lactic Acid Fred (0.7-2.0) mmol/L Calcium (8.4-10.2) mg/dL Ionized Calcium [place] (4.5-5.3) mg/dL Phosphorus (2.5-4.5) mg/dL Magnesium (1.6-2.3) mg/dL Total Bilirubin (0.2-1.3) mg/dL AST (14-36) U/L ALT (9-52) U/L Alkaline Phosphatase (38-126) U/L Total Creatine Kinase (30-135) U/L CK-MB (CK-2) (0.0-2.4) ng/mL CK-MB (CK-2) Rel Index Troponin I (0.000-0.034) ng/mL NT-Pro-B Natriuret Pep pg/mL Total Protein (6.3-8.2) g/dL Albumin (3.5-5.0) g/dL TSH (0.465-4.680) mIU/L Urine Color Light Yellow Urine Appearance Cloudy H (Clear) Urine pH 6.0 (5.0-8.0) Ur Specific [place] 1.009 (1.001-1.035) Urine Protein Negative (Negative) Urine Glucose (UA) Negative (Negative) Urine Ketones Negative (Negative) Urine Blood Negative (Negative) Urine Nitrite Negative (Negative) Urine Bilirubin Negative (Negative) Urine Urobilinogen <2.0 (<2.0) mg/dL Ur Leukocyte Esterase Large H (Negative) Urine RBC 8 H (0-5) /hpf Urine WBC 31 H (0-5) /hpf Ur Squamous Epith Cells 2 (0-4) /hpf Hyaline Casts 18 H (0-2) /lpf Granular Casts 1 (0) /lpf Urine Mucus Rare H (None) /hpf Disposition Clinical Impression: UTI (urinary tract infection), Weakness Disposition: ADMITTED IP TO THIS HOSP Referrals: Cliff Conklin MD [Primary Care Provider] - 1-2 days Decision Time: 17:41
[2018-04-01] MEDS ORDERED: NALOXONE 0.4 MG/ML 1 ML VIAL IV PRN (17:38)
[2018-04-01] MEDS ORDERED: ACETAMINOPHEN TAB 325 MG TAB PO PRN (17:39)
[2018-04-01 20:44] LABS: Glucose,Whole Blood 247 mg/dL (75-99)
[2018-04-01] MEDS: APIXABAN 2.5 MG TABLET PO SCH (21:04)
[2018-04-01] MEDS: DILTIAZEM ORAL 30 MG TAB PO SCH (21:04)
[2018-04-01] MEDS ORDERED: BENZONATATE 100 MG CAP PO PRN (21:19)
[2018-04-01] MEDS ORDERED: ALPRAZolam 0.25 MG TAB PO PRN (21:19)
[2018-04-01] MEDS: MELATONIN 5 MG TABLET PO SCH (22:14)
[2018-04-01] MEDS: INSULIN ASPART 100 UNIT/ML 1 ML 10 ML VIAL SQ SCH (22:14)
[2018-04-01] MEDS: POTASSIUM CHLORIDE ER 20 MEQ TAB.ER PO SCH (22:14)
[2018-04-01] MEDS: METOPROLOL TARTRATE 12.5 MG TAB PO SCH (22:14)
[2018-04-02] MEDS: LEVOTHYROXINE 112 MCG TAB PO SCH (06:05)
[2018-04-02 06:09] LABS: Hemoglobin A1C 6.1 % (4.0-6.0)
[2018-04-02] MEDS ORDERED: INSULIN ASPART 100 UNIT/ML 1 ML 10 ML VIAL SQ SCH (07:30)
[2018-04-02 07:39] LABS: Glucose,Whole Blood 130 mg/dL (75-99)
[2018-04-02] MEDS: INSULIN ASPART 100 UNIT/ML 1 ML 10 ML VIAL SQ SCH ×4 (07:40→21:02)
[2018-04-02] MEDS: DILTIAZEM ORAL 30 MG TAB PO SCH ×2 (08:20→20:56)
[2018-04-02] MEDS: amLODIPine 2.5 MG TAB PO SCH (08:20)
[2018-04-02] MEDS: metFORMIN 500 MG TAB PO SCH ×2 (08:20→17:33)
[2018-04-02] MEDS: METOPROLOL TARTRATE 12.5 MG TAB PO SCH ×2 (08:20→20:56)
[2018-04-02] MEDS: APIXABAN 2.5 MG TABLET PO SCH ×2 (08:21→20:54)
[2018-04-02] MEDS: FAMOTIDINE 20 MG TAB PO SCH (08:21)
[2018-04-02] MEDS: SPIRONOLACTONE 25 MG TAB PO SCH ×2 (08:21→20:54)
[2018-04-02] MEDS: FERROUS SULFATE 325 MG TAB PO SCH (08:22)
[2018-04-02] MEDS: MAGNESIUM OXIDE 400 MG TAB PO SCH (08:22)
[2018-04-02] MEDS ORDERED: FUROSEMIDE 40 MG TAB PO SCH (09:00)
[2018-04-02] MEDS ORDERED: NON-FORMULARY DRUG (Cranberry Fruit Extract [Cranberry] 500 MG) PO SCH (09:00)
[2018-04-02] MEDS: cefTRIAXone 2,000 MG in SODIUM CHLORIDE 0.9% 100 ML IVPB SCH (10:21)
--- NOTE | 2018-04-02 11:02 | CT ---
EXAMINATION TYPE: CT brain wo con DATE OF EXAM: 04/02/2018 COMPARISON: 07/30/2014 HISTORY: 88-year-old female Confusion and weakness, rule out bleed TECHNIQUE: Examination was done in axial plane without intravenous contrast. Coronal and sagittal r econstructions performed. CT DLP: 1121 mGycm Automated exposure control for dose reduction was used. FINDINGS: There is no evidence of acute intracranial hemorrhage, acute ischemic changes, mass, mass-effect, or extra-axial fluid collection. There is no effacement of cerebral sulci or basal subarachnoid cister ns. Mild generalized supratentorial volume loss with secondary mild prominence to the ventricular system. There are mild patchy white matter hypodensities in both cerebral hemispheres similar to 2015, sligh tly progressed in the interval. There is no midline shift. Santo-white matter distinction is preserved. 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 Paranasal sinuses and mastoid air cells are well pneumatized. Orbits and globes are intact. IMPRESSION: 1. Mild atrophy and mild changes of chronic small vessel ischemic disease show slight interval progre ssion from 2015. 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 2. 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 MRA nulato of [place] can further evaluate. 3. No acute intracranial abnormality seen.
--- NOTE | 2018-04-02 11:47 | P.HPIM ---
History of Present Illness H&P Date: 04/02/18 This is an 87-year-old female patient of Dr. Conklin with a past medical history significant for atrial fibrillation, coronary artery disease, heart failure, stroke, diabetes, GI bleed 2014, hyperlipidemia, hypertension, thyroid disorder. Patient gives history that she was in the kitchen and wanted to get to her chair where she normally sits and she ended up falling down. She does not know what happened but she states it happened very quickly. She is not sure if she lost consciousness. She normally ambulates with a walker. She is mostly sedentary. She denies any lightheadedness or dizziness prior to this episode. She denies any head injury. She came into the clinic reporting in Hospital emergency center for evaluation. She was afebrile, heart rate in the 50s and 60s, blood pressure was stable, pulse ox 97% on room air. Her white count was normal, sodium 131 with chloride of 94, creatinine 0.58 troponin was normal, TSH 0.571. Lactic acid was 2.4, proBNP 527. Urinalysis was cloudy, leukoesterase large, WBCs 31. EKG is atrial fibrillation at a rate of 54 with paced complexes. No acute ST changes. Patient was diagnosed with urinary tract infection and started on Levaquin and [facility]. Due to possible syncopal episode, neurology consult has been requested. CAT scan of the brain ordered that revealed mild atrophy and mild changes of chronic small vessel ischemic change. 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 No acute intracranial abnormality. Review of Systems All systems: negative Constitutional: Reports weakness, Denies chills, Denies fever, Denies lethargy, Denies poor appetite, Denies weight loss Eyes: denies blurred vision, denies pain Ears, nose, mouth and throat: Denies dental pain, Denies headache, Denies mouth pain, Denies sore throat, Denies vertigo Cardiovascular: Reports syncope, Denies chest pain, Denies dyspnea on exertion, Denies leg edema, Denies lightheadedness, Denies shortness of breath Respiratory: Denies cough Gastrointestinal: Denies abdominal pain, Denies diarrhea, Denies nausea, Denies vomiting Genitourinary: Denies dysuria, Denies hematuria Musculoskeletal: Denies myalgias Integumentary: Denies pruritus, Denies rash Neurological: Denies numbness, Denies weakness Psychiatric: Denies anxiety, Denies depression Endocrine: Denies fatigue, Denies weight change Past Medical History Past Medical History: Atrial Fibrillation, Coronary Artery Disease (CAD), Heart Failure, CVA/TIA, Diabetes Mellitus, GI Bleed, Hyperlipidemia, Hypertension, Memory Impairment, Osteoarthritis (OA), Pneumonia, Thyroid Disorder Additional Past Medical History / Comment(s): Recurrent UTIs and past mild encephalopathy with UTI, multiple CVA/TIA, 2013 rectal bleed, diverticular dx, chronic anemia, hypothyroid History of Any Multi-Drug Resistant Organisms: MRSA Date of last positivie culture/infection: 03/12/2014 MDRO Source:: Urine Past Surgical History: Cholecystectomy, Pacemaker, Tonsillectomy Additional Past Surgical History / Comment(s): [employer], 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, D&C, TOTAL RIGHT KNEE, cataracts, Past Anesthesia/Blood Transfusion Reactions: Postoperative Nausea & Vomiting ( PONV) Type of Cardiac Device: Permanent Pacemaker Device Placement Date:: 2010 Smoking Status: Never smoker - Past Family History Sister(s) Family Medical History: Cancer Additional Family Medical History / Comment(s): heart problems Father Family Medical History: Respiratory Disorder Additional Family Medical History / Comment(s): Tuberculosis-Dad Medications and Allergies Home Medications Medication Instructions Recorded Confirmed Type Apixaban [Eliquis] 2.5 mg PO BID 01/26/14 04/01/18 History metFORMIN HCL [Glucophage] 1,000 mg PO AC-BID #60 tab 02/25/14 04/01/18 Rx Acetaminophen Tab [Tylenol] 650 mg PO Q6HR PRN #0 tab 10/31/15 04/01/18 Rx Metoprolol Tartrate [Lopressor] 25 mg PO DAILY tab 11/06/16 04/01/18 Rx Ascorbic Acid [Vitamin C] 500 mg PO BID 03/25/17 04/01/18 History Diltiazem Oral [Cardizem*] 30 mg PO BID 03/25/17 04/01/18 History Levothyroxine Sodium [Synthroid] 112 mcg PO DAILY 03/25/17 04/01/18 History Magnesium Oxide [Magox 400] 400 mg PO DAILY 03/25/17 04/01/18 History amLODIPine [Norvasc] 2.5 mg PO DAILY 03/25/17 04/01/18 History Furosemide [Lasix] 40 mg PO DAILY #30 tablet 04/08/17 04/01/18 Rx Cranberry Fruit Extract [Cranberry] 500 mg PO DAILY 04/16/17 04/01/18 History Ferrous Sulfate [Iron (65 MG 325 mg PO DAILY 04/16/17 04/01/18 History Elemental)] Melatonin 5 mg PO HS 04/16/17 04/01/18 History Multivitamins, Thera [Multivitamin 1 tab PO HS 04/16/17 04/01/18 History (formulary)] Potassium Chloride ER [K-Dur 20] 20 meq PO HS 04/16/17 04/01/18 History ALPRAZolam [Xanax] 0.25 mg PO BID PRN #60 04/18/17 04/01/18 Rx Famotidine [Pepcid] 20 mg PO DAILY tab 04/18/17 04/01/18 Rx Benzonatate [Tessalon Perles] 100 - 200 mg PO Q6H PRN 04/01/18 04/01/18 History Furosemide [Lasix] 20 mg PO HS 04/01/18 04/01/18 History Spironolactone [Aldactone] 12.5 mg PO BID 04/01/18 04/01/18 History diphenhydrAMINE [Benadryl] 25 mg PO HS PRN 04/01/18 04/01/18 History guaiFENesin [Mucinex] 600 mg PO Q12HR 04/01/18 04/01/18 History Allergies Allergy/AdvReac Type Severity Reaction Status Date / Time Penicillins Allergy Rash/Hives Verified 04/01/18 16:21 codeine AdvReac Nausea & Verified 04/01/18 16:21 Vomiting Physical Exam Vitals: Vital Signs Temp Pulse Pulse Resp BP BP Pulse Ox 04/02/18 07:13 97.7 F 77 16 108/65 95 04/01/18 23:00 97.9 F 78 20 120/68 97 04/01/18 20:30 98.2 F 88 20 145/71 96 04/01/18 19:54 98.6 F 87 20 139/70 99 04/01/18 19:20 98.0 F 76 18 139/70 97 04/01/18 18:30 79 20 139/70 99 04/01/18 17:30 76 20 132/70 99 04/01/18 16:30 68 20 134/68 99 04/01/18 14:30 98 F 52 L 16 144/73 97 Intake and Output 04/01/18 04/02/18 04/02/18 22:59 06:59 14:59 Intake Total 100 50 Output Total 1000 900 Balance -900 -850 Intake: Oral 100 50 Output: Urine 1000 900 Other: Weight 69.4 kg General appearance: average body habitus, no acute distress - EENT Eyes: EOMI, PERRLA ENT: hard of hearing Ears: bilateral: normal - Neck Neck: no lymphadenopathy, no normal ROM Carotids: bilateral: upstroke normal Thyroid: bilateral: normal size - Respiratory Respiratory: bilateral: rales, rhonchi, wheezing, negative: CTA - Cardiovascular Rhythm: irregularly irregular Heart sounds: normal: S1, S2 Abnormal Heart Sounds: no systolic murmur, no diastolic murmur ankle Peripheral Edema: bilateral: None - Gastrointestinal General gastrointestinal: normal bowel sounds, no organomegaly, soft, no tenderness - Neurologic Neurologic: CNII-XII intact - Musculoskeletal Musculoskeletal: generalized weakness and left leg weakness compared to right - Psychiatric Psychiatric: A&O x's 3, appropriate affect Results CBC & Chem 7: 04/01/18 15:28 04/01/18 15:28 Labs: Abnormal Lab Results - Last 24 Hours (Table) 04/01/18 04/01/18 04/01/18 Range/Units 15:27 15:28 15:28 Lymphocytes # 0.8 L (1.0-4.8) k/uL INR (<1.2) Sodium (137-145) mmol/L Chloride (98-107) mmol/L BUN (7-17) mg/dL Glucose (74-99) mg/dL POC Glucose (mg/dL) (75-99) mg/dL Hemoglobin A1c 6.1 H (4.0-6.0) % Plasma Lactic Acid Fred (0.7-2.0) mmol/L Total Creatine Kinase <20 L (30-135) U/L Urine Appearance (Clear) Ur Leukocyte Esterase (Negative) Urine RBC (0-5) /hpf Urine WBC (0-5) /hpf Hyaline Casts (0-2) /lpf Urine Mucus (None) /hpf 04/01/18 04/01/18 04/01/18 Range/Units 15:28 15:28 16:30 Lymphocytes # (1.0-4.8) k/uL INR 1.2 H (<1.2) Sodium 131 L (137-145) mmol/L Chloride 94 L (98-107) mmol/L BUN 19 H (7-17) mg/dL Glucose 135 H (74-99) mg/dL POC Glucose (mg/dL) (75-99) mg/dL Hemoglobin A1c (4.0-6.0) % Plasma Lactic Acid Fred 2.4 H* (0.7-2.0) mmol/L Total Creatine Kinase (30-135) U/L Urine Appearance (Clear) Ur Leukocyte Esterase (Negative) Urine RBC (0-5) /hpf Urine WBC (0-5) /hpf Hyaline Casts (0-2) /lpf Urine Mucus (None) /hpf 04/01/18 04/01/18 04/01/18 Range/Units 16:47 20:38 20:39 Lymphocytes # (1.0-4.8) k/uL INR (<1.2) Sodium (137-145) mmol/L Chloride (98-107) mmol/L BUN (7-17) mg/dL Glucose (74-99) mg/dL POC Glucose (mg/dL) 247 H (75-99) mg/dL Hemoglobin A1c (4.0-6.0) % Plasma Lactic Acid Fred 3.1 H* (0.7-2.0) mmol/L Total Creatine Kinase (30-135) U/L Urine Appearance Cloudy H (Clear) Ur Leukocyte Esterase Large H (Negative) Urine RBC 8 H (0-5) /hpf Urine WBC 31 H (0-5) /hpf Hyaline Casts 18 H (0-2) /lpf Urine Mucus Rare H (None) /hpf 04/02/18 Range/Units 07:11 Lymphocytes # (1.0-4.8) k/uL INR (<1.2) Sodium (137-145) mmol/L Chloride (98-107) mmol/L BUN (7-17) mg/dL Glucose (74-99) mg/dL POC Glucose (mg/dL) 130 H (75-99) mg/dL Hemoglobin A1c (4.0-6.0) % Plasma Lactic Acid Fred (0.7-2.0) mmol/L Total Creatine Kinase (30-135) U/L Urine Appearance (Clear) Ur Leukocyte Esterase (Negative) Urine RBC (0-5) /hpf Urine WBC (0-5) /hpf Hyaline Casts (0-2) /lpf Urine Mucus (None) /hpf Microbiology - Last 24 Hours (Table) 04/01/18 16:47 Urine Culture - Preliminary Urine,Voided Thrombosis Risk Factor Assmnt - DVT/VTE Prophylaxis DVT/VTE Prophylaxis: Pharmacologic Prophylaxis ordered - Choose All That Apply Any of the Below Risk Factors Present?: Yes Other Risk Factors: Yes Each Risk Factor Represents 3 Points: Age 75 years or older Thrombosis Risk Factor Assessment Total Risk Factor Score: 3 Thrombosis Risk Factor Assessment Level: Moderate Risk Assessment and Plan Plan: 1. Fall with generalized weakness and possible syncopal episode possibly secondary to mild dehydration due to over diuresing and urinary tract infection. Consult with neurology. Noted possible aneurysm noted on the CAT scan of the brain with recommendations for MRA which we will plan to do as an outpatient. We will wait for neurology input regarding possible MRI of the brain as well. PT and OT added. Patient normally ambulates with a walker. Antibiotics changed to ceftriaxone. 2. Chronic atrial fibrillation and long-term anticoagulation with Eliquis. Continue diltiazem 30 mg by mouth twice a day and metoprolol 12.5 mg twice daily. 3. Chronic diastolic heart failure with pulmonary hypertension- Lasix 40 mg by mouth daily on hold, continue Norvasc 2.5 mg by mouth daily. 3. Hypertension. Continue Norvasc 2.5 mg daily, Lasix, diltiazem and metoprolol 4. Hyperlipidemia. Continue Zocor 10 mg at bedtime. 5. COPD without exacerbation. Continue DuoNeb treatments every 4 hours as needed, albuterol 4 times daily scheduled, Pulmicort 0.5 mg twice daily. 6. Diabetes mellitus type 2. Patient is currently off diabetic agents. Hyperglycemia secondary to steroids. Continue NovoLog scale before meals and at bedtime 7. 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 Continue aspirin 325 mg daily , eliquis 2.5 mg twice daily, simvastatin 10 mg at bedtime. 8. Hypothyroidism. Currently off levothyroxine. 9. Severe tricuspid regurgitation, secondary to probably hypertension stable 10. CODE STATUS full code 11. Patient places in observation status. 12. DVT prophylaxis on maintenance eliquis, Impression and plan of care have been directed as dictated by the signing physician. Jess Romeo nurse practitioner acting as scribe for signing physician.
[2018-04-02 12:51] LABS: Glucose,Whole Blood 151 mg/dL (75-99)
[2018-04-02 17:16] LABS: Glucose,Whole Blood 176 mg/dL (75-99)
[2018-04-02] MEDS ORDERED: LEVOFLOXACIN 250MG-D5W PMX 250 MG in DEXTROSE/WATER 1 50ML.BAG IVPB SCH (20:00)
[2018-04-02 20:35] LABS: Glucose,Whole Blood 104 mg/dL (75-99)
[2018-04-02] MEDS: POTASSIUM CHLORIDE ER 20 MEQ TAB.ER PO SCH (20:55)
[2018-04-02] MEDS: MELATONIN 5 MG TABLET PO SCH (20:56)
[2018-04-02] MEDS: MULTIVITAMINS, THERA 1 EACH TAB PO SCH (20:56)
--- NOTE | 2018-04-02 22:13 | P.CNNES ---
History of Present Illness Consult date: 04/02/18 History of Present Illness: The patient is an 88-year-old handed white female who was in her usual state of health until yesterday around lunchtime she was in the kitchen and suddenly she became weak.. She began walking with her walker towards the living room but before she could get to a chair she fell down. She denies any headaches. She reports she did have warning that she felt lightheaded but could not get to the chair and time before she passed out. She thinks she passed out briefly. When she woke up she pushed her emergency button and her grandson came over and helped her get up. She was brought to by EMS to the emergency room. Patient has a pacemaker and history of atrial fibrillation. Her main complaint in the emergency room was general weakness. Neurology is requested to see the patient regarding syncope. The patient was admitted to the hospital with UTI. She had a CAT scan of the brain which showed mild atrophy and chronic small vessel ischemic changes. So there was a old left cerebellar infarct. Suspicion of possible aneurysm was also seen on CT. the patient doesn't drive. She was advised of the [employer] law regarding driving and loss of consciousness. She was advised that per [employer] law she should not operate a motorized vehicle until spell free for 6 months. Review of Systems Constitutional: Denies chills, Denies fever Eyes: denies blurred vision, denies pain Ears, nose, mouth and throat: Denies headache, Denies sore throat Respiratory: Denies cough Gastrointestinal: Denies abdominal pain, Denies diarrhea, Denies nausea, Denies vomiting Genitourinary: Denies dysuria, Denies hematuria Musculoskeletal: Denies myalgias Integumentary: Denies pruritus, Denies rash Neurological: Denies numbness, Denies weakness Psychiatric: Denies anxiety, Denies depression Past Medical History Past Medical History: Atrial Fibrillation, Coronary Artery Disease (CAD), Heart Failure, CVA/TIA, Diabetes Mellitus, GI Bleed, Hyperlipidemia, Hypertension, Memory Impairment, Osteoarthritis (OA), Pneumonia, Thyroid Disorder Additional Past Medical History / Comment(s): Recurrent UTIs and past mild encephalopathy with UTI, multiple CVA/TIA, 2014 rectal bleed, diverticular dx, chronic anemia, hypothyroid History of Any Multi-Drug Resistant Organisms: MRSA Date of last positivie culture/infection: 03/12/2014 MDRO Source:: Urine Past Surgical History: Cholecystectomy, Pacemaker, Tonsillectomy Additional Past Surgical History / Comment(s): [employer], 2005 CABG X4, D&C, TOTAL RIGHT KNEE, cataracts, Past Anesthesia/Blood Transfusion Reactions: Postoperative Nausea & Vomiting ( PONV) Type of Cardiac Device: Permanent Pacemaker Device Placement Date:: 2010 Smoking Status: Never smoker - Past Family History Sister(s) Family Medical History: Cancer Additional Family Medical History / Comment(s): heart problems Father Family Medical History: Respiratory Disorder Additional Family Medical History / Comment(s): Tuberculosis-Dad Medications and Allergies Home Medications Medication Instructions Recorded Confirmed Type Apixaban [Eliquis] 2.5 mg PO BID 01/26/14 04/01/18 History metFORMIN HCL [Glucophage] 1,000 mg PO AC-BID #60 tab 02/25/14 04/01/18 Rx Acetaminophen Tab [Tylenol] 650 mg PO Q6HR PRN #0 tab 10/31/15 04/01/18 Rx Metoprolol Tartrate [Lopressor] 25 mg PO DAILY tab 11/06/16 04/01/18 Rx Ascorbic Acid [Vitamin C] 500 mg PO BID 03/25/17 04/01/18 History Diltiazem Oral [Cardizem*] 30 mg PO BID 03/25/17 04/01/18 History Levothyroxine Sodium [Synthroid] 112 mcg PO DAILY 03/25/17 04/01/18 History Magnesium Oxide [Magox 400] 400 mg PO DAILY 03/25/17 04/01/18 History amLODIPine [Norvasc] 2.5 mg PO DAILY 03/25/17 04/01/18 History Furosemide [Lasix] 40 mg PO DAILY #30 tablet 04/08/17 04/01/18 Rx Cranberry Fruit Extract [Cranberry] 500 mg PO DAILY 04/16/17 04/01/18 History Ferrous Sulfate [Iron (65 MG 325 mg PO DAILY 04/16/17 04/01/18 History Elemental)] Melatonin 5 mg PO HS 04/16/17 04/01/18 History Multivitamins, Thera [Multivitamin 1 tab PO HS 04/16/17 04/01/18 History (formulary)] Potassium Chloride ER [K-Dur 20] 20 meq PO HS 04/16/17 04/01/18 History ALPRAZolam [Xanax] 0.25 mg PO BID PRN #60 04/18/17 04/01/18 Rx Famotidine [Pepcid] 20 mg PO DAILY tab 04/18/17 04/01/18 Rx Benzonatate [Tessalon Perles] 100 - 200 mg PO Q6H PRN 04/01/18 04/01/18 History Furosemide [Lasix] 20 mg PO HS 04/01/18 04/01/18 History Spironolactone [Aldactone] 12.5 mg PO BID 04/01/18 04/01/18 History diphenhydrAMINE [Benadryl] 25 mg PO HS PRN 04/01/18 04/01/18 History guaiFENesin [Mucinex] 600 mg PO Q12HR 04/01/18 04/01/18 History Allergies Allergy/AdvReac Type Severity Reaction Status Date / Time Penicillins Allergy Rash/Hives Verified 04/01/18 16:21 codeine AdvReac Nausea & Verified 04/01/18 16:21 Vomiting Physical Examination - Vital Signs Vital Signs: Vital Signs Temp Pulse Pulse Resp BP Pulse Ox 04/02/18 20:38 98.1 F 84 84 16 150/60 95 04/02/18 15:06 98.4 F 67 16 106/55 98 04/02/18 07:13 97.7 F 77 16 108/65 95 04/01/18 23:00 97.9 F 78 20 120/68 97 Intake and Output 04/02/18 04/02/18 04/02/18 06:59 14:59 22:59 Intake Total 50 100 Output Total 900 400 450 Balance -850 -300 -450 Intake: IV 100 [id number] 2,000 mg In 100 Sodium Chloride 0.9% 100 ml @ 100 mls/hr IVPB Q24HR [facility] Rx#:[id number] Oral 50 Output: Urine 900 400 450 Other: Voiding Method Bedpan # Voids 1 1 Weight 69.4 kg - Constitutional General appearance: average body habitus, cooperative - EENT EENT: PERRL, hearing intact, vision intact - Respiratory Respiratory: lungs clear - Cardiovascular Cardiovascular: regular rate - Neurologic Neurologic examination: Mental status: The patient was awake alert and oriented. She answered all questions appropriately. There is no evidence of a aphasia or dysarthria. Cranial nerve examination: PERRL, EOMI, VFF, V1/V2/V3 grossly intact, face symmetric, tongue midline Speech examination: intact Detailed motor examination: grossly full strength in all extremities - Psychiatric Psychiatric: mood/affect appropriate Results - Laboratory Findings CBC and BMP: 04/01/18 15:28 04/01/18 15:28 Abnormal Lab Findings: Abnormal Labs 04/01/18 04/01/18 04/01/18 15:27 15:28 15:28 Lymphocytes # 0.8 L INR Sodium Chloride BUN Glucose POC Glucose (mg/dL) Hemoglobin A1c 6.1 H Plasma Lactic Acid Fred Total Creatine Kinase <20 L Urine Appearance Ur Leukocyte Esterase Urine RBC Urine WBC Hyaline Casts Urine Mucus 04/01/18 04/01/18 04/01/18 15:28 15:28 16:30 Lymphocytes # INR 1.2 H Sodium 131 L Chloride 94 L BUN 19 H Glucose 135 H POC Glucose (mg/dL) Hemoglobin A1c Plasma Lactic Acid Fred 2.4 H* Total Creatine Kinase Urine Appearance Ur Leukocyte Esterase Urine RBC Urine WBC Hyaline Casts Urine Mucus 04/01/18 04/01/18 04/01/18 16:47 20:38 20:39 Lymphocytes # INR Sodium Chloride BUN Glucose POC Glucose (mg/dL) 247 H Hemoglobin A1c Plasma Lactic Acid Fred 3.1 H* Total Creatine Kinase Urine Appearance Cloudy H Ur Leukocyte Esterase Large H Urine RBC 8 H Urine WBC 31 H Hyaline Casts 18 H Urine Mucus Rare H 04/02/18 04/02/18 04/02/18 07:11 11:51 17:14 Lymphocytes # INR Sodium Chloride BUN Glucose POC Glucose (mg/dL) 130 H 151 H 176 H Hemoglobin A1c Plasma Lactic Acid Fred Total Creatine Kinase Urine Appearance Ur Leukocyte Esterase Urine RBC Urine WBC Hyaline Casts Urine Mucus 04/02/18 20:34 Lymphocytes # INR Sodium Chloride BUN Glucose POC Glucose (mg/dL) 104 H Hemoglobin A1c Plasma Lactic Acid Rfed Total Creatine Kinase Urine Appearance Ur Leukocyte Esterase Urine RBC Urine WBC Hyaline Casts Urine Mucus Assessment and Plan (1) Episode of syncope Current Visit: Yes Status: Acute SNOMED Code(s): 170093689 (2) Old lacunar stroke without late effect Current Visit: Yes Status: Acute SNOMED Code(s): 945492674 (3) UTI (urinary tract infection) Current Visit: Yes Status: Acute SNOMED Code(s): 60018690 (4) Weakness Current Visit: Yes Status: Acute SNOMED Code(s): 91822367 Plan: The patient is an 88-year-old woman with multiple medical problems including atrial fibrillation, pacemaker, coronary artery disease history of TIA and stroke ,diabetes, hyperlipidemia hypertension ,memory impairment ,thyroid disease ,osteoarthritis, recurrent UTIs is admitted to the hospital with UTI. The patient had an episode of syncope and collapse at home. Recommend further evaluation with EEG. She had a CAT scan of the brain showed suspicion of anterior communicating artery aneurysm. She is unable to undergo an MRA due to pacemaker. The patient could have a CTA brain for further evaluation.
[2018-04-03] MEDS: LEVOTHYROXINE 112 MCG TAB PO SCH (05:32)
[2018-04-03 06:59] LABS: Glucose,Whole Blood 159 mg/dL (75-99)
[2018-04-03 07:41] LABS: Basophils % (A) 0 %; Eosinophils # (A) 0.2 k/uL (0-0.7); Eosinophils % (A) 7 %; HGB 11.5 gm/dL (11.4-16.0); Lymphocytes # (A) 0.7 k/uL (1.0-4.8); Lymphocytes % (A) 21 %; MCH 27.6 pg (25.0-35.0); MCV 83.6 fL (80.0-100.0); Monocytes # (A) 0.2 k/uL (0-1.0); Monocytes % (A) 7 %; Neutrophils # (A) 2.1 k/uL (1.3-7.7); Neutrophils % (A) 64 %; Platelet Count 140 k/uL (150-450); RBC 4.19 m/uL (3.80-5.40); RDW 13.7 % (11.5-15.5); WBC 3.3 k/uL (3.8-10.6)
[2018-04-03] MEDS: SPIRONOLACTONE 25 MG TAB PO SCH ×2 (07:46→20:07)
[2018-04-03] MEDS: APIXABAN 2.5 MG TABLET PO SCH ×2 (07:47→20:05)
[2018-04-03] MEDS: FAMOTIDINE 20 MG TAB PO SCH (07:47)
[2018-04-03] MEDS: FERROUS SULFATE 325 MG TAB PO SCH (07:47)
[2018-04-03] MEDS: DILTIAZEM ORAL 30 MG TAB PO SCH ×2 (07:47→20:06)
[2018-04-03] MEDS: METOPROLOL TARTRATE 12.5 MG TAB PO SCH ×2 (07:47→20:06)
[2018-04-03] MEDS: metFORMIN 500 MG TAB PO SCH ×2 (07:47→17:27)
[2018-04-03] MEDS: amLODIPine 2.5 MG TAB PO SCH (07:47)
[2018-04-03] MEDS: MAGNESIUM OXIDE 400 MG TAB PO SCH (07:47)
[2018-04-03] MEDS: cefTRIAXone 2,000 MG in SODIUM CHLORIDE 0.9% 100 ML IVPB SCH (07:48)
[2018-04-03] MEDS: INSULIN ASPART 100 UNIT/ML 1 ML 10 ML VIAL SQ SCH ×4 (07:48→21:41)
[2018-04-03 07:59] LABS: ALT 37 U/L (9-52); AST 27 U/L (14-36); Albumin 3.5 g/dL (3.5-5.0); Alkaline Phosphatase 89 U/L (38-126); Anion Gap 6 mmol/L; Blood Urea Nitrogen 13 mg/dL (7-17); Calcium 9.3 mg/dL (8.4-10.2); Carbon Dioxide 27 mmol/L (22-30); Chloride 99 mmol/L (98-107); Glucose 129 mg/dL (74-99); Potassium 4.6 mmol/L (3.5-5.1); Sodium 132 mmol/L (137-145); Total Bilirubin 0.6 mg/dL (0.2-1.3); Total Protein 6.6 g/dL (6.3-8.2)
[2018-04-03 11:55] LABS: Glucose,Whole Blood 134 mg/dL (75-99)
--- NOTE | 2018-04-03 14:07 | P.PN ---
Subjective Progress Note Date: 04/03/18 This is an 87-year-old female patient of Dr. Conklin with a past medical history significant for atrial fibrillation, coronary artery disease, heart failure, stroke, diabetes, GI bleed 2013, hyperlipidemia, hypertension, thyroid disorder. Patient gives history that she was in the kitchen and wanted to get to her chair where she normally sits and she ended up falling down. She does not know what happened but she states it happened very quickly. She is not sure if she lost consciousness. She normally ambulates with a walker. She is mostly sedentary. She denies any lightheadedness or dizziness prior to this episode. She denies any head injury. She came into the clinic reporting in Hospital emergency center for evaluation. She was afebrile, heart rate in the 50s and 60s, blood pressure was stable, pulse ox 97% on room air. Her white count was normal, sodium 131 with chloride of 94, creatinine 0.58 troponin was normal, TSH 0.571. Lactic acid was 2.4, proBNP 527. Urinalysis was cloudy, leukoesterase large, WBCs 31. EKG is atrial fibrillation at a rate of 54 with paced complexes. No acute ST changes. Patient was diagnosed with urinary tract infection and started on Levaquin [facility] Due to possible syncopal episode, neurology consult has been requested. CAT scan of the brain ordered that revealed mild atrophy and mild changes of chronic small vessel ischemic change. 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 No acute intracranial abnormality. 04/03: Patient worked with physical therapy yesterday and was not able to stand and get out of bed by herself. She needed the assistance of 2 persons to stand. PT has recommended subacute rehab. Patient continues to be much below baseline and unable to ambulate. Plan to continue physical therapy while in the hospital. Patient is denying lightheadedness or dizziness. She states she feels much improved from yesterday.. We will ask for orthostatic vital signs. Urine culture showing gram-negative bacilli and patient will be continued on IV Rocephin. Blood culture showing no growth after 24 hours. Patient has been afebrile and white count is 3.3. Objective - Vital Signs Vital signs: Vital Signs Temp 97.8 F 04/03/18 05:58 Pulse 80 04/03/18 05:58 Resp 18 04/03/18 05:58 BP 139/67 04/03/18 05:58 Pulse Ox 94 L 04/03/18 05:58 Intake & Output 04/02/18 04/03/18 04/03/18 18:59 06:59 18:59 Intake Total 100 240 Output Total 850 Balance -750 240 Weight 69.4 kg Intake: IV 100 cefTRIAXone 2,000 mg In 100 Sodium Chloride 0.9% 100 ml @ 100 mls/hr IVPB Q24HR [facility] Rx#:[id number] Oral 240 Output: Urine 850 Other: Voiding Method Bedpan # Voids 1 3 - Exam General appearance: average body habitus, no acute distress - EENT Eyes: EOMI, PERRLA ENT: hard of hearing Ears: bilateral: normal - Neck Neck: no lymphadenopathy, no normal ROM Carotids: bilateral: upstroke normal Thyroid: bilateral: normal size - Respiratory Respiratory: bilateral: rales, rhonchi, wheezing, negative: CTA - Cardiovascular Rhythm: irregularly irregular Heart sounds: normal: S1, S2 Abnormal Heart Sounds: no systolic murmur, no diastolic murmur ankle Peripheral Edema: bilateral: None - Gastrointestinal General gastrointestinal: normal bowel sounds, no organomegaly, soft, no tenderness - Neurologic Neurologic: CNII-XII intact - Musculoskeletal Musculoskeletal: generalized weakness and left leg weakness compared to right - Psychiatric Psychiatric: A&O x's 3, appropriate affect - Labs CBC & Chem 7: 04/03/18 07:09 04/03/18 07:09 Labs: Abnormal Lab Results - Last 24 Hours (Table) 04/02/18 04/02/18 04/03/18 Range/Units 17:14 20:34 06:57 WBC (3.8-10.6) k/uL Plt Count (150-450) k/uL Lymphocytes # (1.0-4.8) k/uL Sodium (137-145) mmol/L Glucose (74-99) mg/dL POC Glucose (mg/dL) 176 H 104 H 159 H (75-99) mg/dL 04/03/18 04/03/18 04/03/18 Range/Units 07:09 07:09 11:51 WBC 3.3 L (3.8-10.6) k/uL Plt Count 140 L (150-450) k/uL Lymphocytes # 0.7 L (1.0-4.8) k/uL Sodium 132 L (137-145) mmol/L Glucose 129 H (74-99) mg/dL POC Glucose (mg/dL) 134 H (75-99) mg/dL Microbiology - Last 24 Hours (Table) 04/01/18 16:47 Urine Culture - Preliminary Urine,Voided Gram Neg Bacilli 04/01/18 18:50 Blood Culture - Preliminary Blood No Growth after 24 hours Assessment and Plan Plan: 1. Fall with generalized weakness and possible syncopal episode possibly secondary to mild dehydration due to over diuresing and urinary tract infection. Consult with neurology. Noted possible aneurysm noted on the CAT scan of the brain with recommendations for MRA PATIENT HAS A PACEMAKER PT and OT recommends subacute rehab. Patient normally ambulates with a walker. Antibiotics changed to ceftriaxone. 2. Chronic atrial fibrillation and long-term anticoagulation with Eliquis. Continue diltiazem 30 mg by mouth twice a day and metoprolol 12.5 mg twice daily. 3. Chronic diastolic heart failure with pulmonary hypertension- Lasix 40 mg by mouth daily on hold, continue Norvasc 2.5 mg by mouth daily. 3. Hypertension. Continue Norvasc 2.5 mg daily, Lasix, diltiazem and metoprolol 4. Hyperlipidemia. Continue Zocor 10 mg at bedtime. 5. COPD without exacerbation. Continue DuoNeb treatments every 4 hours as needed, albuterol 4 times daily scheduled, Pulmicort 0.5 mg twice daily. 6. Diabetes mellitus type 2. Patient is currently off diabetic agents. Hyperglycemia secondary to steroids. Continue NovoLog scale before meals and at bedtime 7. 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 Continue aspirin 325 mg daily , eliquis 2.5 mg twice daily, simvastatin 10 mg at bedtime. 8. Hypothyroidism. Currently off levothyroxine. 9. Severe tricuspid regurgitation, secondary to probably hypertension stable 10. CODE STATUS full code 11. Patient admitted to the hospital for a minimum of 2 night stay 12. DVT prophylaxis on maintenance eliquis, 13. Discharge planning: Subacute rehab on Friday Impression and plan of care have been directed as dictated by the signing physician. Jess Romeo nurse practitioner acting as scribe for signing physician.
[2018-04-03 17:25] LABS: Glucose,Whole Blood 134 mg/dL (75-99)
[2018-04-03] MEDS ORDERED: LEVOFLOXACIN 250 MG TAB PO SCH (20:00)
[2018-04-03] MEDS: MULTIVITAMINS, THERA 1 EACH TAB PO SCH (20:06)
[2018-04-03] MEDS: MELATONIN 5 MG TABLET PO SCH (20:06)
[2018-04-03] MEDS: POTASSIUM CHLORIDE ER 20 MEQ TAB.ER PO SCH (20:06)
[2018-04-03 20:31] LABS: Glucose,Whole Blood 143 mg/dL (75-99)
[2018-04-04] MEDS: LEVOTHYROXINE 112 MCG TAB PO SCH (06:00)
[2018-04-04 07:30] LABS: Glucose,Whole Blood 125 mg/dL (75-99)
[2018-04-04] MEDS: INSULIN ASPART 100 UNIT/ML 1 ML 10 ML VIAL SQ SCH ×4 (07:54→21:34)
[2018-04-04] MEDS: SPIRONOLACTONE 25 MG TAB PO SCH ×2 (07:57→20:31)
[2018-04-04] MEDS: METOPROLOL TARTRATE 12.5 MG TAB PO SCH ×2 (07:57→20:30)
[2018-04-04] MEDS: amLODIPine 2.5 MG TAB PO SCH (07:57)
[2018-04-04] MEDS: FERROUS SULFATE 325 MG TAB PO SCH (07:57)
[2018-04-04] MEDS: FAMOTIDINE 20 MG TAB PO SCH (07:57)
[2018-04-04] MEDS: DILTIAZEM ORAL 30 MG TAB PO SCH ×2 (07:57→20:29)
[2018-04-04] MEDS: metFORMIN 500 MG TAB PO SCH ×2 (07:57→17:50)
[2018-04-04] MEDS: APIXABAN 2.5 MG TABLET PO SCH ×2 (07:58→20:29)
[2018-04-04] MEDS: cefTRIAXone 2,000 MG in SODIUM CHLORIDE 0.9% 100 ML IVPB SCH (07:58)
[2018-04-04 09:08] LABS: Basophils % (A) 0 %; Eosinophils # (A) 0.2 k/uL (0-0.7); Eosinophils % (A) 6 %; HCT 36.2 % (34.0-46.0); HGB 11.7 gm/dL (11.4-16.0); Lymphocytes # (A) 0.7 k/uL (1.0-4.8); Lymphocytes % (A) 19 %; MCH 27.3 pg (25.0-35.0); MCHC 32.2 g/dL (31.0-37.0); MCV 84.7 fL (80.0-100.0); Mean Platelet Volume 6.6; Monocytes # (A) 0.2 k/uL (0-1.0); Monocytes % (A) 6 %; Neutrophils # (A) 2.6 k/uL (1.3-7.7); Neutrophils % (A) 68 %; Platelet Count 148 k/uL (150-450); RBC 4.27 m/uL (3.80-5.40); RDW 13.9 % (11.5-15.5); WBC 3.8 k/uL (3.8-10.6)
[2018-04-04 09:17] LABS: ALT 24 U/L (9-52); AST 24 U/L (14-36); Albumin 3.4 g/dL (3.5-5.0); Alkaline Phosphatase 87 U/L (38-126); Anion Gap 10 mmol/L; Blood Urea Nitrogen 12 mg/dL (7-17); Calcium 9.2 mg/dL (8.4-10.2); Carbon Dioxide 24 mmol/L (22-30); Chloride 100 mmol/L (98-107); Glucose 190 mg/dL (74-99); Potassium 4.7 mmol/L (3.5-5.1); Sodium 134 mmol/L (137-145); Total Bilirubin 0.6 mg/dL (0.2-1.3); Total Protein 6.5 g/dL (6.3-8.2)
[2018-04-04] MEDS: MAGNESIUM OXIDE 400 MG TAB PO SCH (11:28)
[2018-04-04 11:32] LABS: Glucose,Whole Blood 116 mg/dL (75-99)
--- NOTE | 2018-04-04 13:49 | P.PN ---
Subjective Progress Note Date: 04/04/18 This is an 87-year-old female patient of Dr. Conklin with a past medical history significant for atrial fibrillation, coronary artery disease, heart failure, stroke, diabetes, GI bleed 2013, hyperlipidemia, hypertension, thyroid disorder. Patient gives history that she was in the kitchen and wanted to get to her chair where she normally sits and she ended up falling down. She does not know what happened but she states it happened very quickly. She is not sure if she lost consciousness. She normally ambulates with a walker. She is mostly sedentary. She denies any lightheadedness or dizziness prior to this episode. She denies any head injury. She came into the clinic reporting in Hospital emergency center for evaluation. She was afebrile, heart rate in the 50s and 60s, blood pressure was stable, pulse ox 97% on room air. Her white count was normal, sodium 131 with chloride of 94, creatinine 0.58 troponin was normal, TSH 0.571. Lactic acid was 2.4, proBNP 527. Urinalysis was cloudy, leukoesterase large, WBCs 31. EKG is atrial fibrillation at a rate of 54 with paced complexes. No acute ST changes. Patient was diagnosed with urinary tract infection and started on Lev[facility]quin [facility] Due to possible syncopal episode, neurology consult has been requested. CAT scan of the brain ordered that revealed mild atrophy and mild changes of chronic small vessel ischemic change. 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 No acute intracranial abnormality. 04/03: Patient worked with physical therapy yesterday and was not able to stand and get out of bed by herself. She needed the assistance of 2 persons to stand. PT has recommended subacute rehab. Patient continues to be much below baseline and unable to ambulate. Plan to continue physical therapy while in the hospital. Patient is denying lightheadedness or dizziness. She states she feels much improved from yesterday.. We will ask for orthostatic vital signs. Urine culture showing gram-negative bacilli and patient will be continued on IV Rocephin. Blood culture showing no growth after 24 hours. Patient has been afebrile and white count is 3.3. 04/04: Patient is feeling better today she continues to be generally weak in both lower extremities, she is asking for commode chair at the bedside since she is not able to go on the bedpan, the plan is to transfer the patient to [facility] a Friday. Objective - Vital Signs Vital signs: Vital Signs Temp 98.4 F 04/03/18 22:55 Pulse 65 04/03/18 22:55 Resp 18 04/03/18 22:55 BP 120/56 04/03/18 22:55 Pulse Ox 98 04/03/18 22:55 Intake & Output 04/03/18 04/04/18 04/04/18 18:59 06:59 18:59 Intake Total 440 Balance 440 Intake: Oral 440 Other: Voiding Method Bedpan # Voids 2 1 # Bowel Movements 0 - Exam - Exam General appearance: average body habitus, no acute distress - EENT Eyes: EOMI, PERRLA ENT: hard of hearing Ears: bilateral: normal - Neck Neck: no lymphadenopathy, no normal ROM Carotids: bilateral: upstroke normal Thyroid: bilateral: normal size - Respiratory Respiratory: bilateral: rales, rhonchi, wheezing, negative: CTA - Cardiovascular Rhythm: irregularly irregular Heart sounds: normal: S1, S2 Abnormal Heart Sounds: no systolic murmur, no diastolic murmur ankle Peripheral Edema: bilateral: None - Gastrointestinal General gastrointestinal: normal bowel sounds, no organomegaly, soft, no tenderness - Neurologic Neurologic: CNII-XII intact - Musculoskeletal Musculoskeletal: generalized weakness and left leg weakness compared to right - Psychiatric Psychiatric: A&O x's 3, appropriate affect - Labs CBC & Chem 7: 04/04/18 08:22 04/04/18 08:22 Labs: Abnormal Lab Results - Last 24 Hours (Table) 04/03/18 04/03/18 04/03/18 Range/Units 07:09 07:09 11:51 WBC 3.3 L (3.8-10.6) k/uL Plt Count 140 L (150-450) k/uL Lymphocytes # 0.7 L (1.0-4.8) k/uL Sodium 132 L (137-145) mmol/L Glucose 129 H (74-99) mg/dL POC Glucose (mg/dL) 134 H (75-99) mg/dL 04/03/18 04/03/18 04/04/18 Range/Units 17:23 20:30 07:26 WBC (3.8-10.6) k/uL Plt Count (150-450) k/uL Lymphocytes # (1.0-4.8) k/uL Sodium (137-145) mmol/L Glucose (74-99) mg/dL POC Glucose (mg/dL) 134 H 143 H 125 H (75-99) mg/dL Microbiology - Last 24 Hours (Table) 04/01/18 16:47 Urine Culture - Preliminary Urine,Voided Klebsiella pneumoniae 04/01/18 18:50 Blood Culture - Preliminary Blood No Growth after 48 hours Assessment and Plan Assessment: Assessment and Plan Plan: 1. Fall with generalized weakness and possible syncopal episode possibly secondary to mild dehydration due to over diuresing and urinary tract infection. Consult with neurology. Noted possible aneurysm noted on the CAT scan of the brain with recommendations for MRA PATIENT HAS A PACEMAKER PT and OT recommends subacute rehab. Patient normally ambulates with a walker. Antibiotics changed to ceftriaxone. 2. Chronic atrial fibrillation and long-term anticoagulation with Eliquis. Continue diltiazem 30 mg by mouth twice a day and metoprolol 12.5 mg twice daily. 3. Chronic diastolic heart failure with pulmonary hypertension- Lasix 40 mg by mouth daily on hold, continue Norvasc 2.5 mg by mouth daily. 3. Hypertension. Continue Norvasc 2.5 mg daily, Lasix, diltiazem and metoprolol 4. Hyperlipidemia. Continue Zocor 10 mg at bedtime. 5. COPD without exacerbation. Continue DuoNeb treatments every 4 hours as needed, albuterol 4 times daily scheduled, Pulmicort 0.5 mg twice daily. 6. Diabetes mellitus type 2. Patient is currently off diabetic agents. Hyperglycemia secondary to steroids. Continue NovoLog scale before meals and at bedtime 7. 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 Continue aspirin 325 mg daily , eliquis 2.5 mg twice daily, simvastatin 10 mg at bedtime. 8. Hypothyroidism. Currently off levothyroxine. 9. Severe tricuspid regurgitation, secondary to probably hypertension stable 10. CODE STATUS full code 11. Patient admitted to the hospital for a minimum of 2 night stay 12. DVT prophylaxis on maintenance eliquis, 13. Discharge planning: Subacute rehab on Friday
[2018-04-04 17:08] LABS: Glucose,Whole Blood 174 mg/dL (75-99)
[2018-04-04] MEDS: MELATONIN 5 MG TABLET PO SCH (20:30)
[2018-04-04] MEDS: MULTIVITAMINS, THERA 1 EACH TAB PO SCH (20:30)
[2018-04-04] MEDS: POTASSIUM CHLORIDE ER 20 MEQ TAB.ER PO SCH (20:31)
[2018-04-04 20:48] LABS: Glucose,Whole Blood 119 mg/dL (75-99)
[2018-04-05] MEDS: LEVOTHYROXINE 112 MCG TAB PO SCH (05:47)
[2018-04-05 07:10] LABS: Glucose,Whole Blood 130 mg/dL (75-99)
[2018-04-05] MEDS: INSULIN ASPART 100 UNIT/ML 1 ML 10 ML VIAL SQ SCH ×4 (08:04→20:50)
[2018-04-05] MEDS: cefTRIAXone 2,000 MG in SODIUM CHLORIDE 0.9% 100 ML IVPB SCH (08:06)
[2018-04-05] MEDS: FAMOTIDINE 20 MG TAB PO SCH (08:07)
[2018-04-05] MEDS: FERROUS SULFATE 325 MG TAB PO SCH (08:07)
[2018-04-05] MEDS: SPIRONOLACTONE 25 MG TAB PO SCH ×2 (08:07→20:49)
[2018-04-05] MEDS: METOPROLOL TARTRATE 12.5 MG TAB PO SCH ×2 (08:07→20:48)
[2018-04-05] MEDS: amLODIPine 2.5 MG TAB PO SCH (08:07)
[2018-04-05] MEDS: APIXABAN 2.5 MG TABLET PO SCH ×2 (08:07→20:49)
[2018-04-05] MEDS: DILTIAZEM ORAL 30 MG TAB PO SCH ×2 (08:07→20:48)
[2018-04-05] MEDS: metFORMIN 500 MG TAB PO SCH ×2 (08:07→17:16)
[2018-04-05 08:19] LABS: Basophils % (A) 0 %; Eosinophils # (A) 0.2 k/uL (0-0.7); Eosinophils % (A) 6 %; HCT 34.9 % (34.0-46.0); HGB 11.6 gm/dL (11.4-16.0); Lymphocytes # (A) 0.6 k/uL (1.0-4.8); Lymphocytes % (A) 20 %; MCH 27.8 pg (25.0-35.0); MCHC 33.2 g/dL (31.0-37.0); MCV 83.7 fL (80.0-100.0); Mean Platelet Volume 6.8; Monocytes # (A) 0.2 k/uL (0-1.0); Monocytes % (A) 7 %; Neutrophils # (A) 2.1 k/uL (1.3-7.7); Neutrophils % (A) 65 %; Platelet Count 130 k/uL (150-450); RBC 4.17 m/uL (3.80-5.40); RDW 13.8 % (11.5-15.5); WBC 3.2 k/uL (3.8-10.6)
[2018-04-05 08:33] LABS: ALT 31 U/L (9-52); AST 30 U/L (14-36); Albumin 3.3 g/dL (3.5-5.0); Alkaline Phosphatase 80 U/L (38-126); Anion Gap 8 mmol/L; Blood Urea Nitrogen 12 mg/dL (7-17); Calcium 9.1 mg/dL (8.4-10.2); Carbon Dioxide 25 mmol/L (22-30); Chloride 101 mmol/L (98-107); Glucose 118 mg/dL (74-99); Potassium 5.2 mmol/L (3.5-5.1); Sodium 134 mmol/L (137-145); Total Bilirubin 0.6 mg/dL (0.2-1.3); Total Protein 6.4 g/dL (6.3-8.2)
--- NOTE | 2018-04-05 09:52 | P.PN ---
Subjective Progress Note Date: 04/05/18 This is an 87-year-old female patient of Dr. Conklin with a past medical history significant for atrial fibrillation, coronary artery disease, heart failure, stroke, diabetes, GI bleed 2013, hyperlipidemia, hypertension, thyroid disorder. Patient gives history that she was in the kitchen and wanted to get to her chair where she normally sits and she ended up falling down. She does not know what happened but she states it happened very quickly. She is not sure if she lost consciousness. She normally ambulates with a walker. She is mostly sedentary. She denies any lightheadedness or dizziness prior to this episode. She denies any head injury. She came into the clinic reporting in Hospital emergency center for evaluation. She was afebrile, heart rate in the 50s and 60s, blood pressure was stable, pulse ox 97% on room air. Her white count was normal, sodium 131 with chloride of 94, creatinine 0.58 troponin was normal, TSH 0.571. Lactic acid was 2.4, proBNP 527. Urinalysis was cloudy, leukoesterase large, WBCs 31. EKG is atrial fibrillation at a rate of 54 with paced complexes. No acute ST changes. Patient was diagnosed with urinary tract infection and started on Lev[facility]quin [facility] Due to possible syncopal episode, neurology consult has been requested. CAT scan of the brain ordered that revealed mild atrophy and mild changes of chronic small vessel ischemic change. 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 No acute intracranial abnormality. 04/03: Patient worked with physical therapy yesterday and was not able to stand and get out of bed by herself. She needed the assistance of 2 persons to stand. PT has recommended subacute rehab. Patient continues to be much below baseline and unable to ambulate. Plan to continue physical therapy while in the hospital. Patient is denying lightheadedness or dizziness. She states she feels much improved from yesterday.. We will ask for orthostatic vital signs. Urine culture showing gram-negative bacilli and patient will be continued on IV Rocephin. Blood culture showing no growth after 24 hours. Patient has been afebrile and white count is 3.3. 04/04: Patient is feeling better today she continues to be generally weak in both lower extremities, she is asking for commode chair at the bedside since she is not able to go on the bedpan, the plan is to transfer the patient to [facility] a Friday. 04/05: Patient is doing a lot better today she denies any chest pain, shortness breath, she is ready to be transferred to [facility] tomorrow morning. Objective - Vital Signs Vital signs: Vital Signs Temp 98.1 F 04/05/18 06:29 Pulse 88 04/05/18 06:29 Resp 16 04/05/18 06:29 BP 142/83 04/05/18 06:29 Pulse Ox 94 L 04/05/18 06:29 Intake & Output 04/04/18 04/05/18 04/05/18 18:59 06:59 18:59 Output Total 2 Balance -2 Weight 71.5 kg Output: Urine 2 Other: # Voids 2 1 # Bowel Movements 1 - Exam - Exam General appearance: average body habitus, no acute distress - EENT Eyes: EOMI, PERRLA ENT: hard of hearing Ears: bilateral: normal - Neck Neck: no lymphadenopathy, no normal ROM Carotids: bilateral: upstroke normal Thyroid: bilateral: normal size - Respiratory Respiratory: bilateral: rales, rhonchi, wheezing, negative: CTA - Cardiovascular Rhythm: irregularly irregular Heart sounds: normal: S1, S2 Abnormal Heart Sounds: no systolic murmur, no diastolic murmur ankle Peripheral Edema: bilateral: None - Gastrointestinal General gastrointestinal: normal bowel sounds, no organomegaly, soft, no tenderness - Neurologic Neurologic: CNII-XII intact - Musculoskeletal Musculoskeletal: generalized weakness and left leg weakness compared to right - Psychiatric Psychiatric: A&O x's 3, appropriate affect - Labs CBC & Chem 7: 04/05/18 07:48 04/05/18 07:48 Labs: Abnormal Lab Results - Last 24 Hours (Table) 04/04/18 04/04/18 04/04/18 Range/Units 08:22 08:22 11:25 WBC (3.8-10.6) k/uL Plt Count 148 L (150-450) k/uL Lymphocytes # 0.7 L (1.0-4.8) k/uL Sodium 134 L (137-145) mmol/L Potassium (3.5-5.1) mmol/L Glucose 190 H (74-99) mg/dL POC Glucose (mg/dL) 116 H (75-99) mg/dL Albumin 3.4 L (3.5-5.0) g/dL 04/04/18 04/04/18 04/05/18 Range/Units 17:06 20:47 07:08 WBC (3.8-10.6) k/uL Plt Count (150-450) k/uL Lymphocytes # (1.0-4.8) k/uL Sodium (137-145) mmol/L Potassium (3.5-5.1) mmol/L Glucose (74-99) mg/dL POC Glucose (mg/dL) 174 H 119 H 130 H (75-99) mg/dL Albumin (3.5-5.0) g/dL 04/05/18 04/05/18 Range/Units 07:48 07:48 WBC 3.2 L (3.8-10.6) k/uL Plt Count 130 L (150-450) k/uL Lymphocytes # 0.6 L (1.0-4.8) k/uL Sodium 134 L (137-145) mmol/L Potassium 5.2 H (3.5-5.1) mmol/L Glucose 118 H (74-99) mg/dL POC Glucose (mg/dL) (75-99) mg/dL Albumin 3.3 L (3.5-5.0) g/dL Microbiology - Last 24 Hours (Table) 04/01/18 16:47 Urine Culture - Final Urine,Voided Klebsiella pneumoniae Pseudomonas aeruginosa 04/01/18 18:50 Blood Culture - Preliminary Blood No Growth after 72 hours Assessment and Plan Assessment: Assessment and Plan Plan: 1. Fall with generalized weakness and possible syncopal episode possibly secondary to mild dehydration due to over diuresing and urinary tract infection. Consult with neurology. Noted possible aneurysm noted on the CAT scan of the brain with recommendations for MRA PATIENT HAS A PACEMAKER PT and OT recommends subacute rehab. Patient normally ambulates with a walker. Antibiotics changed to ceftriaxone. 2. Chronic atrial fibrillation and long-term anticoagulation with Eliquis. Continue diltiazem 30 mg by mouth twice a day and metoprolol 12.5 mg twice daily. 3. Chronic diastolic heart failure with pulmonary hypertension- Lasix 40 mg by mouth daily on hold, continue Norvasc 2.5 mg by mouth daily. 3. Hypertension. Continue Norvasc 2.5 mg daily, Lasix, diltiazem and metoprolol 4. Hyperlipidemia. Continue Zocor 10 mg at bedtime. 5. COPD without exacerbation. Continue DuoNeb treatments every 4 hours as needed, albuterol 4 times daily scheduled, Pulmicort 0.5 mg twice daily. 6. Diabetes mellitus type 2. Patient is currently off diabetic agents. Hyperglycemia secondary to steroids. Continue NovoLog scale before meals and at bedtime 7. 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 Continue aspirin 325 mg daily , eliquis 2.5 mg twice daily, simvastatin 10 mg at bedtime. 8. Hypothyroidism. Currently off levothyroxine. 9. Severe tricuspid regurgitation, secondary to probably hypertension stable 10. CODE STATUS full code 11. Patient admitted to the hospital for a minimum of 2 night stay 12. DVT prophylaxis on maintenance eliquis, 13. Discharge planning: Subacute rehab on Friday
[2018-04-05 11:22] LABS: Glucose,Whole Blood 117 mg/dL (75-99)
[2018-04-05] MEDS: MAGNESIUM OXIDE 400 MG TAB PO SCH (11:52)
[2018-04-05 17:13] LABS: Glucose,Whole Blood 145 mg/dL (75-99)
[2018-04-05 20:38] LABS: Glucose,Whole Blood 131 mg/dL (75-99)
[2018-04-05] MEDS: POTASSIUM CHLORIDE ER 20 MEQ TAB.ER PO SCH (20:48)
[2018-04-05] MEDS: MELATONIN 5 MG TABLET PO SCH (20:48)
[2018-04-05] MEDS: MULTIVITAMINS, THERA 1 EACH TAB PO SCH (20:49)
[2018-04-06 00:40] VITALS: RESP 20
[2018-04-06] MEDS: LEVOTHYROXINE 112 MCG TAB PO SCH (05:47)
[2018-04-06 06:37] VITALS: BP 128/65; PULSE 76; TEMP 98.6
[2018-04-06] MEDS: INSULIN ASPART 100 UNIT/ML 1 ML 10 ML VIAL SQ SCH ×2 (07:28→12:42)
[2018-04-06] MEDS: SPIRONOLACTONE 25 MG TAB PO SCH (07:30)
[2018-04-06] MEDS: FERROUS SULFATE 325 MG TAB PO SCH (07:30)
[2018-04-06] MEDS: METOPROLOL TARTRATE 12.5 MG TAB PO SCH (07:30)
[2018-04-06] MEDS: DILTIAZEM ORAL 30 MG TAB PO SCH (07:30)
[2018-04-06] MEDS: metFORMIN 500 MG TAB PO SCH (07:30)
[2018-04-06] MEDS: amLODIPine 2.5 MG TAB PO SCH (07:30)
[2018-04-06] MEDS: APIXABAN 2.5 MG TABLET PO SCH (07:30)
[2018-04-06] MEDS: FAMOTIDINE 20 MG TAB PO SCH (07:30)
[2018-04-06 07:39] LABS: Glucose,Whole Blood 124 mg/dL (75-99)
[2018-04-06] MEDS: cefTRIAXone 2,000 MG in SODIUM CHLORIDE 0.9% 100 ML IVPB SCH (07:39)
[2018-04-06] MEDS: MAGNESIUM OXIDE 400 MG TAB PO SCH (11:16)
[2018-04-06] MEDS ORDERED: CIPROFLOXACIN HCL 250 MG TAB PO SCH (11:30)
--- NOTE | 2018-04-06 11:31 | P.DS ---
Providers Date of admission: 04/03/18 12:44 Attending physician: Chele Duran MD Consults: 04/02/18 11:09 Consult Physician Routine Consulting Provider: Stan Brtio Consult Reason/Comments: syncope Do you want consulting provider notified?: Yes Primary care physician: Cliff Conklin [facility] Course: This is an 87-year-old female patient of Dr. Conklin with a past medical history significant for atrial fibrillation, coronary artery disease, heart failure, stroke, diabetes, GI bleed 2013, hyperlipidemia, hypertension, thyroid disorder. Patient gives history that she was in the kitchen and wanted to get to her chair where she normally sits and she ended up falling down. She does not know what happened but she states it happened very quickly. She is not sure if she lost consciousness. She normally ambulates with a walker. She is mostly sedentary. She denies any lightheadedness or dizziness prior to this episode. She denies any head injury. She came into the clinic reporting in Hospital emergency center for evaluation. She was afebrile, heart rate in the 50s and 60s, blood pressure was stable, pulse ox 97% on room air. Her white count was normal, sodium 131 with chloride of 94, creatinine 0.58 troponin was normal, TSH 0.571. Lactic acid was 2.4, proBNP 527. Urinalysis was cloudy, leukoesterase large, WBCs 31. EKG is atrial fibrillation at a rate of 54 with paced complexes. No acute ST changes. Patient was diagnosed with urinary tract infection and started on Levaquin and [facility]. Due to possible syncopal episode, neurology consult has been requested. CAT scan of the brain ordered that revealed mild atrophy and mild changes of chronic small vessel ischemic change. 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 No acute intracranial abnormality. 04/03: Patient worked with physical therapy yesterday and was not able to stand and get out of bed by herself. She needed the assistance of 2 persons to stand. PT has recommended subacute rehab. Patient continues to be much below baseline and unable to ambulate. Plan to continue physical therapy while in the hospital. Patient is denying lightheadedness or dizziness. She states she feels much improved from yesterday.. We will ask for orthostatic vital signs. Urine culture showing gram-negative bacilli and patient will be continued on IV Rocephin. Blood culture showing no growth after 24 hours. Patient has been afebrile and white count is 3.3. 04/04: Patient is feeling better today she continues to be generally weak in both lower extremities, she is asking for commode chair at the bedside since she is not able to go on the bedpan, the plan is to transfer the patient to [facility] a Friday. 04/05: Patient is doing a lot better today she denies any chest pain, shortness breath, she is ready to be transferred to [facility] tomorrow morning. 04/06: Patient is feeling well today. She will be discharged back to [facility] today. Vital signs remain stable, Cipro ordered for her UTI. Urine culture is positive for klebsiella pneumoniae and pseudomonas aeruginosa, blood cultures show no growth to date. Discharge diagnoses 1. Fall with generalized weakness and possible syncopal episode possibly secondary to mild dehydration due to over diuresing and urinary tract infection. 2. Chronic atrial fibrillation and long-term anticoagulation with Eliquis. 3. Chronic diastolic heart failure with pulmonary hypertension 3. Hypertension. 4. Hyperlipidemia. 5. COPD without exacerbation. 6. Diabetes mellitus type 2. 7. 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 8. Hypothyroidism. 9. Severe tricuspid regurgitation, secondary to probably hypertension stable The above impression and plan of care have been discussed and directed by signing physician. Amira Conway nurse practitioner acting as scribe for signing physician. Patient Condition at Discharge: Good Plan - Discharge Summary Discharge Rx Participant: No New Discharge Prescriptions: New Insulin Aspart [NovoLOG (formulary)] 0 unit SQ ACHS vial Ciprofloxacin HCl [Cipro] 250 mg PO Q12HR #20 tablet Continue Apixaban [Eliquis] 2.5 mg PO BID metFORMIN HCL [Glucophage] 1,000 mg PO AC-BID #60 tab Acetaminophen Tab [Tylenol] 650 mg PO Q6HR PRN #0 tab PRN Reason: Mild Pain Or Fever > 100.5 Metoprolol Tartrate [Lopressor] 25 mg PO DAILY tab Levothyroxine Sodium [Synthroid] 112 mcg PO DAILY amLODIPine [Norvasc] 2.5 mg PO DAILY Diltiazem Oral [Cardizem*] 30 mg PO BID Ascorbic Acid [Vitamin C] 500 mg PO BID Magnesium Oxide [Magox 400] 400 mg PO DAILY Furosemide [Lasix] 40 mg PO DAILY #30 tablet Potassium Chloride ER [K-Dur 20] 20 meq PO HS Multivitamins, Thera [Multivitamin (formulary)] 1 tab PO HS Ferrous Sulfate [Iron (65 MG Elemental)] 325 mg PO DAILY Melatonin 5 mg PO HS Cranberry Fruit Extract [Cranberry] 500 mg PO DAILY Famotidine [Pepcid] 20 mg PO DAILY tab Furosemide [Lasix] 20 mg PO HS guaiFENesin [Mucinex] 600 mg PO Q12HR diphenhydrAMINE [Benadryl] 25 mg PO HS PRN PRN Reason: Insomnia Spironolactone [Aldactone] 12.5 mg PO BID Benzonatate [Tessalon Perles] 100 - 200 mg PO Q6H PRN PRN Reason: Cough ALPRAZolam [Xanax] 0.25 mg PO BID PRN #6 tab PRN Reason: Anxiety Discharge Medication List Apixaban [Eliquis] 2.5 mg PO BID 01/26/14 [History] metFORMIN HCL [Glucophage] 1,000 mg PO AC-BID #60 tab 02/25/14 [Rx] Acetaminophen Tab [Tylenol] 650 mg PO Q6HR PRN #0 tab 10/31/15 [Rx] Metoprolol Tartrate [Lopressor] 25 mg PO DAILY tab 11/06/16 [Rx] Ascorbic Acid [Vitamin C] 500 mg PO BID 03/25/17 [History] Diltiazem Oral [Cardizem*] 30 mg PO BID 03/25/17 [History] Levothyroxine Sodium [Synthroid] 112 mcg PO DAILY 03/25/17 [History] Magnesium Oxide [Magox 400] 400 mg PO DAILY 03/25/17 [History] amLODIPine [Norvasc] 2.5 mg PO DAILY 03/25/17 [History] Furosemide [Lasix] 40 mg PO DAILY #30 tablet 04/08/17 [Rx] Cranberry Fruit Extract [Cranberry] 500 mg PO DAILY 04/16/17 [History] Ferrous Sulfate [Iron (65 MG Elemental)] 325 mg PO DAILY 04/16/17 [History] Melatonin 5 mg PO HS 04/16/17 [History] Multivitamins, Thera [Multivitamin (formulary)] 1 tab PO HS 04/16/17 [History] Potassium Chloride ER [K-Dur 20] 20 meq PO HS 04/16/17 [History] Famotidine [Pepcid] 20 mg PO DAILY tab 04/18/17 [Rx] Benzonatate [Tessalon Perles] 100 - 200 mg PO Q6H PRN 04/01/18 [History] Furosemide [Lasix] 20 mg PO HS 04/01/18 [History] Spironolactone [Aldactone] 12.5 mg PO BID 04/01/18 [History] diphenhydrAMINE [Benadryl] 25 mg PO HS PRN 04/01/18 [History] guaiFENesin [Mucinex] 600 mg PO Q12HR 04/01/18 [History] ALPRAZolam [Xanax] 0.25 mg PO BID PRN #6 tab 04/06/18 [Rx] Ciprofloxacin HCl [Cipro] 250 mg PO Q12HR #20 tablet 04/06/18 [Rx] Insulin Aspart [NovoLOG (formulary)] 0 unit SQ ACHS vial 04/06/18 [Rx] Follow up Appointment(s)/Referral(s): Cliff Conklin MD [Primary Care Provider] - 1-2 days Stefan Davidson [NON-STAFF] - 1 Week Patient Instructions/Handouts: Urinary Tract Infection in Women (DC) Activity/Diet/Wound Care/Special Instructions: Cardiac, diabetic diet. Activity as tolerated, fall precautions.
[2018-04-06 12:40] LABS: Glucose,Whole Blood 107 mg/dL (75-99)
== END 2018-04-06 14:17 | DRG 690 ==
LOC: EC 14:25 → 4MS4W 17:38 → OBSVTOIN 04-03 12:44
PROVIDERS: ADMIT Internal Medicine; ATTEND Internal Medicine
DX: N39.0 Urinary tract infection, site not specified (principal); I50.32 Chronic diastolic (congestive) heart failure; E03.9 Hypothyroidism, unspecified; E11.65 Type 2 diabetes mellitus with hyperglycemia; E78.5 Hyperlipidemia, unspecified; I07.1 Rheumatic tricuspid insufficiency; I11.0 Hypertensive heart disease with heart failure; I25.10 Atherosclerotic heart disease of native coronary artery without angina pectoris; I27.20 Pulmonary hypertension, unspecified; I48.91 Unspecified atrial fibrillation; J44.9 Chronic obstructive pulmonary disease, unspecified; T38.0X5A Adverse effect of glucocorticoids and synthetic analogues, initial encounter; W19.XXXA Unspecified fall, initial encounter; Z79.01 Long term (current) use of anticoagulants; Z79.82 Long term (current) use of aspirin; Z79.899 Other long term (current) drug therapy; Z86.73 Personal history of transient ischemic attack (TIA), and cerebral infarction without residual deficits; Z87.440 Personal history of urinary (tract) infections; Z95.0 Presence of cardiac pacemaker; Z95.1 Presence of aortocoronary bypass graft; Z79.890 Hormone replacement therapy; Z79.84 Long term (current) use of oral hypoglycemic drugs; Z88.5 Allergy status to narcotic agent; Z88.0 Allergy status to penicillin; Z90.49 Acquired absence of other specified parts of digestive tract; Z98.42 Cataract extraction status, left eye; Z98.41 Cataract extraction status, right eye; B96.1 Klebsiella pneumoniae [K. pneumoniae] as the cause of diseases classified elsewhere; B96.5 Pseudomonas (aeruginosa) (mallei) (pseudomallei) as the cause of diseases classified elsewhere
CPT/HCPCS: 36415; 70450; 71046; 80053; 81001; 82330; 82550; 82553; 83036; 83605; 83735; 83880; 84100; 84443; 84484; 85025; 85610; 85730; 87040; 87077; 87086; 87186; 93005; 96361; 96365; 99285

== ENCOUNTER 2018-06-18 16:09 | Observation (INO) | payer MEDICARE, MEDICAID ==
--- NOTE | 2018-06-18 17:01 | XR ---
EXAMINATION TYPE: XR chest 2V DATE OF EXAM: 06/18/2018 COMPARISON: 04/01/2018 HISTORY: Short of breath TECHNIQUE: Frontal and lateral views of the chest are obtained. FINDINGS: Heart is enlarged. There is no heart failure. There is left axillary pacemaker with the le ad tips in the right ventricle. Thoracic aorta is atheromatous. There are sternal wires. IMPRESSION: Moderate Cardiomegaly. No acute lung disease. Mild pulmonary fibrosis. No change.
[2018-06-18 17:51] LABS: Basophils % (A) 0 %; Eosinophils # (A) 0.2 k/uL (0-0.7); Eosinophils % (A) 3 %; HCT 36.9 % (34.0-46.0); HGB 12.4 gm/dL (11.4-16.0); Lymphocytes # (A) 0.6 k/uL (1.0-4.8); Lymphocytes % (A) 8 %; MCHC 33.6 g/dL (31.0-37.0); MCV 83.5 fL (80.0-100.0); Mean Platelet Volume 7.1; Monocytes # (A) 0.3 k/uL (0-1.0); Monocytes % (A) 4 %; Neutrophils # (A) 5.6 k/uL (1.3-7.7); Neutrophils % (A) 83 %; Platelet Count 157 k/uL (150-450); RBC 4.42 m/uL (3.80-5.40); RDW 13.9 % (11.5-15.5); WBC 6.7 k/uL (3.8-10.6)
[2018-06-18 17:56] LABS: INR 1.1 (<1.2); Partial Thromboplastin Time 26.9 sec (22.0-30.0); Prothrombin Time 10.9 sec (9.0-12.0)
[2018-06-18 18:01] LABS: ALT 31 U/L (9-52); AST 39 U/L (14-36); Albumin 4.4 g/dL (3.5-5.0); Alkaline Phosphatase 132 U/L (38-126); Anion Gap 11 mmol/L; Blood Urea Nitrogen 19 mg/dL (7-17); Calcium 9.8 mg/dL (8.4-10.2); Carbon Dioxide 25 mmol/L (22-30); Chloride 95 mmol/L (98-107); Glucose 136 mg/dL (74-99); Potassium 4.7 mmol/L (3.5-5.1); Sodium 131 mmol/L (137-145); Total Bilirubin 0.9 mg/dL (0.2-1.3); Total Protein 8.1 g/dL (6.3-8.2)
[2018-06-18 18:04] LABS: Creatine Kinase <20 U/L (30-135)
[2018-06-18 18:16] LABS: Creatine Kinase MB 0.4 ng/mL (0.0-2.4); Troponin I <0.012 ng/mL (0.000-0.034)
--- NOTE | 2018-06-18 19:12 | ED ---
General Adult HPI - General Chief complaint: Shortness of Breath Stated complaint: SOB from new med Time Seen by Provider: 06/18/18 18:55 Source: patient, RN notes reviewed Mode of arrival: wheelchair Limitations: no limitations - History of Present Illness Initial comments: 88-year-old female with a complicated past medical history presents to the emergency department for a chief complaint of shortness of breath. Patient states that around 10 AM this morning she took Cipro for a urinary tract infection. Patient states this was the first time taking this medication. She states that 4 hours after she took this medication she develops shortness of breath. She states she felt like she couldn't get a deep breath for about 20 minutes. Patient states it slowly subsided but her doctor told her to come to the emergency department. Patient questions whether this may be a reaction to her medication. She denies any chest pain in this time. She states at this time she is feeling back to normal. Patient is currently on Eliquis for A. fib. Patient has no other complaints at this time including chest pain, abdominal pain, nausea or vomiting, headache, or visual changes. - Related Data Home Medications Medication Instructions Recorded Confirmed Apixaban [Eliquis] 2.5 mg PO BID 01/26/14 06/18/18 Ascorbic Acid [Vitamin C] 500 mg PO BID 03/25/17 06/18/18 Diltiazem Oral [Cardizem*] 30 mg PO BID 03/25/17 06/18/18 Levothyroxine Sodium [Synthroid] 112 mcg PO DAILY 03/25/17 06/18/18 Magnesium Oxide [Magox 400] 400 mg PO DAILY 03/25/17 06/18/18 amLODIPine [Norvasc] 2.5 mg PO DAILY 03/25/17 06/18/18 Cranberry Fruit Extract [Cranberry] 500 mg PO DAILY 04/16/17 06/18/18 Ferrous Sulfate [Iron (65 MG 325 mg PO DAILY 04/16/17 06/18/18 Elemental)] Melatonin 5 mg PO HS 04/16/17 06/18/18 Multivitamins, Thera [Multivitamin 1 tab PO HS 04/16/17 06/18/18 (formulary)] Potassium Chloride ER [K-Dur 20] 20 meq PO HS 04/16/17 06/18/18 Furosemide [Lasix] 20 mg PO HS 04/01/18 06/18/18 Spironolactone [Aldactone] 12.5 mg PO BID 04/01/18 06/18/18 Ciprofloxacin HCl [Cipro] 250 mg PO Q12HR 06/18/18 06/18/18 Previous Rx's Medication Instructions Recorded metFORMIN HCL [Glucophage] 1,000 mg PO AC-BID #60 tab 02/25/14 Acetaminophen Tab [Tylenol] 650 mg PO Q6HR PRN #0 tab 10/31/15 Metoprolol Tartrate [Lopressor] 25 mg PO DAILY tab 11/06/16 Furosemide [Lasix] 40 mg PO DAILY #30 tablet 04/08/17 Allergies Allergy/AdvReac Type Severity Reaction Status Date / Time Penicillins Allergy Rash/Hives Verified 06/18/18 19:21 codeine AdvReac Nausea & Verified 06/18/18 19:21 Vomiting Review of Systems ROS Statement: Those systems with pertinent positive or pertinent negative responses have been documented in the HPI. ROS Other: All systems not noted in ROS Statement are negative. Past Medical History Past Medical History: Atrial Fibrillation, Coronary Artery Disease (CAD), Heart Failure, CVA/TIA, Diabetes Mellitus, GI Bleed, Hyperlipidemia, Hypertension, Memory Impairment, Osteoarthritis (OA), Pneumonia, Thyroid Disorder Additional Past Medical History / Comment(s): Recurrent UTIs and past mild encephalopathy with UTI, multiple CVA/TIA, 2013 rectal bleed, diverticular dx, chronic anemia, hypothyroid History of Any Multi-Drug Resistant Organisms: MRSA Date of last positivie culture/infection: 03/12/2014 MDRO Source:: Urine Past Surgical History: Cholecystectomy, Pacemaker, Tonsillectomy Additional Past Surgical History / Comment(s): [employer], 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, D&C, TOTAL RIGHT KNEE, cataracts, Past Anesthesia/Blood Transfusion Reactions: Postoperative Nausea & Vomiting ( PONV) Type of Cardiac Device: Permanent Pacemaker Device Placement Date:: 2010 Past Psychological History: No Psychological Hx Reported Smoking Status: Never smoker Past Alcohol Use History: None Reported Past Drug Use History: None Reported - Past Family History Sister(s) Family Medical History: Cancer Additional Family Medical History / Comment(s): heart problems Father Family Medical History: Respiratory Disorder Additional Family Medical History / Comment(s): Tuberculosis-Dad General Exam Limitations: no limitations General appearance: alert, in no apparent distress Head exam: Present: atraumatic, normocephalic, normal inspection Eye exam: Present: normal appearance, PERRL, EOMI. Absent: scleral icterus, conjunctival injection, periorbital swelling ENT exam: Present: normal exam, mucous membranes moist Neck exam: Present: normal inspection, full ROM. Absent: tenderness, meningismus, lymphadenopathy Respiratory exam: Present: normal lung sounds bilaterally. Absent: respiratory distress, wheezes, rales, rhonchi, stridor Cardiovascular Exam: Present: regular rate, normal rhythm, normal heart sounds. Absent: systolic murmur, diastolic murmur, rubs, gallop, clicks GI/Abdominal exam: Present: soft, normal bowel sounds. Absent: distended, tenderness, guarding, rebound, rigid Neurological exam: Present: alert, oriented X3, CN II-XII intact Psychiatric exam: Present: normal affect, normal mood Course Vital Signs 06/18/18 06/18/18 06/18/18 16:34 21:38 22:38 Temperature 97.6 F Pulse Rate 81 86 81 Respiratory 18 18 18 Rate Blood Pressure 146/78 135/65 141/74 O2 Sat by Pulse 96 94 L 95 Oximetry EKG Findings - EKG Comments: EKG Findings:: Atrial fibrillation, ventricular rate 76, QRS duration 110, QTc 465 Medical Decision Making - Medical Decision Making 88-year-old female presents to the emergency department for a chief complaint of shortness of breath. Patient states this started around 10 AM after she took Cipro for a urinary tract infection. She states this was the first time taking this medication. She states that 4 hours after she took this medication she started to develop shortness of breath. She states she felt like she couldn 't get a deep breath for about 20 minutes which slowly subsided. She is questioning whether this could be a reaction to her medication as she has never had Cipro before. Vitals are stable, patient is well appearing. Exam is unremarkable. CBC unremarkable. CMP did show a sodium of 131, patient given IV fluids. Kidney function is within normal limits. Patient does have a history of diabetes, glucose 136 at this time. Non-insulin dependent. Troponin negative. Chest x-ray showed moderate cardiomegaly without acute lung disease. There is mild pulmonary fibrosis. Given patient's complicated history she will be admitted at this time for repeat troponin. Patient is currently on Eliquis. Patient will also be started on IV antibiotics for UTI as this is what she was placed on Cipro for. Urine does show a large leukocyte esterase with 64 white cells. Urine will be cultured. - Lab Data Result diagrams: 06/18/18 17:26 06/18/18 17:26 Lab Results 06/18/18 06/18/18 06/18/18 Range/Units 17:26 17:26 17:26 WBC 6.7 (3.8-10.6) k/uL RBC 4.42 (3.80-5.40) m/uL Hgb 12.4 (11.4-16.0) gm/dL Hct 36.9 (34.0-46.0) % MCV 83.5 (80.0-100.0) fL MCH 28.0 (25.0-35.0) pg MCHC 33.6 (31.0-37.0) g/dL RDW 13.9 (11.5-15.5) % Plt Count 157 (150-450) k/uL Neutrophils % 83 % Lymphocytes % 8 % Monocytes % 4 % Eosinophils % 3 % Basophils % 0 % Neutrophils # 5.6 (1.3-7.7) k/uL Lymphocytes # 0.6 L (1.0-4.8) k/uL Monocytes # 0.3 (0-1.0) k/uL Eosinophils # 0.2 (0-0.7) k/uL Basophils # 0.0 (0-0.2) k/uL PT (9.0-12.0) sec INR (<1.2) APTT (22.0-30.0) sec Sodium 131 L (137-145) mmol/L Potassium 4.7 (3.5-5.1) mmol/L Chloride 95 L (98-107) mmol/L Carbon Dioxide 25 (22-30) mmol/L Anion Gap 11 mmol/L BUN 19 H (7-17) mg/dL Creatinine 0.60 (0.52-1.04) mg/dL Est GFR (CKD-EPI)AfAm >90 (>60 ml/min/1.73 sqM) Est GFR (CKD-EPI)NonAf 81 (>60 ml/min/1.73 sqM) Glucose 136 H (74-99) mg/dL Calcium 9.8 (8.4-10.2) mg/dL Total Bilirubin 0.9 (0.2-1.3) mg/dL AST 39 H (14-36) U/L ALT 31 (9-52) U/L Alkaline Phosphatase 132 H (38-126) U/L Total Creatine Kinase <20 L (30-135) U/L CK-MB (CK-2) 0.4 (0.0-2.4) ng/mL CK-MB (CK-2) Rel Index Troponin I <0.012 (0.000-0.034) ng/mL Total Protein 8.1 (6.3-8.2) g/dL Albumin 4.4 (3.5-5.0) g/dL Urine Color Urine Appearance (Clear) Urine pH (5.0-8.0) Ur Specific [place] (1.001-1.035) Urine Protein (Negative) Urine Glucose (UA) (Negative) Urine Ketones (Negative) Urine Blood (Negative) Urine Nitrite (Negative) Urine Bilirubin (Negative) Urine Urobilinogen (<2.0) mg/dL Ur Leukocyte Esterase (Negative) Urine RBC (0-5) /hpf Urine WBC (0-5) /hpf Urine Bacteria (None) /hpf Urine Mucus (None) /hpf 06/18/18 06/18/18 Range/Units 17:26 19:49 WBC (3.8-10.6) k/uL RBC (3.80-5.40) m/uL Hgb (11.4-16.0) gm/dL Hct (34.0-46.0) % MCV (80.0-100.0) fL MCH (25.0-35.0) pg MCHC (31.0-37.0) g/dL RDW (11.5-15.5) % Plt Count (150-450) k/uL Neutrophils % % Lymphocytes % % Monocytes % % Eosinophils % % Basophils % % Neutrophils # (1.3-7.7) k/uL Lymphocytes # (1.0-4.8) k/uL Monocytes # (0-1.0) k/uL Eosinophils # (0-0.7) k/uL Basophils # (0-0.2) k/uL PT 10.9 (9.0-12.0) sec INR 1.1 (<1.2) APTT 26.9 (22.0-30.0) sec Sodium (137-145) mmol/L Potassium (3.5-5.1) mmol/L Chloride (98-107) mmol/L Carbon Dioxide (22-30) mmol/L Anion Gap mmol/L BUN (7-17) mg/dL Creatinine (0.52-1.04) mg/dL Est GFR (CKD-EPI)AfAm (>60 ml/min/1.73 sqM) Est GFR (CKD-EPI)NonAf (>60 ml/min/1.73 sqM) Glucose (74-99) mg/dL Calcium (8.4-10.2) mg/dL Total Bilirubin (0.2-1.3) mg/dL AST (14-36) U/L ALT (9-52) U/L Alkaline Phosphatase (38-126) U/L Total Creatine Kinase (30-135) U/L CK-MB (CK-2) (0.0-2.4) ng/mL CK-MB (CK-2) Rel Index Troponin I (0.000-0.034) ng/mL Total Protein (6.3-8.2) g/dL Albumin (3.5-5.0) g/dL Urine Color Light Yellow Urine Appearance Clear (Clear) Urine pH 5.0 (5.0-8.0) Ur Specific [place] 1.005 (1.001-1.035) Urine Protein Negative (Negative) Urine Glucose (UA) Negative (Negative) Urine Ketones Negative (Negative) Urine Blood Negative (Negative) Urine Nitrite Negative (Negative) Urine Bilirubin Negative (Negative) Urine Urobilinogen <2.0 (<2.0) mg/dL Ur Leukocyte Esterase Large H (Negative) Urine RBC 1 (0-5) /hpf Urine WBC 64 H (0-5) /hpf Urine Bacteria Rare H (None) /hpf Urine Mucus Rare H (None) /hpf Disposition Clinical Impression: Urinary tract infection, Shortness of breath Disposition: ADMITTED IP TO THIS HOSP Condition: Good Is patient prescribed a controlled substance at d/c from ED?: No Time of Disposition: 20:44
[2018-06-18 20:19] LABS: Appearance,Urine Clear (Clear); Bacteria,Urine Rare /hpf; Bilirubin,Urine Negative (Negative); Blood,Urine Negative (Negative); Color,Urine Light Yellow; Glucose,Urine (UA) Negative (Negative); Ketones,Urine Negative (Negative); Leukocyte Esterase,Urine Large (Negative); Mucus,Urine Rare /hpf; Nitrite,Urine Negative (Negative); Protein,Urine Negative (Negative); RBC,Urine 1 /hpf (0-5); Specific Gravity,Urine 1.005 (1.001-1.035); Urobilinogen,Urine <2.0 mg/dL (<2.0); WBC,Urine 64 /hpf (0-5)
[2018-06-18] MEDS ORDERED: NITROGLYCERIN SL TABS 0.4 MG TAB SUBLINGUAL PRN (20:46)
[2018-06-18] MEDS ORDERED: ACETAMINOPHEN TAB 325 MG TAB PO PRN (20:49)
[2018-06-18] MEDS ORDERED: DILTIAZEM ORAL 60 MG TAB PO SCH (22:30)
[2018-06-18] MEDS ORDERED: DILTIAZEM ORAL 30 MG TAB PO SCH (22:30)
[2018-06-18 23:39] VITALS: RESP 16
[2018-06-18 23:50] VITALS: BMI 23.8
[2018-06-18] MEDS: APIXABAN 2.5 MG TABLET PO SCH (23:59)
[2018-06-19 00:24] LABS: Creatine Kinase <20 U/L (30-135)
[2018-06-19 00:38] LABS: Creatine Kinase MB 0.4 ng/mL (0.0-2.4); Troponin I <0.012 ng/mL (0.000-0.034)
[2018-06-19] MEDS ORDERED: LEVOTHYROXINE 112 MCG TAB PO SCH (06:30)
[2018-06-19 06:50] LABS: Cholesterol 177 mg/dL (<200); HDL Cholesterol 62 mg/dL (40-60); LDL Cholesterol,Calculated 101 mg/dL (0-99); Triglycerides 69 mg/dL (<150)
[2018-06-19 06:55] LABS: Creatine Kinase <20 U/L (30-135)
[2018-06-19 07:06] LABS: Creatine Kinase MB 0.4 ng/mL (0.0-2.4); Troponin I <0.012 ng/mL (0.000-0.034)
[2018-06-19 07:10] LABS: Glucose,Whole Blood 114 mg/dL (75-99)
[2018-06-19] MEDS ORDERED: metFORMIN 500 MG TAB PO SCH (07:30)
[2018-06-19] MEDS ORDERED: FUROSEMIDE 40 MG TAB PO SCH (09:00)
[2018-06-19] MEDS ORDERED: ASPIRIN 325 MG TAB PO SCH (09:00)
[2018-06-19] MEDS ORDERED: amLODIPine 2.5 MG TAB PO SCH (09:00)
[2018-06-19] MEDS ORDERED: METOPROLOL TARTRATE 25 MG TAB PO SCH (09:00)
--- NOTE | 2018-06-19 10:24 | P.CRDCN ---
History of Present Illness History of present illness: This is a pleasant 88-year-old female past medical history significant for chronic persistent atrial fibrillation on long-term anticoagulation, coronary artery disease status post bypass grafting in 2010 with a GALLARDO to the LAD, SVG to diagonal, SVG to RCA and SVG to intermediate branch. She also has hypertension, dyslipidemia, permanent pacemaker implantation and diabetes mellitus. She follows with Dr. Parry in the office. We've been asked to see her in consultation secondary to shortness of breath. She states yesterday after laying down to take a rest she started feeling short of breath. She felt as if she couldn't take in enough air. This persisted for 60 minutes and ultimately subsided on its own. She denies chest pain, dizziness , palpitations, nausea, vomiting or diaphoresis. She was recently diagnosed with urinary tract infection and has been taking Cipro. She states her episode of shortness of breath came approximately 30-45 minutes after taking her Cipro. In March of this year she was admitted to the hospital after suffering a fall with no acute injury. She was subsequently discharged home and when to [facility] for physical therapy and rehabilitation. EKG reveals atrial fibrillation with controlled ventricular response heart rate 76. Chest x-ray reveals evidence of mild pulmonary fibrosis. Laboratory data reviewed, WBC 6.7, hemoglobin 12.4, platelets 157, sodium 131, potassium 4.7, creatinine 0.6, cardiac enzymes negative 3, LDL 101 and HDL 62. Current cardiac medications include Eliquis 2.5 mg twice a day, diltiazem 30 mg twice a day, Lasix 40 mg in the morning and 20 mg at bedtime, Lopressor 25 mg daily, potassium supplementation, Aldactone 12.5 mg twice a day and amlodipine 2.5 mg daily. Most recent echocardiogram March 2017 reveals preserved left ventricular systolic function with ejection fraction 60-65%, mild to moderate TR, mild MR, mild to moderate pulmonary hypertension with an RVSP of 55 mmHg and enlarged right ventricle. Most recent stress test performed in the office 2013 reveals normal ejection fraction with no evidence of reversible cardiac ischemia. At the time of my exam: CONSTITUTIONAL: Denies fever. Denies chills. EYES: Denies blurred vision. Denies vision changes. Denies eye pain. EARS, NOSE, MOUTH & THROAT: Denies headache. Denies sore throat. Denies ear pain. CARDIOVASCULAR: Denies chest pain. Denies shortness of breath. Denies orthopnea. Denies PND. Denies palpitations. RESPIRATORY: Denies cough. GASTROINTESTINAL: Denies abdominal pain. Denies diarrhea. Denies constipation. Denies nausea. Denies vomiting. MUSCULOSKELETAL: Denies myalgias. INTEGUMENTARY: Denies pruitis. Denies rash. NEUROLOGIC: Denies numbness. Denies tingling. Denies weakness. PSYCHIATRIC: Denies anxiety. Denies depression. ENDOCRINE: Denies fatigue. Denies weight change. Denies polydipsia. Denies polyurina. GENITOURINARY: Denies burning, hematuria or urgency with micturation. HEMATOLOGIC: Denies history of anemia. Denies bleeding. Blood pressure 131/71 heart rate 87 afebrile maintaining oxygen saturation on room air GENERAL: This is a 88-year-old female in no apparent distress at the time of my examination. HEENT: Head is atraumatic, normocephalic. Pupils are equal, round. Sclerae anicteric. Conjunctivae are clear. Mucous membranes of the mouth are moist. Neck is supple. There is no jugular venous distention. No carotid bruit is heard. LUNGS: Clear to auscultation no wheezes, rales or rhonchi. No chest wall tenderness is noted on palpation or with deep breathing. HEART: Irregular rate and rhythm without murmurs, rubs or gallops. S1 and S2 heard. ABDOMEN: Soft, nontender. Bowel sounds are heard. No organomegaly noted. EXTREMITIES: No evidence of peripheral edema and no calf tenderness noted. VASCULAR: Radial and dorsalis pedis pulses palpated, no evidence of clubbing. NEUROLOGIC: Patient is awake, alert and oriented x3. ASSESSMENT Brief episode of shortness of breath Urinary tract infection Hyponatremia Chronic persistent atrial fibrillation on long-term anticoagulation with controlled ventricular response History of coronary artery disease status post bypass grafting Permanent pacemaker implantation 2010 Hypertension Dyslipidemia Diabetes mellitus PLAN Patient had a recent echocardiogram performed in the hospital revealing preserved left ventricular systolic function with ejection fraction 60-65%, mild to moderate TR, mild MR, mild to moderate pulmonary hypertension with an RVSP of 55 mmHg and enlarged right ventricle. Check d-dimer. Hemodynamically stable. Increase activity and ambulation in the [place] and assess her further symptoms of shortness of breath. Ongoing medical management. Follow-up with Dr. Parry in 2-3 weeks. Thank you kindly for this consultation. Nurse Practitioner note has been reviewed, I agree with a documented findings and plan of care. Patient was seen and examined. Past Medical History Past Medical History: Atrial Fibrillation, Coronary Artery Disease (CAD), Heart Failure, CVA/TIA, Diabetes Mellitus, GI Bleed, Hyperlipidemia, Hypertension, Memory Impairment, Osteoarthritis (OA), Pneumonia, Thyroid Disorder Additional Past Medical History / Comment(s): Recurrent UTIs and past mild encephalopathy with UTI, multiple CVA/TIA, 2013 rectal bleed, diverticular dx, chronic anemia, hypothyroid History of Any Multi-Drug Resistant Organisms: MRSA Date of last positivie culture/infection: 03/12/2014 MDRO Source:: Urine Past Surgical History: Cholecystectomy, Pacemaker, Tonsillectomy Additional Past Surgical History / Comment(s): [employer], 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, D&C, TOTAL RIGHT KNEE, cataracts, Past Anesthesia/Blood Transfusion Reactions: Postoperative Nausea & Vomiting ( PONV) Type of Cardiac Device: Permanent Pacemaker Device Placement Date:: 2010 Past Psychological History: No Psychological Hx Reported Smoking Status: Never smoker Past Alcohol Use History: None Reported Past Drug Use History: None Reported - Past Family History Sister(s) Family Medical History: Cancer Additional Family Medical History / Comment(s): heart problems Father Family Medical History: Respiratory Disorder Additional Family Medical History / Comment(s): Tuberculosis-Dad Medications and Allergies Home Medications Medication Instructions Recorded Confirmed Type Apixaban [Eliquis] 2.5 mg PO BID 01/26/14 06/18/18 History metFORMIN HCL [Glucophage] 1,000 mg PO AC-BID #60 tab 02/25/14 06/18/18 Rx Acetaminophen Tab [Tylenol] 650 mg PO Q6HR PRN #0 tab 10/31/15 06/18/18 Rx Metoprolol Tartrate [Lopressor] 25 mg PO DAILY tab 11/06/16 06/18/18 Rx Ascorbic Acid [Vitamin C] 500 mg PO BID 03/25/17 06/18/18 History Diltiazem Oral [Cardizem*] 30 mg PO BID 03/25/17 06/18/18 History Levothyroxine Sodium [Synthroid] 112 mcg PO DAILY 03/25/17 06/18/18 History Magnesium Oxide [Magox 400] 400 mg PO DAILY 03/25/17 06/18/18 History amLODIPine [Norvasc] 2.5 mg PO DAILY 03/25/17 06/18/18 History Furosemide [Lasix] 40 mg PO DAILY #30 tablet 04/08/17 06/18/18 Rx Cranberry Fruit Extract [Cranberry] 500 mg PO DAILY 04/16/17 06/18/18 History Ferrous Sulfate [Iron (65 MG 325 mg PO DAILY 04/16/17 06/18/18 History Elemental)] Melatonin 5 mg PO HS 04/16/17 06/18/18 History Multivitamins, Thera [Multivitamin 1 tab PO HS 04/16/17 06/18/18 History (formulary)] Potassium Chloride ER [K-Dur 20] 20 meq PO HS 04/16/17 06/18/18 History Furosemide [Lasix] 20 mg PO HS 04/01/18 06/18/18 History Spironolactone [Aldactone] 12.5 mg PO BID 04/01/18 06/18/18 History Ciprofloxacin HCl [Cipro] 250 mg PO Q12HR 06/18/18 06/18/18 History Allergies Allergy/AdvReac Type Severity Reaction Status Date / Time Penicillins Allergy Rash/Hives Verified 06/18/18 19:21 codeine AdvReac Nausea & Verified 06/18/18 19:21 Vomiting Physical Exam Vitals: Vital Signs Temp Pulse Pulse Resp BP BP Pulse Ox 06/19/18 08:00 98.1 F 87 16 131/71 94 L 06/19/18 03:41 97.8 F 70 16 126/69 97 06/19/18 03:33 16 06/19/18 00:00 16 06/18/18 23:37 97.5 F L 83 16 150/65 96 06/18/18 22:38 81 18 141/74 95 06/18/18 21:38 86 18 135/65 94 L 06/18/18 16:34 97.6 F 81 18 146/78 96 Intake and Output 06/18/18 06/19/18 06/19/18 22:59 06:59 14:59 Other: Voiding Method Diaper # Voids 1 3 Weight 71.214 kg 72.3 kg Results 06/18/18 17:26 06/18/18 17:26 Cardiac Enzymes 06/18/18 06/18/18 06/18/18 Range/Units 17:26 17:26 23:06 AST 39 H (14-36) U/L CK-MB (CK-2) 0.4 0.4 (0.0-2.4) ng/mL Troponin I <0.012 <0.012 (0.000-0.034) ng/mL 06/19/18 Range/Units 05:57 AST (14-36) U/L CK-MB (CK-2) 0.4 (0.0-2.4) ng/mL Troponin I <0.012 (0.000-0.034) ng/mL Coagulation 06/18/18 Range/Units 17:26 PT 10.9 (9.0-12.0) sec APTT 26.9 (22.0-30.0) sec Lipids 06/19/18 Range/Units 05:57 Triglycerides 69 (<150) mg/dL Cholesterol 177 (<200) mg/dL HDL Cholesterol 62 H (40-60) mg/dL CBC 06/18/18 Range/Units 17:26 WBC 6.7 (3.8-10.6) k/uL RBC 4.42 (3.80-5.40) m/uL Hgb 12.4 (11.4-16.0) gm/dL Hct 36.9 (34.0-46.0) % Plt Count 157 (150-450) k/uL Comprehensive Metabolic Panel 06/18/18 Range/Units 17:26 Sodium 131 L (137-145) mmol/L Potassium 4.7 (3.5-5.1) mmol/L Chloride 95 L (98-107) mmol/L Carbon Dioxide 25 (22-30) mmol/L BUN 19 H (7-17) mg/dL Creatinine 0.60 (0.52-1.04) mg/dL Glucose 136 H (74-99) mg/dL Calcium 9.8 (8.4-10.2) mg/dL AST 39 H (14-36) U/L ALT 31 (9-52) U/L Alkaline Phosphatase 132 H (38-126) U/L Total Protein 8.1 (6.3-8.2) g/dL Albumin 4.4 (3.5-5.0) g/dL Current Medications Generic Name Dose Route Start Last Admin Trade Name Freq PRN Reason Stop Dose Admin Acetaminophen 650 mg 06/18/18 20:49 Tylenol Tab PO Q6HR PRN Mild Pain or Fever > 100.5 Amlodipine Besylate 2.5 mg 06/19/18 09:00 Norvasc PO DAILY [facility] Apixaban 2.5 mg 06/18/18 22:30 06/18/18 23:59 Eliquis PO 2.5 mg BID [facility] Administration Aspirin 325 mg 06/19/18 09:00 Aspirin PO DAILY [facility] Diltiazem HCl 30 mg 06/18/18 22:30 06/18/18 23:59 Cardizem Oral PO 30 mg BID [facility] Administration Furosemide 40 mg 06/19/18 09:00 Lasix PO DAILY [facility] Ceftriaxone Sodium 1,000 mg/ 50 mls @ 100 mls/hr 06/18/18 21:00 06/18/18 21: 34 Sodium Chloride IVPB 100 mls/hr Q24H [facility] Administration Levothyroxine Sodium 112 mcg 06/19/18 06:30 06/19/18 06:46 Synthroid PO Not Given DAILY@0630 [facility] Metformin HCl 1,000 mg 06/19/18 07:30 Glucophage PO AC-BID [facility] Metoprolol Tartrate 25 mg 06/19/18 09:00 Lopressor PO DAILY [facility] Nitroglycerin 0.4 mg 06/18/18 20:46 Nitrostat SUBLINGUAL Q5M PRN Chest Pain Intake and Output 06/18/18 06/19/18 06/19/18 22:59 06:59 14:59 Other: Voiding Method Diaper # Voids 1 3 Weight 71.214 kg 72.3 kg 06/18/18 17:26 06/18/18 17:26
[2018-06-19 11:49] LABS: Glucose,Whole Blood 221 mg/dL (75-99)
[2018-06-19] MEDS: APIXABAN 2.5 MG TABLET PO SCH (11:55)
[2018-06-19 12:32] VITALS: BP 119/59; PULSE 84; TEMP 97.6
[2018-06-19] MEDS ORDERED: LEVOFLOXACIN 250 MG TAB PO STA (13:45)
--- NOTE | 2018-06-19 16:03 | P.HPIM ---
History of Present Illness H&P Date: 06/19/18 (This document was so both his H&P and discharge summary) Chief Complaint: Shortness of breath 88 years old female patient of Dr. Conklin with past medical history of atrial fibrillation, coronary artery disease, congestive heart rate failure, stroke, diabetes, GI bleed 2013, hyperlipidemia, hypertension, hypothyroidism, pulmonary hypertension comes in with shortness of breath at rest that lasted 60 minutes while patient was resting. According to patient she took one dose of Cipro and within 40 minutes she started having shortness of breath. Even the shortness of breath improved she decided to come to the ER to get checked. EKG revealed atrial fibrillation with a heart rate of 76 controlled, chest x-ray with mild pulmonary fibrosis lab evaluation suggested a hemoglobin 12.4, sodium 131, creatinine 0.6 cardiac enzymes negative 3. Currently on enalapril is 2.5 mg twice daily for her atrial fibrillation. Patient had a recent echocardiogram in March 2017 with the concern for mild to moderate pulmonary hypertension with RVSP 55 and enlarged right ventricular she she also had on mild to moderate TR with mild MR on the echocardiogram. Cardiology evaluated the patient and will follow up in 2-[address] Hernández as outpatient. Patient's symptoms appear to be an adverse reaction to Cipro versus proximal atrial fibrillation with RVR that could not be documented. Review of Systems Constitutional: Denies chills, Denies fever, Denies lethargy, Denies malaise, Denies poor appetite, Denies weakness, Denies weight loss Eyes: denies decreased vision, denies diplopia, denies discharge, denies pain Ears: deny: decreased hearing Ears, nose, mouth and throat: Denies dental pain, Denies headache, Denies nasal discharge, Denies nose pain Cardiovascular: Denies chest pain, Denies decreased exercise tolerance, Denies edema, Denies high blood pressure, Denies irregular heart beat, Denies palpitations, Denies paroxysmal nocturnal dyspnea, Denies rapid heart beat, Denies shortness of breath Respiratory:Denies congestion, Denies cough, Denies cough with sputum, endorses dyspnea, Denies home oxygen, Denies wheezing Gastrointestinal: Denies abdominal pain, Denies change in bowel habits, Denies coffee ground emesis, Denies early satiety, Denies excessive gas, Denies heartburn, Denies hematemesis, Denies hematochezia, Denies loss of appetite, Denies nausea, Denies vomiting Genitourinary: Denies dysuria, Denies flank pain, Denies kidney stones, Denies menorrhagia, Denies urgency, Denies urinary frequency endorses burning when she urinates Musculoskeletal: Denies gait dysfunction, Denies limitation of motion, Denies morning stiffness, Denies muscle cramps Integumentary: Denies rash, Denies wounds, Denies brittle nails, Denies change in hair/nails, Denies darkening of skin Neurological: Denies balance difficulties, Denies change in speech, Denies double vision, Denies gait dysfunction, Denies loss of vision, Denies motor disturbance, Denies numbness, Denies paralysis, Denies paresthesias, Denies seizures Psychiatric: Denies anxiety, Denies depression Endocrine: Denies excessive sweating, Denies excessive thirst, Denies high blood sugars, Denies palpitations Hematologic/Lymphatic: Denies easy bruising, Denies lymphadenopathy Past Medical History Past Medical History: Atrial Fibrillation, Coronary Artery Disease (CAD), Heart Failure, CVA/TIA, Diabetes Mellitus, GI Bleed, Hyperlipidemia, Hypertension, Memory Impairment, Osteoarthritis (OA), Pneumonia, Thyroid Disorder Additional Past Medical History / Comment(s): Recurrent UTIs and past mild encephalopathy with UTI, multiple CVA/TIA, 2013 rectal bleed, diverticular dx, chronic anemia, hypothyroid History of Any Multi-Drug Resistant Organisms: MRSA Date of last positivie culture/infection: 03/12/2014 MDRO Source:: Urine Past Surgical History: Cholecystectomy, Pacemaker, Tonsillectomy Additional Past Surgical History / Comment(s): [employer], 2005 CABG X4, D&C, TOTAL RIGHT KNEE, cataracts, Past Anesthesia/Blood Transfusion Reactions: Postoperative Nausea & Vomiting ( PONV) Type of Cardiac Device: Permanent Pacemaker Device Placement Date:: 2010 Past Psychological History: No Psychological Hx Reported Smoking Status: Never smoker Past Alcohol Use History: None Reported Past Drug Use History: None Reported - Past Family History Sister(s) Family Medical History: Cancer Additional Family Medical History / Comment(s): heart problems Father Family Medical History: Respiratory Disorder Additional Family Medical History / Comment(s): Tuberculosis-Dad Medications and Allergies Home Medications Medication Instructions Recorded Confirmed Type Apixaban [Eliquis] 2.5 mg PO BID 01/26/14 06/18/18 History metFORMIN HCL [Glucophage] 1,000 mg PO AC-BID #60 tab 02/25/14 06/18/18 Rx Acetaminophen Tab [Tylenol] 650 mg PO Q6HR PRN #0 tab 10/31/15 06/18/18 Rx Metoprolol Tartrate [Lopressor] 25 mg PO DAILY tab 11/06/16 06/18/18 Rx Ascorbic Acid [Vitamin C] 500 mg PO BID 03/25/17 06/18/18 History Diltiazem Oral [Cardizem*] 30 mg PO BID 03/25/17 06/18/18 History Levothyroxine Sodium [Synthroid] 112 mcg PO DAILY 03/25/17 06/18/18 History Magnesium Oxide [Magox 400] 400 mg PO DAILY 03/25/17 06/18/18 History amLODIPine [Norvasc] 2.5 mg PO DAILY 03/25/17 06/18/18 History Furosemide [Lasix] 40 mg PO DAILY #30 tablet 04/08/17 06/18/18 Rx Cranberry Fruit Extract [Cranberry] 500 mg PO DAILY 04/16/17 06/18/18 History Ferrous Sulfate [Iron (65 MG 325 mg PO DAILY 04/16/17 06/18/18 History Elemental)] Melatonin 5 mg PO HS 04/16/17 06/18/18 History Multivitamins, Thera [Multivitamin 1 tab PO HS 04/16/17 06/18/18 History (formulary)] Potassium Chloride ER [K-Dur 20] 20 meq PO HS 04/16/17 06/18/18 History Furosemide [Lasix] 20 mg PO HS 04/01/18 06/18/18 History Spironolactone [Aldactone] 12.5 mg PO BID 04/01/18 06/18/18 History Ciprofloxacin HCl [Cipro] 250 mg PO Q12HR 06/18/18 06/18/18 History Levofloxacin [Levaquin] 250 mg PO DAILY #4 tablet 06/19/18 Rx Allergies Allergy/AdvReac Type Severity Reaction Status Date / Time Penicillins Allergy Rash/Hives Verified 06/18/18 19:21 codeine AdvReac Nausea & Verified 06/18/18 19:21 Vomiting Physical Exam Vitals: Vital Signs Temp Pulse Pulse Resp BP BP Pulse Ox 06/19/18 12:00 97.6 F 84 16 119/59 95 06/19/18 11:04 16 06/19/18 08:00 98.1 F 87 16 131/71 94 L 06/19/18 03:41 97.8 F 70 16 126/69 97 06/19/18 03:33 16 06/19/18 00:00 16 06/18/18 23:37 97.5 F L 83 16 150/65 96 06/18/18 22:38 81 18 141/74 95 06/18/18 21:38 86 18 135/65 94 L 06/18/18 16:34 97.6 F 81 18 146/78 96 Intake and Output 06/19/18 06/19/18 06/19/18 06:59 14:59 22:59 Intake Total 200 Balance 200 Intake: Oral 200 Other: Voiding Method Diaper Diaper # Voids 3 1 Weight 72.3 kg - Constitutional General appearance: cooperative, no acute distress, obese - EENT Eyes: anicteric sclerae, PERRLA, normal appearance ENT: hearing grossly normal - Neck Neck: no lymphadenopathy, normal ROM, no other, no rigidity, no stridor, no thyromegaly - Respiratory Respiratory: bilateral: CTA, negative: diminished, dullness, rales, rhonchi - Cardiovascular Rhythm: regular Heart sounds: normal: S1, S2 Abnormal Heart Sounds: no systolic murmur, no diastolic murmur, no rub, no S3 Gallop, no S4 Gallop, - Gastrointestinal General gastrointestinal: normal bowel sounds, soft, nontender - Integumentary Integumentary: no rash - Neurologic Neurologic: CNII-XII intact - Musculoskeletal Musculoskeletal: gait normal, strength equal bilaterally - Psychiatric Psychiatric: A&O x's 3, appropriate affect Results CBC & Chem 7: 06/18/18 17:26 06/18/18 17:26 Labs: Abnormal Lab Results - Last 24 Hours (Table) 06/18/18 06/18/18 06/18/18 Range/Units 17:26 17:26 17:26 Lymphocytes # 0.6 L (1.0-4.8) k/uL D-Dimer (<0.60) mg/L FEU Sodium 131 L (137-145) mmol/L Chloride 95 L (98-107) mmol/L BUN 19 H (7-17) mg/dL Glucose 136 H (74-99) mg/dL POC Glucose (mg/dL) (75-99) mg/dL AST 39 H (14-36) U/L Alkaline Phosphatase 132 H (38-126) U/L Total Creatine Kinase <20 L (30-135) U/L LDL Cholesterol, Calc (0-99) mg/dL HDL Cholesterol (40-60) mg/dL Ur Leukocyte Esterase (Negative) Urine WBC (0-5) /hpf Urine Bacteria (None) /hpf Urine Mucus (None) /hpf 06/18/18 06/18/18 06/19/18 Range/Units 19:49 23:06 05:57 Lymphocytes # (1.0-4.8) k/uL D-Dimer (<0.60) mg/L FEU Sodium (137-145) mmol/L Chloride (98-107) mmol/L BUN (7-17) mg/dL Glucose (74-99) mg/dL POC Glucose (mg/dL) (75-99) mg/dL AST (14-36) U/L Alkaline Phosphatase (38-126) U/L Total Creatine Kinase <20 L <20 L (30-135) U/L LDL Cholesterol, Calc (0-99) mg/dL HDL Cholesterol (40-60) mg/dL Ur Leukocyte Esterase Large H (Negative) Urine WBC 64 H (0-5) /hpf Urine Bacteria Rare H (None) /hpf Urine Mucus Rare H (None) /hpf 06/19/18 06/19/18 06/19/18 Range/Units 05:57 07:06 11:01 Lymphocytes # (1.0-4.8) k/uL D-Dimer 0.60 H (<0.60) mg/L FEU Sodium (137-145) mmol/L Chloride (98-107) mmol/L BUN (7-17) mg/dL Glucose (74-99) mg/dL POC Glucose (mg/dL) 114 H (75-99) mg/dL AST (14-36) U/L Alkaline Phosphatase (38-126) U/L Total Creatine Kinase (30-135) U/L LDL Cholesterol, Calc 101 H (0-99) mg/dL HDL Cholesterol 62 H (40-60) mg/dL Ur Leukocyte Esterase (Negative) Urine WBC (0-5) /hpf Urine Bacteria (None) /hpf Urine Mucus (None) /hpf 06/19/18 Range/Units 11:44 Lymphocytes # (1.0-4.8) k/uL D-Dimer (<0.60) mg/L FEU Sodium (137-145) mmol/L Chloride (98-107) mmol/L BUN (7-17) mg/dL Glucose (74-99) mg/dL POC Glucose (mg/dL) 221 H (75-99) mg/dL AST (14-36) U/L Alkaline Phosphatase (38-126) U/L Total Creatine Kinase (30-135) U/L LDL Cholesterol, Calc (0-99) mg/dL HDL Cholesterol (40-60) mg/dL Ur Leukocyte Esterase (Negative) Urine WBC (0-5) /hpf Urine Bacteria (None) /hpf Urine Mucus (None) /hpf Microbiology - Last 24 Hours (Table) 06/18/18 19:49 Urine Culture - Preliminary Urine,Clean Catch Thrombosis Risk Factor Assmnt - DVT/VTE Prophylaxis DVT/VTE Prophylaxis: Pharmacologic Prophylaxis ordered - Choose All That Apply Each Factor Represents 1 point: Heart failure (<1month) Each Risk Factor Represents 3 Points: Age 75 years or older Thrombosis Risk Factor Assessment Total Risk Factor Score: 4 Thrombosis Risk Factor Assessment Level: Moderate Risk Assessment and Plan Plan: #1 acute shortness of breath likely secondary to A. fib with RVR versus it was reaction to Cipro. Currently asymptomatic on evaluation with saturation in the high 90s on room air. #2 type 2 diabetes continue metformin 1000 these twice a day #3 UTI will switch Cipro to levofloxacin 250 mg by mouth daily for 5 days #4 coronary artery disease status post CABG 4 with pacemaker continue Aldactone 12.5 mg twice a day, metoprolol 25 mg by mouth daily, Lasix 40 mg by mouth daily and 20 mg at bedtime, Cardizem 30 mg twice a day #5 A. fib rate controlled on enalapril is 2.5 mg twice a day. Continue metoprolol 25 mg by mouth daily Cardizem 30 mg by mouth twice a day #6 congestive heart failure diastolic. Continue Lasix at home dose continue metoprolol, Cardizem, Aldactone #7 history of dementia #8 hypothyroidism continue levothyroxine 112 g by mouth daily #9 disposition home with self-care
--- NOTE | 2018-06-19 18:48 | ECHOF ---
Referral Reason:sob MEASUREMENTS -------- HEIGHT: 172.7 cm WEIGHT: 71.2 kg BP: RVIDd: 2.9 cm (< 3.3) IVSd: 1.2 cm (0.6 - 1.1) LVIDd: 4.2 cm (3.9 - 5.3) LVPWd: 1.2 cm (0.6 - 1.1) IVSs: 1.8 cm LVIDs: 3.2 cm LVPWs: 1.4 cm LA Diam: 4.8 cm (2.7 - 3.8) LAESV Index (A-L): 41.24 ml/m Ao Diam: 2.7 cm (2.0 - 3.7) AV Cusp: 1.5 cm (1.5 - 2.6) LA Diam: 4.4 cm (2.7 - 3.8) MV EXCURSION: 23.254 mm (> 18.000) MV EF SLOPE: 184 mm/s (70 - 150) EPSS: 0.6 cm MV E Ceferino: 1.57 m/s MV DecT: 244 ms MV A Ceferino: 0.43 m/s MV E/A Ratio: 3.62 RAP: 5.00 mmHg RVSP: 71.87 mmHg FINDINGS -------- Pacerwire seen in RV and RA. This was a technically adequate study. The left ventricular size is normal. There is mild concentric left ventricular hypertrophy. Overa ll left ventricular systolic function is normal with, an EF between 55 - 60 %. The right ventricle is normal in size. LA is severely dilated >40 ml/m2 The right atrial size is normal. There is mild aortic valve sclerosis. There is no evidence of aortic regurgitation. Mild mitral annular calcification present. Moderate mitral regurgitation is present. Moderate tricuspid regurgitation present. There is moderate to severe pulmonary hypertension. The right ventricular systolic pressure, as measured by Doppler, is 71.87mmHg. Trace/mild (physiologic) pulmonic regurgitation. The aortic root size is normal. There is no pericardial effusion. CONCLUSIONS -------- 1. Pacerwire seen in RV and RA. 2. This was a technically adequate study. 3. The left ventricular size is normal. 4. There is mild concentric left ventricular hypertrophy. 5. Overall left ventricular systolic function is normal with, an EF between 55 - 60 %. 6. LA is severely dilated >40 ml/m2 7. There is mild aortic valve sclerosis. 8. Mild mitral annular calcification present. 9. Moderate mitral regurgitation is present. 10. Moderate tricuspid regurgitation present. 11. There is moderate to severe pulmonary hypertension. 12. Trace/mild (physiologic) pulmonic regurgitation. 13. The aortic root size is normal. 14. There is no pericardial effusion. [employer] CLERK: Earlene Michael RDCS
== END 2018-06-19 15:07 | disposition home or self-care (01) ==
LOC: EC 16:09 → 1SOBS 19:58
PROVIDERS: ADMIT Internal Medicine; ATTEND Internal Medicine
DX: R06.02 Shortness of breath (principal); I48.2 Chronic atrial fibrillation; N39.0 Urinary tract infection, site not specified; E78.5 Hyperlipidemia, unspecified; E87.1 Hypo-osmolality and hyponatremia; J84.10 Pulmonary fibrosis, unspecified; E11.9 Type 2 diabetes mellitus without complications; I25.10 Atherosclerotic heart disease of native coronary artery without angina pectoris; I11.0 Hypertensive heart disease with heart failure; I50.30 Unspecified diastolic (congestive) heart failure; F03.90 Unspecified dementia, unspecified severity, without behavioral disturbance, psychotic disturbance, mood disturbance, and anxiety; E03.9 Hypothyroidism, unspecified; D64.9 Anemia, unspecified; R41.3 Other amnesia; K57.90 Diverticulosis of intestine, part unspecified, without perforation or abscess without bleeding; Z79.01 Long term (current) use of anticoagulants; Z79.890 Hormone replacement therapy; Z79.84 Long term (current) use of oral hypoglycemic drugs; Z79.899 Other long term (current) drug therapy; Z88.0 Allergy status to penicillin; Z88.5 Allergy status to narcotic agent; Z90.49 Acquired absence of other specified parts of digestive tract; Z86.14 Personal history of Methicillin resistant Staphylococcus aureus infection; Z87.440 Personal history of urinary (tract) infections; Z86.73 Personal history of transient ischemic attack (TIA), and cerebral infarction without residual deficits; Z87.01 Personal history of pneumonia (recurrent); Z96.651 Presence of right artificial knee joint; Z98.49 Cataract extraction status, unspecified eye; Z95.1 Presence of aortocoronary bypass graft; Z95.0 Presence of cardiac pacemaker; Z83.1 Family history of other infectious and parasitic diseases; Z83.6 Family history of other diseases of the respiratory system; Z82.49 Family history of ischemic heart disease and other diseases of the circulatory system; Z80.9 Family history of malignant neoplasm, unspecified
CPT/HCPCS: 96365; 99285; 36415; 93005; 93306; 85379; 80061; 80053; 82550 ×2; 82553 ×2; 84484 ×2; 85025; 85610; 85730; 81001; 87040; 87086; 71046; G0378 ×2; J0696

== ENCOUNTER 2018-07-02 00:55 | Observation (INO) | payer MEDICARE, MEDICAID ==
[2018-07-02] MEDS ORDERED: NITROGLYCERIN SL TABS 0.4 MG TAB SUBLINGUAL STA (01:20)
--- NOTE | 2018-07-02 01:30 | ED ---
Chest Pain HPI - General Chief Complaint: Chest Pain Stated Complaint: Chest pain Time Seen by Provider: 07/02/18 01:07 Source: patient, EMS Mode of arrival: EMS Limitations: no limitations - History of Present Illness Initial Comments: Ciro Piper is a pleasant 88-year-old female who presents to the ED today via EMS for evaluation of chest pain. Patient reports she was in her usual state of health throughout the day yesterday, she was woken from sleep this morning around midnight due to a pressure-like pain across her chest. She reports the pain is pressure like and heavy but not associated with any lightheadedness, diaphoresis or shortness of breath. The pain is not sharp, positional. The patient and identify any exacerbating or relieving factors to the pain. She did take a full dose aspirin and call EMS for transport to the hospital. Patient was admitted a couple of weeks ago for shortness of breath at which time she had a computed tomography scan as well as an echo. She has a history of A. fib and has been compliant with her medications including her eliquis. She has no history of blood clots. - Related Data Home Medications Medication Instructions Recorded Confirmed Apixaban [Eliquis] 2.5 mg PO BID 01/26/14 06/18/18 Ascorbic Acid [Vitamin C] 500 mg PO BID 03/25/17 06/18/18 Diltiazem Oral [Cardizem*] 30 mg PO BID 03/25/17 06/18/18 Levothyroxine Sodium [Synthroid] 112 mcg PO DAILY 03/25/17 06/18/18 Magnesium Oxide [Magox 400] 400 mg PO DAILY 03/25/17 06/18/18 amLODIPine [Norvasc] 2.5 mg PO DAILY 03/25/17 06/18/18 Cranberry Fruit Extract [Cranberry] 500 mg PO DAILY 04/16/17 06/18/18 Ferrous Sulfate [Iron (65 MG 325 mg PO DAILY 04/16/17 06/18/18 Elemental)] Melatonin 5 mg PO HS 04/16/17 06/18/18 Multivitamins, Thera [Multivitamin 1 tab PO HS 04/16/17 06/18/18 (formulary)] Potassium Chloride ER [K-Dur 20] 20 meq PO HS 04/16/17 06/18/18 Furosemide [Lasix] 20 mg PO HS 04/01/18 06/18/18 Spironolactone [Aldactone] 12.5 mg PO BID 04/01/18 06/18/18 Ciprofloxacin HCl [Cipro] 250 mg PO Q12HR 06/18/18 06/18/18 Previous Rx's Medication Instructions Recorded metFORMIN HCL [Glucophage] 1,000 mg PO AC-BID #60 tab 02/25/14 Acetaminophen Tab [Tylenol] 650 mg PO Q6HR PRN #0 tab 10/31/15 Metoprolol Tartrate [Lopressor] 25 mg PO DAILY tab 11/06/16 Furosemide [Lasix] 40 mg PO DAILY #30 tablet 04/08/17 Levofloxacin [Levaquin] 250 mg PO DAILY #4 tablet 06/19/18 Allergies Allergy/AdvReac Type Severity Reaction Status Date / Time Penicillins Allergy Rash/Hives Verified 06/18/18 19:21 codeine AdvReac Nausea & Verified 06/18/18 19:21 Vomiting Review of Systems ROS Statement: Those systems with pertinent positive or pertinent negative responses have been documented in the HPI. ROS Other: All systems not noted in ROS Statement are negative. EKG Findings - EKG Comments: EKG Findings:: EKG obtained at 1:09 AM, rate is 107, rhythm is A. fib, normal axis, normal intervals there is a left anterior fascicular block. No ST elevations or depressions no evidence of acute ischemia or infarction. Past Medical History Past Medical History: Atrial Fibrillation, Coronary Artery Disease (CAD), Heart Failure, CVA/TIA, Diabetes Mellitus, GI Bleed, Hyperlipidemia, Hypertension, Memory Impairment, Osteoarthritis (OA), Pneumonia, Thyroid Disorder Additional Past Medical History / Comment(s): Recurrent UTIs and past mild encephalopathy with UTI, multiple CVA/TIA, 2013 rectal bleed, diverticular dx, chronic anemia, hypothyroid History of Any Multi-Drug Resistant Organisms: MRSA Date of last positivie culture/infection: 03/12/2014 MDRO Source:: Urine Past Surgical History: Cholecystectomy, Pacemaker, Tonsillectomy Additional Past Surgical History / Comment(s): [employer], 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, D&C, TOTAL RIGHT KNEE, cataracts, Past Anesthesia/Blood Transfusion Reactions: Postoperative Nausea & Vomiting ( PONV) Type of Cardiac Device: Permanent Pacemaker Device Placement Date:: 2010 Past Psychological History: No Psychological Hx Reported Smoking Status: Never smoker Past Alcohol Use History: None Reported Past Drug Use History: None Reported - Past Family History Sister(s) Family Medical History: Cancer Additional Family Medical History / Comment(s): heart problems Father Family Medical History: Respiratory Disorder Additional Family Medical History / Comment(s): Tuberculosis-Dad General Exam - General Exam Comments Initial Comments: Physical Exam GENERAL: Patient is well-developed and well-nourished. Patient is nontoxic and well-hydrated and is in no distress. HENT: Normocephalic, Atraumatic. EYES: PERRL, EOMI PULMONARY: Unlabored respirations. No audible rales rhonchi or wheezing was noted. CARDIOVASCULAR: There is a regular rate and rhythm Triplett's are warm and well perfused ABDOMEN: Soft and nontender with normal bowel sounds. SKIN: Skin is clear with no lesions or rashes and otherwise unremarkable. : Deferred NEUROLOGIC: Patient is alert and oriented x3. Moving all extremities spontaneously MUSCULOSKELETAL: Normal extremities with adequate strength and full range of motion. No lower extremity swelling or edema. No calf tenderness. PSYCHIATRIC: Normal psychiatric evaluation. Limitations: no limitations Limitations: no limitations Course Vital Signs 07/02/18 07/02/18 07/02/18 00:59 01:30 02:00 Temperature 98.2 F Pulse Rate 102 H 108 H 96 Respiratory 18 15 16 Rate Blood Pressure 159/90 154/73 141/69 O2 Sat by Pulse 95 96 96 Oximetry Chest Pain MDM - MDM Patient was seen and evaluated history was obtained from patient, son, review of medical record and EMS She received full dose aspirin prior to arrival EKG with no acute findings, subungual nitros was ordered Patient reported improvement in her pain with sublingual nitro, 1 inch of Nitropaste was ordered She was reevaluated, reports complete resolution of her chest pain after Nitropaste was applied Initial troponin negative, will plan to admit for high risk chest pain Patient care was discussed with Dr. zamora who agrees with the plan for admission for chest pain evaluation Disposition Clinical Impression: Chest pain, Hyponatremia Disposition: ADMITTED IP TO THIS HOSP Is patient prescribed a controlled substance at d/c from ED?: No Referrals: Cliff Conklin MD [Primary Care Provider] - 1-2 days
[2018-07-02 01:41] LABS: Basophils % (A) 0 %; Eosinophils # (A) 0.2 k/uL (0-0.7); Eosinophils % (A) 3 %; HGB 11.7 gm/dL (11.4-16.0); Lymphocytes # (A) 0.6 k/uL (1.0-4.8); Lymphocytes % (A) 9 %; MCHC 33.6 g/dL (31.0-37.0); MCV 83.5 fL (80.0-100.0); Mean Platelet Volume 7.3; Monocytes # (A) 0.4 k/uL (0-1.0); Monocytes % (A) 5 %; Neutrophils # (A) 5.7 k/uL (1.3-7.7); Neutrophils % (A) 81 %; Platelet Count 148 k/uL (150-450); RBC 4.19 m/uL (3.80-5.40)
[2018-07-02 01:48] LABS: INR 1.1 (<1.2); Partial Thromboplastin Time 25.5 sec (22.0-30.0); Prothrombin Time 11.5 sec (9.0-12.0)
--- NOTE | 2018-07-02 01:52 | XR ---
EXAMINATION TYPE: XR chest 2V DATE OF EXAM: 07/02/2018 COMPARISON: 06/18/2018 HISTORY: Chest pain TECHNIQUE: Frontal and lateral views of the chest are obtained. FINDINGS: Heart is enlarged. There is no gross heart failure. There are sternal wires. There is coar sening of the lung markings. There is left axillary pacemaker with the lead tip in the right ventricl e. I see no pleural effusion. IMPRESSION: Cardiomegaly and pulmonary fibrosis. No definite change compared to old exam. No gross h eart failure.
[2018-07-02 01:54] LABS: ALT 39 U/L (9-52); AST 39 U/L (14-36); Alkaline Phosphatase 115 U/L (38-126); Anion Gap 11 mmol/L; Blood Urea Nitrogen 15 mg/dL (7-17); Calcium 9.5 mg/dL (8.4-10.2); Carbon Dioxide 22 mmol/L (22-30); Chloride 96 mmol/L (98-107); Glucose 151 mg/dL (74-99); Magnesium 1.5 mg/dL (1.6-2.3); Potassium 4.7 mmol/L (3.5-5.1); Sodium 129 mmol/L (137-145); Total Bilirubin 0.8 mg/dL (0.2-1.3); Total Protein 7.4 g/dL (6.3-8.2)
[2018-07-02] MEDS ORDERED: NITROGLYCERIN OINT 1 INCH/GM PACKET TOPICAL STA (01:54)
[2018-07-02 02:19] LABS: Creatine Kinase <20 U/L (30-135)
[2018-07-02 02:31] LABS: Troponin I <0.012 ng/mL (0.000-0.034)
[2018-07-02] MEDS ORDERED: Magnesium Replacement Protocol 1 EACH MISC MISCELLANE PRN (02:40)
[2018-07-02 02:43] LABS: Creatine Kinase MB 0.3 ng/mL (0.0-2.4)
[2018-07-02] MEDS ORDERED: NALOXONE 0.4 MG/ML 1 ML VIAL IV PRN (03:00)
[2018-07-02] MEDS ORDERED: ISOSORBIDE MONONITRATE ER 30 MG TAB.ER.24H PO STA (09:22)
[2018-07-02] MEDS ORDERED: amLODIPine 2.5 MG TAB PO SCH (09:30)
[2018-07-02] MEDS ORDERED: METOPROLOL TARTRATE 25 MG TAB PO SCH (09:30)
[2018-07-02] MEDS ORDERED: SPIRONOLACTONE 25 MG TAB PO SCH (09:30)
[2018-07-02] MEDS ORDERED: APIXABAN 2.5 MG TABLET PO SCH (09:30)
[2018-07-02] MEDS ORDERED: DILTIAZEM ORAL 30 MG TAB PO SCH (09:30)
[2018-07-02] MEDS ORDERED: FUROSEMIDE 40 MG TAB PO SCH (09:30)
[2018-07-02] MEDS: MAGNESIUM SULFATE-D5W PMX 1 GM in DEXTROSE/WATER 1 100ML.BAG IVPB SCH (09:32)
--- NOTE | 2018-07-02 09:56 | P.CRDCN ---
History of Present Illness History of present illness: This is a pleasant 88-year-old female past medical history significant for chronic persistent atrial fibrillation on long-term anticoagulation, coronary artery disease status post bypass grafting in 2010 with a GALLARDO to the LAD, SVG to diagonal, SVG to RCA and SVG to intermediate branch. She also has hypertension, dyslipidemia, permanent pacemaker implantation and diabetes mellitus. She follows with Dr. Parry in the office. We've been asked to see her in consultation for chest pain. She states she went to sleep early last night and woke up around 2300 with an achy sensation in the chest. She felt generally achy all over chest with no radiation to the back, arm , neck or jaw. She denies associated shortness of breath, dizziness, diaphoresis or palpitations. She states she felt mildly nauseated in the ambulance on the way here. She was given 1 SL nitorglycerin and her achiness went away. Since that time she has had no further chest discomfort. She is seen and examined resting comfortably laying flat in bed. EKG reveals atrial fibrillation with mildly rapid ventricular rate 107. Chest x-ray reveals evidence of pulmonary fibrosis. Current cardiac medications include Eliquis 2.5 mg twice a day, diltiazem 30 mg twice a day, Lasix 40 mg in the morning and 20 mg at bedtime, Lopressor 25 mg daily, potassium supplementation, Aldactone 12.5 mg twice a day and amlodipine 2.5 mg daily. Most recent echocardiogram 05/23/2018 reveals preserved left ventricular systolic function with ejection fraction 60-65%, moderate TR, moderate MR and moderate pulmonary hypertension with an RVSP of 71 mmHg. Most recent stress test performed in the office 2013 reveals normal ejection fraction with no evidence of reversible cardiac ischemia. At the time of my exam: CONSTITUTIONAL: Denies fever. Denies chills. EYES: Denies blurred vision. Denies vision changes. Denies eye pain. EARS, NOSE, MOUTH & THROAT: Denies headache. Denies sore throat. Denies ear pain. CARDIOVASCULAR: Denies chest pain. Denies shortness of breath. Denies orthopnea. Denies PND. Denies palpitations. RESPIRATORY: Denies cough. GASTROINTESTINAL: Denies abdominal pain. Denies diarrhea. Denies constipation. Denies nausea. Denies vomiting. MUSCULOSKELETAL: Denies myalgias. INTEGUMENTARY: Denies pruitis. Denies rash. NEUROLOGIC: Denies numbness. Denies tingling. Denies weakness. PSYCHIATRIC: Denies anxiety. Denies depression. ENDOCRINE: Denies fatigue. Denies weight change. Denies polydipsia. Denies polyurina. GENITOURINARY: Denies burning, hematuria or urgency with micturation. HEMATOLOGIC: Denies history of anemia. Denies bleeding. Blood presure 125/59 heart rate 93 afebrile maintaining oxygen saturation on room air. GENERAL: This is a 88-year-old female in no apparent distress at the time of my examination. HEENT: Head is atraumatic, normocephalic. Pupils are equal, round. Sclerae anicteric. Conjunctivae are clear. Mucous membranes of the mouth are moist. Neck is supple. There is no jugular venous distention. No carotid bruit is heard. LUNGS: Clear to auscultation no wheezes, rales or rhonchi. No chest wall tenderness is noted on palpation or with deep breathing. HEART: Irregular rate and rhythm without murmurs, rubs or gallops. S1 and S2 heard. ABDOMEN: Soft, nontender. Bowel sounds are heard. No organomegaly noted. EXTREMITIES: No evidence of peripheral edema and no calf tenderness noted. VASCULAR: Radial and dorsalis pedis pulses palpated, no evidence of clubbing. NEUROLOGIC: Patient is awake, alert and oriented x3. ASSESSMENT Chest pain, atypical. Chronic persistent atrial fibrillation on long-term anticoagulation History of coronary artery disease status post bypass grafting Permanent pacemaker implantation 2010 Hypertension Dyslipidemia Diabetes mellitus PLAN Continue to obtain serial cardiac enzymes to rule out an acute coronary event. Add on small dose of long acting oral nitrate. Increase activity and ambulation in the halls and assess for ongoing symptoms of chest discomfort. If she continues to remain chest pain free and an acute event has been ruled out she should be able to be discharged home. Follow up with Dr. Parry in 2-3 weeks. Thank you kindly for this consultation. Nurse Practitioner note has been reviewed, I agree with a documented findings and plan of care. Patient was seen and examined. Past Medical History Past Medical History: Atrial Fibrillation, Coronary Artery Disease (CAD), Heart Failure, CVA/TIA, Diabetes Mellitus, GI Bleed, Hyperlipidemia, Hypertension, Memory Impairment, Osteoarthritis (OA), Pneumonia, Thyroid Disorder Additional Past Medical History / Comment(s): Recurrent UTIs and past mild encephalopathy with UTI, multiple CVA/TIA, 2013 rectal bleed, diverticular dx, chronic anemia, hypothyroid History of Any Multi-Drug Resistant Organisms: MRSA Date of last positivie culture/infection: 03/12/2014 MDRO Source:: Urine Past Surgical History: Cholecystectomy, Pacemaker, Tonsillectomy Additional Past Surgical History / Comment(s): [employer], 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, D&C, TOTAL RIGHT KNEE, cataracts, Past Anesthesia/Blood Transfusion Reactions: Postoperative Nausea & Vomiting ( PONV) Type of Cardiac Device: Permanent Pacemaker Device Placement Date:: 2010 Past Psychological History: No Psychological Hx Reported Smoking Status: Never smoker Past Alcohol Use History: None Reported Past Drug Use History: None Reported - Past Family History Sister(s) Family Medical History: Cancer Additional Family Medical History / Comment(s): heart problems Father Family Medical History: Respiratory Disorder Additional Family Medical History / Comment(s): Tuberculosis-Dad Medications and Allergies Home Medications Medication Instructions Recorded Confirmed Type Apixaban [Eliquis] 2.5 mg PO BID 01/26/14 07/02/18 History metFORMIN HCL [Glucophage] 1,000 mg PO AC-BID #60 tab 02/25/14 07/02/18 Rx Acetaminophen Tab [Tylenol] 650 mg PO Q6HR PRN #0 tab 10/31/15 07/02/18 Rx Metoprolol Tartrate [Lopressor] 25 mg PO DAILY tab 11/06/16 07/02/18 Rx Ascorbic Acid [Vitamin C] 500 mg PO BID 03/25/17 07/02/18 History Diltiazem Oral [Cardizem*] 30 mg PO BID 03/25/17 07/02/18 History Levothyroxine Sodium [Synthroid] 112 mcg PO DAILY 03/25/17 07/02/18 History Magnesium Oxide [Magox 400] 400 mg PO DAILY 03/25/17 07/02/18 History amLODIPine [Norvasc] 2.5 mg PO DAILY 03/25/17 07/02/18 History Furosemide [Lasix] 40 mg PO DAILY #30 tablet 04/08/17 07/02/18 Rx Cranberry Fruit Extract [Cranberry] 500 mg PO DAILY 04/16/17 07/02/18 History Ferrous Sulfate [Iron (65 MG 325 mg PO DAILY 04/16/17 07/02/18 History Elemental)] Melatonin 5 mg PO HS 04/16/17 07/02/18 History Multivitamins, Thera [Multivitamin 1 tab PO HS 04/16/17 07/02/18 History (formulary)] Potassium Chloride ER [K-Dur 20] 20 meq PO HS 04/16/17 07/02/18 History Furosemide [Lasix] 20 mg PO HS 04/01/18 07/02/18 History Spironolactone [Aldactone] 12.5 mg PO BID 04/01/18 07/02/18 History ALPRAZolam [Xanax] 0.25 mg PO DAILY PRN 07/02/18 07/02/18 History Benzonatate [Tessalon Perles] 100 - 200 mg PO Q6H PRN 07/02/18 07/02/18 History Famotidine [Pepcid] 20 mg PO DAILY PRN 07/02/18 07/02/18 History diphenhydrAMINE HCL [Benadryl] 25 mg PO HS PRN 07/02/18 07/02/18 History guaiFENesin [Mucinex] 600 mg PO DAILY PRN 07/02/18 07/02/18 History Allergies Allergy/AdvReac Type Severity Reaction Status Date / Time Penicillins Allergy Rash/Hives Verified 07/02/18 07:01 codeine AdvReac Nausea & Verified 07/02/18 07:01 Vomiting Physical Exam Vitals: Vital Signs Temp Pulse Resp BP Pulse Ox 07/02/18 08:00 84 18 124/61 96 07/02/18 07:00 97 18 117/56 96 07/02/18 06:00 81 17 121/58 96 07/02/18 05:00 87 17 126/67 97 07/02/18 04:04 19 07/02/18 04:00 93 19 124/62 96 07/02/18 03:00 96 16 133/66 94 L 07/02/18 02:30 96 19 133/66 97 07/02/18 02:00 96 16 141/69 96 07/02/18 01:30 108 H 15 154/73 96 07/02/18 00:59 98.2 F 102 H 18 159/90 95 Intake and Output 07/01/18 07/02/18 07/02/18 22:59 06:59 14:59 Other: Weight 71.214 kg Results 07/02/18 01:15 07/02/18 01:15 Cardiac Enzymes 07/02/18 07/02/18 Range/Units 01:15 01:15 AST 39 H (14-36) U/L CK-MB (CK-2) 0.3 (0.0-2.4) ng/mL Troponin I <0.012 (0.000-0.034) ng/mL Coagulation 07/02/18 Range/Units 01:15 PT 11.5 (9.0-12.0) sec APTT 25.5 (22.0-30.0) sec CBC 07/02/18 Range/Units 01:15 WBC 7.0 (3.8-10.6) k/uL RBC 4.19 (3.80-5.40) m/uL Hgb 11.7 (11.4-16.0) gm/dL Hct 35.0 (34.0-46.0) % Plt Count 148 L (150-450) k/uL Comprehensive Metabolic Panel 07/02/18 Range/Units 01:15 Sodium 129 L (137-145) mmol/L Potassium 4.7 (3.5-5.1) mmol/L Chloride 96 L (98-107) mmol/L Carbon Dioxide 22 (22-30) mmol/L BUN 15 (7-17) mg/dL Creatinine 0.63 (0.52-1.04) mg/dL Glucose 151 H (74-99) mg/dL Calcium 9.5 (8.4-10.2) mg/dL AST 39 H (14-36) U/L ALT 39 (9-52) U/L Alkaline Phosphatase 115 (38-126) U/L Total Protein 7.4 (6.3-8.2) g/dL Albumin 4.0 (3.5-5.0) g/dL Current Medications Generic Name Dose Route Start Last Admin Trade Name Freq PRN Reason Stop Dose Admin Amlodipine Besylate 2.5 mg 07/02/18 09:30 Norvasc PO DAILY [facility] Apixaban 2.5 mg 07/02/18 09:30 Eliquis PO BID [facility] Diltiazem HCl 30 mg 07/02/18 09:30 Cardizem Oral PO BID [facility] Furosemide 40 mg 07/02/18 09:30 Lasix PO DAILY [facility] Furosemide 20 mg 07/02/18 21:00 Lasix PO HS [facility] Isosorbide Mononitrate 30 mg 07/02/18 09:22 Imdur PO 07/02/18 09:23 ONCE STA Metoprolol Tartrate 25 mg 07/02/18 09:30 Lopressor PO DAILY [facility] Miscellaneous Information 1 each 07/02/18 02:40 Magnesium Per Protocol MISCELLANE DAILY PRN Per Protocol Protocol Naloxone HCl 0.2 mg 07/02/18 03:00 Narcan IV Q2M PRN Opioid Reversal Potassium Chloride 20 meq 07/02/18 21:00 K-Dur 20 PO HS [facility] Spironolactone 12.5 mg 07/02/18 09:30 Aldactone PO BID [facility] Intake and Output 07/01/18 07/02/18 07/02/18 22:59 06:59 14:59 Other: Weight 71.214 kg 07/02/18 01:15 07/02/18 01:15
[2018-07-02 10:13] VITALS: BP 146/65; PULSE 90; RESP 18; TEMP 97.4
[2018-07-02 10:29] LABS: Creatine Kinase <20 U/L (30-135)
[2018-07-02 10:43] LABS: Creatine Kinase MB 0.4 ng/mL (0.0-2.4); Troponin I <0.012 ng/mL (0.000-0.034)
[2018-07-02 11:57] LABS: Glucose,Whole Blood 186 mg/dL (75-99)
--- NOTE | 2018-07-02 13:29 | P.HPIM ---
History of Present Illness H&P Date: 07/02/18 Chief Complaint: Chest pain HISTORY AND PHYSICAL AND DISCHARGE SUMMARY: This is an 88-year-old female patient of Dr. Conklin with a past medical history significant for chronic atrial fibrillation on eliquis, coronary artery disease , heart failure, stroke, diabetes, GI bleed 2013, hyperlipidemia, hypertension, hypothyroidism. Patient was recently at [facility] on the observation unit due to shortness of breath secondary to A. fib with RVR. At that time, she was evaluated by cardiology and cleared for discharge with follow -up as an outpatient with Dr. Parry. Patient states that she developed chest pain across her chest that started while she was sleeping and she was concerned that she had a pulmonary embolism and her family had her brought into [facility] emergency center for evaluation. She was given one nitroglycerin in the ER the chest pain went away. She denies any significant shortness of breath, radiation, lightheadedness or dizziness, diaphoresis or palpitations. She has ambulated in her room to the bathroom and has had no recurrence of the pain. Troponins have been negative on 2 draws. EKG reveals atrial fibrillation at rate of 107. Chest x-ray reveals pulmonary fibrosis. Most recent echocardiogram 06/19/2018 reveals preserved left ventricular systolic function with ejection fraction 60-65%, moderate TR, moderate MR, mild aortic valve sclerosis and moderate pulmonary hypertension with an RVSP of 71 mmHg. patient was given one dose of Imdur 30 mg by cardiology. Patient remains without chest pain. Patient will be discharged home today in stable condition. Review of Systems All systems: negative Constitutional: Denies anorexia, Denies chills, Denies chronic headaches, Denies fatigue, Denies fever, Denies malaise, Denies poor appetite, Denies weakness, Denies weight loss Eyes: denies blurred vision, denies pain Ears, nose, mouth and throat: Denies dysphagia, Denies headache, Denies mouth pain, Denies sore throat, Denies vertigo Cardiovascular: Denies chest pain, Denies decreased exercise tolerance, Denies dyspnea on exertion, Denies edema, Denies palpitations, Denies shortness of breath, Denies syncope Respiratory: Denies cough, Denies cough with sputum, Denies dyspnea, Denies excessive sputum, Denies hemoptysis, Denies home oxygen, Denies wheezing Gastrointestinal: Denies abdominal pain, Denies diarrhea, Denies loss of appetite, Denies melena, Denies nausea, Denies vomiting Genitourinary: Denies dysuria, Denies hematuria Musculoskeletal: Denies frequent falls, Denies gait dysfunction, Denies muscle weakness, Denies myalgias Integumentary: Denies pruritus, Denies rash, Denies wounds Neurological: Denies aphasia, Denies change in mentation, Denies confusion, Denies numbness, Denies weakness Psychiatric: Denies anxiety, Denies depression Endocrine: Denies fatigue, Denies weight change Past Medical History Past Medical History: Atrial Fibrillation, Coronary Artery Disease (CAD), Heart Failure, CVA/TIA, Diabetes Mellitus, GI Bleed, Hyperlipidemia, Hypertension, Memory Impairment, Osteoarthritis (OA), Pneumonia, Thyroid Disorder Additional Past Medical History / Comment(s): Recurrent UTIs and past mild encephalopathy with UTI, multiple CVA/TIA, 2013 rectal bleed, diverticular dx, chronic anemia, hypothyroid, pt denies prior IL but states her family tells her she has had a prior IL. History of Any Multi-Drug Resistant Organisms: MRSA Date of last positivie culture/infection: 03/12/2014 MDRO Source:: Urine Past Surgical History: Cholecystectomy, Coronary Bypass/CABG, Pacemaker, Tonsillectomy Additional Past Surgical History / Comment(s): [employer], 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, D&C, TOTAL RIGHT KNEE, cataracts bilaterally, EGD/colonoscopy Past Anesthesia/Blood Transfusion Reactions: No Reported Reaction, Postoperative Nausea & Vomiting (PONV) Additional Past Anesthesia/Blood Transfusion Reaction / Comment(s): Pt states she has received blood in past without reaction. Type of Cardiac Device: Permanent Pacemaker Device Placement Date:: 2010 Smoking Status: Never smoker - Past Family History Sister(s) Family Medical History: Cancer Additional Family Medical History / Comment(s): Sister from lung cancer. She was a heavy smoker. Father Family Medical History: Respiratory Disorder Additional Family Medical History / Comment(s): Father from TB as a young man Mother Additional Family Medical History / Comment(s): Mother had heart problems. She lived to be 78yrs. Medications and Allergies Home Medications Medication Instructions Recorded Confirmed Type Apixaban [Eliquis] 2.5 mg PO BID 01/26/14 07/02/18 History metFORMIN HCL [Glucophage] 1,000 mg PO AC-BID #60 tab 02/25/14 07/02/18 Rx Acetaminophen Tab [Tylenol] 650 mg PO Q6HR PRN #0 tab 10/31/15 07/02/18 Rx Metoprolol Tartrate [Lopressor] 25 mg PO DAILY tab 11/06/16 07/02/18 Rx Ascorbic Acid [Vitamin C] 500 mg PO BID 03/25/17 07/02/18 History Diltiazem Oral [Cardizem*] 30 mg PO BID 03/25/17 07/02/18 History Levothyroxine Sodium [Synthroid] 112 mcg PO DAILY 03/25/17 07/02/18 History Magnesium Oxide [Magox 400] 400 mg PO DAILY 03/25/17 07/02/18 History amLODIPine [Norvasc] 2.5 mg PO DAILY 03/25/17 07/02/18 History Furosemide [Lasix] 40 mg PO DAILY #30 tablet 04/08/17 07/02/18 Rx Cranberry Fruit Extract [Cranberry] 500 mg PO DAILY 04/16/17 07/02/18 History Ferrous Sulfate [Iron (65 MG 325 mg PO DAILY 04/16/17 07/02/18 History Elemental)] Melatonin 5 mg PO HS 04/16/17 07/02/18 History Multivitamins, Thera [Multivitamin 1 tab PO HS 04/16/17 07/02/18 History (formulary)] Potassium Chloride ER [K-Dur 20] 20 meq PO HS 04/16/17 07/02/18 History Furosemide [Lasix] 20 mg PO HS 04/01/18 07/02/18 History Spironolactone [Aldactone] 12.5 mg PO BID 04/01/18 07/02/18 History ALPRAZolam [Xanax] 0.25 mg PO DAILY PRN 07/02/18 07/02/18 History Benzonatate [Tessalon Perles] 100 - 200 mg PO Q6H PRN 07/02/18 07/02/18 History Famotidine [Pepcid] 20 mg PO DAILY PRN 07/02/18 07/02/18 History Nitroglycerin Sl Tabs [Nitrostat] 0.4 mg SUBLINGUAL Q5M PRN #25 tab 07/02/18 Rx diphenhydrAMINE HCL [Benadryl] 25 mg PO HS PRN 07/02/18 07/02/18 History guaiFENesin [Mucinex] 600 mg PO DAILY PRN 07/02/18 07/02/18 History Allergies Allergy/AdvReac Type Severity Reaction Status Date / Time Penicillins Allergy Rash/Hives Verified 07/02/18 07:01 codeine AdvReac Nausea & Verified 07/02/18 07:01 Vomiting Physical Exam Vitals: Vital Signs Temp Pulse Pulse Resp BP BP Pulse Ox 07/02/18 10:00 97.4 F L 90 18 146/65 96 07/02/18 09:00 93 19 125/59 07/02/18 08:00 84 18 124/61 96 07/02/18 07:00 97 18 117/56 96 07/02/18 06:00 81 17 121/58 96 07/02/18 05:00 87 17 126/67 97 07/02/18 04:04 19 07/02/18 04:00 93 19 124/62 96 07/02/18 03:00 96 16 133/66 94 L 07/02/18 02:30 96 19 133/66 97 07/02/18 02:00 96 16 141/69 96 07/02/18 01:30 108 H 15 154/73 96 07/02/18 00:59 98.2 F 102 H 18 159/90 95 Intake and Output 07/01/18 07/02/18 07/02/18 22:59 06:59 14:59 Other: Voiding Method Toilet # Voids 1 Weight 71.214 kg General appearance: average body habitus, no acute distress - EENT Eyes: EOMI, PERRLA ENT: hard of hearing Ears: bilateral: normal - Neck Neck: no lymphadenopathy, no normal ROM Carotids: bilateral: upstroke normal Thyroid: bilateral: normal size - Respiratory Respiratory: bilateral: rales, rhonchi, wheezing, negative: CTA - Cardiovascular Rhythm: irregularly irregular Heart sounds: normal: S1, S2 Abnormal Heart Sounds: no systolic murmur, no diastolic murmur ankle Peripheral Edema: bilateral: None - Gastrointestinal General gastrointestinal: normal bowel sounds, no organomegaly, soft, no tenderness - Neurologic Neurologic: CNII-XII intact - Musculoskeletal Musculoskeletal: generalized weakness and left leg weakness compared to right - Psychiatric Psychiatric: A&O x's 3, appropriate affect Results CBC & Chem 7: 07/02/18 01:15 07/02/18 01:15 Labs: Abnormal Lab Results - Last 24 Hours (Table) 07/02/18 07/02/18 07/02/18 Range/Units 01:15 01:15 01:15 Plt Count 148 L (150-450) k/uL Lymphocytes # 0.6 L (1.0-4.8) k/uL Sodium 129 L (137-145) mmol/L Chloride 96 L (98-107) mmol/L Glucose 151 H (74-99) mg/dL POC Glucose (mg/dL) (75-99) mg/dL Magnesium 1.5 L (1.6-2.3) mg/dL AST 39 H (14-36) U/L Total Creatine Kinase <20 L (30-135) U/L 07/02/18 07/02/18 Range/Units 09:27 11:53 Plt Count (150-450) k/uL Lymphocytes # (1.0-4.8) k/uL Sodium (137-145) mmol/L Chloride (98-107) mmol/L Glucose (74-99) mg/dL POC Glucose (mg/dL) 186 H (75-99) mg/dL Magnesium (1.6-2.3) mg/dL AST (14-36) U/L Total Creatine Kinase <20 L (30-135) U/L Thrombosis Risk Factor Assmnt - DVT/VTE Prophylaxis DVT/VTE Prophylaxis: Pharmacologic Prophylaxis ordered - Choose All That Apply Any of the Below Risk Factors Present?: Yes Other Risk Factors: Yes Each Risk Factor Represents 3 Points: Age 75 years or older Other congenital or acquired thrombophilia - If yes, enter type in comment: No Thrombosis Risk Factor Assessment Total Risk Factor Score: 3 Thrombosis Risk Factor Assessment Level: Moderate Risk Assessment and Plan Plan: 1. Chest pain with negative troponins. Patient will be sent home with sublingual nitroglycerin. 2. Chronic atrial fibrillation and long-term anticoagulation with Eliquis. 3. Chronic diastolic heart failure with pulmonary hypertension- Lasix 40 mg daily and 20 mg in pm, continue Norvasc 2.5 mg by mouth daily. 3. Hypertension. Continue Norvasc 2.5 mg daily, Lasix, diltiazem and metoprolol 4. Hyperlipidemia. Continue Zocor 10 mg at bedtime. 5. COPD without exacerbation. 6. Diabetes mellitus type 2. Continue metformin 7. 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 Continue eliquis 2.5 mg twice daily, simvastatin 10 mg at bedtime. 8. Hypothyroidism. Continue levothyroxine. 9. Severe tricuspid regurgitation, secondary to probably hypertension stable 10. CODE STATUS full code 11. Patient placed in observation status. 12. DVT prophylaxis on maintenance eliquis, Impression and plan of care have been directed as dictated by the signing physician. Jess Romeo nurse practitioner acting as scribe for signing physician.
[2018-07-02 13:53] LABS: Creatine Kinase <20 U/L (30-135)
[2018-07-02 14:06] LABS: Creatine Kinase MB 0.4 ng/mL (0.0-2.4); Troponin I <0.012 ng/mL (0.000-0.034)
[2018-07-02] MEDS ORDERED: POTASSIUM CHLORIDE ER 20 MEQ TAB.ER PO SCH (21:00)
[2018-07-02] MEDS ORDERED: FUROSEMIDE 20 MG TAB PO SCH (21:00)
== END 2018-07-02 14:20 | disposition home or self-care (01) ==
LOC: EC 00:55 → 1SOBS 03:03
PROVIDERS: ADMIT Internal Medicine; ATTEND Internal Medicine
DX: R07.89 Other chest pain (principal); I48.2 Chronic atrial fibrillation; R11.0 Nausea; Z79.01 Long term (current) use of anticoagulants; I25.10 Atherosclerotic heart disease of native coronary artery without angina pectoris; I50.9 Heart failure, unspecified; E11.9 Type 2 diabetes mellitus without complications; E78.5 Hyperlipidemia, unspecified; I10 Essential (primary) hypertension; E03.9 Hypothyroidism, unspecified; I50.32 Chronic diastolic (congestive) heart failure; E87.1 Hypo-osmolality and hyponatremia; I11.0 Hypertensive heart disease with heart failure; D64.9 Anemia, unspecified; J84.10 Pulmonary fibrosis, unspecified; R41.3 Other amnesia; J44.9 Chronic obstructive pulmonary disease, unspecified; I27.20 Pulmonary hypertension, unspecified; Z90.49 Acquired absence of other specified parts of digestive tract; Z95.1 Presence of aortocoronary bypass graft; Z95.0 Presence of cardiac pacemaker; Z80.1 Family history of malignant neoplasm of trachea, bronchus and lung; Z79.84 Long term (current) use of oral hypoglycemic drugs; Z79.890 Hormone replacement therapy; Z79.899 Other long term (current) drug therapy; Z88.5 Allergy status to narcotic agent; Z88.0 Allergy status to penicillin; Z86.73 Personal history of transient ischemic attack (TIA), and cerebral infarction without residual deficits; Z87.19 Personal history of other diseases of the digestive system; Z86.14 Personal history of Methicillin resistant Staphylococcus aureus infection; Z87.440 Personal history of urinary (tract) infections; Z87.01 Personal history of pneumonia (recurrent); I07.1 Rheumatic tricuspid insufficiency; I25.2 Old myocardial infarction
CPT/HCPCS: 99285; 36415; 93005; 80053; 82550; 82553; 83735; 84484; 85025; 85610; 85730; 71046; G0378

== ENCOUNTER 2018-12-24 15:23 | Inpatient (IN) | payer MEDICARE, MEDICAID ==
[2018-12-24] MEDS ORDERED: SODIUM CHLORIDE 0.9% 1,000 ML IV STA (15:43)
[2018-12-24 15:59] LABS: Basophils % (A) 0 %; Eosinophils # (A) 0.9 k/uL (0-0.7); Eosinophils % (A) 11 %; HCT 31.8 % (34.0-46.0); HGB 10.6 gm/dL (11.4-16.0); Lymphocytes # (A) 0.8 k/uL (1.0-4.8); Lymphocytes % (A) 10 %; MCHC 33.4 g/dL (31.0-37.0); Mean Platelet Volume 7.3; Monocytes # (A) 0.5 k/uL (0-1.0); Monocytes % (A) 6 %; Neutrophils # (A) 5.6 k/uL (1.3-7.7); Neutrophils % (A) 71 %; Platelet Count 162 k/uL (150-450); RBC 3.93 m/uL (3.80-5.40); RDW 15.3 % (11.5-15.5); WBC 7.9 k/uL (3.8-10.6)
[2018-12-24 16:17] LABS: INR 1.4 (<1.2); Partial Thromboplastin Time 28.5 sec (22.0-30.0); Prothrombin Time 13.9 sec (9.0-12.0)
[2018-12-24 16:21] LABS: ALT 21 U/L (9-52); AST 30 U/L (14-36); Albumin 3.2 g/dL (3.5-5.0); Alkaline Phosphatase 142 U/L (38-126); Anion Gap 11 mmol/L; Blood Urea Nitrogen 8 mg/dL (7-17); Calcium 8.6 mg/dL (8.4-10.2); Carbon Dioxide 19 mmol/L (22-30); Chloride 98 mmol/L (98-107); Glucose 143 mg/dL (74-99); Magnesium 1.5 mg/dL (1.6-2.3); Potassium 4.3 mmol/L (3.5-5.1); Sodium 128 mmol/L (137-145); Total Bilirubin 0.9 mg/dL (0.2-1.3); Total Protein 6.6 g/dL (6.3-8.2)
--- NOTE | 2018-12-24 16:38 | XR ---
EXAMINATION TYPE: XR KUB DATE OF EXAM: 12/24/2018 COMPARISON: August 29, 2013 HISTORY: Pain TECHNIQUE: 2 views supine FINDINGS: There is no sign of intestinal obstruction or pneumoperitoneum. Fecal pattern is normal. Th ere are no pathologic calcifications over the kidneys. There are clips from cholecystectomy. There is vascular calcification. IMPRESSION: Nonacute abdomen. No adverse change compared to old exam.
--- NOTE | 2018-12-24 16:40 | XR ---
EXAMINATION TYPE: XR chest 2V DATE OF EXAM: 12/24/2018 COMPARISON: 07/02/2018 HISTORY: Weakness TECHNIQUE: Frontal and lateral views of the chest are obtained. FINDINGS: There is mild blunting of costophrenic angles. Heart is enlarged. There is pulmonary vascu lar congestion. There are sternal wires. There are chest leads. There is a left axillary pacemaker. IMPRESSION: Mild congestive heart failure. Pulmonary fibrosis. Pulmonary congestion increased slight ly compared to old exam.
--- NOTE | 2018-12-24 16:53 | ED ---
General Adult HPI - General Chief complaint: Nausea/Vomiting/Diarrhea Stated complaint: weakness Time Seen by Provider: 12/24/18 15:30 Source: patient, EMS, RN notes reviewed, old records reviewed Mode of arrival: EMS Limitations: no limitations - History of Present Illness Initial comments: 88-year-old female presenting with generalized weakness, dehydration. Patient was evaluated by her home care nurse, recommended to present to the emergency department for dehydration. Patient does endorse nausea vomiting over the past 1 week as well as some diarrhea. Denies pain complaints. No chest pain or dyspnea. No abdominal pain. No fever or chills. No dysuria or hematuria. She has not been eating or drinking well. - Related Data Home Medications Medication Instructions Recorded Confirmed Apixaban [Eliquis] 2.5 mg PO BID 01/26/14 12/24/18 Ascorbic Acid [Vitamin C] 500 mg PO BID 03/25/17 12/24/18 Diltiazem Oral [Cardizem*] 30 mg PO BID 03/25/17 12/24/18 Levothyroxine Sodium [Synthroid] 112 mcg PO DAILY 03/25/17 12/24/18 Magnesium Oxide [Magox 400] 400 mg PO DAILY 03/25/17 12/24/18 Cranberry Fruit Extract [Cranberry] 500 mg PO DAILY 04/16/17 12/24/18 Ferrous Sulfate [Iron (65 MG 325 mg PO DAILY 04/16/17 12/24/18 Elemental)] Melatonin 5 mg PO HS 04/16/17 12/24/18 Multivitamins, Thera [Multivitamin 1 tab PO HS 04/16/17 12/24/18 (formulary)] Potassium Chloride ER [K-Dur 20] 20 meq PO HS 04/16/17 12/24/18 ALPRAZolam [Xanax] 0.25 mg PO DAILY PRN 07/02/18 12/24/18 Benzonatate [Tessalon Perles] 100 - 200 mg PO Q6H PRN 07/02/18 12/24/18 Famotidine [Pepcid] 20 mg PO HS PRN 07/02/18 12/24/18 diphenhydrAMINE HCL [Benadryl] 25 mg PO HS PRN 07/02/18 12/24/18 guaiFENesin [Mucinex] 600 mg PO DAILY PRN 07/02/18 12/24/18 Furosemide [Lasix] 40 mg PO Q48H 12/24/18 12/24/18 Previous Rx's Medication Instructions Recorded metFORMIN HCL [Glucophage] 1,000 mg PO AC-BID #60 tab 02/25/14 Acetaminophen Tab [Tylenol] 650 mg PO Q6HR PRN #0 tab 10/31/15 Metoprolol Tartrate [Lopressor] 25 mg PO DAILY tab 11/06/16 Allergies Allergy/AdvReac Type Severity Reaction Status Date / Time Penicillins Allergy Rash/Hives Verified 12/24/18 16:35 codeine AdvReac Nausea & Verified 12/24/18 16:35 Vomiting Review of Systems ROS Statement: Those systems with pertinent positive or pertinent negative responses have been documented in the HPI. ROS Other: All systems not noted in ROS Statement are negative. Past Medical History Past Medical History: Atrial Fibrillation, Coronary Artery Disease (CAD), Heart Failure, CVA/TIA, Diabetes Mellitus, GI Bleed, Hyperlipidemia, Hypertension, Memory Impairment, Osteoarthritis (OA), Pneumonia, Thyroid Disorder Additional Past Medical History / Comment(s): Recurrent UTIs and past mild encephalopathy with UTI, multiple CVA/TIA, 2013 rectal bleed, diverticular dx, chronic anemia, hypothyroid, pt denies prior HI but states her family tells her she has had a prior HI. History of Any Multi-Drug Resistant Organisms: MRSA Date of last positivie culture/infection: 03/12/2014 MDRO Source:: Urine Past Surgical History: Cholecystectomy, Coronary Bypass/CABG, Pacemaker, Tonsillectomy Additional Past Surgical History / Comment(s): [employer], 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, D&C, TOTAL RIGHT KNEE, cataracts bilaterally, EGD/colonoscopy Past Anesthesia/Blood Transfusion Reactions: No Reported Reaction, Postoperative Nausea & Vomiting (PONV) Additional Past Anesthesia/Blood Transfusion Reaction / Comment(s): Pt states she has received blood in past without reaction. Type of Cardiac Device: Permanent Pacemaker Device Placement Date:: 2010 Past Psychological History: No Psychological Hx Reported Smoking Status: Never smoker - Past Family History Sister(s) Family Medical History: Cancer Additional Family Medical History / Comment(s): Sister from lung cancer. She was a heavy smoker. Father Family Medical History: Respiratory Disorder Additional Family Medical History / Comment(s): Father from TB as a young man Mother Additional Family Medical History / Comment(s): Mother had heart problems. She lived to be 78yrs. General Exam Limitations: no limitations General appearance: alert, in no apparent distress Head exam: Present: atraumatic, normocephalic Eye exam: Present: normal appearance, PERRL ENT exam: Present: mucous membranes dry Neck exam: Present: normal inspection. Absent: tenderness, meningismus Respiratory exam: Present: normal lung sounds bilaterally. Absent: respiratory distress, wheezes Cardiovascular Exam: Present: regular rate, normal rhythm GI/Abdominal exam: Present: soft. Absent: distended, tenderness, guarding Extremities exam: Present: normal inspection, normal capillary refill. Absent: calf tenderness Neurological exam: Present: alert, oriented X3, CN II-XII intact. Absent: motor sensory deficit Psychiatric exam: Present: normal affect, normal mood Skin exam: Present: warm, dry, intact. Absent: cyanosis, diaphoretic Course Vital Signs 12/24/18 15:27 Temperature 97.7 F Pulse Rate 82 Respiratory 18 Rate Blood Pressure 137/69 O2 Sat by Pulse 94 L Oximetry EKG Findings - EKG Comments: EKG Findings:: EKG: Atrial fibrillation, left anterior fascicular block, rate of 79, QRS duration 110, QTC 470, no ST segment elevation T waves are upright Medical Decision Making - Medical Decision Making 88-year-old female presenting with generalized weakness, dehydration. Patient clinically does appear dehydrated. His had intermittent vomiting for the past several weeks. No abdominal pain or tenderness. EKG shows rate controlled atrial fibrillation with history of atrial flutter. Patient has abdominal x-ray which is negative for obstruction or intraperitoneal free air. Chest x-ray does show increased pulmonary vascular congestion. Patient has recently been reduced on her Lasix dose from 40 mg in the morning and 20 mg in the afternoon to 20 mg every other day. This was adjusted due to hyponatremia. She has no dyspnea and is saturating well on room air. She has normal white blood cell count, hemoglobin 10.6, sodium is 128 which is stable for this patient per she has a lactic acid 2.5 consistent with dehydration, magnesium 1.5 which is replaced. Urinalysis does show trace ketones. She is given IV hydration, does feel somewhat better on reevaluation. Will be kept in observation for close monitoring. She is given gentle IV hydration. - Lab Data Result diagrams: 12/24/18 15:44 12/24/18 15:44 Lab Results 12/24/18 12/24/18 12/24/18 Range/Units 15:44 15:44 15:44 WBC 7.9 (3.8-10.6) k/uL RBC 3.93 (3.80-5.40) m/uL Hgb 10.6 L (11.4-16.0) gm/dL Hct 31.8 L (34.0-46.0) % MCV 81.0 (80.0-100.0) fL MCH 27.0 (25.0-35.0) pg MCHC 33.4 (31.0-37.0) g/dL RDW 15.3 (11.5-15.5) % Plt Count 162 (150-450) k/uL Neutrophils % 71 % Lymphocytes % 10 % Monocytes % 6 % Eosinophils % 11 % Basophils % 0 % Neutrophils # 5.6 (1.3-7.7) k/uL Lymphocytes # 0.8 L (1.0-4.8) k/uL Monocytes # 0.5 (0-1.0) k/uL Eosinophils # 0.9 H (0-0.7) k/uL Basophils # 0.0 (0-0.2) k/uL PT (9.0-12.0) sec INR (<1.2) APTT (22.0-30.0) sec Sodium 128 L (137-145) mmol/L Potassium 4.3 (3.5-5.1) mmol/L Chloride 98 (98-107) mmol/L Carbon Dioxide 19 L (22-30) mmol/L Anion Gap 11 mmol/L BUN 8 (7-17) mg/dL Creatinine 0.42 L (0.52-1.04) mg/dL Est GFR (CKD-EPI)AfAm >90 (>60 ml/min/1.73 sqM) Est GFR (CKD-EPI)NonAf >90 (>60 ml/min/1.73 sqM) Glucose 143 H (74-99) mg/dL Plasma Lactic Acid Fred 2.5 H* (0.7-2.0) mmol/L Calcium 8.6 (8.4-10.2) mg/dL Magnesium 1.5 L (1.6-2.3) mg/dL Total Bilirubin 0.9 (0.2-1.3) mg/dL AST 30 (14-36) U/L ALT 21 (9-52) U/L Alkaline Phosphatase 142 H (38-126) U/L Troponin I (0.000-0.034) ng/mL Total Protein 6.6 (6.3-8.2) g/dL Albumin 3.2 L (3.5-5.0) g/dL Urine Color Urine Appearance (Clear) Urine pH (5.0-8.0) Ur Specific [place] (1.001-1.035) Urine Protein (Negative) Urine Glucose (UA) (Negative) Urine Ketones (Negative) Urine Blood (Negative) Urine Nitrite (Negative) Urine Bilirubin (Negative) Urine Urobilinogen (<2.0) mg/dL Ur Leukocyte Esterase (Negative) Urine RBC (0-5) /hpf Urine WBC (0-5) /hpf Ur Squamous Epith Cells (0-4) /hpf Urine Bacteria (None) /hpf Hyaline Casts (0-2) /lpf Urine Mucus (None) /hpf 12/24/18 12/24/18 12/24/18 Range/Units 15:44 15:44 17:28 WBC (3.8-10.6) k/uL RBC (3.80-5.40) m/uL Hgb (11.4-16.0) gm/dL Hct (34.0-46.0) % MCV (80.0-100.0) fL MCH (25.0-35.0) pg MCHC (31.0-37.0) g/dL RDW (11.5-15.5) % Plt Count (150-450) k/uL Neutrophils % % Lymphocytes % % Monocytes % % Eosinophils % % Basophils % % Neutrophils # (1.3-7.7) k/uL Lymphocytes # (1.0-4.8) k/uL Monocytes # (0-1.0) k/uL Eosinophils # (0-0.7) k/uL Basophils # (0-0.2) k/uL PT 13.9 H (9.0-12.0) sec INR 1.4 H (<1.2) APTT 28.5 (22.0-30.0) sec Sodium (137-145) mmol/L Potassium (3.5-5.1) mmol/L Chloride (98-107) mmol/L Carbon Dioxide (22-30) mmol/L Anion Gap mmol/L BUN (7-17) mg/dL Creatinine (0.52-1.04) mg/dL Est GFR (CKD-EPI)AfAm (>60 ml/min/1.73 sqM) Est GFR (CKD-EPI)NonAf (>60 ml/min/1.73 sqM) Glucose (74-99) mg/dL Plasma Lactic Acid Fred (0.7-2.0) mmol/L Calcium (8.4-10.2) mg/dL Magnesium (1.6-2.3) mg/dL Total Bilirubin (0.2-1.3) mg/dL AST (14-36) U/L ALT (9-52) U/L Alkaline Phosphatase (38-126) U/L Troponin I <0.012 (0.000-0.034) ng/mL Total Protein (6.3-8.2) g/dL Albumin (3.5-5.0) g/dL Urine Color Yellow Urine Appearance Clear (Clear) Urine pH 5.0 (5.0-8.0) Ur Specific [place] 1.010 (1.001-1.035) Urine Protein Negative (Negative) Urine Glucose (UA) Negative (Negative) Urine Ketones Trace H (Negative) Urine Blood Negative (Negative) Urine Nitrite Negative (Negative) Urine Bilirubin Negative (Negative) Urine Urobilinogen <2.0 (<2.0) mg/dL Ur Leukocyte Esterase Small H (Negative) Urine RBC 24 H (0-5) /hpf Urine WBC 7 H (0-5) /hpf Ur Squamous Epith Cells 1 (0-4) /hpf Urine Bacteria Rare H (None) /hpf Hyaline Casts 1 (0-2) /lpf Urine Mucus Rare H (None) /hpf Disposition Clinical Impression: Weakness, Dehydration Disposition: ADMITTED IP TO THIS [facility] Condition: Stable Is patient prescribed a controlled substance at d/c from ED?: No Referrals: Cliff Conklin MD [Primary Care Provider] - 1-2 days Decision to Admit Reason: Admit from EC Decision Date: 12/24/18 Decision Time: 19:08
[2018-12-24 18:05] LABS: Appearance,Urine Clear (Clear); Bacteria,Urine Rare /hpf; Bilirubin,Urine Negative (Negative); Blood,Urine Negative (Negative); Color,Urine Yellow; Glucose,Urine (UA) Negative (Negative); Hyaline Casts,Urine 1 /lpf (0-2); Ketones,Urine Trace (Negative); Leukocyte Esterase,Urine Small (Negative); Mucus,Urine Rare /hpf; Nitrite,Urine Negative (Negative); Protein,Urine Negative (Negative); RBC,Urine 24 /hpf (0-5); Squamous Epithelial Cell,Urine 1 /hpf (0-4); Urobilinogen,Urine <2.0 mg/dL (<2.0); WBC,Urine 7 /hpf (0-5)
[2018-12-24] MEDS ORDERED: MAGNESIUM SULFATE-D5W PMX 1 GM in DEXTROSE/WATER 1 100ML.BAG IVPB ONE (18:19)
[2018-12-24] MEDS ORDERED: SODIUM CHLORIDE 0.9% 500 ML 500 ML IV ONE (18:19)
[2018-12-24] MEDS ORDERED: ACETAMINOPHEN TAB 325 MG TAB PO PRN (19:00)
[2018-12-24] MEDS ORDERED: NALOXONE 0.4 MG/ML 1 ML VIAL IV PRN (19:00)
[2018-12-24] MEDS ORDERED: ONDANSETRON 4 MG/2 ML VIAL IVP PRN (19:00)
[2018-12-24] MEDS ORDERED: FUROSEMIDE 10 MG/ML 2 ML VIAL IV ONE (19:00)
[2018-12-24] MEDS: SODIUM CHLORIDE 0.9% 1,000 ML IV SCH (19:25)
[2018-12-24 22:12] VITALS: BMI 25.7
[2018-12-24 22:18] LABS: Glucose,Whole Blood 144 mg/dL (75-99)
[2018-12-25 06:03] VITALS: BP 109/66; PULSE 101; RESP 20; TEMP 98.1
[2018-12-25 07:13] LABS: Glucose,Whole Blood 134 mg/dL (75-99)
[2018-12-25] MEDS: SODIUM CHLORIDE 0.9% 1,000 ML IV SCH (07:42)
[2018-12-25] MEDS ORDERED: FAMOTIDINE 20 MG TAB PO PRN (09:30)
[2018-12-25] MEDS ORDERED: diphenhydrAMINE 25 MG CAP PO PRN (09:30)
[2018-12-25] MEDS ORDERED: ACETAMINOPHEN TAB 325 MG TAB PO PRN (09:30)
[2018-12-25] MEDS ORDERED: DILTIAZEM ORAL 30 MG TAB PO SCH (09:30)
[2018-12-25] MEDS ORDERED: APIXABAN 2.5 MG TABLET PO SCH (09:30)
[2018-12-25] MEDS ORDERED: ALPRAZolam 0.25 MG TAB PO PRN (09:30)
[2018-12-25] MEDS ORDERED: metFORMIN 500 MG TAB PO SCH (09:45)
[2018-12-25] MEDS ORDERED: LEVOTHYROXINE 112 MCG TAB PO SCH (09:45)
[2018-12-25] MEDS ORDERED: METOPROLOL TARTRATE 25 MG TAB PO SCH (09:45)
[2018-12-25] MEDS ORDERED: MAGNESIUM OXIDE 400 MG TAB PO SCH (09:45)
[2018-12-25 11:04] LABS: Basophils % (A) 0 %; Eosinophils # (A) 0.8 k/uL (0-0.7); Eosinophils % (A) 13 %; HCT 32.4 % (34.0-46.0); HGB 10.4 gm/dL (11.4-16.0); Lymphocytes # (A) 0.6 k/uL (1.0-4.8); Lymphocytes % (A) 9 %; MCH 26.7 pg (25.0-35.0); MCHC 32.1 g/dL (31.0-37.0); MCV 83.2 fL (80.0-100.0); Monocytes # (A) 0.3 k/uL (0-1.0); Monocytes % (A) 6 %; Neutrophils # (A) 4.4 k/uL (1.3-7.7); Neutrophils % (A) 71 %; Platelet Count 163 k/uL (150-450); RDW 14.8 % (11.5-15.5); WBC 6.2 k/uL (3.8-10.6)
[2018-12-25 11:18] LABS: ALT 25 U/L (9-52); AST 30 U/L (14-36); Alkaline Phosphatase 132 U/L (38-126); Anion Gap 7 mmol/L; Blood Urea Nitrogen 8 mg/dL (7-17); Calcium 8.2 mg/dL (8.4-10.2); Carbon Dioxide 22 mmol/L (22-30); Chloride 101 mmol/L (98-107); Glucose 179 mg/dL (74-99); Potassium 4.3 mmol/L (3.5-5.1); Sodium 130 mmol/L (137-145); Total Protein 6.3 g/dL (6.3-8.2)
[2018-12-25] MEDS ORDERED: INSULIN ASPART (NovoLOG) 100 UNIT/ML VIAL SQ SCH (12:30)
--- NOTE | 2018-12-25 14:50 | P.HPIM ---
History of Present Illness H&P Date: 12/25/18 HISTORY AND PHYSICAL AND DISCHARGE SUMMARY: This is an 88-year-old female patient of Dr. Conklin with a past medical history significant for chronic atrial fibrillation on eliquis, coronary artery disease, heart failure, stroke, diabetes, GI bleed 2013, hyperlipidemia, hypertension, hypothyroidism. Patient has nausea and vomiting as well as diarrhea that has been going on for one week. She denies having any pain, shortness of breath. She states she is not eating very much. The patient had a recent reduction in her Lasix dose from 40 mg in the morning 20 mg in the afternoon to 20 mg every day due to hyponatremia. Patient presented to [facility] emergency center for evaluation. She was afebrile, heart rate 82, blood pressure 137/69, pulse ox 94% on room air. EKG was atrial fibrillation with a left anterior vesicular block, no ST-T wave changes. White count was normal, hemoglobin 10.6 and platelet count 162. Sodium 128, potassium 4.3, chloride 98, CO2 19, BUN 18 creatinine 0.42 blood sugar 143. Lactic acid 2.5, magnesium 1.5 and replaced. Urinalysis showed trace ketones, RBCs 24, WBC 7, bacteria rare. Troponin negative. Abdominal x-ray shows nonspecific abdomen. No adverse change compared to old exam. X-ray reveals mild congestive heart failure. Pulmonary fibrosis. Pulmonary congestion increased slightly compared to old exam. Patient was given 1 L of IV fluids, continued on IV fluids at 50 mL per hour and admitted to the [facility] floor. The patient has had no further nausea or vomiting. No diarrhea. Patient feels much improved after IV fluids. The patient is able to eat. No abdominal pain at this point. She is anxious to go home. She does have caregivers from 9:30 to 5. Patient will call her son for transportation home. Review of Systems Constitutional: Reports poor appetite, Denies chills, Denies fever Ears, nose, mouth and throat: Denies dysphagia, Denies nasal congestion, Denies nasal discharge, Denies vertigo Cardiovascular: Denies chest pain, Denies decreased exercise tolerance, Denies dyspnea on exertion, Denies edema, Denies leg edema, Denies lightheadedness, Denies syncope Respiratory: Denies cough, Denies cough with sputum, Denies dyspnea, Denies excessive sputum, Denies hemoptysis, Denies home oxygen, Denies wheezing Gastrointestinal: Reports diarrhea, Reports loss of appetite, Reports nausea, Reports vomiting, Denies abdominal pain Genitourinary: Denies dysuria, Denies urgency, Denies urinary frequency Musculoskeletal: Denies frequent falls, Denies myalgias Integumentary: Denies pruritus, Denies rash, Denies wounds Neurological: Denies aphasia, Denies change in mentation, Denies change in speech, Denies confusion, Denies gait dysfunction, Denies seizures Psychiatric: Denies anxiety, Denies depression Endocrine: Denies fatigue, Denies weight change Past Medical History Past Medical History: No Reported History (When he does awaken), Atrial Fibrillation, Coronary Artery Disease (CAD), Heart Failure, CVA/TIA, Diabetes Mellitus, GI Bleed, Hyperlipidemia, Hypertension, Memory Impairment, Osteoarthritis (OA), Pneumonia, Thyroid Disorder Additional Past Medical History / Comment(s): Recurrent UTIs and past mild ence phalopathy with UTI, multiple CVA/TIA, 2013 rectal bleed, diverticular dx, chronic anemia, hypothyroid, pt denies prior VA but states her family tells her she has had a prior VA. History of Any Multi-Drug Resistant Organisms: MRSA Date of last positivie culture/infection: 03/12/2014 MDRO Source:: Urine Past Surgical History: Cholecystectomy, Coronary Bypass/CABG, Pacemaker, Tonsillectomy Additional Past Surgical History / Comment(s): [employer], 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, D&C, TOTAL RIGHT KNEE, cataracts bilaterally, EGD/colonoscopy Past Anesthesia/Blood Transfusion Reactions: No Reported Reaction, Postoperative Nausea & Vomiting (PONV) Additional Past Anesthesia/Blood Transfusion Reaction / Comment(s): Pt states she has received blood in past without reaction. Type of Cardiac Device: Permanent Pacemaker Device Placement Date:: 2010 Past Psychological History: No Psychological Hx Reported Additional Psychological History / Comment(s): Pt lives alone. She uses a walker to ambulate. She has paid help come in 5 days a week to clean and cook. Her daughter in law puts her meds in dispenser for her to take. Smoking Status: Never smoker Past Alcohol Use History: None Reported Additional Past Alcohol Use History / Comment(s): Pt smoked for 6 months in 1954 Past Drug Use History: None Reported - Past Family History Sister(s) Family Medical History: Cancer Additional Family Medical History / Comment(s): Sister from lung cancer. She was a heavy smoker. Father Family Medical History: Respiratory Disorder Additional Family Medical History / Comment(s): Father from TB as a young man Mother Additional Family Medical History / Comment(s): Mother had heart problems. She lived to be 78yrs. Medications and Allergies Home Medications Medication Instructions Recorded Confirmed Type Apixaban [Eliquis] 2.5 mg PO BID 01/26/14 12/24/18 History metFORMIN HCL [Glucophage] 1,000 mg PO AC-BID #60 tab 02/25/14 12/24/18 Rx Acetaminophen Tab [Tylenol] 650 mg PO Q6HR PRN #0 tab 10/31/15 12/24/18 Rx Metoprolol Tartrate [Lopressor] 25 mg PO DAILY tab 11/06/16 12/24/18 Rx Ascorbic Acid [Vitamin C] 500 mg PO BID 03/25/17 12/24/18 History Diltiazem Oral [Cardizem*] 30 mg PO BID 03/25/17 12/24/18 History Levothyroxine Sodium [Synthroid] 112 mcg PO DAILY 03/25/17 12/24/18 History Magnesium Oxide [Magox 400] 400 mg PO DAILY 03/25/17 12/24/18 History Cranberry Fruit Extract [Cranberry] 500 mg PO DAILY 04/16/17 12/24/18 History Ferrous Sulfate [Iron (65 MG 325 mg PO DAILY 04/16/17 12/24/18 History Elemental)] Melatonin 5 mg PO HS 04/16/17 12/24/18 History Multivitamins, Thera [Multivitamin 1 tab PO HS 04/16/17 12/24/18 History (formulary)] ALPRAZolam [Xanax] 0.25 mg PO DAILY PRN 07/02/18 12/24/18 History Benzonatate [Tessalon Perles] 100 - 200 mg PO Q6H PRN 07/02/18 12/24/18 History Famotidine [Pepcid] 20 mg PO HS PRN 07/02/18 12/24/18 History diphenhydrAMINE HCL [Benadryl] 25 mg PO HS PRN 07/02/18 12/24/18 History guaiFENesin [Mucinex] 600 mg PO DAILY PRN 07/02/18 12/24/18 History Allergies Allergy/AdvReac Type Severity Reaction Status Date / Time Penicillins Allergy Rash/Hives Verified 12/24/18 16:35 codeine AdvReac Nausea & Verified 12/24/18 16:35 Vomiting Physical Exam Vitals: Vital Signs Temp Pulse Pulse Resp BP BP Pulse Ox 12/25/18 06:02 98.1 F 101 H 20 109/66 95 12/25/18 00:00 81 18 12/24/18 23:00 97.4 F L 81 18 121/70 96 12/24/18 21:14 98.0 F 87 18 132/87 94 L 12/24/18 19:00 89 17 123/56 12/24/18 18:30 78 18 115/52 12/24/18 18:00 87 18 140/63 12/24/18 17:30 86 17 12/24/18 17:00 84 20 137/69 95 12/24/18 16:30 80 18 131/93 95 12/24/18 16:00 79 28 H 133/67 12/24/18 15:34 137/69 94 L 12/24/18 15:27 97.7 F 82 18 137/69 94 L Intake and Output 12/24/18 12/25/18 12/25/18 22:59 06:59 14:59 Intake Total 250 200 Output Total 400 Balance 250 -200 Intake: Oral 250 200 Output: Urine 400 Other: Voiding Method Bedside Commode Bedside Commode Diaper Diaper # Voids 1 1 # Bowel Movements 0 Weight 76.657 kg General appearance: average body habitus, no acute distress - EENT Eyes: EOMI, PERRLA ENT: hard of hearing Ears: bilateral: normal - Neck Neck: no lymphadenopathy, no normal ROM Carotids: bilateral: upstroke normal Thyroid: bilateral: normal size - Respiratory Respiratory: bilateral: rales, rhonchi, wheezing, negative: CTA - Cardiovascular Rhythm: irregularly irregular Heart sounds: normal: S1, S2 Abnormal Heart Sounds: no systolic murmur, no diastolic murmur ankle Peripheral Edema: bilateral: None - Gastrointestinal General gastrointestinal: normal bowel sounds, no organomegaly, soft, no ten derness - Neurologic Neurologic: CNII-XII intact - Musculoskeletal Musculoskeletal: generalized weakness and left leg weakness compared to right - Psychiatric Psychiatric: A&O x's 3, appropriate affect Results CBC & Chem 7: 12/25/18 10:49 12/25/18 10:49 Labs: Abnormal Lab Results - Last 24 Hours (Table) 12/24/18 12/24/18 12/24/18 Range/Units 15:44 15:44 15:44 Hgb 10.6 L (11.4-16.0) gm/dL Hct 31.8 L (34.0-46.0) % Lymphocytes # 0.8 L (1.0-4.8) k/uL Eosinophils # 0.9 H (0-0.7) k/uL PT (9.0-12.0) sec INR (<1.2) Sodium 128 L (137-145) mmol/L Carbon Dioxide 19 L (22-30) mmol/L Creatinine 0.42 L (0.52-1.04) mg/dL Glucose 143 H (74-99) mg/dL POC Glucose (mg/dL) (75-99) mg/dL Plasma Lactic Acid Fred 2.5 H* (0.7-2.0) mmol/L Magnesium 1.5 L (1.6-2.3) mg/dL Alkaline Phosphatase 142 H (38-126) U/L Albumin 3.2 L (3.5-5.0) g/dL Urine Ketones (Negative) Ur Leukocyte Esterase (Negative) Urine RBC (0-5) /hpf Urine WBC (0-5) /hpf Urine Bacteria (None) /hpf Urine Mucus (None) /hpf 12/24/18 12/24/18 12/24/18 Range/Units 15:44 17:28 22:15 Hgb (11.4-16.0) gm/dL Hct (34.0-46.0) % Lymphocytes # (1.0-4.8) k/uL Eosinophils # (0-0.7) k/uL PT 13.9 H (9.0-12.0) sec INR 1.4 H (<1.2) Sodium (137-145) mmol/L Carbon Dioxide (22-30) mmol/L Creatinine (0.52-1.04) mg/dL Glucose (74-99) mg/dL POC Glucose (mg/dL) 144 H (75-99) mg/dL Plasma Lactic Acid Fred (0.7-2.0) mmol/L Magnesium (1.6-2.3) mg/dL Alkaline Phosphatase (38-126) U/L Albumin (3.5-5.0) g/dL Urine Ketones Trace H (Negative) Ur Leukocyte Esterase Small H (Negative) Urine RBC 24 H (0-5) /hpf Urine WBC 7 H (0-5) /hpf Urine Bacteria Rare H (None) /hpf Urine Mucus Rare H (None) /hpf 12/25/18 Range/Units 07:11 Hgb (11.4-16.0) gm/dL Hct (34.0-46.0) % Lymphocytes # (1.0-4.8) k/uL Eosinophils # (0-0.7) k/uL PT (9.0-12.0) sec INR (<1.2) Sodium (137-145) mmol/L Carbon Dioxide (22-30) mmol/L Creatinine (0.52-1.04) mg/dL Glucose (74-99) mg/dL POC Glucose (mg/dL) 134 H (75-99) mg/dL Plasma Lactic Acid Fred (0.7-2.0) mmol/L Magnesium (1.6-2.3) mg/dL Alkaline Phosphatase (38-126) U/L Albumin (3.5-5.0) g/dL Urine Ketones (Negative) Ur Leukocyte Esterase (Negative) Urine RBC (0-5) /hpf Urine WBC (0-5) /hpf Urine Bacteria (None) /hpf Urine Mucus (None) /hpf Microbiology - Last 24 Hours (Table) 12/24/18 17:28 Urine Culture - Preliminary Urine,Voided Thrombosis Risk Factor Assmnt - DVT/VTE Prophylaxis DVT/VTE Prophylaxis: Pharmacologic Prophylaxis ordered - Choose All That Apply Any of the Below Risk Factors Present?: Yes Each Factor Represents 1 point: Heart failure (<1month), Hx of IBD Other Risk Factors: Yes Each Risk Factor Represents 3 Points: Age 75 years or older, History of DVT/PE Thrombosis Risk Factor Assessment Total Risk Factor Score: 8 Thrombosis Risk Factor Assessment Level: High Risk Assessment and Plan Plan: 1. Dehydration secondary to nausea vomiting and diarrhea. Patient status post IV fluids with improvement. Lasix held until follow up with Dr. Rubin. 2. Hyponatremia at 128. Patient had Lasix decrease outpatient recently due to hyponatremia. Repeat sodium is 130. 3. Chronic atrial fibrillation and long-term anticoagulation with Eliquis. Continue Cardizem 30 mg twice daily, Lopressor 25 mg daily. 4. Chronic diastolic heart failure with pulmonary hypertension- Lasix 40 mg daily and 20 mg in pm and recently changed to 20 mg twice daily. Lasix on hold, continue Cardizem and Lopressor. 5. Hypertension. Continue diltiazem and metoprolol 6. Hyperlipidemia. Not currently on statin. 7. COPD without exacerbation. 8. Diabetes mellitus type 2. Continue metformin and NovoLog scale before meals and at bedtime. 9. 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 Continue eliquis 2.5 mg twice daily, Lopressor. 10. Hypothyroidism. Continue levothyroxine. 11. Severe tricuspid regurgitation, secondary to probably hypertension stable 12. CODE STATUS full code 13. Patient admitted to the hospital for a minimum of 2 night stay. 14. DVT prophylaxis on maintenance eliquis. 15. GI prophylaxis. Pepcid. Discharge plan: Home today Impression and plan of care have been directed as dictated by the signing physician. Jess Romeo nurse practitioner acting as scribe for signing physician.
[2018-12-25] MEDS ORDERED: MELATONIN 5 MG TABLET PO SCH (21:00)
== END 2018-12-25 12:33 | disposition home or self-care (01) | DRG 641 ==
LOC: EC 15:23 → 4MS4W 19:03
PROVIDERS: ADMIT Internal Medicine; ATTEND Internal Medicine
DX: E86.0 Dehydration (principal); I50.32 Chronic diastolic (congestive) heart failure; E87.1 Hypo-osmolality and hyponatremia; I48.2 Chronic atrial fibrillation; I27.20 Pulmonary hypertension, unspecified; I07.1 Rheumatic tricuspid insufficiency; I11.0 Hypertensive heart disease with heart failure; J44.9 Chronic obstructive pulmonary disease, unspecified; J84.10 Pulmonary fibrosis, unspecified; E11.9 Type 2 diabetes mellitus without complications; I44.4 Left anterior fascicular block; E78.5 Hyperlipidemia, unspecified; E03.9 Hypothyroidism, unspecified; I25.10 Atherosclerotic heart disease of native coronary artery without angina pectoris; M19.90 Unspecified osteoarthritis, unspecified site; I25.2 Old myocardial infarction; Z79.01 Long term (current) use of anticoagulants; Z79.84 Long term (current) use of oral hypoglycemic drugs; Z79.890 Hormone replacement therapy; Z79.899 Other long term (current) drug therapy; Z95.1 Presence of aortocoronary bypass graft; Z86.73 Personal history of transient ischemic attack (TIA), and cerebral infarction without residual deficits; Z87.01 Personal history of pneumonia (recurrent); Z87.440 Personal history of urinary (tract) infections; Z86.14 Personal history of Methicillin resistant Staphylococcus aureus infection; Z90.49 Acquired absence of other specified parts of digestive tract; Z87.19 Personal history of other diseases of the digestive system; Z86.79 Personal history of other diseases of the circulatory system; Z95.0 Presence of cardiac pacemaker; Z98.890 Other specified postprocedural states; Z96.651 Presence of right artificial knee joint; Z98.42 Cataract extraction status, left eye; Z98.41 Cataract extraction status, right eye; Z88.5 Allergy status to narcotic agent; Z88.0 Allergy status to penicillin; Z81.2 Family history of tobacco abuse and dependence; Z80.1 Family history of malignant neoplasm of trachea, bronchus and lung; Z83.1 Family history of other infectious and parasitic diseases; D64.9 Anemia, unspecified
CPT/HCPCS: 36415; 71046; 74018; 80053; 81001; 83605; 83735; 84484; 85025; 85610; 85730; 87086; 93005; 96361; 96365; 96366; 96375; 99285

== ENCOUNTER 2019-01-06 20:52 | Inpatient (IN) | payer MEDICARE, MEDICAID ==
[2019-01-06] MEDS ORDERED: SODIUM CHLORIDE 0.9% 1,000 ML IV STA (21:28)
--- NOTE | 2019-01-06 21:30 | ED ---
General Adult HPI - General Chief complaint: Nausea/Vomiting/Diarrhea Stated complaint: abd pain Time Seen by Provider: 01/06/19 21:02 Source: patient Mode of arrival: EMS - History of Present Illness Initial comments: Dictation was produced using [employer] dictation software. please excuse any grammatical, word or spelling errors. Chief Complaint: 88-year-old female with multiple comorbidities presents with abdominal cramping and dehydration. History of Present Illness: A 8-year-old female with multiple comorbidities presents today via EMS for abdominal cramping. Patient lives at home alone. She was being visited by her family members at home. EMS was called and brought patient to the emergency department for chief complaint of abdominal cramping. Patient is currently being arranged for admission to assisted living versus the [facility] on Friday. Patient is refusing fluid intake per family members. When asked why she is not drink fluids she reports she simply not thirsty. Patient also complains of some epigastric and right upper quadrant abdominal pain. She has history of cholecystectomy. Patient denies any fever, chills or night sweats. She states the pain has been ongoing just today. She denies having had symptoms like this in the past. Patient was recently admitted to the hospital last week for dehydration. She was placed in observation given intravenous fluids and discharged. Patient denies a fever, chills or night sweats. Denies any diarrhea. She was transferred here via EMS. She was given intravenous fluids and Zofran. The ROS documented in this emergency department record has been reviewed and confirmed by me. Those systems with pertinent positive or negative responses have been documented in the HPI. All other systems are other negative and/or noncontributory. PHYSICAL EXAM: General Impression: Alert and oriented x3, not in acute distress HEENT: Normocephalic atraumatic, extra-ocular movements intact, pupils equal and reactive to light bilaterally, dry mucous membranes Cardiovascular: Heart regular rate and rhythm, S1&S2 audible, no murmurs, rubs or gallops Chest: Lungs clear to auscultation bilaterally, no rhonchi, no wheeze, no rales Abdomen: Bowel sounds present, abdomen soft, non-tender, non-distended, no organomegaly Musculoskeletal: Pulses present and equal in all extremities, no peripheral edema Motor: no focal deficits noted Neurological: CN II-XII grossly intact, no focal motor or sensory deficits noted Skin: Intact with no visualized rashes Psych: Normal affect and mood ED course: 88-year-old female presents with abdominal cramping and anorexia. Milvia gloira has not been drinking fluids as instructed per family members. Vital signs upon arrival shows findings within acceptable limits. Laboratory evaluation obtained. Patient is leukocytosis of 11.1 likely secondary to stress. Coag panel shows INR 1.8. This x-ray with abdominal x-ray shows no acute processes. Metabolic panel shows sodium of 127, potassium of 5.3, there is mild non-gap acidosis with a bicarb of 19. Magnesium is 1.5 urinalysis is unremarkable. Clinical presentation consistent with severe dehydration and hyponatremia. This point there is no source of infection at this time. Discussed patient case with Dr. Conklin who is willing to accept care for the patient in the hospital. Patient and family members is understandable and agreeable to disposition. EKG interpretation: Ventricular rate 97, undetermined rhythm however suspect sinus, QS 12, QTc 462. No NH prolongation, no QTC prolongation, no ST or T-wave changes noted. EKG compared to 12/24/2018 showing no changes. Overall, this EKG is unremarkable - Related Data Home Medications Medication Instructions Recorded Confirmed Apixaban [Eliquis] 2.5 mg PO BID 01/26/14 01/06/19 Ascorbic Acid [Vitamin C] 500 mg PO BID 03/25/17 01/06/19 Diltiazem Oral [Cardizem*] 30 mg PO BID 03/25/17 01/06/19 Levothyroxine Sodium [Synthroid] 112 mcg PO DAILY 03/25/17 01/06/19 Magnesium Oxide [Magox 400] 400 mg PO DAILY 03/25/17 01/06/19 Cranberry Fruit Extract [Cranberry] 500 mg PO DAILY 04/16/17 01/06/19 Ferrous Sulfate [Iron (65 MG 325 mg PO DAILY 04/16/17 01/06/19 Elemental)] Melatonin 5 mg PO HS 04/16/17 01/06/19 Multivitamins, Thera [Multivitamin 1 tab PO HS 04/16/17 01/06/19 (formulary)] ALPRAZolam [Xanax] 0.25 mg PO DAILY PRN 07/02/18 01/06/19 Benzonatate [Tessalon Perles] 100 - 200 mg PO Q6H PRN 07/02/18 01/06/19 Famotidine [Pepcid] 20 mg PO HS PRN 07/02/18 01/06/19 diphenhydrAMINE HCL [Benadryl] 25 mg PO HS PRN 07/02/18 01/06/19 guaiFENesin [Mucinex] 600 mg PO DAILY PRN 07/02/18 01/06/19 Albuterol Inhaler [Ventolin Hfa 1 - 2 puff INHALATION RT-Q6H PRN 01/06/19 01/06/19 Inhaler] Furosemide [Lasix] 40 mg PO Q48H 01/06/19 01/06/19 Omeprazole [PriLOSEC] 20 mg PO DAILY PRN 01/06/19 01/06/19 Ondansetron HCl [Zofran] 4 mg PO Q6H PRN 01/06/19 01/06/19 Potassium 99 mg PO HS 01/06/19 01/06/19 Simethicone [Gas-X] 125 mg PO TID PRN 01/06/19 01/06/19 metFORMIN HCL [Glucophage] 1,000 mg PO BID 01/06/19 01/06/19 Previous Rx's Medication Instructions Recorded Acetaminophen Tab [Tylenol] 650 mg PO Q6HR PRN #0 tab 10/31/15 Metoprolol Tartrate [Lopressor] 25 mg PO DAILY tab 11/06/16 Allergies Allergy/AdvReac Type Severity Reaction Status Date / Time Penicillins Allergy Rash/Hives Verified 01/06/19 21:51 codeine AdvReac Nausea & Verified 01/06/19 21:51 Vomiting Review of Systems ROS Statement: Those systems with pertinent positive or pertinent negative responses have been documented in the HPI. ROS Other: All systems not noted in ROS Statement are negative. Past Medical History Past Medical History: No Reported History, Atrial Fibrillation, Coronary Artery Disease (CAD), Heart Failure, CVA/TIA, Diabetes Mellitus, GI Bleed, Hyperlipidemia, Hypertension, Memory Impairment, Osteoarthritis (OA), Pneumonia, Thyroid Disorder Additional Past Medical History / Comment(s): Recurrent UTIs and past mild encephalopathy with UTI, multiple CVA/TIA, 2014 rectal bleed, diverticular dx, chronic anemia, hypothyroid, pt denies prior VA but states her family tells her she has had a prior VA. History of Any Multi-Drug Resistant Organisms: MRSA Date of last positivie culture/infection: 03/12/2014 MDRO Source:: Urine Past Surgical History: Cholecystectomy, Coronary Bypass/CABG, Pacemaker, Tonsillectomy Additional Past Surgical History / Comment(s): [employer], 2005 CABG X4, D&C, TOTAL RIGHT KNEE, cataracts bilaterally, EGD/colonoscopy Past Anesthesia/Blood Transfusion Reactions: No Reported Reaction, Postoperative Nausea & Vomiting (PONV) Additional Past Anesthesia/Blood Transfusion Reaction / Comment(s): Pt states she has received blood in past without reaction. Type of Cardiac Device: Permanent Pacemaker Device Placement Date:: 2010 Past Psychological History: No Psychological Hx Reported Smoking Status: Never smoker Past Alcohol Use History: None Reported Past Drug Use History: None Reported - Past Family History Sister(s) Family Medical History: Cancer Additional Family Medical History / Comment(s): Sister from lung cancer. She was a heavy smoker. Father Family Medical History: Respiratory Disorder Additional Family Medical History / Comment(s): Father from TB as a young man Mother Additional Family Medical History / Comment(s): Mother had heart problems. She lived to be 78yrs. Course Vital Signs 01/06/19 01/06/19 20:57 22:03 Temperature 98.6 F Pulse Rate 98 80 Respiratory 16 16 Rate Blood Pressure 170/67 109/65 O2 Sat by Pulse 92 L 99 Oximetry Medical Decision Making - Lab Data Result diagrams: 01/06/19 21:06 01/06/19 21:06 Lab Results 01/06/19 01/06/19 01/06/19 Range/Units 21:06 21:06 21:06 WBC 11.1 H (3.8-10.6) k/uL RBC 4.07 (3.80-5.40) m/uL Hgb 11.2 L (11.4-16.0) gm/dL Hct 33.8 L (34.0-46.0) % MCV 82.9 (80.0-100.0) fL MCH 27.4 (25.0-35.0) pg MCHC 33.0 (31.0-37.0) g/dL RDW 15.3 (11.5-15.5) % Plt Count 193 (150-450) k/uL Neutrophils % 78 % Lymphocytes % 7 % Monocytes % 5 % Eosinophils % 10 % Basophils % 0 % Neutrophils # 8.6 H (1.3-7.7) k/uL Lymphocytes # 0.7 L (1.0-4.8) k/uL Monocytes # 0.5 (0-1.0) k/uL Eosinophils # 1.1 H (0-0.7) k/uL Basophils # 0.0 (0-0.2) k/uL PT (9.0-12.0) sec INR (<1.2) Sodium (137-145) mmol/L Potassium (3.5-5.1) mmol/L Chloride (98-107) mmol/L Carbon Dioxide (22-30) mmol/L Anion Gap mmol/L BUN (7-17) mg/dL Creatinine (0.52-1.04) mg/dL Est GFR (CKD-EPI)AfAm (>60 ml/min/1.73 sqM) Est GFR (CKD-EPI)NonAf (>60 ml/min/1.73 sqM) Glucose (74-99) mg/dL Calcium (8.4-10.2) mg/dL Magnesium 1.5 L (1.6-2.3) mg/dL Total Bilirubin (0.2-1.3) mg/dL Conjugated Bilirubin (0.0-0.3) mg/dL Unconjugated Bilirubin (0.0-1.1) mg/dL Delta Bilirubin (0.0-0.2) mg/dL AST (14-36) U/L ALT (9-52) U/L Alkaline Phosphatase (38-126) U/L Total Protein (6.3-8.2) g/dL Albumin (3.5-5.0) g/dL Lipase (23-300) U/L Urine Color [place] Urine Appearance Clear (Clear) Urine pH 5.5 (5.0-8.0) Ur Specific [place] 1.020 (1.001-1.035) Urine Protein Trace H (Negative) Urine Glucose (UA) Negative (Negative) Urine Ketones Negative (Negative) Urine Blood Negative (Negative) Urine Nitrite Negative (Negative) Urine Bilirubin Negative (Negative) Urine Urobilinogen 2.0 (<2.0) mg/dL Ur Leukocyte Esterase Negative (Negative) 06/19/19 06/19/19 Range/Units 21:06 21:06 WBC (3.8-10.6) k/uL RBC (3.80-5.40) m/uL Hgb (11.4-16.0) gm/dL Hct (34.0-46.0) % MCV (80.0-100.0) fL MCH (25.0-35.0) pg MCHC (31.0-37.0) g/dL RDW (11.5-15.5) % Plt Count (150-450) k/uL Neutrophils % % Lymphocytes % % Monocytes % % Eosinophils % % Basophils % % Neutrophils # (1.3-7.7) k/uL Lymphocytes # (1.0-4.8) k/uL Monocytes # (0-1.0) k/uL Eosinophils # (0-0.7) k/uL Basophils # (0-0.2) k/uL PT 17.4 H (9.0-12.0) sec INR 1.8 H (<1.2) Sodium 127 L (137-145) mmol/L Potassium 5.3 H (3.5-5.1) mmol/L Chloride 99 (98-107) mmol/L Carbon Dioxide 19 L (22-30) mmol/L Anion Gap 9 mmol/L BUN 9 (7-17) mg/dL Creatinine 0.51 L (0.52-1.04) mg/dL Est GFR (CKD-EPI)AfAm >90 (>60 ml/min/1.73 sqM) Est GFR (CKD-EPI)NonAf 86 (>60 ml/min/1.73 sqM) Glucose 154 H (74-99) mg/dL Calcium 8.8 (8.4-10.2) mg/dL Magnesium (1.6-2.3) mg/dL Total Bilirubin 2.1 H (0.2-1.3) mg/dL Conjugated Bilirubin 0.2 (0.0-0.3) mg/dL Unconjugated Bilirubin 0.9 (0.0-1.1) mg/dL Delta Bilirubin 1.0 H (0.0-0.2) mg/dL AST 59 H (14-36) U/L ALT 42 (9-52) U/L Alkaline Phosphatase 302 H (38-126) U/L Total Protein 6.9 (6.3-8.2) g/dL Albumin 3.1 L (3.5-5.0) g/dL Lipase 15 L (23-300) U/L Urine Color Urine Appearance (Clear) Urine pH (5.0-8.0) Ur Specific [place] (1.001-1.035) Urine Protein (Negative) Urine Glucose (UA) (Negative) Urine Ketones (Negative) Urine Blood (Negative) Urine Nitrite (Negative) Urine Bilirubin (Negative) Urine Urobilinogen (<2.0) mg/dL Ur Leukocyte Esterase (Negative) Disposition Clinical Impression: Dehydration Disposition: ADMITTED IP TO THIS [facility] Condition: Fair Referrals: Cliff Conklin MD [Primary Care Provider] - 1-2 days Decision Time: 22:55
[2019-01-06 21:33] LABS: Appearance,Urine Clear (Clear); Basophils % (A) 0 %; Bilirubin,Urine Negative (Negative); Blood,Urine Negative (Negative); Color,Urine Orange; Eosinophils # (A) 1.1 k/uL (0-0.7); Eosinophils % (A) 10 %; Glucose,Urine (UA) Negative (Negative); HCT 33.8 % (34.0-46.0); HGB 11.2 gm/dL (11.4-16.0); Ketones,Urine Negative (Negative); Leukocyte Esterase,Urine Negative (Negative); Lymphocytes # (A) 0.7 k/uL (1.0-4.8); Lymphocytes % (A) 7 %; MCH 27.4 pg (25.0-35.0); MCV 82.9 fL (80.0-100.0); Mean Platelet Volume 7.3; Monocytes # (A) 0.5 k/uL (0-1.0); Monocytes % (A) 5 %; Neutrophils # (A) 8.6 k/uL (1.3-7.7); Neutrophils % (A) 78 %; Nitrite,Urine Negative (Negative); PH, Urine 5.5 (5.0-8.0); Platelet Count 193 k/uL (150-450); Protein,Urine Trace (Negative); RBC 4.07 m/uL (3.80-5.40); RDW 15.3 % (11.5-15.5); WBC 11.1 k/uL (3.8-10.6)
--- NOTE | 2019-01-06 21:45 | XR ---
EXAMINATION TYPE: XR abdomen acute w cxr DATE OF EXAM: 01/06/2019 COMPARISON: 12/24/2018 HISTORY: Abdominal pain TECHNIQUE: Chest x-ray with supine and upright abdomen FINDINGS: Heart is enlarged. There is no gross heart failure. There is coarsening of the lung markings. There i s left axillary pacemaker. There is mild blunting right costophrenic angle. There is no sign of intestinal obstruction or pneumoperitoneum. Fecal pattern is normal. There are cl ips from cholecystectomy. There is vascular calcification. IMPRESSION: Nonacute abdomen. Small right pleural effusion. There is probably no change compared to old exam. Car diomegaly unchanged.
[2019-01-06] MEDS: MAGNESIUM SULFATE-D5W PMX 1 GM in DEXTROSE/WATER 1 100ML.BAG IVPB SCH ×2 (21:59→22:54)
[2019-01-06 22:18] LABS: INR 1.8 (<1.2); Prothrombin Time 17.4 sec (9.0-12.0)
[2019-01-06 22:19] LABS: ALT 42 U/L (9-52); AST 59 U/L (14-36); African American GFR (CKD) >90 (>60 ml/min/1.73 sqM); Albumin 3.1 g/dL (3.5-5.0); Alkaline Phosphatase 302 U/L (38-126); Anion Gap 9 mmol/L; Bilirubin, Conjugated 0.2 mg/dL (0.0-0.3); Bilirubin,Unconjugated 0.9 mg/dL (0.0-1.1); Blood Urea Nitrogen 9 mg/dL (7-17); Calcium 8.8 mg/dL (8.4-10.2); Carbon Dioxide 19 mmol/L (22-30); Chloride 99 mmol/L (98-107); Glucose 154 mg/dL (74-99); Lipase 15 U/L (23-300); Potassium 5.3 mmol/L (3.5-5.1); Sodium 127 mmol/L (137-145); Total Bilirubin 2.1 mg/dL (0.2-1.3); Total Protein 6.9 g/dL (6.3-8.2)
[2019-01-06] MEDS ORDERED: ONDANSETRON 4 MG/2 ML VIAL IVP PRN (22:55)
[2019-01-06] MEDS ORDERED: NALOXONE 0.4 MG/ML 1 ML VIAL IV PRN (22:55)
[2019-01-06] MEDS ORDERED: ACETAMINOPHEN TAB 325 MG TAB PO PRN (22:55)
[2019-01-06] MEDS ORDERED: FAMOTIDINE 20 MG TAB PO PRN (22:56)
[2019-01-06] MEDS: SODIUM CHLORIDE 0.9% 1,000 ML IV SCH (23:56)
[2019-01-07] MEDS ORDERED: SIMETHICONE 40 MG/0.6 ML DROPS 2,000 MG/30 ML BOTTLE PO PRN
[2019-01-07] MEDS ORDERED: PANTOPRAZOLE 40 MG TABLET PO PRN
[2019-01-07] MEDS ORDERED: ALBUTEROL NEBULIZED 2.5 MG/3 ML INHALATION PRN
[2019-01-07] MEDS ORDERED: guaiFENesin 600 MG TABLET.ER PO PRN
[2019-01-07] MEDS ORDERED: BENZONATATE 100 MG CAP PO PRN
[2019-01-07] MEDS ORDERED: diphenhydrAMINE 25 MG CAP PO PRN
[2019-01-07] MEDS ORDERED: IOPAMIDOL-300 CONTRAST 30 ML VIAL (ORAL USE) PO PRN (00:02)
[2019-01-07] MEDS: FUROSEMIDE 40 MG TAB PO SCH (06:31)
[2019-01-07 08:16] LABS: ALT 42 U/L (9-52); AST 63 U/L (14-36); African American GFR (CKD) >90 (>60 ml/min/1.73 sqM); Albumin 3.1 g/dL (3.5-5.0); Alkaline Phosphatase 288 U/L (38-126); Anion Gap 11 mmol/L; Blood Urea Nitrogen 8 mg/dL (7-17); Calcium 8.7 mg/dL (8.4-10.2); Carbon Dioxide 17 mmol/L (22-30); Chloride 101 mmol/L (98-107); Glucose 123 mg/dL (74-99); Sodium 129 mmol/L (137-145); Total Bilirubin 2.7 mg/dL (0.2-1.3)
[2019-01-07 08:54] LABS: Basophils # (A) 0.1 k/uL (0-0.2); Basophils % (A) 1 %; Eosinophils # (A) 1.1 k/uL (0-0.7); Eosinophils % (A) 10 %; HCT 34.5 % (34.0-46.0); HGB 11.1 gm/dL (11.4-16.0); Hypochromasia Slight; Lymphocytes # (A) 0.6 k/uL (1.0-4.8); Lymphocytes % (A) 6 %; MCH 27.1 pg (25.0-35.0); MCHC 32.3 g/dL (31.0-37.0); MCV 83.8 fL (80.0-100.0); Mean Platelet Volume 7.3; Monocytes # (A) 0.6 k/uL (0-1.0); Monocytes % (A) 6 %; Neutrophils % (A) 76 %; Platelet Count 183 k/uL (150-450); RBC 4.11 m/uL (3.80-5.40); RDW 15.4 % (11.5-15.5); WBC 10.5 k/uL (3.8-10.6)
[2019-01-07] MEDS ORDERED: NON-FORMULARY DRUG (Cranberry Fruit Extract [Cranberry] 500 MG) PO SCH (09:00)
--- NOTE | 2019-01-07 09:15 | CT ---
EXAMINATION TYPE: CT abdomen pelvis wo con DATE OF EXAM: 01/07/2019 COMPARISON: None HISTORY: Abdominal cramping CT DLP: 622.8 mGycm Automated exposure control for dose reduction was used. TECHNIQUE: Helical acquisition of images was performed from the lung bases through the pelvis. FINDINGS: LUNG BASES: Heart is enlarged and there is a cardiac device and sternotomy wires. Annular calcificati on suggested and there is bilateral pleural effusions greater on the right basilar consolidation. Epi cardial lead suggested. Cannot exclude venous congestion. LIVER/GB: Postcholecystectomy clips noted.. PANCREAS: No significant abnormality is seen. SPLEEN: No significant abnormality is seen. ADRENALS: There is bilateral nodularities and thickening of the adrenal glands measuring 3 cm on the right. KIDNEYS: No significant abnormality is seen. ADENOPATHY: Left periaortic adenopathy axial image 29 short axis measurement of 1.5 cm. Additional a denopathy in the retroperitoneum including the right. Measuring 1 cm in short axis.. OSSEOUS STRUCTURES: Hypertrophic and degenerative changes noted. BOWEL: No significant abnormality is seen. OTHER: Small amount ascites. Uterus atrophic with calcification possibly on the basis of a small fibr oid. Diffuse atherosclerotic change of the vasculature. IMPRESSION: 1. Severely limited exam due to motion artifact. There is a small amount of ascites and a nonspecific gas pattern with no evidence of obstruction. Due to the amount of motion could not exclude inflammatory process. Suggestion of wall thickening inv olving segments of the colon and rectum and some segments of small bowel(duodenum) correlate for ent erocolitis. 2. Bilateral pleural effusions greater on the right with subsegmental areas of consolidation. Severe cardiomegaly noted. 3. Diffuse atherosclerotic changes of the vasculature including the aorta and its branch vessels. Thi s includes the mesenteric vasculature and should be correlated clinically given the bowel wall thicke kaveh. Consider correlation with lactic acid. 4. There is retroperitoneal adenopathy and bilateral adrenal gland masses the largest seen on the rig ht measuring 3 cm.
--- NOTE | 2019-01-07 14:30 | NM ---
EXAMINATION TYPE: NM bone scan whole body DATE OF EXAM: 01/07/2019 COMPARISON: Correlation CT 01/07/2019 HISTORY: 88-year-old female assess for bone metastases from adrenal. Technique: Delayed whole-body scanning was performed following the injection of 26.8 mCi Tc 99m MDP. Images acquired 3 hours post injection. FINDINGS: Excessive contamination is present, likely urinary contamination, below the pelvis. There is a solita ry focus of increased uptake along the right lateral convexity of the calvarium. Degenerative uptake at the shoulders and sternoclavicular joints. Additional foci of increased activity mid left femoral shaft and 2 areas within the mid and distal ri ght femoral shaft. Photopenic defect of right knee total arthroplasty. IMPRESSION: Suspicious focus of uptake within the right lateral convexity of the calvarium, one elongated focus i n the mid left femoral shaft, and 2 smaller foci in the mid and distal right femoral shaft. Further w orkup recommended for the possibility of osseous metastatic disease. Prominent urinary contamination below the pelvis.
[2019-01-07] MEDS: APIXABAN 2.5 MG TABLET PO SCH ×2 (16:02→20:21)
[2019-01-07] MEDS: LEVOTHYROXINE 112 MCG TAB PO SCH (16:03)
[2019-01-07] MEDS: DILTIAZEM ORAL 60 MG TAB PO SCH ×2 (16:09→20:22)
[2019-01-07] MEDS: FAMOTIDINE 20 MG TAB PO SCH ×2 (16:09→20:27)
[2019-01-07] MEDS: ASCORBIC ACID 500 MG TAB PO SCH ×2 (16:10→20:22)
[2019-01-07 16:20] LABS: Cancer Antigen 19-9 33.4 U/mL (0.0-34.9)
[2019-01-07] MEDS: MULTIVITAMINS, THERA 1 EACH TAB PO SCH (16:20)
[2019-01-07] MEDS: MAGNESIUM OXIDE 400 MG TAB PO SCH (16:20)
[2019-01-07] MEDS: FERROUS SULFATE 325 MG TAB PO SCH (16:20)
[2019-01-07] MEDS: METOPROLOL TARTRATE 25 MG TAB PO SCH (16:20)
[2019-01-07 16:41] LABS: Glucose,Whole Blood >600 mg/dL (75-99)
[2019-01-07 16:42] LABS: Glucose,Whole Blood 191 mg/dL (75-99)
[2019-01-07] MEDS: SODIUM CHLORIDE 0.9% 1,000 ML IV SCH (16:43)
--- NOTE | 2019-01-07 17:25 | P.CONS ---
History of Present Illness - Reason for Consult Consult date: 01/07/19 adrenal mass, adenopathy Requesting physician: Cliff Conklin - Chief Complaint N,V,D,abd pain - History of Present Illness Mrs. Piper is a very pleasant 88-year-old female patient who says that she came to the hospital because of nausea, vomiting, diarrhea and abdominal pain x 2-3 weeks, stomach pain is around the navel, she denied fevers, chills, sweats, she has had a 35 pound weight loss in the last several months, denies any changes in her breathing, bowel or bladder habits, she has noted that she has no energy and her strength is diminishing rapidly. Denies any personal history of cancer, she had a brother with throat cancer, abdominal x-ray impression was a non-acute abdomen, on admission patient's alkaline phosphatase and bilirubin are both elevated as well as INR, patient is on eliquis which can falsely elevate an INR. CT of the abdomen and pelvis is showing retroperitoneal adenopathy and bilateral adrenal masses for which we've been asked to see and evaluate the patient for. Review of Systems 14 point review of systems is negative except as stated in history of present illness Past Medical History Past Medical History: No Reported History, Atrial Fibrillation, Coronary Artery Disease (CAD), Heart Failure, CVA/TIA, Diabetes Mellitus, GI Bleed, Hyperlipidemia, Hypertension, Memory Impairment, Osteoarthritis (OA), Pneumonia, Thyroid Disorder Additional Past Medical History / Comment(s): Recurrent UTIs and past mild encephalopathy with UTI, multiple CVA/TIA, 2013 rectal bleed, diverticular dx, chronic anemia, hypothyroid, pt denies prior NH but states her family tells her she has had a prior NH. History of Any Multi-Drug Resistant Organisms: MRSA Year Discovered:: 03/12/2014 MDRO Source:: Urine Past Surgical History: Cholecystectomy, Coronary Bypass/CABG, Pacemaker, Tonsillectomy Additional Past Surgical History / Comment(s): [employer], 2005 CABG X4, D&C, TOTAL RIGHT KNEE, cataracts bilaterally, EGD/colonoscopy Past Anesthesia/Blood Transfusion Reactions: No Reported Reaction, Postoperative Nausea & Vomiting (PONV) Additional Past Anesthesia/Blood Transfusion Reaction / Comm: Pt states she has received blood in past without reaction. Type of Cardiac Device: Permanent Pacemaker Device Placement Date:: 2010 Past Psychological History: No Psychological Hx Reported Smoking Status: Never smoker Past Alcohol Use History: None Reported Past Drug Use History: None Reported - Past Family History Sister(s) Family Medical History: Cancer Additional Family Medical History / Comment(s): Sister from lung cancer. She was a heavy smoker. Father Family Medical History: Respiratory Disorder Additional Family Medical History / Comment(s): Father from TB as a young man Mother Additional Family Medical History / Comment(s): Mother had heart problems. She lived to be 78yrs. Medications and Allergies Home Medications Medication Instructions Recorded Confirmed Type Apixaban [Eliquis] 2.5 mg PO BID 01/26/14 01/06/19 History Acetaminophen Tab [Tylenol] 650 mg PO Q6HR PRN #0 tab 10/31/15 01/06/19 Rx Metoprolol Tartrate [Lopressor] 25 mg PO DAILY tab 11/06/16 01/06/19 Rx Ascorbic Acid [Vitamin C] 500 mg PO BID 03/25/17 01/06/19 History Diltiazem Oral [Cardizem*] 30 mg PO BID 03/25/17 01/06/19 History Levothyroxine Sodium [Synthroid] 112 mcg PO DAILY 03/25/17 01/06/19 History Magnesium Oxide [Magox 400] 400 mg PO DAILY 03/25/17 01/06/19 History Cranberry Fruit Extract [Cranberry] 500 mg PO DAILY 04/16/17 01/06/19 History Ferrous Sulfate [Iron (65 MG 325 mg PO DAILY 04/16/17 01/06/19 History Elemental)] Melatonin 5 mg PO HS 04/16/17 01/06/19 History Multivitamins, Thera [Multivitamin 1 tab PO HS 04/16/17 01/06/19 History (formulary)] ALPRAZolam [Xanax] 0.25 mg PO DAILY PRN 07/02/18 01/06/19 History Benzonatate [Tessalon Perles] 100 - 200 mg PO Q6H PRN 07/02/18 01/06/19 History Famotidine [Pepcid] 20 mg PO HS PRN 07/02/18 01/06/19 History diphenhydrAMINE HCL [Benadryl] 25 mg PO HS PRN 07/02/18 01/06/19 History guaiFENesin [Mucinex] 600 mg PO DAILY PRN 07/02/18 01/06/19 History Albuterol Inhaler [Ventolin Hfa 1 - 2 puff INHALATION RT-Q6H PRN 01/06/19 01/06/19 History Inhaler] Furosemide [Lasix] 40 mg PO Q48H 01/06/19 01/06/19 History Omeprazole [PriLOSEC] 20 mg PO DAILY PRN 01/06/19 01/06/19 History Ondansetron HCl [Zofran] 4 mg PO Q6H PRN 01/06/19 01/06/19 History Potassium 99 mg PO HS 01/06/19 01/06/19 History Simethicone [Gas-X] 125 mg PO TID PRN 01/06/19 01/06/19 History metFORMIN HCL [Glucophage] 1,000 mg PO BID 01/06/19 01/06/19 History Allergies Allergy/AdvReac Type Severity Reaction Status Date / Time Penicillins Allergy Rash/Hives Verified 01/06/19 21:51 codeine AdvReac Nausea & Verified 01/06/19 21:51 Vomiting Physical Exam Vitals: Vital Signs Temp Pulse Pulse Resp BP BP Pulse Ox 01/07/19 07:00 97.9 F 101 H 18 147/83 99 01/07/19 06:33 93 20 142/67 01/07/19 04:00 99 20 114/38 99 01/06/19 23:55 80 18 121/30 98 01/06/19 23:10 77 120/70 98 01/06/19 23:00 77 133/22 98 01/06/19 22:50 77 18 109/65 98 01/06/19 22:03 98.6 F 80 16 109/65 99 01/06/19 20:57 98 16 170/67 92 L - Constitutional General appearance: cooperative, no acute distress, thin - EENT Eyes: anicteric sclerae, EOMI, normal appearance ENT: hearing grossly normal - Neck Neck: no lymphadenopathy - Respiratory Respiratory: bilateral: CTA - Cardiovascular Rhythm: regular Heart sounds: normal: S1, S2 Abnormal Heart Sounds: systolic murmur leg Peripheral Edema: bilateral: None - Gastrointestinal General gastrointestinal: no absent bowel sounds, no decreased bowel sounds, no distended, no hepatomegaly, no hyperactive bowel sounds, normal bowel sounds, no organomegaly, no rigid, no scaphoid, soft, no splenomegaly, tenderness, no umbilical hernia, no ventral hernia Localized gastrointestinal: tender: LUQ - Integumentary Integumentary: pale - Neurologic Neurologic: CNII-XII intact - Musculoskeletal Musculoskeletal: generalized weakness - Psychiatric Psychiatric: A&O x's 3, appropriate affect, intact judgment & insight Results CBC & Chem 7: 01/07/19 07:45 01/07/19 07:45 Labs: Abnormal Lab Results - Last 24 Hours (Table) 01/06/19 01/06/19 01/06/19 Range/Units 21:06 21:06 21:06 WBC 11.1 H (3.8-10.6) k/uL Hgb 11.2 L (11.4-16.0) gm/dL Hct 33.8 L (34.0-46.0) % Neutrophils # 8.6 H (1.3-7.7) k/uL Lymphocytes # 0.7 L (1.0-4.8) k/uL Eosinophils # 1.1 H (0-0.7) k/uL PT (9.0-12.0) sec INR (<1.2) Sodium (137-145) mmol/L Potassium (3.5-5.1) mmol/L Carbon Dioxide (22-30) mmol/L Creatinine (0.52-1.04) mg/dL Glucose (74-99) mg/dL POC Glucose (mg/dL) (75-99) mg/dL Magnesium 1.5 L (1.6-2.3) mg/dL Total Bilirubin (0.2-1.3) mg/dL Delta Bilirubin (0.0-0.2) mg/dL AST (14-36) U/L Alkaline Phosphatase (38-126) U/L Albumin (3.5-5.0) g/dL Lipase (23-300) U/L CA 125 Antigen (0.0-30.1) U/mL Urine Protein Trace H (Negative) 01/06/19 01/06/19 01/07/19 Range/Units 21:06 21:06 07:45 WBC (3.8-10.6) k/uL Hgb 11.1 L (11.4-16.0) gm/dL Hct (34.0-46.0) % Neutrophils # 8.0 H (1.3-7.7) k/uL Lymphocytes # 0.6 L (1.0-4.8) k/uL Eosinophils # 1.1 H (0-0.7) k/uL PT 17.4 H (9.0-12.0) sec INR 1.8 H (<1.2) Sodium 127 L (137-145) mmol/L Potassium 5.3 H (3.5-5.1) mmol/L Carbon Dioxide 19 L (22-30) mmol/L Creatinine 0.51 L (0.52-1.04) mg/dL Glucose 154 H (74-99) mg/dL POC Glucose (mg/dL) (75-99) mg/dL Magnesium (1.6-2.3) mg/dL Total Bilirubin 2.1 H (0.2-1.3) mg/dL Delta Bilirubin 1.0 H (0.0-0.2) mg/dL AST 59 H (14-36) U/L Alkaline Phosphatase 302 H (38-126) U/L Albumin 3.1 L (3.5-5.0) g/dL Lipase 15 L (23-300) U/L CA 125 Antigen (0.0-30.1) U/mL Urine Protein (Negative) 01/07/19 01/07/19 01/07/19 Range/Units 07:45 07:45 16:40 WBC (3.8-10.6) k/uL Hgb (11.4-16.0) gm/dL Hct (34.0-46.0) % Neutrophils # (1.3-7.7) k/uL Lymphocytes # (1.0-4.8) k/uL Eosinophils # (0-0.7) k/uL PT (9.0-12.0) sec INR (<1.2) Sodium 129 L (137-145) mmol/L Potassium (3.5-5.1) mmol/L Carbon Dioxide 17 L (22-30) mmol/L Creatinine 0.48 L (0.52-1.04) mg/dL Glucose 123 H (74-99) mg/dL POC Glucose (mg/dL) >600 H (75-99) mg/dL Magnesium (1.6-2.3) mg/dL Total Bilirubin 2.7 H (0.2-1.3) mg/dL Delta Bilirubin (0.0-0.2) mg/dL AST 63 H (14-36) U/L Alkaline Phosphatase 288 H (38-126) U/L Albumin 3.1 L (3.5-5.0) g/dL Lipase (23-300) U/L CA 125 Antigen 303.1 H (0.0-30.1) U/mL Urine Protein (Negative) 01/07/19 Range/Units 16:41 WBC (3.8-10.6) k/uL Hgb (11.4-16.0) gm/dL Hct (34.0-46.0) % Neutrophils # (1.3-7.7) k/uL Lymphocytes # (1.0-4.8) k/uL Eosinophils # (0-0.7) k/uL PT (9.0-12.0) sec INR (<1.2) Sodium (137-145) mmol/L Potassium (3.5-5.1) mmol/L Carbon Dioxide (22-30) mmol/L Creatinine (0.52-1.04) mg/dL Glucose (74-99) mg/dL POC Glucose (mg/dL) 191 H (75-99) mg/dL Magnesium (1.6-2.3) mg/dL Total Bilirubin (0.2-1.3) mg/dL Delta Bilirubin (0.0-0.2) mg/dL AST (14-36) U/L Alkaline Phosphatase (38-126) U/L Albumin (3.5-5.0) g/dL Lipase (23-300) U/L CA 125 Antigen (0.0-30.1) U/mL Urine Protein (Negative) Microbiology - Last 24 Hours (Table) 01/06/19 21:06 Urine Culture - Preliminary Urine,Clean Catch CT scan - abdomen: report reviewed CT scan - pelvis: report reviewed Assessment and Plan (1) Adrenal abnormality Current Visit: Yes Status: Acute Priority: High Code(s): E27.9 - DISORDER OF ADRENAL GLAND, UNSPECIFIED SNOMED Code(s): 61867982 (2) Lymphadenopathy, abdominal Current Visit: Yes Status: Acute Priority: High Code(s): R59.0 - LOCALIZED ENLARGED LYMPH NODES SNOMED Code(s): 840267124 Plan: CT of the abdomen and pelvis showing retroperitoneal adenopathy and bilateral adrenal gland masses, along with pt history, this is concerning. Recommendation is for IR evaluation and biopsy, if amenable. If unable, may consider PET scan to see if there may be another area more amenable to biopsy. IR consult already in place We will continue to follow with you
--- NOTE | 2019-01-07 18:28 | P.HPIM ---
History of Present Illness H&P Date: 01/06/19 Chief Complaint: Abdominal pain, severe weakness, recurrent UTI, change mental status 88-year-old female one of my office patient of known for long time with known history of CAD, A. fib, mild memory loss, previous history of CVA/TIA, chronic kidney disease, type 2 diabetes on oral hypoglycemic agent smaller dose of insulin. Patient was in the hospital last few weeks ago for urinary tract infection and encephalopathy. Patient presented to the emergency department with worsening abdominal pain with epigastric and lower pain with nausea with no diarrhea or constipation continue to have mild urinary incontinence with recurrent UTI last episode was 2 weeks ago. Patient found to have severe hyponatremia, hypomagnesemia with significant electrolyte abnormali ty. X-ray of the abdomen didn't show any kidney stone and failed to show any obstruction at the time. Patient was very dehydrated hypotensive at the time was started on dental hydration admitted to the hospital CT of the abdomen was requested surprisingly her liver function tests were quite bit abnormal specially alkaline phosphatase with possibility of either metastasis or lesion in the bone at this point. CT of the abdomen was requested might go for total body bone scan as well. Review of Systems CONSTITUTIONAL: Elderly in no acute respiratory distress. EYES: No icterus sclerae, no conjunctivitis. EARS, NOSE, MOUTH, THROAT, and FACE: No sore throat, lymphadenopathy, carotid bruits or deformity. RESPIRATORY: Mild shortness of breath no cough wheezes. CARDIOVASCULAR: Positive PND or New palpitation no sign of angina. GASTROINTESTINAL: Positive abdominal pain nausea without vomiting mild diarrhea no constipation no sign of gastrointestinal bleed or hemorrhage positive increased indigestion. GENITOURINARY: Recurrent UTI with no recent 1 no sign of kidney stone or hematuria. INTEGUMENT/BREAST: Generalized arthralgia and myalgia. HEMATOLOGIC/LYMPHATIC: Negative for bleed or purpura. Chronic anemia. MUSCULOSKELTAL: Negative for Myalgia or arthralgia. NEURLOGICAL: No LOC, Sz or syncope, blurred vision dizziness or abnormality. Previous history of stroke and mild memory loss.. BEHAVIORAL/PSYCH: Negative. ENDOCRINE: Negative. Past Medical History Past Medical History: No Reported History, Atrial Fibrillation, Coronary Artery Disease (CAD), Heart Failure, CVA/TIA, Diabetes Mellitus, GI Bleed, Hyperlipidemia, Hypertension, Memory Impairment, Osteoarthritis (OA), Pneumonia, Thyroid Disorder Additional Past Medical History / Comment(s): Recurrent UTIs and past mild encephalopathy with UTI, multiple CVA/TIA, 2013 rectal bleed, diverticular dx, chronic anemia, hypothyroid, pt denies prior SC but states her family tells her she has had a prior SC. History of Any Multi-Drug Resistant Organisms: MRSA Date of last positivie culture/infection: 03/12/2014 MDRO Source:: Urine Past Surgical History: Cholecystectomy, Coronary Bypass/CABG, Pacemaker, Tonsillectomy Additional Past Surgical History / Comment(s): [employer], 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, D&C, TOTAL RIGHT KNEE, cataracts bilaterally, EGD/colonoscopy Past Anesthesia/Blood Transfusion Reactions: No Reported Reaction, Postoperative Nausea & Vomiting (PONV) Additional Past Anesthesia/Blood Transfusion Reaction / Comment(s): Pt states she has received blood in past without reaction. Type of Cardiac Device: Permanent Pacemaker Device Placement Date:: 2010 Past Psychological History: No Psychological Hx Reported Smoking Status: Never smoker Past Alcohol Use History: None Reported Past Drug Use History: None Reported - Past Family History Sister(s) Family Medical History: Cancer Additional Family Medical History / Comment(s): Sister from lung cancer. She was a heavy smoker. Father Family Medical History: Respiratory Disorder Additional Family Medical History / Comment(s): Father from TB as a young man Mother Additional Family Medical History / Comment(s): Mother had heart problems. She lived to be 78yrs. Medications and Allergies Home Medications Medication Instructions Recorded Confirmed Type Apixaban [Eliquis] 2.5 mg PO BID 01/26/14 01/06/19 History Acetaminophen Tab [Tylenol] 650 mg PO Q6HR PRN #0 tab 10/31/15 01/06/19 Rx Metoprolol Tartrate [Lopressor] 25 mg PO DAILY tab 11/06/16 01/06/19 Rx Ascorbic Acid [Vitamin C] 500 mg PO BID 03/25/17 01/06/19 History Diltiazem Oral [Cardizem*] 30 mg PO BID 03/25/17 01/06/19 History Levothyroxine Sodium [Synthroid] 112 mcg PO DAILY 03/25/17 01/06/19 History Magnesium Oxide [Magox 400] 400 mg PO DAILY 03/25/17 01/06/19 History Cranberry Fruit Extract [Cranberry] 500 mg PO DAILY 04/16/17 01/06/19 History Ferrous Sulfate [Iron (65 MG 325 mg PO DAILY 04/16/17 01/06/19 History Elemental)] Melatonin 5 mg PO HS 04/16/17 01/06/19 History Multivitamins, Thera [Multivitamin 1 tab PO HS 04/16/17 01/06/19 History (formulary)] ALPRAZolam [Xanax] 0.25 mg PO DAILY PRN 07/02/18 01/06/19 History Benzonatate [Tessalon Perles] 100 - 200 mg PO Q6H PRN 07/02/18 01/06/19 History Famotidine [Pepcid] 20 mg PO HS PRN 07/02/18 01/06/19 History diphenhydrAMINE HCL [Benadryl] 25 mg PO HS PRN 07/02/18 01/06/19 History guaiFENesin [Mucinex] 600 mg PO DAILY PRN 07/02/18 01/06/19 History Albuterol Inhaler [Ventolin Hfa 1 - 2 puff INHALATION RT-Q6H PRN 01/06/19 01/06/19 History Inhaler] Furosemide [Lasix] 40 mg PO Q48H 01/06/19 01/06/19 History Omeprazole [PriLOSEC] 20 mg PO DAILY PRN 01/06/19 01/06/19 History Ondansetron HCl [Zofran] 4 mg PO Q6H PRN 01/06/19 01/06/19 History Potassium 99 mg PO HS 01/06/19 01/06/19 History Simethicone [Gas-X] 125 mg PO TID PRN 01/06/19 01/06/19 History metFORMIN HCL [Glucophage] 1,000 mg PO BID 01/06/19 01/06/19 History Allergies Allergy/AdvReac Type Severity Reaction Status Date / Time Penicillins Allergy Rash/Hives Verified 01/06/19 21:51 codeine AdvReac Nausea & Verified 01/06/19 21:51 Vomiting Physical Exam Vitals: Vital Signs Temp Pulse Resp BP Pulse Ox 01/06/19 23:55 80 18 121/30 98 01/06/19 23:10 77 120/70 98 01/06/19 23:00 77 133/22 98 01/06/19 22:50 77 18 109/65 98 01/06/19 22:03 98.6 F 80 16 109/65 99 01/06/19 20:57 98 16 170/67 92 L Intake and Output 01/06/19 01/06/19 01/07/19 14:59 22:59 06:59 Other: Weight 75 kg General Appearance: Alert, cooperative, no distress, appears stated age. Neck HEENT: Supple, no lymphadenopathy, no thyroid enlargement, no carotid bruits. Lungs: Clear to auscultation without crackles or wheezes no rhonchi, no deformity. Chest Wall: Decrease expansion with deep inspiration no tenderness and no deformity was found on exam, no costochondral pain or discomfort. Heart: Irregular rate and rhythm, S1, S2 positive S3 +5 cm JVD with systolic murmur, no rub rub or gallop. Back: Symmetric, mild scoliosis with L-spine discomfort and slight discomfort in the CVA area. Abdomen: Soft positive bowel sounds slight discomfort in the mid and lower abdominal region area no rebound or rigidity not been able to feel any organomegaly. Extremities: Extremities normal, atraumatic, no cyanosis, trace edema Pulses: 2+ and symmetric. Skin: Skin color, texture, tugor normal, no rashes or lesions. Neurologic: Alert oriented x3 cranial nerves II through XII intact, positive generalized weakness with significant abnormal balance and gait.. Results CBC & Chem 7: 01/07/19 07:45 01/07/19 07:45 Labs: Abnormal Lab Results - Last 24 Hours (Table) 01/06/19 01/06/19 01/06/19 Range/Units 21:06 21:06 21:06 WBC 11.1 H (3.8-10.6) k/uL Hgb 11.2 L (11.4-16.0) gm/dL Hct 33.8 L (34.0-46.0) % Neutrophils # 8.6 H (1.3-7.7) k/uL Lymphocytes # 0.7 L (1.0-4.8) k/uL Eosinophils # 1.1 H (0-0.7) k/uL PT (9.0-12.0) sec INR (<1.2) Sodium (137-145) mmol/L Potassium (3.5-5.1) mmol/L Carbon Dioxide (22-30) mmol/L Creatinine (0.52-1.04) mg/dL Glucose (74-99) mg/dL Magnesium 1.5 L (1.6-2.3) mg/dL Total Bilirubin (0.2-1.3) mg/dL Delta Bilirubin (0.0-0.2) mg/dL AST (14-36) U/L Alkaline Phosphatase (38-126) U/L Albumin (3.5-5.0) g/dL Lipase (23-300) U/L Urine Protein Trace H (Negative) 01/06/19 01/06/19 Range/Units 21:06 21:06 WBC (3.8-10.6) k/uL Hgb (11.4-16.0) gm/dL Hct (34.0-46.0) % Neutrophils # (1.3-7.7) k/uL Lymphocytes # (1.0-4.8) k/uL Eosinophils # (0-0.7) k/uL PT 17.4 H (9.0-12.0) sec INR 1.8 H (<1.2) Sodium 127 L (137-145) mmol/L Potassium 5.3 H (3.5-5.1) mmol/L Carbon Dioxide 19 L (22-30) mmol/L Creatinine 0.51 L (0.52-1.04) mg/dL Glucose 154 H (74-99) mg/dL Magnesium (1.6-2.3) mg/dL Total Bilirubin 2.1 H (0.2-1.3) mg/dL Delta Bilirubin 1.0 H (0.0-0.2) mg/dL AST 59 H (14-36) U/L Alkaline Phosphatase 302 H (38-126) U/L Albumin 3.1 L (3.5-5.0) g/dL Lipase 15 L (23-300) U/L Urine Protein (Negative) Thrombosis Risk Factor Assmnt - DVT/VTE Prophylaxis DVT/VTE Prophylaxis: Pharmacologic Prophylaxis ordered, Mechanical Prophylaxis ordered Assessment and Plan Plan: 1 acute severe abdominal pain: Patient will be hospitalized, ultrasound and CT of the abdomen will be done and if need to see general surgeon for GI specially there is any sign of GI bleed. 2 severe hyponatremia: Continue gentle hydration and repeat CMP daily in the next few days if continue having significant problem with hyponatremia we'll consult nephrology. 3 adrenal mass with lymph node enlargement: We'll consult general surgery along with oncology with the finding specially with a lymph node enlargement in the retroperitoneal area the cystic can be sign of malignancy or reaction to an existing problem most likely cancerous further workup might be needed will consult oncology as well. 4 possible bone metastasis: Specially with elevated alkaline phosphatase patient will be going for total body bone scan. 5 type 2 diabetes: Has been on metformin along with Accu-Chek with sliding scales coverage. 6 A. fib with RVR: Remain on metoprolol 25 g a day and still on anticoagulation with Eliquis 2.5 mg twice a day with no sign of bleed. 7 abnormal liver function test: Again with this is related to metastasis or not to be determined repeat liver function tests the next day or 2. 8 COPD: Continue patient on Ventolin HFA and if need oxygen to keep pulse ox above 92 percentile. 9 CHF mostly diastolic dysfunction: Has been on furosemide 40 mg a day along with metoprolol 25 mg daily, patient could not tolerate David or ARB in the past. 10 hypothyroidism: On levothyroxine 112 g daily. 11 GI prophylaxis: On pantoprazole 40 mg a day. 12 DVT prophylaxis: Still on anticoagulation daily. CODE STATUS: Full code. Admit patient to inpatient status for more than 2 nights.
[2019-01-07 18:38] LABS: Hemoglobin A1C 5.8 % (4.0-6.0)
--- NOTE | 2019-01-07 18:58 | P.PN ---
Subjective Progress Note Date: 01/07/19 Principal diagnosis: Abdominal pain, severe weakness, recurrent UTI, change mental status 88-year-old female one of my office patient of known for long time with known history of CAD, A. fib, mild memory loss, previous history of CVA/TIA, chronic kidney disease, type 2 diabetes on oral hypoglycemic agent smaller dose of insulin. Patient was in the hospital last few weeks ago for urinary tract infection and encephalopathy. Patient presented to the emergency department with worsening abdominal pain with epigastric and lower pain with nausea with no diarrhea or constipation continue to have mild urinary incontinence with recurrent UTI last episode was 2 weeks ago. Patient found to have severe hyponatremia, hypomagnesemia with significant electrolyte abnormali ty. X-ray of the abdomen didn't show any kidney stone and failed to show any obstruction at the time. Patient was very dehydrated hypotensive at the time was started on dental hydration admitted to the hospital CT of the abdomen was requested surprisingly her liver function tests were quite bit abnormal specially alkaline phosphatase with possibility of either metastasis or lesion in the bone at this point. CT of the abdomen was requested might go for total body bone scan as well. CT of the abdomen showed significant lymph node enlargement retroperitoneal along with adrenal mass we'll consult radiology intervention for possible CT- guided biopsy. The meanwhile workup for adrenal mass and metastasis in progress patient be seen oncology today. Objective - Vital Signs Vital signs: Vital Signs Temp 97.9 F 01/07/19 07:00 Pulse 101 H 01/07/19 16:00 Resp 18 01/07/19 16:00 BP 147/83 01/07/19 07:00 Pulse Ox 99 01/07/19 07:00 Intake & Output 01/06/19 01/07/19 01/07/19 18:59 06:59 18:59 Intake Total 640 Balance 640 Weight 75 kg Intake: Intake, IV Titration 640 Amount Sodium Chloride 0.9% 1, 640 000 ml @ 80 mls/hr IV . [id number] [facility] Rx#:[id number] - Exam Review of Systems CONSTITUTIONAL: Elderly in no acute respiratory distress. EYES: No icterus sclerae, no conjunctivitis. EARS, NOSE, MOUTH, THROAT, and FACE: No sore throat, lymphadenopathy, carotid bruits or deformity. RESPIRATORY: Mild shortness of breath no cough wheezes. CARDIOVASCULAR: Positive PND or New palpitation no sign of angina. GASTROINTESTINAL: Positive abdominal pain nausea without vomiting mild diarrhea no constipation no sign of gastrointestinal bleed or hemorrhage positive increased indigestion. GENITOURINARY: Recurrent UTI with no recent 1 no sign of kidney stone or hematuria. INTEGUMENT/BREAST: Generalized arthralgia and myalgia. HEMATOLOGIC/LYMPHATIC: Negative for bleed or purpura. Chronic anemia. MUSCULOSKELTAL: Negative for Myalgia or arthralgia. NEURLOGICAL: No LOC, Sz or syncope, blurred vision dizziness or abnormality. Previous history of stroke and mild memory loss.. BEHAVIORAL/PSYCH: Negative. ENDOCRINE: Negative. Physical Exam General Appearance: Alert, cooperative, no distress, appears stated age. Neck HEENT: Supple, no lymphadenopathy, no thyroid enlargement, no carotid bruits. Lungs: Clear to auscultation without crackles or wheezes no rhonchi, no deformity. Chest Wall: Decrease expansion with deep inspiration no tenderness and no deformity was found on exam, no costochondral pain or discomfort. Heart: Irregular rate and rhythm, S1, S2 positive S3 +5 cm JVD with systolic murmur, no rub rub or gallop. Back: Symmetric, mild scoliosis with L-spine discomfort and slight discomfort in the CVA area. Abdomen: Soft positive bowel sounds slight discomfort in the mid and lower abdominal region area no rebound or rigidity not been able to feel any organomegaly. Extremities: Extremities normal, atraumatic, no cyanosis, trace edema Pulses: 2+ and symmetric. Skin: Skin color, texture, tugor normal, no rashes or lesions. Neurologic: Alert oriented x3 cranial nerves II through XII intact, positive generalized weakness with significant abnormal balance and gait.. - Labs CBC & Chem 7: 01/07/19 07:45 01/07/19 07:45 Labs: Abnormal Lab Results - Last 24 Hours (Table) 01/06/19 01/06/19 01/06/19 Range/Units 21:06 21:06 21:06 WBC 11.1 H (3.8-10.6) k/uL Hgb 11.2 L (11.4-16.0) gm/dL Hct 33.8 L (34.0-46.0) % Neutrophils # 8.6 H (1.3-7.7) k/uL Lymphocytes # 0.7 L (1.0-4.8) k/uL Eosinophils # 1.1 H (0-0.7) k/uL PT (9.0-12.0) sec INR (<1.2) Sodium (137-145) mmol/L Potassium (3.5-5.1) mmol/L Carbon Dioxide (22-30) mmol/L Creatinine (0.52-1.04) mg/dL Glucose (74-99) mg/dL POC Glucose (mg/dL) (75-99) mg/dL Magnesium 1.5 L (1.6-2.3) mg/dL Total Bilirubin (0.2-1.3) mg/dL Delta Bilirubin (0.0-0.2) mg/dL AST (14-36) U/L Alkaline Phosphatase (38-126) U/L Albumin (3.5-5.0) g/dL Lipase (23-300) U/L CA 125 Antigen (0.0-30.1) U/mL Urine Protein Trace H (Negative) 01/06/19 01/06/19 01/07/19 Range/Units 21:06 21:06 07:45 WBC (3.8-10.6) k/uL Hgb 11.1 L (11.4-16.0) gm/dL Hct (34.0-46.0) % Neutrophils # 8.0 H (1.3-7.7) k/uL Lymphocytes # 0.6 L (1.0-4.8) k/uL Eosinophils # 1.1 H (0-0.7) k/uL PT 17.4 H (9.0-12.0) sec INR 1.8 H (<1.2) Sodium 127 L (137-145) mmol/L Potassium 5.3 H (3.5-5.1) mmol/L Carbon Dioxide 19 L (22-30) mmol/L Creatinine 0.51 L (0.52-1.04) mg/dL Glucose 154 H (74-99) mg/dL POC Glucose (mg/dL) (75-99) mg/dL Magnesium (1.6-2.3) mg/dL Total Bilirubin 2.1 H (0.2-1.3) mg/dL Delta Bilirubin 1.0 H (0.0-0.2) mg/dL AST 59 H (14-36) U/L Alkaline Phosphatase 302 H (38-126) U/L Albumin 3.1 L (3.5-5.0) g/dL Lipase 15 L (23-300) U/L CA 125 Antigen (0.0-30.1) U/mL Urine Protein (Negative) 01/07/19 01/07/19 01/07/19 Range/Units 07:45 07:45 16:40 WBC (3.8-10.6) k/uL Hgb (11.4-16.0) gm/dL Hct (34.0-46.0) % Neutrophils # (1.3-7.7) k/uL Lymphocytes # (1.0-4.8) k/uL Eosinophils # (0-0.7) k/uL PT (9.0-12.0) sec INR (<1.2) Sodium 129 L (137-145) mmol/L Potassium (3.5-5.1) mmol/L Carbon Dioxide 17 L (22-30) mmol/L Creatinine 0.48 L (0.52-1.04) mg/dL Glucose 123 H (74-99) mg/dL POC Glucose (mg/dL) >600 H (75-99) mg/dL Magnesium (1.6-2.3) mg/dL Total Bilirubin 2.7 H (0.2-1.3) mg/dL Delta Bilirubin (0.0-0.2) mg/dL AST 63 H (14-36) U/L Alkaline Phosphatase 288 H (38-126) U/L Albumin 3.1 L (3.5-5.0) g/dL Lipase (23-300) U/L CA 125 Antigen 303.1 H (0.0-30.1) U/mL Urine Protein (Negative) 01/07/19 Range/Units 16:41 WBC (3.8-10.6) k/uL Hgb (11.4-16.0) gm/dL Hct (34.0-46.0) % Neutrophils # (1.3-7.7) k/uL Lymphocytes # (1.0-4.8) k/uL Eosinophils # (0-0.7) k/uL PT (9.0-12.0) sec INR (<1.2) Sodium (137-145) mmol/L Potassium (3.5-5.1) mmol/L Carbon Dioxide (22-30) mmol/L Creatinine (0.52-1.04) mg/dL Glucose (74-99) mg/dL POC Glucose (mg/dL) 191 H (75-99) mg/dL Magnesium (1.6-2.3) mg/dL Total Bilirubin (0.2-1.3) mg/dL Delta Bilirubin (0.0-0.2) mg/dL AST (14-36) U/L Alkaline Phosphatase (38-126) U/L Albumin (3.5-5.0) g/dL Lipase (23-300) U/L CA 125 Antigen (0.0-30.1) U/mL Urine Protein (Negative) Microbiology - Last 24 Hours (Table) 01/06/19 21:06 Urine Culture - Preliminary Urine,Clean Catch Assessment and Plan Plan: 1 acute severe abdominal pain: Patient will be hospitalized, ultrasound and CT of the abdomen will be done and if need to see general surgeon for GI specially there is any sign of GI bleed. 2 adrenal mass with lymph node enlargement: We'll consult general surgery along with oncology with the finding specially with a lymph node enlargement in the retroperitoneal area the cystic can be sign of malignancy or reaction to an existing problem most likely cancerous further workup might be needed will consult oncology as well. 3 possible bone metastasis: Specially with elevated alkaline phosphatase patient will be going for total body bone scan. 4 severe hyponatremia: Continue gentle hydration and repeat CMP daily in the next few days if continue having significant problem with hyponatremia we'll consult nephrology. 5 type 2 diabetes: Has been on metformin along with Accu-Chek with sliding scales coverage. 6 A. fib with RVR: Remain on metoprolol 25 g a day and still on anticoagulation with Eliquis 2.5 mg twice a day with no sign of bleed. 7 abnormal liver function test: Again with this is related to metastasis or not to be determined repeat liver function tests the next day or 2. 8 COPD: Continue patient on Ventolin HFA and if need oxygen to keep pulse ox above 92 percentile. 9 CHF mostly diastolic dysfunction: Has been on furosemide 40 mg a day along with metoprolol 25 mg daily, patient could not tolerate David or ARB in the past. 10 hypothyroidism: On levothyroxine 112 g daily.
[2019-01-07 19:36] LABS: Glucose,Whole Blood 183 mg/dL (75-99)
[2019-01-07] MEDS: MELATONIN 5 MG TABLET PO SCH (20:22)
[2019-01-07] MEDS: ALPRAZolam 0.25 MG TAB PO PRN (20:22)
[2019-01-07] MEDS ORDERED: NON-FORMULARY DRUG (Potassium [Potassium] 99 MG) PO SCH (21:00)
[2019-01-08] MEDS: SODIUM CHLORIDE 0.9% 1,000 ML IV SCH (01:31)
[2019-01-08] MEDS: LEVOTHYROXINE 112 MCG TAB PO SCH (05:21)
[2019-01-08 07:26] LABS: Glucose,Whole Blood 136 mg/dL (75-99)
[2019-01-08 07:30] LABS: Mean Platelet Volume 7.2; Platelet Count 184 k/uL (150-450)
[2019-01-08 07:41] LABS: INR 1.7 (<1.2); Prothrombin Time 16.8 sec (9.0-12.0)
[2019-01-08] MEDS: APIXABAN 2.5 MG TABLET PO SCH (07:50)
[2019-01-08] MEDS: ASCORBIC ACID 500 MG TAB PO SCH ×2 (07:51→19:47)
[2019-01-08] MEDS: DILTIAZEM ORAL 60 MG TAB PO SCH ×2 (07:51→19:47)
[2019-01-08] MEDS: FAMOTIDINE 20 MG TAB PO SCH ×2 (07:52→19:47)
[2019-01-08] MEDS: FERROUS SULFATE 325 MG TAB PO SCH (07:52)
[2019-01-08] MEDS: METOPROLOL TARTRATE 25 MG TAB PO SCH (07:52)
[2019-01-08] MEDS: MAGNESIUM OXIDE 400 MG TAB PO SCH (07:52)
[2019-01-08 11:49] LABS: Glucose,Whole Blood 204 mg/dL (75-99)
[2019-01-08] MEDS: INSULIN ASPART (NovoLOG) 100 UNIT/ML VIAL SQ SCH ×3 (11:55→21:06)
[2019-01-08] MEDS: ACETAMINOPHEN TAB 325 MG TAB PO PRN (11:55)
--- NOTE | 2019-01-08 14:43 | P.PN ---
Subjective Progress Note Date: 01/08/19 88-year-old female one of my office patient of known for long time with known history of CAD, A. fib, mild memory loss, previous history of CVA/TIA, chronic kidney disease, type 2 diabetes on oral hypoglycemic agent smaller dose of insulin. Patient was in the hospital last few weeks ago for uri nary tract infection and encephalopathy. Patient presented to the emergency department with worsening abdominal pain with epigastric and lower pain with nausea with no diarrhea or constipation continue to have mild urinary incontinence with recurrent UTI last episode was 2 weeks ago. Patient found to have severe hyponatremia, hypomagnesemia with significant electrolyte abnormality. X-ray of the abdomen didn't show any kidney stone and failed to show any obstruction at the time. Patient was very dehydrated hypotensive at the time was started on dental hydration admitted to the hospital CT of the abdomen was requested surprisingly her liver function tests were quite bit abnormal specially alkaline phosphatase with possibility of either metastasis or lesion in the bone at this point. CT of the abdomen was requested might go for total body bone scan as well. CT of the abdomen showed significant lymph node enlargement retroperitoneal along with adrenal mass we'll consult radiology intervention for possible CT- guided biopsy. The meanwhile workup for adrenal mass and metastasis in progress patient be seen oncology today. 01/08 and patient examined at bedside. Patient record does not recall conversation with Dr. Conklin about the mass on the adrenals or metastatic is. Detailed discussion was made with Brian patient's son who told patient has underlying dementia and does not recall any conversation. He does not want her mother to be involved in the diagnoses of cancer and the prognosis. Although he does want to proceed with PET scan to know the prognosis of the cancer, he might consider hospice in next couple of days. He declined biopsy initially but since he wants to know what kind of cancer we are dealing with he would like to talk to a physician prior to proceeding with biopsy. Vitals assess this morning patient is afebrile, heart rate ranging from 55-109 with blood pressure 107/70 saturating well on room air. WBC improved from 11-10.5, sodium 129 chloride [address] suggestive of enterocolitis, adrenal masses and retroperitoneal lymph nodes concerning for metastasis. Bone scan suggestive of osseous metastasis. Irconsult placed for biopsy but needs PET scan ordered for more assessable organ to biopsy.discussed with Dr. Alaniz who would hold on PET scan as bone scan is not comfirmative for osseous metastasis. CT chest ordered to look for lesion. PET scan will be ordered as outpatient as per Dr. alaniz. Patient may need CT adrenal to see if it is adenoma, pheochromocytoma or metastasis. CEA is elevated. ROS Constitutional: Denies chills, Denies fever, Denies lethargy, Denies malaise, Denies poor appetite, Denies weakness, Denies weight loss Eyes: denies decreased vision, denies diplopia, denies discharge, denies pain Ears: deny: decreased hearing Ears, nose, mouth and throat: Denies dental pain, Denies headache, Denies nasal discharge, Denies nose pain Cardiovascular: Denies chest pain, Denies decreased exercise tolerance, Denies edema, Denies high blood pressure, Denies irregular heart beat, Denies palpitations, Denies paroxysmal nocturnal dyspnea, Denies rapid heart beat, Denies shortness of breath Respiratory: Denies congestion, Denies cough, Denies cough with sputum, Denies dyspnea, Denies home oxygen, Denies wheezing Gastrointestinal: Denies abdominal pain, Denies change in bowel habits, Denies coffee ground emesis, Denies early satiety, Denies excessive gas, Denies heartburn, Denies hematemesis, Denies hematochezia, Denies loss of appetite, Denies nausea, Denies vomiting Genitourinary: Denies dysuria, Denies flank pain, Denies kidney stones, Denies menorrhagia, Denies urgency, Denies urinary frequency Musculoskeletal: Denies gait dysfunction, Denies limitation of motion, Denies morning stiffness, Denies muscle cramps Integumentary: Denies rash, Denies wounds, Denies brittle nails, Denies change in hair/nails, Denies darkening of skin Neurological: endorses balance difficulties, Denies change in speech, Denies double vision, Denies gait dysfunction, Denies loss of vision, Denies motor disturbance, Denies numbness, Denies paralysis, Denies paresthesias, Denies seizuresendorses change in mentation Psychiatric: Denies anxiety, Denies depression Endocrine: Denies excessive sweating, Denies excessive thirst, Denies high blood sugars, Denies palpitations Hematologic/Lymphatic: Denies easy bruising, Denies lymphadenopathy Objective - Vital Signs Vital signs: Vital Signs Temp 97.4 F L 01/08/19 13:30 Pulse 74 01/08/19 13:30 Resp 16 01/08/19 13:30 BP 103/50 01/08/19 13:30 Pulse Ox 92 L 01/08/19 13:30 Intake & Output 01/07/19 01/08/19 01/08/19 18:59 06:59 18:59 Intake Total 640 480 240 Balance 640 480 240 Intake: Intake, IV Titration 640 Amount Sodium Chloride 0.9% 1, 640 000 ml @ 80 mls/hr IV . [id number] [facility] Rx#:[id number] Oral 480 240 Other: Voiding Method Diaper Incontinent # Voids 1 2 # Bowel Movements 1 - Exam General Appearance: Alert, cooperative, no distress, appears stated age. Neck HEENT: Supple, no lymphadenopathy, no thyroid enlargement, no carotid bruit s. Lungs: Clear to auscultation without crackles or wheezes no rhonchi, no deformity. Chest Wall: Decrease expansion with deep inspiration no tenderness and no deformity was found on exam, no costochondral pain or discomfort. Heart: Irregular rate and rhythm, S1, S2 positive S3 +5 cm JVD with systolic murmur, no rub rub or gallop. Back: Symmetric, mild scoliosis with L-spine discomfort and slight discomfort in the CVA area. Abdomen: Soft positive bowel sounds slight discomfort in the mid and lower abdominal region area no rebound or rigidity not been able to feel any organomegaly. Extremities: Extremities normal, atraumatic, no cyanosis, trace edema Pulses: 2+ and symmetric. Skin: Skin color, texture, tugor normal, no rashes or lesions. Neurologic: Alert oriented x1able to answer appropriately but does have short- term memory loss cranial nerves II through XII intact, positive generalized weakness with significant abnormal balance and gait.. - Labs CBC & Chem 7: 01/08/19 07:16 01/07/19 07:45 Labs: Abnormal Lab Results - Last 24 Hours (Table) 01/07/19 01/07/19 01/07/19 Range/Units 07:45 16:40 16:41 PT (9.0-12.0) sec INR (<1.2) POC Glucose (mg/dL) >600 H 191 H (75-99) mg/dL CA 125 Antigen 303.1 H (0.0-30.1) U/mL 01/07/19 01/08/19 01/08/19 Range/Units 19:35 07:16 07:23 PT 16.8 H (9.0-12.0) sec INR 1.7 H (<1.2) POC Glucose (mg/dL) 183 H 136 H (75-99) mg/dL CA 125 Antigen (0.0-30.1) U/mL 01/08/19 Range/Units 11:46 PT (9.0-12.0) sec INR (<1.2) POC Glucose (mg/dL) 204 H (75-99) mg/dL CA 125 Antigen (0.0-30.1) U/mL Microbiology - Last 24 Hours (Table) 01/06/19 21:06 Urine Culture - Final Urine,Clean Catch Assessment and Plan Plan: 1 acute severe abdominal pain: CT abdomen suggestive of enterocolitis will start patient on levofloxacin and Flagyl for broad-spectrum antibiotic coverage 2 adrenal mass with lymph node enlargement: oncology consulted for retroperitoneal lymph nodes along with adrenal massCEA elevated likely primary colon cancer but unable to tell without the biopsy results. PET scan cancelled, Ct ches tordered to look for any lesions IR consult placed for possiblebiopsy 3 possible bone metastasis: Specially with elevated alkaline phosphatase patient will be going for total body bone scan. bone scan suggest osseous lesions that can be seen in arthiris/ old fractures. 4 severe hyponatremia: Continue gentle hydration and repeat CMP consult nephrology. 5 type 2 diabetes: Has been on metformin along with Accu-Chek with sliding scales coverage. 6 A. fib with RVR: Remain on metoprolol 25 g a day and still on anticoagulation with Eliquis 2.5 mg twice a day with no sign of bleed. 7 abnormal liver function test: Again with this is related to metastasis or not to be determined repeat liver function tests the next day or 2. 8 COPD: Continue patient on Ventolin HFA and if need oxygen to keep pulse ox above 92 percentile. 9 CHF mostly diastolic dysfunction: Has been on furosemide 40 mg a day along with metoprolol 25 mg daily, patient could not tolerate David or ARB in the past. 10 hypothyroidism: On levothyroxine 112 g daily. goal of care. eryn Torres available on [id number]. Detailed discussion with son all 4 and was made and son would like to switch patient to hospice once diagnosis is made. He is agreeable to PET scan and biopsy to know the prognosis.if Dr. Alaniz would be able to tell patient's prognosis he would not like to proceed with biopsy
[2019-01-08] MEDS: LEVOFLOXACIN 500MG-D5W PMX 500 MG in DEXTROSE/WATER 1 100ML.BAG IVPB SCH (16:10)
[2019-01-08] MEDS ORDERED: RX INFO: IV CONTRAST WAS GIVEN 1 EACH MISC MISCELLANE PRN (17:16)
--- NOTE | 2019-01-08 17:16 | P.PN ---
Subjective Progress Note Date: 01/08/19 The patient appears comfortable on inspection. She denies any specific complaints at this time, especially pain. Appetite is reduced. She states that she was not nauseated currently. Overall she feels better. Recall is quite poor. Objective - Vital Signs Vital signs: Vital Signs Temp 97.4 F L 01/08/19 13:30 Pulse 74 01/08/19 13:30 Resp 16 01/08/19 13:30 BP 103/50 01/08/19 13:30 Pulse Ox 92 L 01/08/19 13:30 Intake & Output 01/07/19 01/08/19 01/08/19 18:59 06:59 18:59 Intake Total 640 480 240 Balance 640 480 240 Weight 75 kg Intake: Intake, IV Titration 640 Amount Sodium Chloride 0.9% 1, 640 000 ml @ 80 mls/hr IV . [id number] [facility] Rx#:[id number] Oral 480 240 Other: Voiding Method Diaper Incontinent # Voids 1 2 # Bowel Movements 1 - Constitutional General appearance: Present: no acute distress - EENT Eyes: Present: EOMI ENT: Present: hearing grossly normal, normal oropharynx - Respiratory Respiratory: bilateral: CTA - Cardiovascular Rhythm: regular Heart sounds: normal: S1, S2 - Gastrointestinal General gastrointestinal: Present: normal bowel sounds, soft - Integumentary Integumentary: Present: normal - Neurologic Neurologic: Present: CNII-XII intact - Musculoskeletal Musculoskeletal: Present: generalized weakness, strength equal bilaterally - Psychiatric Psychiatric Comment(s): Confusion, diminished recall - Labs CBC & Chem 7: 01/08/19 07:16 01/07/19 07:45 Labs: Abnormal Lab Results - Last 24 Hours (Table) 01/07/19 01/08/19 01/08/19 Range/Units 19:35 07:16 07:23 PT 16.8 H (9.0-12.0) sec INR 1.7 H (<1.2) POC Glucose (mg/dL) 183 H 136 H (75-99) mg/dL 01/08/19 Range/Units 11:46 PT (9.0-12.0) sec INR (<1.2) POC Glucose (mg/dL) 204 H (75-99) mg/dL Microbiology - Last 24 Hours (Table) 01/06/19 21:06 Urine Culture - Final Urine,Clean Catch Assessment and Plan (1) Metastatic cancer Narrative/Plan: This is NOT a definite diagnosis at this point, though the patient has several findings which are suspicious. These include retroperitoneal adenopathy, as well as bilateral adrenal masses, largest 3 cm on the right. Bone scan also shows bone lesions. The case was discussed in detail with the admitting service. Actually none of the above lesions, in themselves, are definitive for malignancy. For example the retroperitoneal adenopathy could be inflammatory, while adrenal mass less than 4 cm could represent a benign adenoma. Similarly bone scan findings as described can be seen with benign etiologies I also had an extensive discussion with the patient's son, who is the main patient's advocate. He expressed running of the fact that the patient's performance status was quite poor and she would likely not be a candidate for any aggressive treatment if she was found to have progressive metastatic malignancy. However , they would like to establish a diagnosis, which is reasonable. At this point we do not have a good target to biopsy to get a tissue diagnosis. The retroperitoneal nodes as well as the right adrenal mass could potentially be hard to access technically. At this point a PET scan would likely not be covered, as the patient does not have a known diagnosis of malignancy. I will thus order a computed tomography scan of the chest. I will also order targeted imaging with x-rays of the bone lesions. If the chest scan does not show an appropriate target, then I recommended that the GI findings of possible colitis be targeted with endoscopy for diagnosis. If that is also negative, then MRI of the abdomen can potentially be done to look at the lymph nodes and adrenal mass and determine if these are appropriate target for tissue diagnosis. Current Visit: Yes Status: Acute Code(s): C79.9 - SECONDARY MALIGNANT NEOPLASM OF UNSPECIFIED SITE SNOMED Code(s): 132416497 (2) Adrenal abnormality Narrative/Plan: Plan as above Current Visit: Yes Status: Acute Priority: High Code(s): E27.9 - DISORDER OF ADRENAL GLAND, UNSPECIFIED SNOMED Code(s): 60844476 (3) Lymphadenopathy, abdominal Narrative/Plan: Plan as above Current Visit: Yes Status: Acute Priority: High Code(s): R59.0 - LOCALIZED ENLARGED LYMPH NODES SNOMED Code(s): 728108813
[2019-01-08 17:23] LABS: Glucose,Whole Blood 171 mg/dL (75-99)
[2019-01-08] MEDS: metroNIDAZOLE-NS PMX 500 MG in SALINE 1 100ML.BAG IVPB SCH ×2 (17:41→22:57)
--- NOTE | 2019-01-08 19:42 | XR ---
EXAMINATION TYPE: XR skull complete DATE OF EXAM: 01/08/2019 COMPARISON: NONE HISTORY: Abnormal bone scan TECHNIQUE: 4 views FINDINGS: There is 2 cm lytic lesion in the right parietal bone. The remainder of the calvarium appea rs intact. The sella turcica is normal. There is no evidence for fracture. IMPRESSION: Lytic lesion in the right parietal bone corresponds to increased uptake on the bone scan yesterday and is consistent with tumor.
--- NOTE | 2019-01-08 19:45 | XR ---
EXAMINATION TYPE: XR femur bilateral DATE OF EXAM: 01/08/2019 COMPARISON: NONE HISTORY: Abnormal bone scan TECHNIQUE: 4 views each femur FINDINGS: There is a right knee prosthesis. There are small lucent areas scattered in the shaft of th e right femur. I see no fracture. The hip joints are intact. There is hypertrophic spurring at the hi p joints. IMPRESSION: Lytic lesions in the shaft of the right femur correspond to 2 foci of increased uptake on the bone scan yesterday. There is increased focal uptake in the midshaft of the left femur on the marisela ne scan yesterday without a corresponding radiographic abnormality on the x-ray today. Findings are c onsistent with tumor.
[2019-01-08] MEDS: MULTIVITAMINS, THERA 1 EACH TAB PO SCH (19:47)
[2019-01-08] MEDS: MELATONIN 5 MG TABLET PO SCH (19:47)
[2019-01-08] MEDS: ALPRAZolam 0.25 MG TAB PO PRN (19:47)
--- NOTE | 2019-01-08 19:50 | CT ---
EXAMINATION TYPE: CT chest w con DATE OF EXAM: 01/08/2019 COMPARISON: 03/29/2017 HISTORY: nausea and vomiting. abnormal bone scan. CT DLP: 326.8 mGycm Automated exposure control for dose reduction was used. CONTRAST: CT scan of the chest is performed with IV Contrast, patient injected with 100 mL of Isovue 300. FINDINGS: There are multiple enlarged mediastinal lymph nodes that measure up to 2 cm. Thoracic aorta is athero matous. There are bilateral pleural effusions and larger on the right side. There is right basilar in filtrate and atelectasis. There is coarse interstitial density in both lungs. There is 3 cm left adrenal mass. There is 4.5 cm right adrenal mass. There is decreased enhancement u pper aspect of the spleen that probably relates to vascular abnormality. There is abdominal ascites. IMPRESSION: There is mediastinal adenopathy improved slightly compared to old exam. Bilateral pleura l effusions and right basilar infiltrate and atelectasis increased compared to old exam. Bilateral adrenal masses are essentially new compared to old exam and consistent with metastatic dise ase.
[2019-01-08 20:35] LABS: Glucose,Whole Blood 141 mg/dL (75-99)
[2019-01-08] MEDS: FUROSEMIDE 40 MG TAB PO SCH (22:57)
[2019-01-09] MEDS: LEVOTHYROXINE 112 MCG TAB PO SCH (05:39)
[2019-01-09 07:01] LABS: Glucose,Whole Blood 140 mg/dL (75-99)
[2019-01-09] MEDS: FERROUS SULFATE 325 MG TAB PO SCH (08:05)
[2019-01-09] MEDS: ASCORBIC ACID 500 MG TAB PO SCH ×2 (08:05→19:59)
[2019-01-09] MEDS: MAGNESIUM OXIDE 400 MG TAB PO SCH (08:05)
[2019-01-09] MEDS: FAMOTIDINE 20 MG TAB PO SCH ×2 (08:05→19:59)
[2019-01-09] MEDS: INSULIN ASPART (NovoLOG) 100 UNIT/ML VIAL SQ SCH ×4 (08:06→19:59)
[2019-01-09] MEDS: DILTIAZEM ORAL 60 MG TAB PO SCH ×2 (08:06→19:59)
[2019-01-09] MEDS: metroNIDAZOLE-NS PMX 500 MG in SALINE 1 100ML.BAG IVPB SCH ×3 (08:06→23:29)
[2019-01-09] MEDS: METOPROLOL TARTRATE 25 MG TAB PO SCH (08:07)
[2019-01-09] MEDS: ACETAMINOPHEN TAB 325 MG TAB PO PRN ×2 (10:44→23:29)
[2019-01-09 11:15] LABS: Glucose,Whole Blood 211 mg/dL (75-99)
--- NOTE | 2019-01-09 12:14 | P.PN ---
Subjective Progress Note Date: 01/09/19 88-year-old female one of my office patient of known for long time with known history of CAD, A. fib, mild memory loss, previous history of CVA/TIA, chronic kidney disease, type 2 diabetes on oral hypoglycemic agent smaller dose of insulin. Patient was in the hospital last few weeks ago for urinary tract infection and encephalopathy. Patient presented to the emergency department with worsening abdominal pain with epigastric and lower pain with nausea with no diarrhea or constipation continue to have mild urinary incontinence with recurrent UTI last episode was 2 weeks ago. Patient found to have severe hyponatremia, hypomagnesemia with significant electrolyte abnormality. X-ray of the abdomen didn't show any kidney stone and failed to show any obstruction at the time. Patient was very dehydrated hypotensive at the time was started on dental hydration admitted to the hospital CT of the abdomen was requested surprisingly her liver function tests were quite bit abnormal specially alkaline phosphatase with possibility of either metastasis or lesion in the bone at this point. CT of the abdomen was requested might go for total body bone scan as well. CT of the abdomen showed significant lymph node enlargement retroperitoneal along with adrenal mass we'll consult radiology intervention for possible CT- guided biopsy. The meanwhile workup for adrenal mass and metastasis in progress patient be seen oncology today. 01/08 and patient examined at bedside. Patient record does not recall conversation with Dr. Conklin about the mass on the adrenals or metastatic is. Detailed discussion was made with Brian patient's son who told patient has underlying dementia and does not recall any conversation. He does not want her mother to be involved in the diagnoses of cancer and the prognosis. Although he does want to proceed with PET scan to know the prognosis of the cancer, he might consider hospice in next couple of days. He declined biopsy initially but since he wants to know what kind of cancer we are dealing with he would like to talk to a physician prior to proceeding with biopsy. Vitals assess this morning patient is afebrile, heart rate ranging from 55-109 with blood pressure 107/70 saturating well on room air. WBC improved from 11-10.5, sodium 129 chloride [address] suggestive of enterocolitis, adrenal masses and retroperitoneal lymph nodes concerning for metastasis. Bone scan suggestive of osseous metastasis. Irconsult placed for biopsy but needs PET scan ordered for more assessable organ to biopsy.discussed with Dr. Alaniz who would hold on PET scan as bone scan is not comfirmative for osseous metastasis. CT chest ordered to look for lesion. PET scan will be ordered as outpatient as per Dr. alaniz. Patient may need CT adrenal to see if it is adenoma, pheochromocytoma or metastasis. CEA is elevated. 01/09: Patient examined at the bedside sleeping easily arousable. Patient does not recall the reason why she is in the hospital. She is unable to recall the conversation about the mass on the adrenals. Patient would like to go home. Patient denies any pain. Does have complaints of nausea however tolerating intake without any vomiting. Chest CT showed mediastinal adenopathy improved slightly compared to old exam. Bilateral pleural effusions with right basilar infiltrate and atelectasis increase compared to previous exam. Bilateral adrenal masses are central new compared to previous exam and consistent with metastatic disease. Femur x-ray shows lytic lesions in the shaft of the right femur corresponding to 2 foci of increased uptake on the bone scan yesterday. There is increased focal uptake in the mid shaft of the left femur on the bone scan yesterday without a corresponding radiographic abnormality on the x-ray today. Findings are consistent with tumor. Skull x-ray shows lytic lesions in the right parietal bone corresponds increased uptake on the bone scan yesterday and consistent with tumor. ROS Constitutional: Denies chills, Denies fever, Denies lethargy, Denies malaise, Denies poor appetite, Denies weakness, Denies weight loss Eyes: denies decreased vision, denies diplopia, denies discharge, denies pain Ears: deny: decreased hearing Ears, nose, mouth and throat: Denies dental pain, Denies headache, Denies nasal discharge, Denies nose pain Cardiovascular: Denies chest pain, Denies decreased exercise tolerance, Denies edema, Denies high blood pressure, Denies irregular heart beat, Denies pa lpitations, Denies paroxysmal nocturnal dyspnea, Denies rapid heart beat, Denies shortness of breath Respiratory: Denies congestion, Denies cough, Denies cough with sputum, Denies dyspnea, Denies home oxygen, Denies wheezing Gastrointestinal: Denies abdominal pain, Denies change in bowel habits, Denies coffee ground emesis, Denies early satiety, Denies excessive gas, Denies heartburn, Denies hematemesis, Denies hematochezia, Denies loss of appetite, Denies nausea, Denies vomiting Genitourinary: Denies dysuria, Denies flank pain, Denies kidney stones, Denies menorrhagia, Denies urgency, Denies urinary frequency Musculoskeletal: Reports left leg discomfort and decreased mobility due to pain Integumentary: Denies rash, Denies wounds, Denies brittle nails, Denies change in hair/nails, Denies darkening of skin Neurological: endorses balance difficulties, Denies change in speech, Denies double vision, Denies gait dysfunction, Denies loss of vision, Denies motor disturbance, Denies numbness, Denies paralysis, Denies paresthesias, Denies seizuresendorses change in mentation Psychiatric: Denies anxiety, Denies depression Endocrine: Denies excessive sweating, Denies excessive thirst, Denies high blood sugars, Denies palpitations Hematologic/Lymphatic: Denies easy bruising, Denies lymphadenopathy Objective - Vital Signs Vital signs: Vital Signs Temp 97.4 F L 01/09/19 11:55 Pulse 68 01/09/19 11:55 Resp 17 01/09/19 11:55 BP 90/51 01/09/19 11:55 Pulse Ox 96 01/09/19 11:55 Intake & Output 01/08/19 01/09/19 01/09/19 18:59 06:59 18:59 Intake Total 480 Balance 480 Weight 75 kg 77.2 kg Intake: Oral 480 Other: Voiding Method Diaper Diaper Diaper Incontinent Incontinent Incontinent # Voids 3 1 # Bowel Movements 1 - Exam General Appearance: Alert, cooperative, no distress, appears stated age. Neck HEENT: Supple, no lymphadenopathy, no thyroid enlargement, no carotid bruits. Lungs: Clear to auscultation without crackles or wheezes no rhonchi, no deformity. Chest Wall: Decrease expansion with deep inspiration no tenderness and no deformity was found on exam, no costochondral pain or discomfort. Heart: Irregular rate and rhythm, S1, S2 positive S3 +5 cm JVD with systolic murmur, no rub rub or gallop. Back: Symmetric, mild scoliosis with L-spine discomfort and slight discomfort in the CVA area. Abdomen: Soft positive bowel sounds slight discomfort in the mid and lower abdominal region area no rebound or rigidity not been able to feel any organomegaly. Extremities: Extremities normal, atraumatic, no cyanosis, trace edema Pulses: 2+ and symmetric. Skin: Skin color, texture, tugor normal, no rashes or lesions. Neurologic: Alert oriented x1able to answer appropriately but does have short- term memory loss, cranial nerves II through XII intact, positive generalized weakness - Labs CBC & Chem 7: 01/08/19 07:16 01/07/19 07:45 Labs: Abnormal Lab Results - Last 24 Hours (Table) 01/08/19 01/08/19 01/09/19 Range/Units 17:21 20:33 07:00 POC Glucose (mg/dL) 171 H 141 H 140 H (75-99) mg/dL 01/09/19 Range/Units 11:14 POC Glucose (mg/dL) 211 H (75-99) mg/dL Assessment and Plan Plan: 1. acute severe abdominal pain: CT abdomen suggestive of enterocolitis will start patient on levofloxacin and Flagyl for broad-spectrum antibiotic coverage 2. adrenal mass with lymph node enlargement: oncology consulted for retroperitoneal lymph nodes along with adrenal massCEA elevated likely primary colon cancer but unable to tell without the biopsy results. PET scan cancelled, CT results noted above, femur x-ray results noted above, skull x-ray results noted above 3. possible bone metastasis: Specially with elevated alkaline phosphatase patient will be going for total body bone scan. bone scan suggest osseous lesions that can be seen in arthiris/ old fractures. Femur x-ray and skull x- ray results noted above. 4. severe hyponatremia: Continue gentle hydration and repeat CMP consult nephrology. 5. type 2 diabetes: Has been on metformin along with Accu-Chek with sliding scales coverage. 6. A. fib with RVR: Remain on metoprolol 25 g a day and still on anticoagulation with Eliquis 2.5 mg twice a day with no sign of bleed. 7. abnormal liver function test: Again with this is related to metastasis or not to be determined repeat liver function tests tomorrow.. 8 COPD: Continue patient on Ventolin HFA and if need oxygen to keep pulse ox above 92 percentile. 9 CHF mostly diastolic dysfunction: Has been on furosemide 40 mg a day along with metoprolol 25 mg daily, patient could not tolerate David or ARB in the past. 10 hypothyroidism: On levothyroxine 112 g daily. goal of care. son Brian available on [phone]. son would like to switch patient to hospice once diagnosis is made. Impression and plan of care have been directed as dictated by the signing physician. Caryn Spencer nurse practitioner acting as scribe for signing physician.
[2019-01-09 16:46] LABS: Glucose,Whole Blood 190 mg/dL (75-99)
[2019-01-09] MEDS: LEVOFLOXACIN 500MG-D5W PMX 500 MG in DEXTROSE/WATER 1 100ML.BAG IVPB SCH (17:38)
[2019-01-09 19:44] LABS: Glucose,Whole Blood 193 mg/dL (75-99)
[2019-01-09] MEDS: ALPRAZolam 0.25 MG TAB PO PRN (20:00)
[2019-01-09] MEDS: MELATONIN 5 MG TABLET PO SCH (20:00)
[2019-01-09] MEDS: MULTIVITAMINS, THERA 1 EACH TAB PO SCH (20:00)
[2019-01-10] MEDS: LEVOTHYROXINE 112 MCG TAB PO SCH (05:46)
[2019-01-10 06:54] LABS: Glucose,Whole Blood 137 mg/dL (75-99)
[2019-01-10 07:57] LABS: ALT 52 U/L (9-52); AST 93 U/L (14-36); African American GFR (CKD) >90 (>60 ml/min/1.73 sqM); Albumin 2.5 g/dL (3.5-5.0); Alkaline Phosphatase 303 U/L (38-126); Anion Gap 9 mmol/L; Blood Urea Nitrogen 11 mg/dL (7-17); Calcium 8.2 mg/dL (8.4-10.2); Carbon Dioxide 18 mmol/L (22-30); Chloride 102 mmol/L (98-107); Glucose 130 mg/dL (74-99); Potassium 4.8 mmol/L (3.5-5.1); Sodium 129 mmol/L (137-145); Total Bilirubin 4.3 mg/dL (0.2-1.3); Total Protein 6.2 g/dL (6.3-8.2)
[2019-01-10] MEDS: FAMOTIDINE 20 MG TAB PO SCH (08:37)
[2019-01-10] MEDS: ASCORBIC ACID 500 MG TAB PO SCH ×2 (08:37→19:59)
[2019-01-10] MEDS: FERROUS SULFATE 325 MG TAB PO SCH (08:37)
[2019-01-10] MEDS: MAGNESIUM OXIDE 400 MG TAB PO SCH (08:37)
[2019-01-10] MEDS: METOPROLOL TARTRATE 25 MG TAB PO SCH (08:37)
[2019-01-10] MEDS: DILTIAZEM ORAL 60 MG TAB PO SCH ×2 (08:38→19:59)
[2019-01-10] MEDS: INSULIN ASPART (NovoLOG) 100 UNIT/ML VIAL SQ SCH ×4 (08:39→19:59)
[2019-01-10] MEDS: metroNIDAZOLE-NS PMX 500 MG in SALINE 1 100ML.BAG IVPB SCH (08:39)
[2019-01-10] MEDS: ACETAMINOPHEN TAB 325 MG TAB PO PRN ×2 (08:44→15:09)
[2019-01-10 11:16] LABS: Glucose,Whole Blood 164 mg/dL (75-99)
[2019-01-10] MEDS: SODIUM CHLORIDE 0.9% 1,000 ML IV SCH (11:24)
--- NOTE | 2019-01-10 12:20 | P.PN ---
Subjective Progress Note Date: 01/10/19 88-year-old female one of my office patient of known for long time with known history of CAD, A. fib, mild memory loss, previous history of CVA/TIA, chronic kidney disease, type 2 diabetes on oral hypoglycemic agent smaller dose of insulin. Patient was in the hospital last few weeks ago for urinary tract infection and encephalopathy. Patient presented to the emergency department with worsening abdominal pain with epigastric and lower pain with nausea with no diarrhea or constipation continue to have mild urinary incontinence with recurrent UTI last episode was 2 weeks ago. Patient found to have severe hyponatremia, hypomagnesemia with significant electrolyte abnormality. X-ray of the abdomen didn't show any kidney stone and failed to show any obstruction at the time. Patient was very dehydrated hypotensive at the time was started on dental hydration admitted to the hospital CT of the abdomen was requested surprisingly her liver function tests were quite bit abnormal specially alkaline phosphatase with possibility of either metastasis or lesion in the bone at this point. CT of the abdomen was requested might go for total body bone scan as well. CT of the abdomen showed significant lymph node enlargement retroperitoneal along with adrenal mass we'll consult radiology intervention for possible CT- guided biopsy. The meanwhile workup for adrenal mass and metastasis in progress patient be seen oncology today. 01/08 and patient examined at bedside. Patient record does not recall conversation with Dr. Conklin about the mass on the adrenals or metastatic is. Detailed discussion was made with Brian patient's son who told patient has underlying dementia and does not recall any conversation. He does not want her mother to be involved in the diagnoses of cancer and the prognosis. Although he does want to proceed with PET scan to know the prognosis of the cancer, he might consider hospice in next couple of days. He declined biopsy initially but since he wants to know what kind of cancer we are dealing with he would like to talk to a physician prior to proceeding with biopsy. Vitals assess this morning patient is afebrile, heart rate ranging from 55-109 with blood pressure 107/70 saturating well on room air. WBC improved from 11-10.5, sodium 129 chloride [address] suggestive of enterocolitis, adrenal masses and retroperitoneal lymph nodes concerning for metastasis. Bone scan suggestive of osseous metastasis. Irconsult placed for biopsy but needs PET scan ordered for more assessable organ to biopsy.discussed with Dr. Alaniz who would hold on PET scan as bone scan is not comfirmative for osseous metastasis. CT chest ordered to look for lesion. PET scan will be ordered as outpatient as per Dr. alaniz. Patient may need CT adrenal to see if it is adenoma, pheochromocytoma or metastasis. CEA is elevated. 01/09: Patient examined at the bedside sleeping easily arousable. Patient does not recall the reason why she is in the hospital. She is unable to recall the conversation about the mass on the adrenals. Patient would like to go home. Patient denies any pain. Does have complaints of nausea however tolerating intake without any vomiting. Chest CT showed mediastinal adenopathy improved slightly compared to old exam. Bilateral pleural effusions with right basilar infiltrate and atelectasis increase compared to previous exam. Bilateral adrenal masses are central new compared to previous exam and consistent with metastatic disease. Femur x-ray shows lytic lesions in the shaft of the right femur corresponding to 2 foci of increased uptake on the bone scan yesterday. There is increased focal uptake in the mid shaft of the left femur on the bone scan yesterday without a corresponding radiographic abnormality on the x-ray today. Findings are consistent with tumor. Skull x-ray shows lytic lesions in the right parietal bone corresponds increased uptake on the bone scan yesterday and consistent with tumor. 01/10: Patient examined resting in bed. Patient appears to be more weak and lethargic compared to yesterday. Patient is moaning however when questioned she denies any pain or discomfort. Son is at the bedside. Discussed results of CT and x-rays. Upon discharge patient will go to a detention facility. Discussed with son the change from full code to no code son was agreeable. ROS Constitutional: Denies chills, Denies fever, Denies lethargy, Denies malaise, Denies poor appetite, Denies weakness, Denies weight loss Eyes: denies decreased vision, denies diplopia, denies discharge, denies pain Ears: deny: decreased hearing Ears, nose, mouth and throat: Denies dental pain, Denies headache, Denies nasal discharge, Denies nose pain Cardiovascular: Denies chest pain, Denies decreased exercise tolerance, Denies edema, Denies high blood pressure, Denies irregular heart beat, Denies palpitations, Denies paroxysmal nocturnal dyspnea, Denies rapid heart beat, Denies shortness of breath Respiratory: Denies congestion, Denies cough, Denies cough with sputum, Denies dyspnea, Denies home oxygen, Denies wheezing Gastrointestinal: Denies abdominal pain, Denies change in bowel habits, Denies coffee ground emesis, Denies early satiety, Denies excessive gas, Denies heartburn, Denies hematemesis, Denies hematochezia, Denies loss of appetite, Denies nausea, Denies vomiting Genitourinary: Denies dysuria, Denies flank pain, Denies kidney stones, Denies menorrhagia, Denies urgency, Denies urinary frequency Musculoskeletal: Reports left leg discomfort and decreased mobility due to pain Integumentary: Denies rash, Denies wounds, Denies brittle nails, Denies change in hair/nails, Denies darkening of skin Neurological: endorses balance difficulties, Denies change in speech, Denies double vision, Denies gait dysfunction, Denies loss of vision, Denies motor disturbance, Denies numbness, Denies paralysis, Denies paresthesias, Denies seizuresendorses change in mentation Psychiatric: Denies anxiety, Denies depression Endocrine: Denies excessive sweating, Denies excessive thirst, Denies high blood sugars, Denies palpitations Hematologic/Lymphatic: Denies easy bruising, Denies lymphadenopathy Objective - Vital Signs Vital signs: Vital Signs Temp 97.1 F L 01/10/19 11:57 Pulse 58 L 01/10/19 11:57 Resp 18 01/10/19 11:57 BP 98/60 01/10/19 11:57 Pulse Ox 94 L 01/10/19 11:57 Intake & Output 01/09/19 01/10/19 01/10/19 18:59 06:59 18:59 Weight 74.5 kg Other: Voiding Method Diaper Diaper Diaper Incontinent Incontinent Incontinent # Voids 2 2 - Exam General Appearance: Alert, cooperative, no distress, appears stated age. Neck HEENT: Supple, no lymphadenopathy, no thyroid enlargement, no carotid bruits. Lungs: Clear to auscultation without crackles or wheezes no rhonchi, no deformity. Chest Wall: Decrease expansion with deep inspiration no tenderness and no deformity was found on exam, no costochondral pain or discomfort. Heart: Irregular rate and rhythm, S1, S2 positive S3 +5 cm JVD with systolic murmur, no rub rub or gallop. Back: Symmetric, mild scoliosis with L-spine discomfort and slight discomfort in the CVA area. Abdomen: Soft positive bowel sounds slight discomfort in the mid and lower abdominal region area no rebound or rigidity not been able to feel any organomegaly. Extremities: Extremities normal, atraumatic, no cyanosis, trace edema Pulses: 2+ and symmetric. Skin: Skin color, texture, tugor normal, no rashes or lesions. Neurologic: Alert oriented x1able to answer appropriately but does have short- term memory loss, cranial nerves II through XII intact, positive generalized weakness - Labs CBC & Chem 7: 01/08/19 07:16 01/10/19 07:07 Labs: Abnormal Lab Results - Last 24 Hours (Table) 01/09/19 01/09/19 01/10/19 Range/Units 16:45 19:42 06:52 Sodium (137-145) mmol/L Carbon Dioxide (22-30) mmol/L Creatinine (0.52-1.04) mg/dL Glucose (74-99) mg/dL POC Glucose (mg/dL) 190 H 193 H 137 H (75-99) mg/dL Calcium (8.4-10.2) mg/dL Total Bilirubin (0.2-1.3) mg/dL AST (14-36) U/L Alkaline Phosphatase (38-126) U/L Total Protein (6.3-8.2) g/dL Albumin (3.5-5.0) g/dL 01/10/19 01/10/19 Range/Units 07:07 11:15 Sodium 129 L (137-145) mmol/L Carbon Dioxide 18 L (22-30) mmol/L Creatinine 0.51 L (0.52-1.04) mg/dL Glucose 130 H (74-99) mg/dL POC Glucose (mg/dL) 164 H (75-99) mg/dL Calcium 8.2 L (8.4-10.2) mg/dL Total Bilirubin 4.3 H (0.2-1.3) mg/dL AST 93 H (14-36) U/L Alkaline Phosphatase 303 H (38-126) U/L Total Protein 6.2 L (6.3-8.2) g/dL Albumin 2.5 L (3.5-5.0) g/dL Assessment and Plan Plan: 1. acute severe abdominal pain: CT abdomen suggestive of enterocolitis will start patient on levofloxacin and Flagyl for broad-spectrum antibiotic coverage 2. adrenal mass with lymph node enlargement: oncology consulted for retr operitoneal lymph nodes along with adrenal massCEA elevated likely primary colon cancer but unable to tell without the biopsy results. PET scan cancelled, CT results noted above, femur x-ray results noted above, skull x-ray results noted above 3. possible bone metastasis: Specially with elevated alkaline phosphatase patient will be going for total body bone scan. bone scan suggest osseous lesion s that can be seen in arthiris/ old fractures. Femur x-ray and skull x-ray results noted above. 4. severe hyponatremia: Continue gentle hydration and repeat CMP consult nephrology. 5. type 2 diabetes: Has been on metformin along with Accu-Chek with sliding scales coverage. 6. A. fib with RVR: Remain on metoprolol 25 g a day and still on anticoagulation with Eliquis 2.5 mg twice a day with no sign of bleed. 7. abnormal liver function test: Again with this is related to metastasis repeat liver function testing bilirubin 4.3, AST 93, ALT 52, alkaline phosphatase 303 8 COPD: Continue patient on Ventolin HFA and if need oxygen to keep pulse ox above 92 percentile. 9 CHF mostly diastolic dysfunction: Has been on furosemide 40 mg a day along with metoprolol 25 mg daily, patient could not tolerate David or ARB in the past. 10 hypothyroidism: On levothyroxine 112 g daily. goal of care. eryn Torres available on [phone]. son would like to switch patient to hospice once diagnosis is made. CODE STATUS: No code Discharge plan: Possible discharge Friday to a skilled facility Impression and plan of care have been directed as dictated by the signing physician. Caryn Spencer nurse practitioner acting as scribe for signing physician.
[2019-01-10] MEDS: LEVOFLOXACIN 500MG-D5W PMX 500 MG in DEXTROSE/WATER 1 100ML.BAG IVPB SCH (14:28)
[2019-01-10] MEDS: metroNIDAZOLE 500 MG TAB PO SCH ×2 (16:31→23:36)
[2019-01-10 16:57] LABS: Glucose,Whole Blood 158 mg/dL (75-99)
[2019-01-10 19:52] LABS: Glucose,Whole Blood 138 mg/dL (75-99)
[2019-01-10] MEDS: ALPRAZolam 0.25 MG TAB PO PRN (19:59)
[2019-01-10] MEDS: MULTIVITAMINS, THERA 1 EACH TAB PO SCH (19:59)
[2019-01-10] MEDS: MELATONIN 5 MG TABLET PO SCH (19:59)
[2019-01-10] MEDS: FUROSEMIDE 40 MG TAB PO SCH (23:36)
[2019-01-11] MEDS: ACETAMINOPHEN TAB 325 MG TAB PO PRN (03:57)
[2019-01-11] MEDS: SODIUM CHLORIDE 0.9% 1,000 ML IV SCH ×2 (03:58→14:00)
[2019-01-11] MEDS: LEVOTHYROXINE 112 MCG TAB PO SCH (05:58)
[2019-01-11 06:58] LABS: Glucose,Whole Blood 120 mg/dL (75-99)
[2019-01-11] MEDS: INSULIN ASPART (NovoLOG) 100 UNIT/ML VIAL SQ SCH ×4 (07:31→20:55)
[2019-01-11] MEDS: metroNIDAZOLE 500 MG TAB PO SCH ×2 (08:45→16:27)
[2019-01-11] MEDS: DILTIAZEM ORAL 60 MG TAB PO SCH ×2 (08:45→21:02)
[2019-01-11] MEDS: ASCORBIC ACID 500 MG TAB PO SCH (08:45)
[2019-01-11] MEDS: FERROUS SULFATE 325 MG TAB PO SCH (08:45)
[2019-01-11] MEDS: MAGNESIUM OXIDE 400 MG TAB PO SCH (08:45)
[2019-01-11] MEDS: METOPROLOL TARTRATE 25 MG TAB PO SCH (08:46)
[2019-01-11] MEDS ORDERED: metFORMIN 500 MG TAB PO SCH (09:00)
[2019-01-11 11:42] LABS: Glucose,Whole Blood 154 mg/dL (75-99)
--- NOTE | 2019-01-11 12:34 | P.PN ---
Subjective Progress Note Date: 01/11/19 88-year-old female one of my office patient of known for long time with known history of CAD, A. fib, mild memory loss, previous history of CVA/TIA, chronic kidney disease, type 2 diabetes on oral hypoglycemic agent smaller dose of insulin. Patient was in the hospital last few weeks ago for uri nary tract infection and encephalopathy. Patient presented to the emergency department with worsening abdominal pain with epigastric and lower pain with nausea with no diarrhea or constipation continue to have mild urinary incontinence with recurrent UTI last episode was 2 weeks ago. Patient found to have severe hyponatremia, hypomagnesemia with significant electrolyte abnormality. X-ray of the abdomen didn't show any kidney stone and failed to show any obstruction at the time. Patient was very dehydrated hypotensive at the time was started on dental hydration admitted to the hospital CT of the abdomen was requested surprisingly her liver function tests were quite bit abnormal specially alkaline phosphatase with possibility of either metastasis or lesion in the bone at this point. CT of the abdomen was requested might go for total body bone scan as well. CT of the abdomen showed significant lymph node enlargement retroperitoneal along with adrenal mass we'll consult radiology intervention for possible CT- guided biopsy. The meanwhile workup for adrenal mass and metastasis in progress patient be seen oncology today. 01/08 and patient examined at bedside. Patient record does not recall conversation with Dr. Conklin about the mass on the adrenals or metastatic is. Detailed discussion was made with Brian patient's son who told patient has underlying dementia and does not recall any conversation. He does not want her mother to be involved in the diagnoses of cancer and the prognosis. Although he does want to proceed with PET scan to know the prognosis of the cancer, he might consider hospice in next couple of days. He declined biopsy initially but since he wants to know what kind of cancer we are dealing with he would like to talk to a physician prior to proceeding with biopsy. Vitals assess this morning patient is afebrile, heart rate ranging from 55-109 with blood pressure 107/70 saturating well on room air. WBC improved from 11-10.5, sodium 129 chloride [address] suggestive of enterocolitis, adrenal masses and retroperitoneal lymph nodes concerning for metastasis. Bone scan suggestive of osseous metastasis. Irconsult placed for biopsy but needs PET scan ordered for more assessable organ to biopsy.discussed with Dr. Alaniz who would hold on PET scan as bone scan is not comfirmative for osseous metastasis. CT chest ordered to look for lesion. PET scan will be ordered as outpatient as per Dr. alaniz. Patient may need CT adrenal to see if it is adenoma, pheochromocytoma or metastasis. CEA is elevated. 01/09: Patient examined at the bedside sleeping easily arousable. Patient does not recall the reason why she is in the hospital. She is unable to recall the conversation about the mass on the adrenals. Patient would like to go home. Patient denies any pain. Does have complaints of nausea however tolerating intake without any vomiting. Chest CT showed mediastinal adenopathy improved slightly compared to old exam. Bilateral pleural effusions with right basilar infiltrate and atelectasis increase compared to previous exam. Bilateral adrenal masses are central new compared to previous exam and consistent with metastatic disease. Femur x-ray shows lytic lesions in the shaft of the right femur corresponding to 2 foci of increased uptake on the bone scan yesterday. There is increased focal uptake in the mid shaft of the left femur on the bone scan yesterday without a corresponding radiographic abnormality on the x-ray today. Findings are consistent with tumor. Skull x-ray shows lytic lesions in the right parietal bone corresponds increased uptake on the bone scan yesterday and consistent with tumor. 01/10: Patient examined resting in bed. Patient appears to be more weak and lethargic compared to yesterday. Patient is moaning however when questioned she denies any pain or discomfort. Son is at the bedside. Discussed results of CT and x-rays. Upon discharge patient will go to a [facility] facility. Discussed with son the change from full code to no code son was agreeable. 01/11: I had a long conversation with her brother the bedside and recommended for the patient to go for hospice care at this time due to metastatic cancer of unknown origin, and the family were in agreement she will be [facility] with hosp[facility] care. ROS Constitutional: Denies chills, Denies fever, Denies lethargy, Denies malaise, Denies poor appetite, Denies weakness, Denies weight loss Eyes: denies decreased vision, denies diplopia, denies discharge, denies pain Ears: deny: decreased hearing Ears, nose, mouth and throat: Denies dental pain, Denies headache, Denies nasal discharge, Denies nose pain Cardiovascular: Denies chest pain, Denies decreased exercise tolerance, Denies edema, Denies high blood pressure, Denies irregular heart beat, Denies palpitations, Denies paroxysmal nocturnal dyspnea, Denies rapid heart beat, Denies shortness of breath Respiratory: Denies congestion, Denies cough, Denies cough with sputum, Denies dyspnea, Denies home oxygen, Denies wheezing Gastrointestinal: Denies abdominal pain, Denies change in bowel habits, Denies coffee ground emesis, Denies early satiety, Denies excessive gas, Denies heartburn, Denies hematemesis, Denies hematochezia, Denies loss of appetite, Denies nausea, Denies vomiting Genitourinary: Denies dysuria, Denies flank pain, Denies kidney stones, Denies menorrhagia, Denies urgency, Denies urinary frequency Musculoskeletal: Reports left leg discomfort and decreased mobility due to pain Integumentary: Denies rash, Denies wounds, Denies brittle nails, Denies change in hair/nails, Denies darkening of skin Neurological: endorses balance difficulties, Denies change in speech, Denies double vision, Denies gait dysfunction, Denies loss of vision, Denies motor disturbance, Denies numbness, Denies paralysis, Denies paresthesias, Denies seizuresendorses change in mentation Psychiatric: Denies anxiety, Denies depression Endocrine: Denies excessive sweating, Denies excessive thirst, Denies high blood sugars, Denies palpitations Hematologic/Lymphatic: Denies easy bruising, Denies lymphadenopathy Objective - Vital Signs Vital signs: Vital Signs Temp 98.0 F 01/11/19 05:23 Pulse 106 H 01/11/19 05:23 Resp 18 01/11/19 05:23 BP 132/75 01/11/19 05:23 Pulse Ox 94 L 01/11/19 05:23 Intake & Output 01/10/19 01/11/19 01/11/19 18:59 06:59 18:59 Intake Total 1020 Balance 1020 Weight 78 kg Intake: Intake, IV Titration 900 Amount Sodium Chloride 0.9% 1, 900 000 ml @ 75 mls/hr IV . [id number] [facility] Rx#:[id number] Oral 120 Other: Voiding Method Diaper Diaper Incontinent Incontinent # Voids 4 3 - Exam - Exam General Appearance: Alert, cooperative, no distress, appears stated age. Neck HEENT: Supple, no lymphadenopathy, no thyroid enlargement, no carotid bruits. Lungs: Clear to auscultation without crackles or wheezes no rhonchi, no deformity. Chest Wall: Decrease expansion with deep inspiration no tenderness and no deformity was found on exam, no costochondral pain or discomfort. Heart: Irregular rate and rhythm, S1, S2 positive S3 +5 cm JVD with systolic murmur, no rub rub or gallop. Back: Symmetric, mild scoliosis with L-spine discomfort and slight discomfort in the CVA area. Abdomen: Soft positive bowel sounds slight discomfort in the mid and lower abdominal region area no rebound or rigidity not been able to feel any organomegaly. Extremities: Extremities normal, atraumatic, no cyanosis, trace edema Pulses: 2+ and symmetric. Skin: Skin color, texture, tugor normal, no rashes or lesions. Neurologic: Alert oriented x1able to answer appropriately but does have short- term memory loss, cranial nerves II through XII intact, positive generalized weakness - Labs CBC & Chem 7: 01/08/19 07:16 01/10/19 07:07 Labs: Abnormal Lab Results - Last 24 Hours (Table) 01/10/19 01/10/19 01/10/19 Range/Units 11:15 16:55 19:50 POC Glucose (mg/dL) 164 H 158 H 138 H (75-99) mg/dL 01/11/19 Range/Units 06:54 POC Glucose (mg/dL) 120 H (75-99) mg/dL Assessment and Plan Assessment: Assessment and Plan Plan: 1. acute severe abdominal pain: CT abdomen suggestive of enterocolitis will start patient on levofloxacin and Flagyl for broad-spectrum antibiotic coverage 2. adrenal mass with lymph node enlargement: oncology consulted for retroperitoneal lymph nodes along with adrenal massCEA elevated likely primary colon cancer but unable to tell without the biopsy results. PET scan cancelled, CT results noted above, femur x-ray results noted above, skull x-ray results noted above 3. possible bone metastasis: Specially with elevated alkaline phosphatase patient will be going for total body bone scan. bone scan suggest osseous lesions that can be seen in arthiris/ old fractures. Femur x-ray and skull x- ray results noted above. 4. severe hyponatremia: Continue gentle hydration and repeat CMP consult nephrology. 5. type 2 diabetes: Has been on metformin along with Accu-Chek with sliding scales coverage. 6. A. fib with RVR: Remain on metoprolol 25 g a day and still on anticoagulation with Eliquis 2.5 mg twice a day with no sign of bleed. 7. abnormal liver function test: Again with this is related to metastasis repeat liver function testing bilirubin 4.3, AST 93, ALT 52, alkaline phosphatase 303 8 COPD: Continue patient on Ventolin HFA and if need oxygen to keep pulse ox above 92 percentile. 9 CHF mostly diastolic dysfunction: Has been on furosemide 40 mg a day along with metoprolol 25 mg daily, patient could not tolerate David or ARB in the past. 10 hypothyroidism: On levothyroxine 112 g daily. goal of care. son Brian available on [phone]. son would like to switch patient to hospice once diagnosis is made. CODE STATUS: No code Patient will likely be transferred to [facility] assisted living facility in the next 24 hours with hospice.
[2019-01-11] MEDS ORDERED: LORazepam 1 MG TAB PO PRN (12:35)
[2019-01-11] MEDS: MORPHINE CONC SOLN 10mg/0.5mL ORAL SYRG PO PRN (13:21)
[2019-01-11] MEDS: ONDANSETRON 4 MG TAB PO PRN (13:33)
[2019-01-11 14:42] VITALS: BMI 26.1
[2019-01-11] MEDS ORDERED: LEVOFLOXACIN 500 MG TAB PO SCH (15:00)
--- NOTE | 2019-01-11 15:17 | CDI ---
Documentation Clarification Form Date: 01/11/2019 3:10:39 PM From: Jackelyn Brennan RN, CCDS Admit Date: 01/06/2019 10:56:00 PM Patient Name: Amena Piper Visit Number: [id number] ATTENTION: The Clinical Documentation Specialists (CDI) and [facility] Coding Staff appreciate your assistance in clarifying documentation. Please respond to the clarification below the line at the bottom and electronically sign. The CDI & [facility] Coding staff will review the response and follow-up if needed. Please note: Queries are made part of the Legal Health Record. If you have any questions, please contact the author of this message via ITS. Dr. Amena Gallego A diagnosis of anemia lacks specificity to accurately reflect your patients severity of condition and clarification is needed. History/Risk Factors: Chronic anemia, Recurrent UTIs, mild encephalopathy, rectal bleed, diverticular disease Clinical indicators: Hemoglobin: 11.2/11.1 Hematocrit: 33.8/34.5 Treatment: Monitoring labs Feosol 325 mg PO QD 1L IVF Bolus followed by 75 cc/hr In order to capture the severity of condition, please clarify the type of anemia and etiology if known: Acute blood loss anemia Acute on chronic blood loss anemia Chronic blood loss anemia Iron deficiency anemia Drug induced anemia Anemia due to malignancy Nutritional anemia Anemia of chronic kidney disease Unable to determine Other, please specify (Last Revision: April 2017) __Acute on chronic anemia due to malignancy ___ MTDD
--- NOTE | 2019-01-11 15:24 | CDI ---
Documentation Clarification Form Date: 01/11/2019 3:18:45 PM From: Jackelyn Brennan RN, CCDS Admit Date: 01/06/2019 10:56:00 PM Patient Name: Amena Piper Visit Number: [id number] ATTENTION: The Clinical Documentation Specialists (CDI) and [facility] Coding Staff appreciate your assistance in clarifying documentation. Please respond to the clarification below the line at the bottom and electronically sign. The CDI & [facility] Coding staff will review the response and follow-up if needed. Please note: Queries are made part of the Legal Health Record. If you have any questions, please contact the author of this message via ITS. Dr. Amena Gallego Atrial Fibrillation is documented in the H&P and Progress Notes and requires further specificity. History/Risk Factors: Atrial Fib, CAD, CKD Clinical Indicators: H&P and Progress Notes: "A-fib with RVR" EKG/telemetry: A. Fib Treatment: Lopressor 25 mg PO QD In your professional opinion, can you please clarify the type of Atrial Fibrillation, if known? Chronic/Permanent Paroxysmal Persistent Other, please specify Unable to determine (Last Revision: October 2017) Paroxysmal atrial fibrillation MTDD
[2019-01-11 17:46] LABS: Glucose,Whole Blood 116 mg/dL (75-99)
[2019-01-11 20:16] LABS: Glucose,Whole Blood 116 mg/dL (75-99)
[2019-01-11] MEDS: MULTIVITAMINS, THERA 1 EACH TAB PO SCH (21:02)
[2019-01-11] MEDS: MELATONIN 5 MG TABLET PO SCH (21:02)
[2019-01-12] MEDS: metroNIDAZOLE 500 MG TAB PO SCH ×2 (00:54→09:58)
[2019-01-12] MEDS: MORPHINE CONC SOLN 10mg/0.5mL ORAL SYRG PO PRN (03:05)
[2019-01-12] MEDS: SODIUM CHLORIDE 0.9% 1,000 ML IV SCH (04:13)
[2019-01-12 05:09] VITALS: BP 97/59; PULSE 115; RESP 16; TEMP 97.9
[2019-01-12] MEDS: LEVOTHYROXINE 112 MCG TAB PO SCH (05:53)
[2019-01-12 07:26] LABS: Glucose,Whole Blood 118 mg/dL (75-99)
[2019-01-12] MEDS: INSULIN ASPART (NovoLOG) 100 UNIT/ML VIAL SQ SCH ×2 (07:59→12:58)
[2019-01-12] MEDS: FERROUS SULFATE 325 MG TAB PO SCH (08:44)
[2019-01-12] MEDS: ONDANSETRON 4 MG TAB PO PRN (08:50)
[2019-01-12] MEDS: METOPROLOL TARTRATE 25 MG TAB PO SCH (09:58)
[2019-01-12] MEDS: DILTIAZEM ORAL 60 MG TAB PO SCH (09:58)
--- NOTE | 2019-01-12 10:49 | P.DS ---
Providers Date of admission: 01/06/19 22:56 Attending physician: Cliff Conklin Consults: 01/07/19 10:12 Consult Physician Routine Consulting Provider: David Alaniz Consult Reason/Comments: Adrenal mass ?? Mets. Do you want consulting provider notified?: Yes Primary care physician: Cliff Conklin [facility] Course: 88-year-old female one of my office patient of known for long time with known history of CAD, A. fib, mild memory loss, previous history of CVA/TIA, chronic kidney disease, type 2 diabetes on oral hypoglycemic agent smaller dose of insulin. Patient was in the hospital last few weeks ago for urinary tract infection and encephalopathy. Patient presented to the emergency department with worsening abdominal pain with epigastric and lower pain with nausea with no diarrhea or constipation continue to have mild urinary incontinence with recurrent UTI last episode was 2 weeks ago. Patient found to have severe hyponatremia, hypomagnesemia with significant electrolyte abnormality. X-ray of the abdomen didn't show any kidney stone and failed to show any obstruction at the time. Patient was very dehydrated hypotensive at the time was started on dental hydration admitted to the hospital CT of the abdomen was requested surprisingly her liver function tests were quite bit abnormal specially alkaline phosphatase with possibility of either metastasis or lesion in the bone at this point. CT of the abdomen was requested might go for total body bone scan as well. CT of the abdomen showed significant lymph node enlargement retroperitoneal along with adrenal mass we'll consult radiology intervention for possible CT- guided biopsy. The meanwhile workup for adrenal mass and metastasis in progress patient be seen oncology today. 01/08 and patient examined at bedside. Patient record does not recall conversation with Dr. Conklin about the mass on the adrenals or metastatic is. Detailed discussion was made with Brian patient's son who told patient has underlying dementia and does not recall any conversation. He does not want her mother to be involved in the diagnoses of cancer and the prognosis. Although he does want to proceed with PET scan to know the prognosis of the cancer, he might consider hospice in next couple of days. He declined biopsy initially but since he wants to know what kind of cancer we are dealing with he would like to talk to a physician prior to proceeding with biopsy. Vitals assess this morning patient is afebrile, heart rate ranging from 55-109 with blood pressure 107/70 saturating well on room air. WBC improved from 11-10.5, sodium 129 chloride [address] suggestive of enterocolitis, adrenal masses and retroperitoneal lymph nodes concerning for metastasis. Bone scan suggestive of osseous metastasis. Irconsult placed for biopsy but needs PET scan ordered for more assessable organ to biopsy.discussed with Dr. Alaniz who would hold on PET scan as bone scan is not comfirmative for osseous metastasis. CT chest ordered to look for lesion. PET scan will be ordered as outpatient as per Dr. alaniz. Patient may need CT adrenal to see if it is adenoma, pheochromocytoma or metastasis. CEA is elevated. 01/09: Patient examined at the bedside sleeping easily arousable. Patient does not recall the reason why she is in the hospital. She is unable to recall the conversation about the mass on the adrenals. Patient would like to go home. Patient denies any pain. Does have complaints of nausea however tolerating intake without any vomiting. Chest CT showed mediastinal adenopathy improved slightly compared to old exam. Bilateral pleural effusions with right basilar infiltrate and atelectasis increase compared to previous exam. Bilateral adrenal masses are central new compared to previous exam and consistent with metastatic disease. Femur x-ray shows lytic lesions in the shaft of the right femur corresponding to 2 foci of increased uptake on the bone scan yesterday. There is increased focal uptake in the mid shaft of the left femur on the bone scan yesterday without a corresponding radiographic abnormality on the x-ray today. Findings are consistent with tumor. Skull x-ray shows lytic lesions in the right parietal bone corresponds increased uptake on the bone scan yesterday and consistent with tumor. 01/10: Patient examined resting in bed. Patient appears to be more weak and lethargic compared to yesterday. Patient is moaning however when questioned she denies any pain or discomfort. Son is at the bedside. Discussed results of CT and x-rays. Upon discharge [facility] Discussed with son the change from full code to no code son was agreeable. 01/11: I had a long conversation with her brother the bedside and recommended for the patient to go for hospice care at this time due to metastatic cancer of unknown origin, and the family were in agreement she will be transferred to [facility] tomorrow with hospice care. Discharge diagnoses: 1. Colitis . 2. 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 3. Chronic diastolic heart failure. 4. Atrial fibrillation 5. Hypertension and hypertensive cardio vascular disease per 6. Hyperlipidemia. 7. Diabetes mellitus type 2. 8. Hypothyroidism. 9. Medical debility. Patient Condition at Discharge: Serious Plan - Discharge Summary Discharge Rx Participant: No New Discharge Prescriptions: New metroNIDAZOLE [Flagyl] 500 mg PO Q8HR #21 tab Levofloxacin [Levaquin] 500 mg PO Q24H #7 tab Albuterol Nebulized [Ventolin Nebulized] 2.5 mg INHALATION RT-Q6H PRN nebu PRN Reason: Shortness Of Breath LORazepam [Ativan] 1 mg PO Q6H 3 Days #12 tab MORPHINE ORAL JE CONC 20mg/mL [Roxanol Oral Soln Conc 20MG/ML] 10 mg PO Q4H PRN 3 Days #10 ml PRN Reason: Pain LORazepam [Ativan] 1 mg PO Q6H PRN #12 tab PRN Reason: Anxiety MORPHINE ORAL JE CONC 20mg/mL [Roxanol Oral Soln Conc 20MG/ML] 20 mg PO Q4HR PRN 3 Days #18 ml PRN Reason: Pain Continue Apixaban [Eliquis] 2.5 mg PO BID Acetaminophen Tab [Tylenol] 650 mg PO Q6HR PRN #0 tab PRN Reason: Mild Pain Or Fever > 100.5 Metoprolol Tartrate [Lopressor] 25 mg PO DAILY tab Levothyroxine Sodium [Synthroid] 112 mcg PO DAILY Diltiazem Oral [Cardizem*] 30 mg PO BID Magnesium Oxide [Magox 400] 400 mg PO DAILY Multivitamins, Thera [Multivitamin (formulary)] 1 tab PO HS Ferrous Sulfate [Iron (65 MG Elemental)] 325 mg PO DAILY Melatonin 5 mg PO HS Cranberry Fruit Extract [Cranberry] 500 mg PO DAILY diphenhydrAMINE HCL [Benadryl] 25 mg PO HS PRN PRN Reason: Insomnia Benzonatate [Tessalon Perles] 100 - 200 mg PO Q6H PRN PRN Reason: Cough guaiFENesin [Mucinex] 600 mg PO DAILY PRN PRN Reason: Congestion Omeprazole [PriLOSEC] 20 mg PO DAILY PRN PRN Reason: Heartburn Simethicone [Gas-X] 125 mg PO TID PRN PRN Reason: GAS Potassium 99 mg PO HS Furosemide [Lasix] 40 mg PO Q48H Ondansetron HCl [Zofran] 4 mg PO Q6H PRN PRN Reason: Nausea Discontinued Ascorbic Acid [Vitamin C] 500 mg PO BID Famotidine [Pepcid] 20 mg PO HS PRN PRN Reason: ACID REFLUX ALPRAZolam [Xanax] 0.25 mg PO DAILY PRN PRN Reason: Anxiety Albuterol Inhaler [Ventolin Hfa Inhaler] 1 - 2 puff INHALATION RT-Q6H PRN PRN Reason: Shortness Of Breath metFORMIN HCL [Glucophage] 1,000 mg PO BID Discharge Medication List Apixaban [Eliquis] 2.5 mg PO BID 01/26/14 [History] Acetaminophen Tab [Tylenol] 650 mg PO Q6HR PRN #0 tab 10/31/15 [Rx] Metoprolol Tartrate [Lopressor] 25 mg PO DAILY tab 11/06/16 [Rx] Diltiazem Oral [Cardizem*] 30 mg PO BID 03/25/17 [History] Levothyroxine Sodium [Synthroid] 112 mcg PO DAILY 03/25/17 [History] Magnesium Oxide [Magox 400] 400 mg PO DAILY 03/25/17 [History] Cranberry Fruit Extract [Cranberry] 500 mg PO DAILY 04/16/17 [History] Ferrous Sulfate [Iron (65 MG Elemental)] 325 mg PO DAILY 04/16/17 [History] Melatonin 5 mg PO HS 04/16/17 [History] Multivitamins, Thera [Multivitamin (formulary)] 1 tab PO HS 04/16/17 [History] Benzonatate [Tessalon Perles] 100 - 200 mg PO Q6H PRN 07/02/18 [History] diphenhydrAMINE HCL [Benadryl] 25 mg PO HS PRN 07/02/18 [History] guaiFENesin [Mucinex] 600 mg PO DAILY PRN 07/02/18 [History] Furosemide [Lasix] 40 mg PO Q48H 01/06/19 [History] Omeprazole [PriLOSEC] 20 mg PO DAILY PRN 01/06/19 [History] Ondansetron HCl [Zofran] 4 mg PO Q6H PRN 01/06/19 [History] Potassium 99 mg PO HS 01/06/19 [History] Simethicone [Gas-X] 125 mg PO TID PRN 01/06/19 [History] Albuterol Nebulized [Ventolin Nebulized] 2.5 mg INHALATION RT-Q6H PRN nebu 01/11/19 [Rx] LORazepam [Ativan] 1 mg PO Q6H 3 Days #12 tab 01/11/19 [Rx] LORazepam [Ativan] 1 mg PO Q6H PRN #12 tab 01/11/19 [Rx] Levofloxacin [Levaquin] 500 mg PO Q24H #7 tab 01/11/19 [Rx] MORPHINE ORAL JE CONC 20mg/mL [Roxanol Oral Soln Conc 20MG/ML] 10 mg PO Q4H PRN 3 Days #10 ml 01/11/19 [Rx] MORPHINE ORAL JE CONC 20mg/mL [Roxanol Oral Soln Conc 20MG/ML] 20 mg PO Q4HR PRN 3 Days #18 ml 01/11/19 [Rx] metroNIDAZOLE [Flagyl] 500 mg PO Q8HR #21 tab 01/11/19 [Rx] Follow up Appointment(s)/Referral(s): Cliff Conklin MD [Primary Care Provider] - 1-2 days Patient Instructions/Handouts: Heart Failure (DC), Dehydration (DC), Type 2 Diabetes in Adults: New Diagnosis (DC) Activity/Diet/Wound Care/Special Instructions: Fax discharge medication list to [facility] at [facility] home as soon as completed [phone]
--- NOTE | 2019-01-18 16:01 | CDI ---
Documentation Clarification Form Date: 01/18/2019 From: OLIVIER Gonzalez Phone: If you have question, contact Veronica Toth at [phone] M-F 8:30 am to 6pm Admit Date: 01/06/2019 10:56:00 PM Patient Name: Amena Piper Visit Number: [id number] Discharge Date: 01/12/2019 2:00:00 PM ATTENTION: The Clinical Documentation Specialists (CDI) and [facility] Coding Staff appreciate your assistance in clarifying documentation. Please respond to the clarification below the line at the bottom and electronically sign. The CDI & [facility] Coding staff will review the response and follow-up if needed. Please note: Queries are made part of the Legal Health Record. If you have any questions, please contact the author of this message via ITS. Dr. Amena Gallego Mrs. Piper presented with epigastric and RUQ abdominal pain along with anorexia. She has underlying dementia. CT of the abdomen showed significant retroperitoneal lymph node enlargement along with bilateral adrenal masses. Recommendation is for IR evaluation and biopsy along with possible PET scan. Femoral bone metastasis was also found. CT of the abdomen also suggestive of enterocolitis and levofloxacin and Flagyl are started. PN 01/11 states bilateral adrenal mass consistent with metastatic disease. The patient was then transferred to Home with Hospice Care. In your professional opinion, can you please clarify the etiology of the patients symptoms of abdominal pain and anoxia that caused her admission? Metastatic adrenal masses Entercolitis Other, please specify Unable to determine ____Metastatic cancer of unknown origin possible Adrenals. MTDD
== END 2019-01-12 14:00 | disposition home health service (06) | DRG 644 ==
LOC: EC 20:52 → 3NMEDONC 22:56
PROVIDERS: ADMIT Internal Medicine Geriatric Medicine; ATTEND Internal Medicine Geriatric Medicine
DX: C79.72 Secondary malignant neoplasm of left adrenal gland (principal); E87.1 Hypo-osmolality and hyponatremia; E87.2 Acidosis; I50.32 Chronic diastolic (congestive) heart failure; C79.51 Secondary malignant neoplasm of bone; K52.9 Noninfective gastroenteritis and colitis, unspecified; C79.71 Secondary malignant neoplasm of right adrenal gland; E86.0 Dehydration; I48.0 Paroxysmal atrial fibrillation; D63.0 Anemia in neoplastic disease; Z96.651 Presence of right artificial knee joint; E03.9 Hypothyroidism, unspecified; E11.9 Type 2 diabetes mellitus without complications; E78.5 Hyperlipidemia, unspecified; J44.9 Chronic obstructive pulmonary disease, unspecified; C80.1 Malignant (primary) neoplasm, unspecified; R59.0 Localized enlarged lymph nodes; R53.81 Other malaise; F03.90 Unspecified dementia, unspecified severity, without behavioral disturbance, psychotic disturbance, mood disturbance, and anxiety; I48.91 Unspecified atrial fibrillation; E83.42 Hypomagnesemia; I11.0 Hypertensive heart disease with heart failure; I25.10 Atherosclerotic heart disease of native coronary artery without angina pectoris; K57.90 Diverticulosis of intestine, part unspecified, without perforation or abscess without bleeding; Z51.5 Encounter for palliative care; I25.2 Old myocardial infarction; Z90.49 Acquired absence of other specified parts of digestive tract; Z95.1 Presence of aortocoronary bypass graft; Z95.0 Presence of cardiac pacemaker; Z98.42 Cataract extraction status, left eye; Z98.41 Cataract extraction status, right eye; Z87.440 Personal history of urinary (tract) infections; Z86.14 Personal history of Methicillin resistant Staphylococcus aureus infection; Z79.01 Long term (current) use of anticoagulants; Z79.890 Hormone replacement therapy; Z79.84 Long term (current) use of oral hypoglycemic drugs; Z79.899 Other long term (current) drug therapy; Z86.73 Personal history of transient ischemic attack (TIA), and cerebral infarction without residual deficits; Z80.1 Family history of malignant neoplasm of trachea, bronchus and lung; Z82.49 Family history of ischemic heart disease and other diseases of the circulatory system; Z88.5 Allergy status to narcotic agent; Z88.0 Allergy status to penicillin
CPT/HCPCS: 36415; 70260; 71260; 74022; 74176; 78306; 80053; 81003; 82248; 83036; 83690; 83735; 85025; 85049; 85610; 86301; 86304; 87086; 93005; 96361; 96365; 99285